=== PATIENT | male | born 1955 | race Caucasian/White ===

== ENCOUNTER 2016-10-09 13:23 | Inpatient (IN) | payer OTHER ==
[2016-10-09] VITALS (19 sets, daily range): BP systolic 127–168; BP diastolic 62–107; PULSE 62–94; RESP 16–18; TEMP 97.5–97.7; O2SAT 94–98
[~2016-10-09] VITALS: Ht 182.9 cm; Wt 87.9 kg
[~2016-10-09 13:23] MED LIST: NAPR550 PO; TRAM50 PO; Z.0.NO CURRENT MEDS
--- NOTE | 2016-10-09 13:54 | PD ---
HPI Chief Complaint: Headache Time Seen by Provider: 13:34 Travel History International Travel<30 days: No Contact w/Intl Traveler<30days: No Traveled to known affect area: No History of Present Illness HPI This patient saw his primary physician yesterday for a diffuse constellation of symptoms. She thought she was having a viral infection and advised Claritin. Today he reports he is no better and comes to the ER. He is complaining of headache. He has nausea and vomiting. No documented fever. No neck pain or stiffness. He has general malaise and some generalized weakness. No diarrhea. Symptoms severity is moderate. Duration 7 days. No alleviating factors PFSH Past Surgical History Abdominal Surgery: Yes (RIGHT GROIN-HERNIA REPAIR) Social History Alcohol Use: Yes (OCCAS. WINE) Tobacco Use: No Substance Use: No Allergies-Medications (Allergen,Severity, Reaction): Coded Allergies: No Known Allergies (Unverified , 10/09/16) Reported Meds & Prescriptions Reported Meds & Active Scripts Active Reported Claritin (Loratadine) 10 Mg Tab 10 Mg PO DAILY Review of Systems General / Constitutional: No: Fever Eyes: No: Visual changes HENT: Positive: Headaches Cardiovascular: No: Chest Pain or Discomfort Respiratory: No: Shortness of Breath Gastrointestinal: Positive: Nausea, Vomiting, No: Abdominal Pain Genitourinary: No: Dysuria Musculoskeletal: Positive: Weakness, No: Pain Skin: No Rash Neurologic: Positive: Weakness, Headache Psychiatric: No: Depression Endocrine: No: Polydipsia Hematologic/Lymphatic: No: Easy Bruising Physical Exam Narrative GENERAL: Well-nourished, well-developed patient with headache and nausea . SKIN: Focused skin assessment reveals no rash and nodules. Skin is Warm and dry. HEAD: Atraumatic. Normocephalic. EYES: Pupils equal and round. No scleral icterus. No injection or drainage. ENT: No nasal bleeding or discharge. Mucous membranes pink and moist. NECK: Trachea midline. No JVD. No meningeal signs CARDIOVASCULAR: Regular rate and rhythm. No murmur appreciated. RESPIRATORY: No accessory muscle use. Clear to auscultation. Breath sounds equal bilaterally. GASTROINTESTINAL: Abdomen soft, non-tender, nondistended. Hepatic and splenic margins not palpable. MUSCULOSKELETAL: No obvious deformities. No clubbing. No cyanosis. No edema. NEUROLOGICAL: Awake and alert. No obvious cranial nerve deficits. Motor grossly within normal limits. Normal speech. PSYCHIATRIC: Appropriate mood and affect; insight and judgment normal. Data Data Last Documented VS Vital Signs Date Time Temp Pulse Resp B/P Pulse Ox O2 Delivery O2 Flow Rate FiO2 10/09/16 15:03 83 16 152/99 96 Room Air 10/09/16 13:26 97.7 Orders Iv Access Insert/Monitor (10/09/16 13:47) Complete Blood Count With Diff (10/09/16 13:47) Basic Metabolic Panel (Bmp) (10/09/16 13:47) Ct Brain W/O Iv Contrast(Rout) (10/09/16 ) Ondansetron Inj (Zofran Inj) (10/09/16 14:00) Sodium Chlor 0.9% 1000 Ml Inj (Ns 1000 M (10/09/16 14:00) Morphine Inj (Morphine Inj) (10/09/16 14:00) Prothrombin Time / Inr (Pt) (10/09/16 15:05) Act Partial Throm Time (Ptt) (10/09/16 15:05) Admit Order (Ed Use Only) (10/09/16 15:12) Labs Laboratory Tests Test 10/09/16 10/09/16 14:10 15:05 White Blood Count 6.9 TH/MM3 Red Blood Count 5.26 MIL/MM3 Hemoglobin 15.3 GM/DL Hematocrit 47.5 % Mean Corpuscular Volume 90.2 FL Mean Corpuscular Hemoglobin 29.0 PG Mean Corpuscular Hemoglobin 32.2 % Concent Red Cell Distribution Width 13.8 % Platelet Count 237 TH/MM3 Mean Platelet Volume 8.7 FL Neutrophils (%) (Auto) 76.9 % Lymphocytes (%) (Auto) 12.4 % Monocytes (%) (Auto) 8.7 % Eosinophils (%) (Auto) 0.3 % Basophils (%) (Auto) 1.7 % Neutrophils # (Auto) 5.3 TH/MM3 Lymphocytes # (Auto) 0.9 TH/MM3 Monocytes # (Auto) 0.6 TH/MM3 Eosinophils # (Auto) 0.0 TH/MM3 Basophils # (Auto) 0.1 TH/MM3 CBC Comment DIFF FINAL Differential Comment Sodium Level 141 MEQ/L Potassium Level 4.0 MEQ/L Chloride Level 103 MEQ/L Carbon Dioxide Level 29.0 MEQ/L Anion Gap 9 MEQ/L Blood Urea Nitrogen 13 MG/DL Creatinine 1.20 MG/DL Estimat Glomerular Filtration 61 ML/MIN Rate Random Glucose 142 MG/DL Calcium Level 8.6 MG/DL Prothrombin Time 10.5 SEC Prothromb Time International 1.0 RATIO Ratio Activated Partial 23.8 SEC Thromboplast Time MDM Medical Decision Making Medical Screen Exam Complete: Yes Emergency Medical Condition: Yes Medical Record Reviewed: Yes Differential Diagnosis Intracranial hemorrhage, flu syndrome, meningitis Narrative Course I have reviewed the patient's electronic medical record. Patient was in May 2016 for hernia repair IV placed I gave him IV Zofran and IV morphine for symptom relief and 1 L normal saline IV bolus Brain CT shows a large right temporal hemorrhagic area with 3 mm midline shift CBC is normal Metabolic profile is normal Coagulation studies are added now after I look at the brain scan I discussed CT scan with radiologist Dr. Saleh. Difficult to know if this is a hemorrhagic bleed or there is underlying tumor or mass. Initially blood pressure elevated 160s systolic over 100 diastolic I'm rechecking now Neurosurgeon has been paged Multiple rechecks have been done, patient is critically ill Will be admitted to intensive care at the [facility] I reviewed with neurosurgeon Dr Flores. He has reviewed the CT as well. He recommends instituting Cardene drip which we are doing now and will maintain a systolic goal of 110. CT angiogram has been been ordered to evaluate for aneurysm Critical Care Narrative Aggregate critical care time was 78 minutes. Time to perform other separately billable procedures was not included in the critical care time. My time did not include minutes spent treating any other patients simultaneously or on activities that did not directly contribute to the patient's treatment. The services I provided to this patient were to treat and/or prevent clinically significant deterioration that could result in: Brain stem herniation, permanent neurologic deficit, cardiopulmonary arrest I provided critical care services requiring my management, as noted below: Chart data review, documentation time, medication orders and management, vital sign assessments/reviewing monitor data, ordering and reviewing lab tests, ordering and interpreting/reviewing x-rays and diagnostic studies, care of the patient and discussion of the patient with the admitting physicians. Diagnosis Primary Impression: Intracranial hemorrhage Additional Impression: Hypertensive emergency Admitting Information Admitting Physician Requests: Admit Maxx Doyle MD Oct 09, 2016 13:54
[2016-10-09] MEDS ORDERED: ONDANSETRON HCL 4 MG/2 ML VIAL IVP ONE (14:00)
[2016-10-09] MEDS: MORPHINE SULFATE 4 MG/ML INJ IV PUSH ONE ×2 (14:00→14:44)
[2016-10-09] MEDS ORDERED: SODIUM CHLOR 0.9% 1000 ML INJ 1,000 ML IV ONE (14:00)
[2016-10-09] MEDS ORDERED: LORA-361 PO (14:04)
[2016-10-09 14:20] LABS: AUTOMATED NEUTROPHIL # 5.3 TH/MM3 (1.8-7.7); BASOPHIL # 0.1 TH/MM3 (0-0.2); BASOPHIL % 1.7 % (0.0-2.0); EOSINOPHIL % 0.3 % (0.0-4.0); HEMATOCRIT 47.5 % (39.0-51.0); HEMO FLAGS DIFF FINAL; LYMPH % 12.4 % (9.0-44.0); LYMPHOCYTE # 0.9 TH/MM3 (1.0-4.8); MEAN CELL VOLUME 90.2 FL (80.0-100.0); MEAN CORPUSCULAR HGB CONC 32.2 % (32.0-36.0); MONO % 8.7 % (0.0-8.0); NEUT % 76.9 % (16.0-70.0); PLATELET COUNT 237 TH/MM3 (150-450); RED BLOOD COUNT 5.26 MIL/MM3 (4.50-5.90); RED CELL DISTRIBUTION WIDTH 13.8 % (11.6-17.2); WHITE BLOOD COUNT 6.9 TH/MM3 (4.0-11.0)
--- NOTE | 2016-10-09 14:44 | RADHPO ---
EXAM DATE/TIME: 10/09/2016 14:19 [facility] COMPARISON: No previous studies available for comparison. INDICATIONS : Headache RADIATION DOSE: 66.73 CTDIvol (mGy) MEDICAL HISTORY : Hernia. Carcinoma, basal cell. SURGICAL HISTORY : Inguinal hernia repair. ENCOUNTER: Initial ACUITY: 1 day PAIN SCALE: 7/10 LOCATION: cranial TECHNIQUE: Multiple contiguous axial images were obtained of the head. Using automated exposure control and adj ustment of the mA and/or kV according to patient size, radiation dose was kept as low as reasonably a chievable to obtain optimal diagnostic quality images. FINDINGS: The examination demonstrates a hyperdense mass centered in the right temporal region measured 4.3 x 3 .2 cm in AP and transverse mentioned. There is a small amount of surrounding edema, and possible exte nsion into the right temporal horn. This is consistent with an acute hematoma, and a hemorrhagic mass is difficult to exclude. There is 3.6 mm of right to left shift. The osseous structures are intact. CONCLUSION: Acute hematoma right temporal region. Possible extension into the right temporal horn. Possibility of underlying mass is difficult to exclude. Reinaldo Saleh MD on October 09, 2016 at 14:40 Board Certified Radiologist. This report was verified electronically.
[2016-10-09 15:30] LABS: APTT (PATIENT) 23.8 SEC (24.3-30.1); PROTHROMBIN TIME - PATIENT 10.5 SEC (9.8-11.6)
[2016-10-09] MEDS ORDERED: NALOXONE HCL 0.4 MG/ML AMP IV PRN (16:00)
[2016-10-09] MEDS ORDERED: SODIUM CHLORIDE 0.9% FLUSH 5 ML FLUSH IVF PRN (16:00)
[2016-10-09] MEDS: niCARdipine INJ 25 MG in SODIUM CHLOR 0.9% 250 ML INJ 250 ML IV SCH ×2 (16:32→21:52)
[2016-10-09] MEDS: D5-NS + KCL 20 MEQ INJ 1,000 ML IV SCH (16:32)
[2016-10-09] MEDS: HYDROmorphone HCL PF 1 MG/ML VIAL IV PRN ×3 (16:51→22:47)
--- NOTE | 2016-10-09 18:04 | HHI.HP ---
HPI Service Neurosurgery Primary Care Physician Unknown Chief Complaint: Headache, nausea History of Present Illness 61-year-old male presents to the emergency room today with history of approximately 7 days headache, cough, nausea and vomiting generalized malaise. Recent trip to the [facility]. Was seen by primary care physician yesterday. Headache has become very severe the past couple of days. No fevers or chills. Positive neck pain without significant stiffness. Positive myalgia. No skin rash Review of Systems Constitutional: COMPLAINS OF: Fatigue, DENIES: Fever, Dizziness Endocrine: DENIES: Heat/cold intolerance Eyes: DENIES: Blurred vision, Diplopia Ears, nose, mouth, throat: COMPLAINS OF: Nasal discharge, Running Nose, DENIES : Hearing loss, Vertigo, Sinus Pain Respiratory: COMPLAINS OF: Cough, DENIES: Sputum production, Shortness of breath Cardiovascular: DENIES: Chest pain, Palpitations Gastrointestinal: COMPLAINS OF: Nausea, Vomiting, DENIES: Abdominal pain Musculoskeletal: COMPLAINS OF: Joint pain, Muscle aches, Neck pain Integumentary: DENIES: Pruritus Hematologic/lymphatic: DENIES: Bruising Neurologic: COMPLAINS OF: Headache, DENIES: Abnormal gait, Seizures, Poor Balance Psychiatric: DENIES: Confusion Past Family Social History Allergies: Coded Allergies: *MDRO Multi-Drug Resistant Organism (Verified Adverse Reaction, Unknown, ) MRSA PCR screen POSITIVE 10/10/16 Past Medical History Basal cell carcinoma Past Surgical History Excision basal cell carcinoma Hernia repair Reported Medications Reported Meds & Active Scripts Active Reported Claritin (Loratadine) 10 Mg Tab 10 Mg PO DAILY Family History Mother with Alzheimer's. History of cancer in his father Social History Drinks wine with meals No cigarette use Denies illicit drug use Physical Exam Vital Signs Vital Signs Date Time Temp Pulse Resp B/P Pulse Ox O2 Delivery O2 Flow Rate FiO2 10/09/16 17:37 16 10/09/16 17:30 90 16 141/80 97 Room Air 10/09/16 17:05 84 16 151/84 97 Room Air 10/09/16 17:00 90 16 97 Room Air 10/09/16 16:30 79 16 161/90 97 Room Air 10/09/16 16:00 77 16 150/96 97 Room Air 10/09/16 15:35 81 16 98 Room Air 10/09/16 15:33 81 16 168/99 97 Room Air 10/09/16 15:03 83 16 152/99 96 Room Air 10/09/16 14:05 62 16 161/62 98 Room Air 10/09/16 13:45 68 16 98 Room Air 10/09/16 13:26 97.7 82 16 154/107 98 Physical Exam GENERAL: This is a well-nourished, well-developed patient, in no apparent distress. SKIN: No rashes, ecchymoses or lesions. HEAD: No lacerations or contusions EYES: Sclerae are clear and nonicteric. No periorbital edema or ecchymosis ENT: No CSF otorrhea or rhinorrhea. No facial fracture or deformity NECK: Supple, nontender, no meningeal signs. CARDIOVASCULAR: Regular rate and rhythm without murmurs, gallops, or rubs. RESPIRATORY: Clear to auscultation. Breath sounds equal bilaterally. No wheezes , rales, or rhonchi. GASTROINTESTINAL: Abdomen soft, non-tender, nondistended. No hepato-splenomegaly , or palpable masses. No guarding. Normal bowel sounds MUSCULOSKELETAL: Extremities without cyanosis, or edema. No joint tenderness, effusion, or edema noted. No calf tenderness. Posterior tibial pulse 2+ bilateral NEUROLOGICAL: Awake and alert Oriented X 3 Speech is clear Conversant and appropriate Follow simple commands well Answers questions appropriately Reasonable judgment and insight Recent and remote memory are intact No evidence of anxiety or depression Pupils are equal and reactive to accommodation. Extra-ocular movements, visual pereira to confrontation, facial sensorimotor, tongue, palate, sternocleidomastoid testing, hearing to finger rub testing, and bilateral shoulder shrug are all intact. Sensation is intact to light touch in all extremities Strength normal major flexion and extension groups all extremities Jason's absent bilaterally No ankle clonus Plantar responses absent bilateral Fine motor movements intact upper extremities Laboratory Laboratory Tests Test 10/09/16 10/09/16 14:10 15:05 White Blood Count 6.9 Red Blood Count 5.26 Hemoglobin 15.3 Hematocrit 47.5 Mean Corpuscular Volume 90.2 Mean Corpuscular Hemoglobin 29.0 Mean Corpuscular Hemoglobin 32.2 Concent Red Cell Distribution Width 13.8 Platelet Count 237 Mean Platelet Volume 8.7 Neutrophils (%) (Auto) 76.9 Lymphocytes (%) (Auto) 12.4 Monocytes (%) (Auto) 8.7 Eosinophils (%) (Auto) 0.3 Basophils (%) (Auto) 1.7 Neutrophils # (Auto) 5.3 Lymphocytes # (Auto) 0.9 Monocytes # (Auto) 0.6 Eosinophils # (Auto) 0.0 Basophils # (Auto) 0.1 CBC Comment DIFF FINAL Differential Comment Sodium Level 141 Potassium Level 4.0 Chloride Level 103 Carbon Dioxide Level 29.0 Anion Gap 9 Blood Urea Nitrogen 13 Creatinine 1.20 Estimat Glomerular Filtration 61 Rate Random Glucose 142 Calcium Level 8.6 Prothrombin Time 10.5 Prothromb Time International 1.0 Ratio Activated Partial 23.8 Thromboplast Time Result Diagram: 10/09/16 1410 10/09/16 1410 Imaging 10/09/16 CT scan head images reviewed by the undersigned. Head CT 10/09/16 0000 Signed Impressions: Service Date/Time: Sunday, October 09, 2016 14:19 - CONCLUSION: Acute hematoma right temporal region. Possible extension into the right temporal horn. Possibility of underlying mass is difficult to exclude. Reinaldo Saleh MD Assessment and Plan Assessment and Plan Impression: 1. Right temporal intracranial hemorrhage. Assessment for possible underlying mass, aneurysm 2. Hypertension Plan: Admit intensive care unit CT angiogram head and neck Plan MRI pending CT angiogram results Close neurologic checks and vital signs Hypertension management. 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 Leonidas Flores MD Oct 09, 2016 18:04
[2016-10-09] MEDS ORDERED: IOHEXOL 350 MG/ML 10 ML VIAL (for RAD DIAG) IV ONE (18:33)
--- NOTE | 2016-10-09 18:42 | RADHPO ---
EXAM DATE/TIME: 10/09/2016 17:11 [facility] COMPARISON: No previous studies available for comparison. INDICATIONS : Intercranial hemorrhage. IV CONTRAST: 75 cc Omnipaque 350 (iohexol) IV ; Cumulative dose for multiple exams. RADIATION DOSE: 42.30 CTDIvol (mGy) ; Combined studies MEDICAL HISTORY : Gastroesophageal reflux disease. SURGICAL HISTORY : None. ENCOUNTER: Initial ACUITY: 3 days PAIN SCALE: 9/10 LOCATION: Bilateral cranial Elevated flow velocities and ICA/CCA ratios have been found to correlate with increased degrees of vessel stenosis, calculated as percentage of diameter relative to a normal segment of distal ICA/CCA. TECHNIQUE: Volumetric scanning was performed using a multirow detector CT scanner. The data was post processed with a variety of visualization algorithms including full-volume maximum intensity projection, multip lanar sliding thin-slab reformation, curved-planar reformation, and surface-rendering techniques. Us ing automated exposure control and adjustment of the mA and/or kV according to patient size, radiatio n dose was kept as low as reasonably achievable to obtain optimal diagnostic quality images. FINDINGS: AORTIC ARCH: There is a three-vessel origin of the great vessels from the aorta. No evidence of ostial narrowing. RIGHT CAROTID: The common carotid artery is intact. The carotid bulb has a normal configuration without ulceration o r narrowing. The internal carotid artery lumen is smooth without stenosis. The external carotid suzie ry is intact. LEFT CAROTID: The common carotid artery is intact. The carotid bulb has a normal configuration without ulceration or narrowing. The internal carotid artery lumen is smooth without stenosis. The external carotid ar star is intact. VERTEBRALS: The vertebral arteries have a symmetric diameter. No stenotic lesions are seen. CONCLUSION: Unremarkable exam. Max Ac MD on October 09, 2016 at 18:38 Board Certified Radiologist. This report was verified electronically.
--- NOTE | 2016-10-09 18:51 | RADHPO ---
EXAM DATE/TIME: 10/09/2016 17:11 [facility] COMPARISON: CT BRAIN W/O CONTRAST, October 09, 2016, 14:19. INDICATIONS : Intercranial hemorrhage. IV CONTRAST: 75 cc Omnipaque 350 (iohexol) IV ; Cumulative dose for multiple exams. RADIATION DOSE: 42.30 CTDIvol (mGy) ; Combined studies MEDICAL HISTORY : Gastroesophageal reflux disease. SURGICAL HISTORY : None. ENCOUNTER: Initial ACUITY: 3 days PAIN SCALE: 9/10 LOCATION: Bilateral cranial TECHNIQUE: Volumetric scanning was performed using a multi-row detector CT scanner. The data was post processed with a variety of visualization algorithms including full volume maximum intensity projection, multi -planar sliding thin slab reformation, curved planar reformation, and surface rendering techniques. Using automated exposure control and adjustment of the mA and/or kV according to patient size, radiat ion dose was kept as low as reasonably achievable to obtain optimal diagnostic quality images. FINDINGS: There is excellent visualization of the major intracranial arteries out to the second-order branch ve ssels. There is no evidence for aneurysm, vessel truncation or stenosis, and no evidence for vascula r malformation. The known intracranial hemorrhage in the right temporal region is again visualized. There is mild mas s effect on the adjacent vasculature. CONCLUSION: No evidence of aneurysm or arteriovenous malformation. Max Ac MD on October 09, 2016 at 18:45 Board Certified Radiologist. This report was verified electronically.
[2016-10-09] MEDS: ONDANSETRON HCL 4 MG/2 ML VIAL IV PRN (19:08)
[2016-10-09] MEDS: SODIUM CHLORIDE 0.9% FLUSH 5 ML FLUSH IVF SCH (21:00)
[2016-10-09] MEDS: DOCUSATE SODIUM 100 MG CAP PO SCH (21:00)
[2016-10-10] VITALS (16 sets, daily range): BP systolic 106–144; BP diastolic 57–86; PULSE 66–84; RESP 12–22; TEMP 97.5–98.4; O2SAT 94–97
[2016-10-10] MEDS: D5-NS + KCL 20 MEQ INJ 1,000 ML IV SCH (01:55)
[2016-10-10] MEDS: ONDANSETRON HCL 4 MG/2 ML VIAL IV PRN ×4 (01:55→22:31)
[2016-10-10] MEDS: niCARdipine INJ 25 MG in SODIUM CHLOR 0.9% 250 ML INJ 250 ML IV SCH ×6 (02:22→16:17)
--- NOTE | 2016-10-10 02:49 | PD.CONS ---
HPI Service Critical Care Medicine Consult Requested By Dr. Flores Reason for Consult Critical care management following intracerebral hemorrhage Primary Care Physician Unknown History of Present Illness 61-year-old [id number] male who presents to [facility] with 1 week history of headache, myalgias, cough after traveling in the [place]. He had seen his primary care physician for this and was prescribed an antihistamine. For the last 2 days his headache has been worse, 9 out of 10 in severity, with associated neck pain and vomiting. No fever. No seizures. He underwent workup in the emergency department which included CT brain that showed intracerebral hemorrhage in the right temporal lobe 4.3 x 3.2 cm with some surrounding edema and 3.6 cm of right to left shift. He has not been under treatment for hypertension but states his blood pressure has occasionally been elevated at physician appointments. His blood pressure was 154/107 upon arrival to the ED and he is currently on Cardene at 5 mg per hour to maintain goal blood pressure. No unintended weight loss CTA head and neck is negative for vascular abnormality Past Family Social History Allergies: Coded Allergies: No Known Allergies (Unverified , 10/09/16) Past Medical History Hematospermia for which he has undergone urologic evaluation as outpatient Basal cell carcinoma of the face Past Surgical History Right inguinal hernia repair in 2016 Basal cell carcinoma excision his eye in 2017 Reported Medications None Active Ordered Medications Current Medications Medications (Trade) Dose Ordered Sig/Munir Route Start Time Stop Time Status Last Admin ([place] 5-325 Mg) 1 tab Q4H PRN PO 10/09/16 16:00 (Percocet 10-325 Mg) 1 tab Q6H PRN PO 10/09/16 16:00 (Dilaudid Pf Inj) 0.5 mg Q3H PRN IV 10/09/16 16:00 10/09/16 19:46 (Dilaudid Pf Inj) 1 mg Q3H PRN IV 10/09/16 16:00 10/09/16 22:47 (Narcan Inj) 0.4 mg UNSCH PRN IV 10/09/16 16:00 (NS Flush) 2 ml UNSCH PRN IVF 10/09/16 16:00 IV Flush 2 ml 2 ml BID IVF 10/09/16 21:00 10/09/16 21:00 Potassium Chloride/Dextrose/ Sod Cl 1,000 ml @ 100 mls/hr Q10H IV 10/09/16 16:30 10/10/16 01:55 (Cardene Inj/NS 250 ml Inj) 260 ml @ 0 mls/hr TITRATE IV 10/09/16 16:00 10/10/16 02:22 (Colace) 100 mg BID PO 10/09/16 21:00 (Protonix Inj) 40 mg DAILY IVP 10/10/16 09:00 (Zofran Inj) 4 mg Q6H PRN IV 10/09/16 16:00 10/10/16 01:55 Family History His father of colorectal cancer in his 60s Mother of Alzheimer's disease Social History He is a lifetime nonsmoker Drinks one glass of wine per night Denies use of tobacco or illicit drugs Is He was recently visiting the [facility] in [place] 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 Physical Exam Vital Signs Vital Signs Date Time Temp Pulse Resp B/P Pulse Ox O2 Delivery O2 Flow Rate FiO2 10/10/16 02:00 128/73 10/10/16 01:00 125/71 10/10/16 00:00 69 10/10/16 00:00 97.5 71 12 121/69 95 10/09/16 23:00 131/70 10/09/16 22:00 128/74 10/09/16 22:00 76 10/09/16 21:00 134/77 10/09/16 20:50 88 16 130/79 95 10/09/16 20:40 86 18 127/76 95 Room Air 10/09/16 20:28 18 10/09/16 20:20 88 17 133/80 94 Room Air 10/09/16 19:50 90 18 132/77 96 Room Air 10/09/16 19:28 94 18 132/82 95 Room Air 10/09/16 19:00 97.5 90 18 133/78 94 Room Air 10/09/16 18:30 86 16 128/81 96 Room Air 10/09/16 18:03 90 16 138/83 96 Room Air 10/09/16 18:00 87 16 96 Room Air 10/09/16 17:37 16 10/09/16 17:30 90 16 141/80 97 Room Air 10/09/16 17:05 84 16 151/84 97 Room Air 10/09/16 17:00 90 16 97 Room Air 10/09/16 16:30 79 16 161/90 97 Room Air 10/09/16 16:00 77 16 150/96 97 Room Air 10/09/16 15:35 81 16 98 Room Air 10/09/16 15:33 81 16 168/99 97 Room Air 10/09/16 15:03 83 16 152/99 96 Room Air 10/09/16 14:05 62 16 161/62 98 Room Air 10/09/16 13:45 68 16 98 Room Air 10/09/16 13:26 97.7 82 16 154/107 98 Physical Exam Temp 97.5 blood pressure 121/61 pulse 81 sats 95% on room air Drips: Cardene 5 mill grams per hour 0.9 NaCl with 20 mEq of KCl per liter at 100 mL per hour GENERAL: Well-nourished, well-developed male who is sitting up in ISC bed, dry heaving. SKIN: Warm and dry. HEAD: Atraumatic. Normocephalic. EYES: Pupils equal and round, 3 mm briskly reactive. No scleral icterus. No injection or drainage. ENT: No nasal bleeding or discharge. Mucous membranes pink and moist. NECK: Trachea midline. No JVD. CARDIOVASCULAR: Regular rate and rhythm, sinus rhythm on the monitor. intermittent 2/6 systolic murmur LSB noted with inspiration. RESPIRATORY: No accessory muscle use. Clear to auscultation. Breath sounds equal bilaterally. GASTROINTESTINAL: Abdomen soft, non-tender, nondistended. Bowel sounds present MUSCULOSKELETAL: Extremities without clubbing, cyanosis, or edema. No obvious deformities. NEUROLOGICAL: Awake and alert. No obvious cranial nerve deficits. No facial droop. Sensation intact throughout. Strength 5/5 all extremities. Laboratory Laboratory Tests Test 10/09/16 10/09/16 14:10 15:05 White Blood Count 6.9 Red Blood Count 5.26 Hemoglobin 15.3 Hematocrit 47.5 Mean Corpuscular Volume 90.2 Mean Corpuscular Hemoglobin 29.0 Mean Corpuscular Hemoglobin 32.2 Concent Red Cell Distribution Width 13.8 Platelet Count 237 Mean Platelet Volume 8.7 Neutrophils (%) (Auto) 76.9 Lymphocytes (%) (Auto) 12.4 Monocytes (%) (Auto) 8.7 Eosinophils (%) (Auto) 0.3 Basophils (%) (Auto) 1.7 Neutrophils # (Auto) 5.3 Lymphocytes # (Auto) 0.9 Monocytes # (Auto) 0.6 Eosinophils # (Auto) 0.0 Basophils # (Auto) 0.1 CBC Comment DIFF FINAL Differential Comment Sodium Level 141 Potassium Level 4.0 Chloride Level 103 Carbon Dioxide Level 29.0 Anion Gap 9 Blood Urea Nitrogen 13 Creatinine 1.20 Estimat Glomerular Filtration 61 Rate Random Glucose 142 Calcium Level 8.6 Prothrombin Time 10.5 Prothromb Time International 1.0 Ratio Activated Partial 23.8 Thromboplast Time Result Diagram: 10/09/16 1410 10/09/16 1410 Assessment and Plan Assessment and Plan NEURO: Intracerebral hemorrhage, right temporal lobe CTA negative for vascular abnormality. Obtain MRI with and without contrast to evaluate for mass lesion Cardene to maintain systolic blood pressure less than 140 Avoid hypoxemia, hyponatremia. Maintain euvolemia Oxycodone 5/325 as needed for pain. Dilaudid 0.5-1 mg IV when necessary breakthrough pain RESP: Incentive spirometry every hour awake CV: Malignant hypertension Manage acutely with cardene drip, target SBP <140. Then transition to po antihypertensives F/u Echo GI: Nausea Zofran prn Colace 100 mg by mouth twice a day for bowel regimen FEN/RENAL: Monitor intake and output. Monitor electrolytes. Replace electrolytes as indicated per ICU electrolyte replacement protocol. 0.9 NaCl with 20 mEq KCl per liter at 85 mL per hour ID: Monitor for signs and symptoms of infection HEME: Coags normal. Hemoglobin normal with no acute hematologic issues ENDO: Mild hyperglycemia Monitor bedside glucose and initiate low-dose insulin sliding scale as indicated PROPH: SCDs for DVT prophylaxis. Avoid pharmacologic DVT prophylaxis at this time due to acute intracranial hemorrhage. Protonix 40 mg IV daily for stress ulcer prophylaxis ACCESS: Peripheral IV providing adequate access at this time. Place art line for hemodynamic monitoring Full code Patient and his updated at bedside regarding plan of care and expected course. Level 3 consult Arabella Llanos MD Oct 10, 2016 02:49
[2016-10-10] MEDS ORDERED: SODIUM PHOSPHATE INJ 30 MMOL in SODIUM CHLOR 0.9% 250 ML INJ 240 ML IV PRN (03:00)
[2016-10-10] MEDS ORDERED: POTASSIUM PHOSPHATE INJ 30 MMOL in SODIUM CHLOR 0.9% 250 ML INJ 250 ML IV PRN (03:00)
[2016-10-10] MEDS ORDERED: POTASSIUM CHLOR 20 MEQ PREMIX 100 ML IV PRN ×2 (03:00)
[2016-10-10] MEDS ORDERED: MAGNESIUM OXIDE 400 MG TAB PO PRN (03:00)
[2016-10-10] MEDS ORDERED: POTASSIUM CHLOR 40 MEQ PREMIX 100 ML IV PRN ×2 (03:00)
[2016-10-10] MEDS ORDERED: POTASSIUM PHOSPHATE MONOBASIC 500 MG TAB PO/TUBE PRN (03:00)
[2016-10-10] MEDS ORDERED: MAGNESIUM SULFATE INJ 4 GM in SODIUM CHLORIDE 0.9% INJ 92 ML IV PRN (03:00)
[2016-10-10] MEDS ORDERED: POTASSIUM PHOSPHATE MONOBASIC 500 MG TAB PO PRN (03:00)
[2016-10-10] MEDS ORDERED: MAGNESIUM SULFATE INJ 2 GM in SODIUM CHLORIDE 0.9% INJ 96 ML IV PRN (03:00)
[2016-10-10] MEDS ORDERED: DEXTROSE 50% IN WATER 50 ML VIAL(D50) IV PUSH PRN (03:15)
[2016-10-10] MEDS ORDERED: GLUCAGON 1 MG/ML VIAL OTHER PRN (03:15)
[2016-10-10] MEDS ORDERED: CALCIUM CARBONATE 500 MG CHEWABLE TAB CHEW ONE (03:30)
[2016-10-10] MEDS: NS + KCL 20 MEQ INJ 1,000 ML IV SCH ×2 (03:30→14:26)
[2016-10-10] MEDS: INSULIN ASPART SUPPLEMENTAL SCALE SQ SCH ×4 (05:41→21:00)
[2016-10-10] MEDS ORDERED: LABETALOL HCL 100 MG/20 ML VIAL IV PUSH PRN (05:45)
[2016-10-10] MEDS: hydrALAZINE HCL 20 MG/ML VIAL IV PUSH PRN ×2 (05:49→10:21)
--- NOTE | 2016-10-10 06:06 | RADRPT ---
EXAM DATE/TIME: 10/10/2016 04:25 [facility] COMPARISON: CT BRAIN W/O CONTRAST, October 09, 2016, 14:19. INDICATIONS : Evaluate known intracerebral hemorrhage. RADIATION DOSE: 41.17 CTDIvol (mGy) MEDICAL HISTORY : Hernia. Carcinoma, basal cell. SURGICAL HISTORY : Inguinal hernia repair. ENCOUNTER: Subsequent ACUITY: 2 days PAIN SCALE: 2/10 LOCATION: cranial TECHNIQUE: Multiple contiguous axial images were obtained of the head. Using automated exposure control and adj ustment of the mA and/or kV according to patient size, radiation dose was kept as low as reasonably a chievable to obtain optimal diagnostic quality images. FINDINGS: CEREBRUM: The right temporal hemorrhage measuring 3.8 x 2.2 cm appears slightly smaller. Adjacent vasogenic chas ma and minimal right to left midline shift of 2 mm. There is intraventricular hemorrhage in the poste rior horns of both lateral ventricles greater on the right. No ventricular dilatation. No acute infar ction. POSTERIOR FOSSA: The cerebellum and brainstem are intact. The 4th ventricle is midline. The cerebellopontine angle i s unremarkable. EXTRACRANIAL: The visualized portion of the orbits is intact. SKULL: The calvaria is intact. No evidence of skull fracture. CONCLUSION: 1. Right temporal hemorrhage slightly less prominent. 2. Right to left midline shift of 2 mm. 3. Minimal intraventricular hemorrhage. Satish Sun MD on October 10, 2016 at 6:02 Board Certified Radiologist. This report was verified electronically.
[2016-10-10] MEDS: HYDROmorphone HCL PF 1 MG/ML VIAL IV PRN ×3 (06:24→22:10)
[2016-10-10] MEDS: amLODIPine BESYLATE 5 MG TAB PO SCH (08:52)
[2016-10-10] MEDS: DOCUSATE SODIUM 100 MG CAP PO SCH ×2 (08:52→22:10)
[2016-10-10] MEDS: SODIUM CHLORIDE 0.9% FLUSH 5 ML FLUSH IVF SCH ×2 (08:53→21:00)
[2016-10-10] MEDS: PANTOPRAZOLE SODIUM 40 MG VIAL IVP SCH (08:53)
[2016-10-10] MEDS ORDERED: GADODIAMIDE PF 287 MG/ML 20 ML VIAL (for RAD MRI) IV ONE (09:36)
[2016-10-10 09:46] LABS: AUTOMATED NEUTROPHIL # 9.4 TH/MM3 (1.8-7.7); BASOPHIL % 0.1 % (0.0-2.0); HEMATOCRIT 47.5 % (39.0-51.0); LYMPH % 6.4 % (9.0-44.0); LYMPHOCYTE # 0.7 TH/MM3 (1.0-4.8); MEAN CELL VOLUME 90.6 FL (80.0-100.0); MEAN CORPUSCULAR HEMOGLOBIN 31.3 PG (27.0-34.0); MEAN CORPUSCULAR HGB CONC 34.5 % (32.0-36.0); MONO % 6.2 % (0.0-8.0); NEUT % 87.3 % (16.0-70.0); PLATELET COUNT 192 TH/MM3 (150-450); RED BLOOD COUNT 5.25 MIL/MM3 (4.50-5.90); RED CELL DISTRIBUTION WIDTH 14.2 % (11.6-17.2); WHITE BLOOD COUNT 10.8 TH/MM3 (4.0-11.0)
[2016-10-10 09:53] LABS: PROTHROMBIN TIME - PATIENT 10.7 SEC (9.8-11.6)
[2016-10-10 09:54] LABS: APTT (PATIENT) 19.4 SEC (24.3-30.1)
[2016-10-10 09:59] LABS: BICARBONATE 23.6 MEQ/L (21.0-32.0)
--- NOTE | 2016-10-10 10:10 | RADRPT ---
EXAM DATE/TIME: 10/10/2016 09:22 [facility] COMPARISON: CT BRAIN W/O CONTRAST, October 10, 2016, 4:25. INDICATIONS : Mass. CONTRAST: 16 cc Omniscan (gadodiamide) IV MEDICAL HISTORY : Carcinoma, basal cell. SURGICAL HISTORY : Inguinal hernia repair. ENCOUNTER: Subsequent ACUITY: 3 day PAIN SCORE: 0/10 LOCATION: head TECHNIQUE: Multiplanar, multisequence MRI of the brain was performed both prior to and following the administrat ion of paramagnetic contrast. FINDINGS: Right temporal intra-axial hemorrhage is slightly larger when compared to the CT of the brain. It cur rently measures 3.4 x 4.7 x 3.1 cm in size. The reported CT measurement was 3.8 x 2.2 cm. There is pe rsistent [id number] mass effect with effacement of the right cerebral peduncle. Degree of mass effect is not significantly increased. There is no significant shift of midline structures. Small amount of hemorrhage within the lateral ventricles is stable. Diffusion weighted imaging demonstrates mild restricted diffusion within hematoma but no evidence of significant adjacent brain infarct. Mild T2 hyperintensity surrounding the hematoma is consistent wit h mild edema. The brainstem, cerebellum and left cerebral hemisphere appear unremarkable. There is no significant subarachnoid component. There is no evidence of abnormal adjacent enhancing lesions or vascular abnormality. CONCLUSION: Right temporal hematoma is slightly larger compared to prior CT however there is no s ignificant increase in degree of mass effect on the right cerebral peduncle. Stable small intraventricular hemorrhage. No evidence of significant adjacent infarct, abnormal enhancement or abnormal vascularity. Blake Corbin MD on October 10, 2016 at 10:00 Board Certified Radiologist. This report was verified electronically.
[2016-10-10 10:24] LABS: HEMO FLAGS AUTO DIFF
[2016-10-10 10:25] LABS: PLATELET ESTIMATE SMEAR NORMAL (NORMAL); PLATELET MORPHOLOGY CLUMPED (NORMAL); SCAN/DIFF AUTO DIFF CONFIRMED
--- NOTE | 2016-10-10 10:29 | EKG ---
Date Performed: 10/10/2016 Time Performed: 04:03:16 PTAGE: 61 years EKG: Sinus rhythm Prolonged QT interval Borderline ECG PREVIOUS TRACING : 09/28/2016 18.36 DOCTOR: Cem Cadet Interpretating Date/Time 10/10/2016 10:27:32
--- NOTE | 2016-10-10 20:01 | EC ---
Study Study Date:10/10/2016 STUDY CONCLUSIONS SUMMARY LEFT VENTRICLE: The cavity size was normal. Systolic function was normal. The estimated ejection fraction was in the range of 60% to 65%. Wall motion was normal; there were no regional wall motion abnormalities. Left ventricular diastolic function parameters were normal. If LV function is below 40, please consider prescribing an ACEI or ARB or document rationale for non-use. PROCEDURE DATA STUDY STATUS: Elective. Procedure: Transthoracic echocardiography. Image quality was good. Scanning was performed from the parasternal, apical, and subcostal acoustic windows. Study completion: The patient tolerated the procedure well. Transthoracic echocardiography. M-mode, complete 2D, complete spectral Doppler, and color Doppler. Height: Height: 72in. Weight: Weight: 178.6lb. Body mass index: BMI: 24.3kg/m^2. Body surface area: BSA: 2.03m^2. Patient status: Inpatient. CARDIAC ANATOMY LEFT VENTRICLE: The cavity size was normal. Systolic function was normal. The estimated ejection fraction was in the range of 60% to 65%. Wall motion was normal; there were no regional wall motion abnormalities. Left ventricular diastolic function parameters were normal. AORTIC VALVE: Probably trileaflet. Doppler: There was no stenosis. No significant regurgitation. Valve area: 2.78cm^2 (Vmax). Indexed valve area: 1.37cm^2/m^2 (Vmax). MITRAL VALVE: The valve appears to be grossly normal. Doppler: There was no evidence for stenosis. Trace regurgitation. Peak gradient: 3mm Hg (D). LEFT ATRIUM: The atrium was normal in size. RIGHT VENTRICLE: The cavity size was normal. PULMONIC VALVE: Not well visualized. Doppler: There was no evidence for stenosis. Trace regurgitation. TRICUSPID VALVE: The valve appears to be grossly normal. Doppler: There was no evidence for stenosis. Trace regurgitation. PERICARDIUM: There was no pericardial effusion. Patient weight: 178.6lb _Ejection fraction:_ 65-75% _Fractional shortening:_ 32% up to 5Kg 5-11.5Kg 11.6-22.9Kg 23-45Kg 45-57Kg Aortic Root 7-13 <17 13-22 17-27 17-27 LA diam 6-13 <23 24-38 33-47 37-40 RVID 10-17 7-15 7-15 7-18 8-17 LVIDd 12-22 <32 24-38 33-47 37-40 LVPW 2-4 3-6 5-7 6-8 7-8 IVS 2-4 3-6 5-7 6-8 7-8 BASIC MEASUREMENTS ADULT NORMAL Left ventricle LV internal dimension, ED, chordal 51.8 mm 43-52 level, PLAX LV internal dimension, ES, chordal 36.7 mm 23-38 level, PLAX Fractional shortening, chordal level, *29 % >29 PLAX LV posterior wall thickness, ED 9.97 mm IVS/LVPW ratio, ED 0.96 <1.3 Ventricular septum Septal thickness, ED 9.62 mm Aortic valve Leaflet separation 20 mm 15-26 Left atrium Anterior-posterior dimension 37 mm Anterior-posterior dimension index 1.82 cm/m^2 <2.2 Right ventricle RV internal dimension, ED, PLAX 21.7 mm 19-38 BASIC MEASUREMENTS ADULT NORMAL Aortic valve Leaflet separation 20 mm 15-26 Aorta Root diameter, ED 28 mm 20-37 DOPPLER MEASUREMENTS ADULT NORMAL Main pulmonary artery Pressure, S 21 mm Hg =30 Pressure, ED 15 mm Hg Aortic valve Peak velocity, S 140 cm/s Valve area, Vmax 2.78 cm^2 Valve area index, Vmax 1.37 cm^2/m^2 Mitral valve Peak E-wave velocity 85.4 cm/s Peak A-wave velocity 62.2 cm/s Deceleration time 197 ms 150-230 Peak gradient, D 3 mm Hg Peak E/A ratio 1.4 Maximal regurgitant velocity 201 cm/s Tricuspid valve Regurgitant peak velocity 214 cm/s Peak RV-RA gradient, S 18 mm Hg Systemic veins Estimated CVP 10 mm Hg Right ventricle RV pressure, S 28 mm Hg <30 Pulmonic valve Peak velocity, S 129 cm/s Regurgitant velocity, ED 111 cm/s LEGEND: Mean values are shown as u=mean value. Asterisk (*) gutierres values outside specified normal range. Prepared and signed by Dewey Riojas [id number]
--- NOTE | 2016-10-10 21:36 | HHI.NSPN ---
History Chief Complaint: headache Interval History 61-year-old male presents with approximately one week of progressive severe headache, sometimes accompanied with nausea vomiting, neck stiffness. No definite fevers or chills. 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 Agree with findings as noted below: Head CT 10/10/16 0600 Signed Impressions: Service Date/Time: Monday, October 10, 2016 04:25 - CONCLUSION: 1. Right temporal hemorrhage slightly less prominent. 2. Right to left midline shift of 2 mm. 3. Minimal intraventricular hemorrhage. Satish Sun MD Brain MRI 10/10/16 0000 Signed Impressions: Service Date/Time: Monday, October 10, 2016 09:22 - CONCLUSION: Right temporal hematoma is slightly larger compared to prior CT however there is no significant increase in degree of mass effect on the right cerebral peduncle. Stable small intraventricular hemorrhage. No evidence of significant adjacent infarct, abnormal enhancement or abnormal vascularity. Blake Corbin MD Laboratory Tests Test 10/10/16 10/10/16 02:08 08:57 Nasal Screen MRSA (PCR) POSITIVE White Blood Count 10.8 TH/MM3 Red Blood Count 5.25 MIL/MM3 Hemoglobin 16.4 GM/DL Hematocrit 47.5 % Mean Corpuscular Volume 90.6 FL Mean Corpuscular Hemoglobin 31.3 PG Mean Corpuscular Hemoglobin 34.5 % Concent Red Cell Distribution Width 14.2 % Platelet Count 192 TH/MM3 Mean Platelet Volume 9.3 FL Neutrophils (%) (Auto) 87.3 % Lymphocytes (%) (Auto) 6.4 % Monocytes (%) (Auto) 6.2 % Eosinophils (%) (Auto) 0.0 % Basophils (%) (Auto) 0.1 % Neutrophils # (Auto) 9.4 TH/MM3 Lymphocytes # (Auto) 0.7 TH/MM3 Monocytes # (Auto) 0.7 TH/MM3 Eosinophils # (Auto) 0.0 TH/MM3 Basophils # (Auto) 0.0 TH/MM3 CBC Comment AUTO DIFF Differential Comment AUTO DIFF CONFIRMED Platelet Estimate NORMAL Platelet Morphology Comment CLUMPED Prothrombin Time 10.7 SEC Prothromb Time International 1.0 RATIO Ratio Activated Partial 19.4 SEC Thromboplast Time Sodium Level 138 MEQ/L Potassium Level 4.0 MEQ/L Chloride Level 106 MEQ/L Carbon Dioxide Level 23.6 MEQ/L Anion Gap 8 MEQ/L Blood Urea Nitrogen 8 MG/DL Creatinine 0.81 MG/DL Estimat Glomerular Filtration 96 ML/MIN Rate Random Glucose 128 MG/DL Calcium Level 8.6 MG/DL Medical Decision Making Impression and Plan Impression: 1. Right temporal intracranial hemorrhage. No definite vascular malformation, aneurysm, underlying mass lesion or evidence of infection on the basis of CT angiogram and MRI imaging. 2. Hypertension Plan: Continue ISC close neurologic checks. Continue blood pressure control and monitoring. Cardene drip and as needed medications Non-chemical DVT prophylaxis Physical therapy Intensivists evaluation Ulcer prophylaxis Leonidas Flores MD Oct 10, 2016 21:36
[2016-10-11] VITALS (12 sets, daily range): BP systolic 107–140; BP diastolic 61–80; PULSE 56–83; RESP 14–20; TEMP 98.2–98.5; O2SAT 93–96
[2016-10-11] MEDS ORDERED: SODIUM CHLOR 0.9% 250 ML INJ 250 ML ONE (00:13)
[2016-10-11] MEDS: niCARdipine INJ 25 MG in SODIUM CHLOR 0.9% 250 ML INJ 250 ML IV SCH (00:29)
[2016-10-11] MEDS: NS + KCL 20 MEQ INJ 1,000 ML IV SCH ×2 (00:30→14:31)
[2016-10-11] MEDS: INSULIN ASPART SUPPLEMENTAL SCALE SQ SCH ×4 (07:00→21:00)
[2016-10-11] MEDS: PANTOPRAZOLE SODIUM 40 MG VIAL IVP SCH (08:58)
[2016-10-11] MEDS: ONDANSETRON HCL 4 MG/2 ML VIAL IV PRN (08:58)
[2016-10-11] MEDS: DOCUSATE SODIUM 100 MG CAP PO SCH ×2 (09:03→20:06)
[2016-10-11] MEDS: HYDROmorphone HCL PF 1 MG/ML VIAL IV PRN ×2 (09:03→16:59)
[2016-10-11] MEDS: SODIUM CHLORIDE 0.9% FLUSH 5 ML FLUSH IVF SCH ×2 (09:07→20:07)
[2016-10-11] MEDS: amLODIPine BESYLATE 5 MG TAB PO SCH (09:09)
[2016-10-11] MEDS ORDERED: amLODIPine BESYLATE 5 MG TAB PO ONE (11:45)
--- NOTE | 2016-10-11 11:52 | HHI.CCPN ---
Subjective Remarks/Hospital Course 10/10: 61-year-old [id number] male who presents to [facility] with 1 week history of headache, myalgias, cough after traveling in the [place]. He had seen his primary care physician for this and was prescribed an antihistamine. For the last 2 days his headache has been worse, 9 out of 10 in severity, with associated neck pain and vomiting. No fever. No seizures. He underwent workup in the emergency department which included CT brain that showed intracerebral hemorrhage in the right temporal lobe 4.3 x 3.2 cm with some surrounding edema and 3.6 cm of right to left shift. He has not been under treatment for hypertension but states his blood pressure has occasionally been elevated at physician appointments. His blood pressure was 154/107 upon arrival to the ED and he is currently on Cardene at 5 mg per hour to maintain goal blood pressure. No unintended weight loss CTA head and neck is negative for vascular abnormality. 10/11: Resting comfortably in bed. Off nicardipine drip. Denies any weakness in either extremities. Still has a headache. Tolerating by mouth. Objective Vital Signs Date Time Temp Pulse Resp B/P Pulse Ox O2 Delivery O2 Flow Rate FiO2 10/11/16 06:00 72 10/11/16 04:00 98.5 14 138/61 93 10/10/16 19:00 Room Air 10/10/16 11:32 21 Intake and Output 10/10/16 10/10/16 10/11/16 08:00 16:00 00:00 Intake Total 1123 ml 1631 ml 811 ml Output Total 450 ml 290 ml Balance 673 ml 1341 ml 811 ml Result Diagram: 10/10/16 0857 10/10/16 0857 Objective Remarks GENERAL: Well-nourished, well-developed male who is sitting up in ISC bed. SKIN: Warm and dry. HEAD: Atraumatic. Normocephalic. EYES: Pupils equal and round, 3 mm briskly reactive. No scleral icterus. No injection or drainage. ENT: No nasal bleeding or discharge. Mucous membranes pink and moist. NECK: Trachea midline. No JVD. CARDIOVASCULAR: Regular rate and rhythm, sinus rhythm on the monitor. intermittent 2/6 systolic murmur LSB noted with inspiration. RESPIRATORY: No accessory muscle use. Clear to auscultation. Breath sounds equal bilaterally. GASTROINTESTINAL: Abdomen soft, non-tender, nondistended. Bowel sounds present MUSCULOSKELETAL: Extremities without clubbing, cyanosis, or edema. No obvious deformities. NEUROLOGICAL: Awake and alert. No obvious cranial nerve deficits. No facial droop. Sensation intact throughout. Strength 5/5 all extremities. A/P Assessment and Plan NEURO: Intracerebral hemorrhage, right temporal lobe CTA negative for vascular abnormality. MRI brain did not reveal any neoplasm. Being followed by neurosurgery. Cardene to maintain systolic blood pressure less than 140 Avoid hypoxemia, hyponatremia. Maintain euvolemia Oxycodone 5/325 as needed for pain. Dilaudid 0.5-1 mg IV when necessary breakthrough pain RESP: Incentive spirometry every hour awake CV: Malignant hypertension Manage acutely with cardene drip, target SBP <140. Off nicardipine drip since this morning. Amlodipine increased to 10 mg daily F/u Echo GI: Nausea Zofran prn Colace 100 mg by mouth twice a day for bowel regimen FEN/RENAL: Monitor intake and output. Monitor electrolytes. Replace electrolytes as indicated per ICU electrolyte replacement protocol. 0.9 NaCl with 20 mEq KCl per liter at 85 mL per hour ID: Monitor for signs and symptoms of infection HEME: Coags normal. Hemoglobin normal with no acute hematologic issues ENDO: Mild hyperglycemia Monitor bedside glucose and initiate low-dose insulin sliding scale as indicated PROPH: SCDs for DVT prophylaxis. Avoid pharmacologic DVT prophylaxis at this time due to acute intracranial hemorrhage. Protonix 40 mg IV daily for stress ulcer prophylaxis ACCESS: Peripheral IV providing adequate access at this time. Discontinue A line Full code Patient updated at bedside regarding plan of care and expected course. Consult hospitalist service for further medical management. Further recommendations per neurosurgery. Critical care signing off at this time. Please reconsult if needed. Canelo Seals MD Oct 11, 2016 11:52
[2016-10-11] MEDS ORDERED: CHLORHEXIDINE GLUCONATE 2 % 1 PACK (2 CLOTHS)(extra cloths) TOPICAL PRN (12:30)
[2016-10-11 13:19] LABS: BICARBONATE 25.6 MEQ/L (21.0-32.0); POTASSIUM 3.9 MEQ/L (3.5-5.1)
[2016-10-11] MEDS: hydrALAZINE HCL 20 MG/ML VIAL IV PUSH PRN (16:08)
[2016-10-11] MEDS: ACETAMINOPHEN/HYDROcodone 325 MG/5 MG TAB PO PRN (16:09)
--- NOTE | 2016-10-11 23:26 | HHI.NSPN ---
History Chief Complaint: headache Interval History 61-year-old male presents with approximately one week of progressive severe headache, sometimes accompanied with nausea vomiting, neck stiffness. No definite fevers or chills. Exam Results Vital Signs Date Time Temp Pulse Resp B/P Pulse Ox O2 Delivery O2 Flow Rate FiO2 10/11/16 18:00 79 10/11/16 16:00 98.3 15 140/76 96 10/11/16 07:00 Room Air 10/10/16 11:32 21 Intake and Output 10/10/16 10/10/16 10/11/16 08:00 16:00 00:00 Intake Total 1123 ml 1631 ml 811 ml Output Total 450 ml 290 ml Balance 673 ml 1341 ml 811 ml Physical Examination Respirations clear Cardiac regular Abdomen soft nontender No extremity edema No nuchal rigidity Awake and alert Conversant and appropriate Extraocular movements and facial motor movements intact Sensation intact light touch all extremities Strength normal in all major flexion and extension groups all extremities Lab, Micro, Other Results Laboratory Tests Test 10/11/16 11:55 Sodium Level 139 MEQ/L Potassium Level 3.9 MEQ/L Chloride Level 105 MEQ/L Carbon Dioxide Level 25.6 MEQ/L Anion Gap 8 MEQ/L Blood Urea Nitrogen 6 MG/DL Creatinine 0.83 MG/DL Estimat Glomerular Filtration 94 ML/MIN Rate Random Glucose 110 MG/DL Calcium Level 8.4 MG/DL Medical Decision Making Impression and Plan Impression: 1. Right temporal intracranial hemorrhage. No definite vascular malformation, aneurysm, underlying mass lesion or evidence of infection on the basis of CT angiogram and MRI imaging. 2. Hypertension Plan: Continue ISC close neurologic checks. Repeat CT Head in AM Continue blood pressure control and monitoring. Cardene drip and as needed medications Non-chemical DVT prophylaxis Physical therapy Intensivists evaluation Ulcer prophylaxis Leonidas Flores MD Oct 11, 2016 23:26
[2016-10-12] VITALS (11 sets, daily range): BP systolic 136–151; BP diastolic 64–77; PULSE 53–93; RESP 16–28; TEMP 97.7–98.1; O2SAT 93–96
[2016-10-12] MEDS: oxyCODONE/ACETAMINOPHEN 10 MG/325 MG TAB PO PRN ×2 (01:44→08:20)
[2016-10-12] MEDS: NS + KCL 20 MEQ INJ 1,000 ML IV SCH ×2 (02:48→13:38)
[2016-10-12] MEDS: CHLORHEXIDINE GLUCONATE 2 % 1 PACK (2 CLOTHS)(taper/protocol) TOPICAL SCH (04:00)
[2016-10-12 05:01] LABS: POTASSIUM 3.7 MEQ/L (3.5-5.1)
--- NOTE | 2016-10-12 06:19 | RADRPT ---
EXAM DATE/TIME: 10/12/2016 05:37 [place] COMPARISON: CT BRAIN W/O CONTRAST, October 10, 2016, 4:25. INDICATIONS : Follow up right temporal intracranial hemorrhage RADIATION DOSE: 42.22 CTDIvol (mGy) MEDICAL HISTORY : Hypertension. SURGICAL HISTORY : None. ENCOUNTER: Subsequent ACUITY: 2 days PAIN SCALE: Non-responsive LOCATION: cranial TECHNIQUE: Multiple contiguous axial images were obtained of the head. Using automated exposure control and adj ustment of the mA and/or kV according to patient size, radiation dose was kept as low as reasonably a chievable to obtain optimal diagnostic quality images. FINDINGS: Today's exam is compared to the prior study. There continues to be a focal area of acute parenchymal hemorrhage in the right temporal lobe. The hemorrhage now measures 4.0 x 3.2 cm. This is slightly inc reased compared to the prior exam. The ventricles remain normal in size. There continues to be a smal l amount of intraventricular blood present. This is stable. No new areas of hemorrhage are demonstrat ed. No other new or significant changes are demonstrated. Posterior fossa is stable. CONCLUSION: 1. Right temporal lobe hemorrhage measuring 4.0 x 3.2 cm. This appears to be slightly increased in si ze compared to the prior exam. 2. Otherwise, no other new or significant changes. Bart Wagner MD on October 12, 2016 at 6:15 Board Certified Radiologist. This report was verified electronically.
[2016-10-12] MEDS: INSULIN ASPART SUPPLEMENTAL SCALE SQ SCH ×4 (07:00→21:00)
[2016-10-12] MEDS: DOCUSATE SODIUM 100 MG CAP PO SCH ×2 (08:20→21:14)
[2016-10-12] MEDS: amLODIPine BESYLATE 5 MG TAB PO SCH (08:21)
[2016-10-12] MEDS: SODIUM CHLORIDE 0.9% FLUSH 5 ML FLUSH IVF SCH ×2 (08:22→21:00)
[2016-10-12] MEDS: PANTOPRAZOLE SODIUM 40 MG VIAL IVP SCH (08:22)
--- NOTE | 2016-10-12 10:20 | HHI.CCPN ---
Subjective Remarks/Hospital Course 10/10: 61-year-old [id number] male who presents to [facility] with 1 week history of headache, myalgias, cough after traveling in the [place]. He had seen his primary care physician for this and was prescribed an antihistamine. For the last 2 days his headache has been worse, 9 out of 10 in severity, with associated neck pain and vomiting. No fever. No seizures. He underwent workup in the emergency department which included CT brain that showed intracerebral hemorrhage in the right temporal lobe 4.3 x 3.2 cm with some surrounding edema and 3.6 cm of right to left shift. He has not been under treatment for hypertension but states his blood pressure has occasionally been elevated at physician appointments. His blood pressure was 154/107 upon arrival to the ED and he is currently on Cardene at 5 mg per hour to maintain goal blood pressure. No unintended weight loss CTA head and neck is negative for vascular abnormality. 10/11: Resting comfortably in bed. Off nicardipine drip. Denies any weakness in either extremities. Still has a headache. Tolerating by mouth. 10/12: No neuro decline. Tolerating diet. Objective Vital Signs Date Time Temp Pulse Resp B/P Pulse Ox O2 Delivery O2 Flow Rate FiO2 10/12/16 04:00 98.1 79 17 136/64 10/11/16 20:00 93 10/11/16 19:00 Room Air 10/10/16 11:32 21 Intake and Output 10/11/16 10/11/16 10/12/16 08:00 16:00 00:00 Intake Total 821 ml 735 ml 1235 ml Output Total 1225 ml 400 ml 1500 ml Balance -404 ml 335 ml -265 ml Result Diagram: 10/10/16 0857 10/12/16 0340 Objective Remarks GENERAL: Comfortable. SKIN: Warm and dry. HEAD: Atraumatic. Normocephalic. EYES: Pupils equal and round, 2 mm briskly reactive. ENT: No nasal bleeding or discharge. NECK: Trachea midline. CARDIOVASCULAR: Regular rate and rhythm, sinus rhythm on the monitor. intermittent 2/6 systolic murmur LSB noted with inspiration. No JVD. RESPIRATORY: No accessory muscle use. Clear to auscultation. Breath sounds equal bilaterally. GASTROINTESTINAL: Abdomen soft, non-tender, nondistended. Bowel sounds present MUSCULOSKELETAL: Extremities without clubbing, cyanosis, or edema. No obvious deformities. NEUROLOGICAL: Awake and alert. No obvious cranial nerve deficits. M/S grossly intact. Strength 5/5 all extremities. A/P Assessment and Plan NEURO: Intracerebral hemorrhage, right temporal lobe CTA negative for vascular abnormality. MRI brain did not reveal any neoplasm. Being followed by neurosurgery. Cardene to maintain systolic blood pressure less than 140 Avoid hypoxemia, hyponatremia. Maintain euvolemia Oxycodone 5/325 as needed for pain. Dilaudid 0.5-1 mg IV when necessary breakthrough pain RESP: Incentive spirometry every hour awake CV: Malignant hypertension Manage acutely with cardene drip, target SBP <140. Off nicardipine drip since this morning. Amlodipine increased to 10 mg daily F/u Echo GI: Nausea Zofran prn Colace 100 mg by mouth twice a day for bowel regimen FEN/RENAL: Monitor intake and output. Monitor electrolytes. Replace electrolytes as indicated per ICU electrolyte replacement protocol. 0.9 NaCl with 20 mEq KCl per liter at 85 mL per hour ID: Monitor for signs and symptoms of infection HEME: Coags normal. Hemoglobin normal with no acute hematologic issues ENDO: Mild hyperglycemia Monitor bedside glucose and initiate low-dose insulin sliding scale as indicated PROPH: SCDs for DVT prophylaxis. Avoid pharmacologic DVT prophylaxis at this time due to acute intracranial hemorrhage. Protonix 40 mg IV daily for stress ulcer prophylaxis ACCESS: Peripheral IV providing adequate access at this time. Patient updated at bedside regarding plan of care and expected course. Consult hospitalist service for further medical management. Further recommendations per neurosurgery. Critical care signing off at this time. Please reconsult if needed. To hospitalist service. Bennie Márquez MD Oct 12, 2016 10:20
[2016-10-12] MEDS: ONDANSETRON HCL 4 MG/2 ML VIAL IV PRN ×2 (12:01→18:53)
[2016-10-12] MEDS: hydrALAZINE HCL 20 MG/ML VIAL IV PUSH PRN ×2 (12:15→18:51)
[2016-10-12] MEDS: HYDROmorphone HCL PF 1 MG/ML VIAL IV PRN (13:45)
[2016-10-12] MEDS: LISINOPRIL 20 MG TAB PO SCH (18:51)
[2016-10-12] MEDS: ACETAMINOPHEN/HYDROcodone 325 MG/5 MG TAB PO PRN (19:13)
[2016-10-12] MEDS: MUPIROCIN 2% OINT 1 APPLIC/GM SYR NASAL SCH (21:14)
--- NOTE | 2016-10-12 23:59 | HHI.NSPN ---
History Chief Complaint: headache Interval History 61-year-old male presents with approximately one week of progressive severe headache, sometimes accompanied with nausea vomiting, neck stiffness. No definite fevers or chills. Exam Results Vital Signs Date Time Temp Pulse Resp B/P Pulse Ox O2 Delivery O2 Flow Rate FiO2 10/12/16 22:00 64 10/12/16 20:13 16 10/12/16 20:00 98.0 143/72 93 Arterial Line 10/12/16 19:00 Room Air 10/10/16 11:32 21 Intake and Output 10/11/16 10/11/16 10/12/16 08:00 16:00 00:00 Intake Total 821 ml 735 ml 1235 ml Output Total 1225 ml 400 ml 1500 ml Balance -404 ml 335 ml -265 ml Physical Examination Respirations clear Cardiac regular Abdomen soft nontender No extremity edema No nuchal rigidity Awake and alert Conversant and appropriate Extraocular movements and facial motor movements intact Sensation intact light touch all extremities Strength normal in all major flexion and extension groups all extremities Medical Decision Making Impression and Plan Impression: 1. Right temporal intracranial hemorrhage. No definite vascular malformation, aneurysm, underlying mass lesion or evidence of infection on the basis of CT angiogram and MRI imaging. 2. Hypertension Plan: Continue ISC close neurologic checks. Probable transfer to regular floor over the weekend. Repeat CT Head 10/12/2016 stable Continue blood pressure control and monitoring. Cardene drip off for over 24 hours is no significant hypertension. Non-chemical DVT prophylaxis Physical therapy Intensivists evaluation Ulcer prophylaxis Discussed at length with the patient as well as with his for the telephone and all questions answered. Leonidas Flores MD Oct 12, 2016 23:59
[2016-10-13] VITALS (8 sets, daily range): BP systolic 130–158; BP diastolic 66–87; PULSE 60–80; RESP 18–25; TEMP 97.4–98.1; O2SAT 93–95
[2016-10-13] MEDS: NS + KCL 20 MEQ INJ 1,000 ML IV SCH ×2 (01:36→13:29)
[2016-10-13] MEDS: HYDROmorphone HCL PF 1 MG/ML VIAL IV PRN ×2 (02:51→19:53)
[2016-10-13] MEDS: ONDANSETRON HCL 4 MG/2 ML VIAL IV PRN ×4 (02:52→19:52)
[2016-10-13] MEDS: CHLORHEXIDINE GLUCONATE 2 % 1 PACK (2 CLOTHS)(taper/protocol) TOPICAL SCH (04:00)
[2016-10-13 06:08] LABS: BICARBONATE 24.7 MEQ/L (21.0-32.0); POTASSIUM 3.7 MEQ/L (3.5-5.1)
[2016-10-13] MEDS: INSULIN ASPART SUPPLEMENTAL SCALE SQ SCH ×4 (07:00→21:00)
[2016-10-13] MEDS: MUPIROCIN 2% OINT 1 APPLIC/GM SYR NASAL SCH ×2 (08:17→19:55)
[2016-10-13] MEDS: PANTOPRAZOLE SODIUM 40 MG VIAL IVP SCH (08:17)
[2016-10-13] MEDS: SODIUM CHLORIDE 0.9% FLUSH 5 ML FLUSH IVF SCH ×2 (08:18→19:56)
[2016-10-13] MEDS: ACETAMINOPHEN/HYDROcodone 325 MG/5 MG TAB PO PRN ×2 (08:18→13:29)
[2016-10-13] MEDS: LISINOPRIL 20 MG TAB PO SCH (08:18)
[2016-10-13] MEDS: DOCUSATE SODIUM 100 MG CAP PO SCH ×2 (08:18→19:54)
[2016-10-13] MEDS: amLODIPine BESYLATE 5 MG TAB PO SCH (08:18)
[2016-10-13] MEDS: diphenhydrAMINE HCL 25 MG CAP PO SCH ×3 (09:30→19:54)
[2016-10-13] MEDS: methylPREDNISolone SOD SUCC 125 MG/2 ML VIAL IV PUSH SCH ×3 (09:30→19:55)
[2016-10-13] MEDS: FAMOTIDINE 20 MG TAB PO SCH ×2 (09:31→19:54)
[2016-10-13] MEDS ORDERED: SODIUM BICARBONATE 8.4% INJ 50 ML ONE (09:44)
--- NOTE | 2016-10-13 12:02 | HHI.NSPN ---
(Gem Salinas) Note Status Status: Progress Note (Gem Salinas) Interval History Interval History 61-year-old male presents with approximately one week of progressive severe headache, sometimes accompanied with nausea vomiting, neck stiffness. His CT Head shows a right temporal ICH. He has been managed nonoperatively. 10/13: stable headaches, no new neurological complaints. New onset lip swelling from AMADOU-Inhibitor which has been discontinued, Benadryl started. No tongue or throat swelling no difficulty breathing or SOB. (Gem Salinas) Labs, Micro, & Vital Signs Results Date Time Temp Pulse Resp B/P Pulse Ox O2 Delivery O2 Flow Rate FiO2 10/13/16 06:00 80 10/13/16 04:00 66 23 130/66 94 10/13/16 04:00 80 10/13/16 03:31 12 10/13/16 02:00 64 10/13/16 00:00 98.0 60 18 158/87 94 10/12/16 22:00 64 10/12/16 20:13 16 10/12/16 20:00 60 10/12/16 20:00 98.0 93 28 143/72 93 Arterial Line 10/12/16 19:00 95 Room Air 10/12/16 18:00 60 10/12/16 16:00 97.9 61 20 151/75 94 10/12/16 16:00 61 10/12/16 14:00 58 10/12/16 12:00 72 10/12/16 12:00 97.7 79 28 151/77 96 10/13/16 07:00 Intake Total 3461 ml Output Total 2825 ml Balance 636 ml Constitutional Vital Signs Date Time Temp Pulse Resp B/P Pulse Ox O2 Delivery O2 Flow Rate FiO2 10/13/16 06:00 80 10/13/16 04:00 66 23 130/66 94 10/13/16 04:00 80 10/13/16 03:31 12 10/13/16 02:00 64 10/13/16 00:00 98.0 60 18 158/87 94 10/12/16 22:00 64 10/12/16 20:13 16 10/12/16 20:00 60 10/12/16 20:00 98.0 93 28 143/72 93 Arterial Line 10/12/16 19:00 95 Room Air 10/12/16 18:00 60 10/12/16 16:00 97.9 61 20 151/75 94 10/12/16 16:00 61 10/12/16 14:00 58 10/12/16 12:00 72 10/12/16 12:00 97.7 79 28 151/77 96 10/13/16 07:00 Intake Total 3461 ml Output Total 2825 ml Balance 636 ml (Gem Salinas) Review of Systems/Exam Exam Alert, conversing appropriately. Follows commands well. CN: pupils equal, eoms intact. tongue midline. Swelling of the upper lip, no tongue or throat swelling seen. Motor: 5/5 chief of staff b/l, moves both upper and lower extremities well Sensory: reports intact light touch x 4 (Gem Salinas) Medications Current Medications Current Medications Medications (Trade) Dose Ordered Sig/Munir Route PRN Reason Start Time Stop Time Status Last Admin Dose Admin Acetaminophen/ Hydrocodone Bitart ([place] 5-325 Mg) 1 tab Q4H PRN PO PAIN SCALE 3 TO 5 10/09/16 16:00 10/13/16 08:18 Oxycodone/ Acetaminophen (Percocet 10-325 Mg) 1 tab Q6H PRN PO PAIN SCALE 6 TO 10 10/09/16 16:00 10/12/16 08:20 Hydromorphone HCl (Dilaudid Pf Inj) 0.5 mg Q3H PRN IV Pain 3-5; if unable to take PO 10/09/16 16:00 10/12/16 13:45 Hydromorphone HCl (Dilaudid Pf Inj) 1 mg Q3H PRN IV Pain 6-10;if unable to take PO 10/09/16 16:00 10/13/16 02:51 Naloxone HCl (Narcan Inj) 0.4 mg UNSCH PRN IV SEE LABEL COMMENTS 10/09/16 16:00 IV Flush (NS Flush) 2 ml UNSCH PRN IVF FLUSH AFTER USING IV ACCESS 10/09/16 16:00 IV Flush 2 ml 2 ml BID IVF 10/09/16 21:00 10/13/16 08:18 Nicardipine HCl/ Sodium Chloride (Cardene Inj/NS 250 ml Inj) 260 ml @ 0 mls/hr TITRATE IV 10/09/16 16:00 Hold 10/11/16 00:29 Docusate Sodium (Colace) 100 mg BID PO 10/09/16 21:00 10/13/16 08:18 Pantoprazole Sodium (Protonix Inj) 40 mg DAILY IVP 10/10/16 09:00 10/13/16 08:17 Ondansetron HCl 4 mg 4 mg Q6H PRN IV NAUSEA OR VOMITING 10/09/16 16:00 10/13/16 08:18 Potassium Chloride/Sodium Chloride 1,000 ml @ 85 mls/hr [id number] IV 10/10/16 03:00 10/13/16 01:36 Potassium Chloride 100 ml @ 50 mls/hr Q2H PRN IV For Potassium 2.8 - 3.2 mEq/L 10/10/16 03:00 Potassium Chloride 100 ml @ 50 mls/hr Q2H PRN IV For Potassium 2.8 - 3.2 mEq/L 10/10/16 03:00 Potassium Chloride 100 ml @ 25 mls/hr UNSCH PRN IV For Potassium 3.3 - 3.5 mEq/L 10/10/16 03:00 Potassium Chloride 100 ml @ 50 mls/hr Q2H PRN IV For Potassium 3.3 - 3.5 mEq/L 10/10/16 03:00 Magnesium Sulfate/ Sodium Chloride (Magnesium Sulfate Inj/NS Inj) 100 ml @ 50 mls/hr UNSCH PRN IV For Magnesium 0.9 - 1.1 mg/dL 10/10/16 03:00 Magnesium Oxide 800 mg 800 mg UNSCH PRN PO For Magnesium 1.2 - 1.6 mg/dL 10/10/16 03:00 Magnesium Sulfate/ Sodium Chloride (Magnesium Sulfate Inj/NS Inj) 100 ml @ 50 mls/hr UNSCH PRN IV For Magnesium 1.2 - 1.6 mg/dL 10/10/16 03:00 Potassium Phosphate 2000 mg 2,000 mg Q4H PRN PO For Phosphorus < 2.5 mg/dL 10/10/16 03:00 Sodium Phosphate/ Sodium Chloride (Sodium Phosphate Inj/NS 250 ml Inj) 250 ml @ 42 mls/hr UNSCH PRN IV For Phosphorus < 2.5 mg/dL 10/10/16 03:00 Potassium Phosphate 2000 mg 2,000 mg UNSCH PRN PO/TUBE SEE LABEL COMMENTS 10/10/16 03:00 Potassium Phosphate/Sodium Chloride (Potassium Phosphate Inj/NS 250 ml Inj) 260 ml @ 42 mls/hr UNSCH PRN IV SEE LABEL COMMENTS 10/10/16 03:00 Dextrose (D50w (Vial) Inj) 25 ml UNSCH PRN IV PUSH HYPOGLYCEMIA-SEE COMMENTS 10/10/16 03:15 Glucagon (Glucagon Inj) 1 mg UNSCH PRN OTHER HYPOGLYCEMIA-SEE COMMENTS 10/10/16 03:15 Labetalol HCl (Trandate Inj) 10 mg Q4H PRN IV PUSH SBP >140 10/10/16 05:45 10/12/16 13:25 Amlodipine Besylate (Norvasc) 10 mg DAILY PO 10/12/16 09:00 10/13/16 08:18 Miscellaneous Information Patient in critical care unit? Ass... Q361D .XX 10/11/16 13:00 Chlorhexidine Gluconate (Chlorhexidine 2% Cloth) 3 pack DAILY@04 TOPICAL 10/12/16 04:00 10/16/16 04:01 10/12/16 04:00 Chlorhexidine Gluconate (Chlorhexidine 2% Cloth) 3 pack UNSCH PRN TOPICAL HYGIENIC CARE 10/11/16 12:30 10/16/16 12:28 Mupirocin (Bactroban Nasal 2% Oint) 1 applic BID NASAL 10/12/16 21:00 10/13/16 08:17 Hydralazine HCl (Apresoline Inj) 10 mg Q2H PRN IV PUSH SBP >140 10/12/16 19:45 10/12/16 18:51 Lisinopril (Prinivil) 20 mg DAILY PO 10/12/16 18:30 10/12/16 18:51 Methylprednisolone Sodium Succinate (SoluMEDROL INJ) 60 mg Q6H IV PUSH 10/13/16 09:00 10/13/16 09:30 Famotidine (Pepcid) 20 mg BID PO 10/13/16 09:00 10/13/16 09:31 Diphenhydramine HCl (Benadryl) 25 mg Q6H PO 10/13/16 09:00 10/14/16 08:59 10/13/16 09:30 (Gem Salinas) Medical Decision Making MDM Remarks 61 y/o male with right temporal hemorrhage, 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 Stable. Respiratory. Continue pulmonary toilette, nasotracheal suction, and breathing treatments with nebulizers. daily PT and OT Nutrition. diet HTN. Monitor and treat as needed Lip swelling due to AMADOU inhibitors Renal. Continue to monitor closely urine output, BUN and creatinine Endocrine. Continue to Monitor serial Acu checks and SSI for tight control ID continue to monitor for signs of infection Continue Protonix for stress ulcer prophylaxis Continue Ld hose and SCD's for DVT prophylaxis. Lovenox The exam, history, and the medical decision-making described in the above note were completed with the assistance of the mid-level provider. I reviewed and agree with the findings presented. I attest that I had a [id number] encounter with the patient on the same day, and personally performed and documented my assessment and findings in the medical record. (Alfredito Doherty MD) Gem Salinas Oct 13, 2016 12:02 Alfredito Doherty MD Oct 13, 2016 17:15
[2016-10-13] MEDS: hydrALAZINE HCL 20 MG/ML VIAL IV PUSH PRN ×2 (13:30→23:12)
--- NOTE | 2016-10-13 14:21 | HHI.PR ---
Subjective Remarks states was able to keep food down c/o headache which is somewhat better light hurts denies cp/sob bp stable Objective Vitals Vital Signs Date Time Temp Pulse Resp B/P Pulse Ox O2 Delivery O2 Flow Rate FiO2 10/13/16 12:00 98.0 66 23 145/79 93 10/13/16 12:00 66 10/13/16 08:00 60 10/13/16 08:00 98.1 60 25 146/67 94 10/13/16 07:00 94 Room Air 10/13/16 06:00 80 10/13/16 04:00 66 23 130/66 94 10/13/16 04:00 80 10/13/16 03:31 12 10/13/16 02:00 64 10/13/16 00:00 98.0 60 18 158/87 94 10/12/16 22:00 64 10/12/16 20:13 16 10/12/16 20:00 60 10/12/16 20:00 98.0 93 28 143/72 93 Arterial Line 10/12/16 19:00 95 Room Air 10/12/16 18:00 60 10/12/16 16:00 97.9 61 20 151/75 94 10/12/16 16:00 61 I/O 10/12/16 10/12/16 10/12/16 10/13/16 10/13/16 10/13/16 06:59 14:59 22:59 06:59 14:59 22:59 Intake Total 1478 ml 1215 ml 768 ml Output Total 825 ml 800 ml 1200 ml Balance 653 ml 415 ml -432 ml Intake Oral 380 ml 350 ml 250 ml IV Total 1098 ml 865 ml 518 ml Output Urine Total 575 ml 800 ml 1200 ml Emesis 250 ml # Voids 2 1 # Bowel Movements 1 Result Diagram: 10/10/16 0857 10/13/16 0430 Imaging Last Impressions Head CT 10/11/16 0000 Signed Impressions: Service Date/Time: Wednesday, October 12, 2016 05:37 - CONCLUSION: 1. Right temporal lobe hemorrhage measuring 4.0 x 3.2 cm. This appears to be slightly increased in size compared to the prior exam. 2. Otherwise, no other new or significant changes. Bart Wagner MD Brain MRI 10/10/16 0000 Signed Impressions: Service Date/Time: Monday, October 10, 2016 09:22 - CONCLUSION: Right temporal hematoma is slightly larger compared to prior CT however there is no significant increase in degree of mass effect on the right cerebral peduncle. Stable small intraventricular hemorrhage. No evidence of significant adjacent infarct, abnormal enhancement or abnormal vascularity. Blake Corbin MD Neck CTA 10/09/16 0000 Signed Impressions: Service Date/Time: Sunday, October 09, 2016 17:11 - CONCLUSION: Unremarkable exam. Max Ac MD Head CTA 10/09/16 0000 Signed Impressions: Service Date/Time: Sunday, October 09, 2016 17:11 - CONCLUSION: No evidence of aneurysm or arteriovenous malformation. Max Ac MD Objective Remarks GENERAL: Comfortable. SKIN: Warm and dry. HEAD: Atraumatic. Normocephalic. EYES: Pupils equal and round, 2 mm briskly reactive. ENT: No nasal bleeding or discharge. NECK: Trachea midline. CARDIOVASCULAR: Regular rate and rhythm, sinus rhythm on the monitor. intermittent 2/6 systolic murmur LSB noted with inspiration. No JVD. RESPIRATORY: No accessory muscle use. Clear to auscultation. Breath sounds equal bilaterally. GASTROINTESTINAL: Abdomen soft, non-tender, nondistended. Bowel sounds present MUSCULOSKELETAL: Extremities without clubbing, cyanosis, or edema. No obvious deformities. NEUROLOGICAL: Awake and alert. No obvious cranial nerve deficits. M/S grossly intact. Strength 5/5 all extremities. Medications and IVs Current Medications Medications (Trade) Dose Ordered Sig/Munir Route Start Time Stop Time Status Last Admin ([place] 5-325 Mg) 1 tab Q4H PRN PO 10/09/16 16:00 10/13/16 13:29 (Percocet 10-325 Mg) 1 tab Q6H PRN PO 10/09/16 16:00 10/13/16 14:56 (Dilaudid Pf Inj) 0.5 mg Q3H PRN IV 10/09/16 16:00 10/12/16 13:45 (Dilaudid Pf Inj) 1 mg Q3H PRN IV 10/09/16 16:00 10/13/16 19:53 (Narcan Inj) 0.4 mg UNSCH PRN IV 10/09/16 16:00 (NS Flush) 2 ml UNSCH PRN IVF 10/09/16 16:00 IV Flush 2 ml 2 ml BID IVF 10/09/16 21:00 10/13/16 08:18 (Cardene Inj/NS 250 ml Inj) 260 ml @ 0 mls/hr TITRATE IV 10/09/16 16:00 Hold 10/11/16 00:29 (Colace) 100 mg BID PO 10/09/16 21:00 10/13/16 19:54 (Protonix Inj) 40 mg DAILY IVP 10/10/16 09:00 10/13/16 08:17 Ondansetron HCl 4 mg 4 mg Q6H PRN IV 10/09/16 16:00 10/13/16 19:52 Potassium Chloride/Sodium Chloride 1,000 ml @ 85 mls/hr [id number] IV 10/10/16 03:00 10/13/16 13:29 Potassium Chloride 100 ml @ 50 mls/hr Q2H PRN IV 10/10/16 03:00 Potassium Chloride 100 ml @ 50 mls/hr Q2H PRN IV 10/10/16 03:00 Potassium Chloride 100 ml @ 25 mls/hr UNSCH PRN IV 10/10/16 03:00 Potassium Chloride 100 ml @ 50 mls/hr Q2H PRN IV 10/10/16 03:00 (Magnesium Sulfate Inj/NS Inj) 100 ml @ 50 mls/hr UNSCH PRN IV 10/10/16 03:00 Magnesium Oxide 800 mg 800 mg UNSCH PRN PO 10/10/16 03:00 (Magnesium Sulfate Inj/NS Inj) 100 ml @ 50 mls/hr UNSCH PRN IV 10/10/16 03:00 Potassium Phosphate 2000 mg 2,000 mg Q4H PRN PO 10/10/16 03:00 (Sodium Phosphate Inj/NS 250 ml Inj) 250 ml @ 42 mls/hr UNSCH PRN IV 10/10/16 03:00 Potassium Phosphate 2000 mg 2,000 mg UNSCH PRN PO/TUBE 10/10/16 03:00 (Potassium Phosphate Inj/NS 250 ml Inj) 260 ml @ 42 mls/hr UNSCH PRN IV 10/10/16 03:00 (D50w (Vial) Inj) 25 ml UNSCH PRN IV PUSH 10/10/16 03:15 (Glucagon Inj) 1 mg UNSCH PRN OTHER 10/10/16 03:15 (Trandate Inj) 10 mg Q4H PRN IV PUSH 10/10/16 05:45 10/12/16 13:25 (Norvasc) 10 mg DAILY PO 10/12/16 09:00 10/13/16 08:18 Miscellaneous Information Patient in critical care unit? Ass... Q361D .XX 10/11/16 13:00 (Chlorhexidine 2% Cloth) 3 pack DAILY@04 TOPICAL 10/12/16 04:00 10/16/16 04:01 10/12/16 04:00 (Chlorhexidine 2% Cloth) 3 pack UNSCH PRN TOPICAL 10/11/16 12:30 10/16/16 12:28 (Bactroban Nasal 2% Oint) 1 applic BID NASAL 10/12/16 21:00 10/13/16 19:55 (Apresoline Inj) 10 mg Q2H PRN IV PUSH 10/12/16 19:45 10/13/16 13:30 (SoluMEDROL INJ) 60 mg Q6H IV PUSH 10/13/16 09:00 10/13/16 19:55 (Pepcid) 20 mg BID PO 10/13/16 09:00 10/13/16 19:54 (Benadryl) 25 mg Q6H PO 10/13/16 09:00 10/14/16 08:59 10/13/16 19:54 Urinary Catheter: No Vascular Central Line Catheter: No A/P Assessment and Plan NEURO: Intracerebral hemorrhage, right temporal lobe CTA negative for vascular abnormality. MRI brain did not reveal any neoplasm. Being followed by neurosurgery. Cardene to maintain systolic blood pressure less than 140 Avoid hypoxemia, hyponatremia. Maintain euvolemia Oxycodone 5/325 as needed for pain. Dilaudid 0.5-1 mg IV when necessary breakthrough pain RESP: Incentive spirometry every hour awake CV: Malignant hypertension Manage acutely with cardene drip, target SBP <140. Off nicardipine drip since this morning. Amlodipine increased to 10 mg daily F/u Echo GI: Nausea Zofran prn Colace 100 mg by mouth twice a day for bowel regimen Patient on clear liquid diet - advance to soft diet. FEN/RENAL: Monitor intake and output. Monitor electrolytes. Replace electrolytes as indicated per ICU electrolyte replacement protocol. 0.9 NaCl with 20 mEq KCl per liter at 85 mL per hour ID: Monitor for signs and symptoms of infection HEME: Coags normal. Hemoglobin normal with no acute hematologic issues ENDO: Mild hyperglycemia Monitor bedside glucose and initiate low-dose insulin sliding scale as indicated PROPH: SCDs for DVT prophylaxis. Avoid pharmacologic DVT prophylaxis at this time due to acute intracranial hemorrhage. Protonix 40 mg IV daily for stress ulcer prophylaxis ACCESS: Peripheral IV providing adequate access at this time. Josué Solano MD Oct 13, 2016 14:21
[2016-10-13] MEDS: oxyCODONE/ACETAMINOPHEN 10 MG/325 MG TAB PO PRN ×2 (14:56→18:43)
[2016-10-14] VITALS (8 sets, daily range): BP systolic 122–153; BP diastolic 62–77; PULSE 64–80; RESP 18–20; TEMP 97.9–98.9; O2SAT 93–96
[2016-10-14] MEDS: methylPREDNISolone SOD SUCC 125 MG/2 ML VIAL IV PUSH SCH ×4 (02:37→22:19)
[2016-10-14] MEDS: NS + KCL 20 MEQ INJ 1,000 ML IV SCH ×2 (02:38→18:38)
[2016-10-14] MEDS: diphenhydrAMINE HCL 25 MG CAP PO SCH (02:38)
[2016-10-14] MEDS: ONDANSETRON HCL 4 MG/2 ML VIAL IV PRN (02:49)
[2016-10-14] MEDS: oxyCODONE/ACETAMINOPHEN 10 MG/325 MG TAB PO PRN (02:49)
[2016-10-14] MEDS: CHLORHEXIDINE GLUCONATE 2 % 1 PACK (2 CLOTHS)(taper/protocol) TOPICAL SCH (05:47)
[2016-10-14] MEDS: INSULIN ASPART SUPPLEMENTAL SCALE SQ SCH ×4 (05:50→22:18)
[2016-10-14 08:29] LABS: POTASSIUM 4.1 MEQ/L (3.5-5.1)
[2016-10-14] MEDS: SODIUM CHLORIDE 0.9% FLUSH 5 ML FLUSH IVF SCH ×2 (09:00→22:19)
[2016-10-14] MEDS: DOCUSATE SODIUM 100 MG CAP PO SCH ×2 (10:21→22:18)
[2016-10-14] MEDS: FAMOTIDINE 20 MG TAB PO SCH ×2 (10:21→22:18)
[2016-10-14] MEDS: MUPIROCIN 2% OINT 1 APPLIC/GM SYR NASAL SCH ×2 (10:22→22:18)
[2016-10-14] MEDS: amLODIPine BESYLATE 5 MG TAB PO SCH (10:22)
[2016-10-14] MEDS: PANTOPRAZOLE SODIUM 40 MG VIAL IVP SCH (10:22)
--- NOTE | 2016-10-14 12:10 | HHI.NSPN ---
(Gem Salinas) Note Status Status: Progress Note (Gem Salinas) Interval History Interval History 61-year-old male presents with approximately one week of progressive severe headache, sometimes accompanied with nausea vomiting, neck stiffness. His CT Head shows a right temporal ICH. He has been managed nonoperatively. 10/13: stable headaches, no new neurological complaints. New onset lip swelling from AMADOU-Inhibitor which has been discontinued, Benadryl started. No tongue or throat swelling no difficulty breathing or SOB. 10/14: No headaches when he woke up this am, appears more comfortable, lip swelling improved. (Gem Salinas) Labs, Micro, & Vital Signs Results Date Time Temp Pulse Resp B/P Pulse Ox O2 Delivery O2 Flow Rate FiO2 10/14/16 08:32 98.6 64 20 122/66 94 10/14/16 04:44 97.9 70 18 133/70 93 10/14/16 03:23 80 10/14/16 00:36 98.3 70 18 153/77 93 10/13/16 21:04 97.8 72 18 145/71 95 10/13/16 20:00 98 Room Air 10/13/16 15:00 97.4 76 20 134/74 93 10/14/16 07:00 Intake Total 2294 ml Output Total 1650 ml Balance 644 ml Constitutional Vital Signs Date Time Temp Pulse Resp B/P Pulse Ox O2 Delivery O2 Flow Rate FiO2 10/14/16 08:32 98.6 64 20 122/66 94 10/14/16 04:44 97.9 70 18 133/70 93 10/14/16 03:23 80 10/14/16 00:36 98.3 70 18 153/77 93 10/13/16 21:04 97.8 72 18 145/71 95 10/13/16 20:00 98 Room Air 10/13/16 15:00 97.4 76 20 134/74 93 10/14/16 07:00 Intake Total 2294 ml Output Total 1650 ml Balance 644 ml (Gem Salinas) Review of Systems/Exam Exam Alert and oriented x 3. Pleasant, conversing appropriately. Follows commands well. CN: pupils equal, eoms intact. facial motor symmetric, tongue midline. Lip swelling improved Motor: 5/5 director ambulatory b/l, moves both upper and lower extremities well Sensory: reports intact light touch x 4 Plantars downgoing b/l (Gem Salinas) Medications Current Medications Current Medications Medications (Trade) Dose Ordered Sig/Munir Route PRN Reason Start Time Stop Time Status Last Admin Dose Admin Acetaminophen/ Hydrocodone Bitart ([place] 5-325 Mg) 1 tab Q4H PRN PO PAIN SCALE 3 TO 5 10/09/16 16:00 10/13/16 13:29 Oxycodone/ Acetaminophen (Percocet 10-325 Mg) 1 tab Q6H PRN PO PAIN SCALE 6 TO 10 10/09/16 16:00 10/14/16 02:49 Hydromorphone HCl (Dilaudid Pf Inj) 0.5 mg Q3H PRN IV Pain 3-5; if unable to take PO 10/09/16 16:00 10/12/16 13:45 Hydromorphone HCl (Dilaudid Pf Inj) 1 mg Q3H PRN IV Pain 6-10;if unable to take PO 10/09/16 16:00 10/13/16 19:53 Naloxone HCl (Narcan Inj) 0.4 mg UNSCH PRN IV SEE LABEL COMMENTS 10/09/16 16:00 IV Flush (NS Flush) 2 ml UNSCH PRN IVF FLUSH AFTER USING IV ACCESS 10/09/16 16:00 IV Flush 2 ml 2 ml BID IVF 10/09/16 21:00 10/14/16 09:00 Nicardipine HCl/ Sodium Chloride (Cardene Inj/NS 250 ml Inj) 260 ml @ 0 mls/hr TITRATE IV 10/09/16 16:00 Hold 10/11/16 00:29 Docusate Sodium (Colace) 100 mg BID PO 10/09/16 21:00 10/14/16 10:21 Pantoprazole Sodium (Protonix Inj) 40 mg DAILY IVP 10/10/16 09:00 10/14/16 10:22 Ondansetron HCl 4 mg 4 mg Q6H PRN IV NAUSEA OR VOMITING 10/09/16 16:00 10/14/16 02:49 Potassium Chloride/Sodium Chloride (NS + KCl 20 Meq Inj) 1,000 ml @ 85 mls/hr [id number] IV 10/10/16 03:00 10/14/16 02:38 Dextrose (D50w (Vial) Inj) 25 ml UNSCH PRN IV PUSH HYPOGLYCEMIA-SEE COMMENTS 10/10/16 03:15 Glucagon (Glucagon Inj) 1 mg UNSCH PRN OTHER HYPOGLYCEMIA-SEE COMMENTS 10/10/16 03:15 Labetalol HCl (Trandate Inj) 10 mg Q4H PRN IV PUSH SBP >140 10/10/16 05:45 10/12/16 13:25 Amlodipine Besylate (Norvasc) 10 mg DAILY PO 10/12/16 09:00 10/14/16 10:22 Miscellaneous Information Patient in critical care unit? Ass... Q361D .XX 10/11/16 13:00 Chlorhexidine Gluconate (Chlorhexidine 2% Cloth) 3 pack DAILY@04 TOPICAL 10/12/16 04:00 10/16/16 04:01 10/14/16 05:47 Chlorhexidine Gluconate (Chlorhexidine 2% Cloth) 3 pack UNSCH PRN TOPICAL HYGIENIC CARE 10/11/16 12:30 10/16/16 12:28 Mupirocin (Bactroban Nasal 2% Oint) 1 applic BID NASAL 10/12/16 21:00 10/14/16 10:22 Hydralazine HCl (Apresoline Inj) 10 mg Q2H PRN IV PUSH SBP >140 10/12/16 19:45 10/13/16 23:12 Methylprednisolone Sodium Succinate (SoluMEDROL INJ) 60 mg Q6H IV PUSH 10/13/16 09:00 10/14/16 10:22 Famotidine (Pepcid) 20 mg BID PO 10/13/16 09:00 10/14/16 10:21 (Gem Salinas) Medical Decision Making MDM Remarks 61 y/o male with right temporal hemorrhage, stable angioedema due to AMADOU-Inhibitor, improved Headaches resolved (Gem Salinas) Plan Plan Remarks clinically better cont mgt of blood pressure per medical, following dw pt and sister, questions answered cont neuro checks physical and occupational therapy consult (Hill,Gem A. PA) Attending Statement The exam, history, and the medical decision-making described in the above note were completed with the assistance of the mid-level provider. I reviewed and agree with the findings presented. I attest that I had a [id number] encounter with the patient on the same day, and personally performed and documented my assessment and findings in the medical record. (Alfredito Doherty MD) Gem Salinas Oct 14, 2016 12:10 Alfredito Doherty MD Oct 14, 2016 18:34
--- NOTE | 2016-10-14 13:07 | HHI.PR ---
Subjective Remarks headache resolved this am denies fevers/chills denies nausea or vomiting photophobia better Objective Vitals Vital Signs Date Time Temp Pulse Resp B/P Pulse Ox O2 Delivery O2 Flow Rate FiO2 10/14/16 12:32 98.5 74 20 126/62 94 10/14/16 08:32 98.6 64 20 122/66 94 10/14/16 04:44 97.9 70 18 133/70 93 10/14/16 03:23 80 10/14/16 00:36 98.3 70 18 153/77 93 10/13/16 21:04 97.8 72 18 145/71 95 10/13/16 20:00 98 Room Air 10/13/16 15:00 97.4 76 20 134/74 93 I/O 10/13/16 10/13/16 10/13/16 10/14/16 10/14/16 10/14/16 07:00 15:00 23:00 07:00 15:00 23:00 Intake Total 768 ml 1194 ml 1100 ml Output Total 1200 ml 1250 ml 400 ml 700 ml Balance -432 ml -56 ml 700 ml -700 ml Intake Oral 250 ml 450 ml 1100 ml IV Total 518 ml 744 ml Output Urine Total 1200 ml 1250 ml 400 ml 700 ml # Bowel Movements 0 Result Diagram: 10/10/16 0857 10/14/16 0715 Imaging Last Impressions Head CT 10/11/16 0000 Signed Impressions: Service Date/Time: Wednesday, October 12, 2016 05:37 - CONCLUSION: 1. Right temporal lobe hemorrhage measuring 4.0 x 3.2 cm. This appears to be slightly increased in size compared to the prior exam. 2. Otherwise, no other new or significant changes. Bart Wagner MD Brain MRI 10/10/16 0000 Signed Impressions: Service Date/Time: Monday, October 10, 2016 09:22 - CONCLUSION: Right temporal hematoma is slightly larger compared to prior CT however there is no significant increase in degree of mass effect on the right cerebral peduncle. Stable small intraventricular hemorrhage. No evidence of significant adjacent infarct, abnormal enhancement or abnormal vascularity. Blake Corbin MD Neck CTA 10/09/16 0000 Signed Impressions: Service Date/Time: Sunday, October 09, 2016 17:11 - CONCLUSION: Unremarkable exam. Max Ac MD Head CTA 10/09/16 0000 Signed Impressions: Service Date/Time: Sunday, October 09, 2016 17:11 - CONCLUSION: No evidence of aneurysm or arteriovenous malformation. Max Ac MD Objective Remarks GENERAL: Comfortable. SKIN: Warm and dry. HEAD: Atraumatic. Normocephalic. EYES: Pupils equal and round, 2 mm briskly reactive. ENT: No nasal bleeding or discharge. NECK: Trachea midline. CARDIOVASCULAR: Regular rate and rhythm, sinus rhythm on the monitor. intermittent 2/6 systolic murmur LSB noted with inspiration. No JVD. RESPIRATORY: No accessory muscle use. Clear to auscultation. Breath sounds equal bilaterally. GASTROINTESTINAL: Abdomen soft, non-tender, nondistended. Bowel sounds present MUSCULOSKELETAL: Extremities without clubbing, cyanosis, or edema. No obvious deformities. NEUROLOGICAL: Awake and alert. No obvious cranial nerve deficits. M/S grossly intact. Strength 5/5 all extremities. Procedures none Medications and IVs Current Medications Medications (Trade) Dose Ordered Sig/Munir Route Start Time Stop Time Status Last Admin ([place] 5-325 Mg) 1 tab Q4H PRN PO 10/09/16 16:00 10/13/16 13:29 (Percocet 10-325 Mg) 1 tab Q6H PRN PO 10/09/16 16:00 10/14/16 02:49 (Dilaudid Pf Inj) 0.5 mg Q3H PRN IV 10/09/16 16:00 10/12/16 13:45 (Dilaudid Pf Inj) 1 mg Q3H PRN IV 10/09/16 16:00 10/13/16 19:53 (Narcan Inj) 0.4 mg UNSCH PRN IV 10/09/16 16:00 (NS Flush) 2 ml UNSCH PRN IVF 10/09/16 16:00 IV Flush 2 ml 2 ml BID IVF 10/09/16 21:00 10/14/16 09:00 (Cardene Inj/NS 250 ml Inj) 260 ml @ 0 mls/hr TITRATE IV 10/09/16 16:00 Hold 10/11/16 00:29 (Colace) 100 mg BID PO 10/09/16 21:00 10/14/16 10:21 (Protonix Inj) 40 mg DAILY IVP 10/10/16 09:00 10/14/16 10:22 Ondansetron HCl 4 mg 4 mg Q6H PRN IV 10/09/16 16:00 10/14/16 02:49 (NS + KCl 20 Meq Inj) 1,000 ml @ 85 mls/hr [id number] IV 10/10/16 03:00 10/14/16 02:38 (D50w (Vial) Inj) 25 ml UNSCH PRN IV PUSH 10/10/16 03:15 (Glucagon Inj) 1 mg UNSCH PRN OTHER 10/10/16 03:15 (Trandate Inj) 10 mg Q4H PRN IV PUSH 10/10/16 05:45 10/12/16 13:25 (Norvasc) 10 mg DAILY PO 10/12/16 09:00 10/14/16 10:22 Miscellaneous Information Patient in critical care unit? Ass... Q361D .XX 10/11/16 13:00 (Chlorhexidine 2% Cloth) 3 pack DAILY@04 TOPICAL 10/12/16 04:00 10/16/16 04:01 10/14/16 05:47 (Chlorhexidine 2% Cloth) 3 pack UNSCH PRN TOPICAL 10/11/16 12:30 10/16/16 12:28 (Bactroban Nasal 2% Oint) 1 applic BID NASAL 10/12/16 21:00 10/14/16 10:22 (Apresoline Inj) 10 mg Q2H PRN IV PUSH 10/12/16 19:45 10/13/16 23:12 (SoluMEDROL INJ) 60 mg Q6H IV PUSH 10/13/16 09:00 10/14/16 10:22 (Pepcid) 20 mg BID PO 10/13/16 09:00 10/14/16 10:21 Urinary Catheter: No Vascular Central Line Catheter: No A/P Problem List: (1) Intracranial hemorrhage ICD Code: I62.9 Status: Acute Plan: The patient was admitted to intensive care unit. Head CT showed acute hematoma right temporal region. Possible extension to the right temporal horn. Head CTA show no evidence of aneurysm or arteriovenous confirmation. Neck CTA was unremarkable. Brain MRI showed right temporal hematoma. Stable small intraventricular hemorrhage PT OT ordered. (2) Hypertensive emergency ICD Code: I16.1 Status: Acute Plan: The patient was started on Cardene drip to maintain systolic blood pressure less than 140. Patient is off Cardene drip. Blood pressure is stable and for the most part at call below a systolic blood pressure of less than 140. Continue amlodipine 10 mg by mouth daily and hydralazine when necessary. (3) Photophobia ICD Code: H53.149 Status: Acute Plan: Likely secondary to intercurrent hemorrhage and meningismus. (4) Headache ICD Code: R51 Status: Resolved Plan: Headache seems to be resolved. Continue pain control provided with Percocet and [place]. (5) Nausea ICD Code: R11.0 Status: Resolved Plan: He was to have resolved. Continue IV Zofran. (6) Hyperglycemia ICD Code: R73.9 Status: Acute Plan: Possibly steroid-induced hyperglycemia. At this point it is not clear why the patient's on IV steroids, I will start to taper to discontinue. Continue SSI with insulin NovoLog and continue to monitor Accu-Cheks. Discharge Planning DC pending neurosurgery clearance and PT OT evaluation. Problem Qualifiers (1) Headache: Qualified Code: R51 - Acute nonintractable headache, unspecified headache type Josué Solano MD Oct 14, 2016 13:07 RESP: Incentive spirometry every hour awake CV: Malignant hypertension Manage acutely with cardene drip, target SBP <140. Off nicardipine drip since this morning. Amlodipine increased to 10 mg daily F/u Echo GI: Nausea Zofran prn Colace 100 mg by mouth twice a day for bowel regimen Patient on clear liquid diet - advance to soft diet. FEN/RENAL: Monitor intake and output. Monitor electrolytes. Replace electrolytes as indicated per ICU electrolyte replacement protocol. 0.9 NaCl with 20 mEq KCl per liter at 85 mL per hour ID: Monitor for signs and symptoms of infection HEME: Coags normal. Hemoglobin normal with no acute hematologic issues ENDO: Mild hyperglycemia Monitor bedside glucose and initiate low-dose insulin sliding scale as indicated PROPH: SCDs for DVT prophylaxis. Avoid pharmacologic DVT prophylaxis at this time due to acute intracranial hemorrhage. Protonix 40 mg IV daily for stress ulcer prophylaxis ACCESS: Peripheral IV providing adequate access at this time. Discharge Planning This pending neurosurgery clearance and PT OT evaluation. Problem Qualifiers (1) Headache: Qualified Code: R51 - Acute nonintractable headache, unspecified headache type Josué Solano MD Oct 14, 2016 13:07
[2016-10-15] MEDS: NS + KCL 20 MEQ INJ 1,000 ML IV SCH (00:40)
[2016-10-15 00:52] VITALS: BP 141/79; PULSE 70; RESP 16; TEMP 98.6; O2SAT 92
[2016-10-15] MEDS: CHLORHEXIDINE GLUCONATE 2 % 1 PACK (2 CLOTHS)(taper/protocol) TOPICAL SCH (04:02)
[2016-10-15] MEDS: methylPREDNISolone SOD SUCC 125 MG/2 ML VIAL IV PUSH SCH (04:02)
[2016-10-15 05:32] VITALS: BP 147/72; PULSE 76; RESP 16; TEMP 97.9; O2SAT 92
[2016-10-15] MEDS: INSULIN ASPART SUPPLEMENTAL SCALE SQ SCH ×3 (06:20→21:00)
[2016-10-15 08:28] VITALS: BP 159/87; PULSE 70; RESP 20; TEMP 96.6; O2SAT 94
[2016-10-15] MEDS: SODIUM CHLORIDE 0.9% FLUSH 5 ML FLUSH IVF SCH ×2 (09:00→21:00)
[2016-10-15 09:08] LABS: BICARBONATE 27.8 MEQ/L (21.0-32.0)
[2016-10-15] MEDS ORDERED: LISINOPRIL 10 MG TAB PO SCH (10:00)
[2016-10-15] MEDS: FAMOTIDINE 20 MG TAB PO SCH ×2 (10:01→22:14)
[2016-10-15] MEDS: MUPIROCIN 2% OINT 1 APPLIC/GM SYR NASAL SCH ×2 (10:01→22:14)
[2016-10-15] MEDS: PANTOPRAZOLE SODIUM 40 MG VIAL IVP SCH (10:01)
[2016-10-15] MEDS: amLODIPine BESYLATE 5 MG TAB PO SCH (10:01)
[2016-10-15] MEDS: DOCUSATE SODIUM 100 MG CAP PO SCH ×2 (10:01→22:14)
--- NOTE | 2016-10-15 11:39 | HHI.NSPN ---
History Chief Complaint: headache Interval History 61-year-old male presents with approximately one week of progressive severe headache, sometimes accompanied with nausea vomiting, neck stiffness. No definite fevers or chills. System Review Comments Headache improving, relatively mild today. No speech difficulty, dizziness, vertigo, no pain weakness numbness extremities. Ambulating independent Tolerating diet Exam Results Vital Signs Date Time Temp Pulse Resp B/P Pulse Ox O2 Delivery O2 Flow Rate FiO2 10/15/16 08:28 96.6 70 20 159/87 94 10/14/16 22:20 Room Air Intake and Output 10/14/16 10/14/16 10/15/16 08:00 16:00 00:00 Intake Total 1100 ml 2036 ml Output Total 400 ml 700 ml 3 ml Balance 700 ml -700 ml 2033 ml Physical Examination Alert and oriented x 3. Pleasant, conversing appropriately. Follows commands well. CN: pupils equal, extraocular movements intact. facial motor symmetric, tongue midline. No significant facial edema Motor: Within normal limits for age flexion and extension groups all extremities Sensory: reports intact light touch x 4 Plantars downgoing b/l Lab, Micro, Other Results Laboratory Tests Test 10/15/16 07:38 Sodium Level 140 MEQ/L Potassium Level 4.0 MEQ/L Chloride Level 106 MEQ/L Carbon Dioxide Level 27.8 MEQ/L Anion Gap 6 MEQ/L Blood Urea Nitrogen 17 MG/DL Creatinine 0.95 MG/DL Estimat Glomerular Filtration 80 ML/MIN Rate Random Glucose 148 MG/DL Calcium Level 8.2 MG/DL Medical Decision Making Impression and Plan Impression: 1. Right temporal intracranial hemorrhage. No definite vascular malformation, aneurysm, underlying mass lesion or evidence of infection on the basis of CT angiogram and MRI imaging. 2. Hypertension-controlled with oral medications Plan: Continue neurologic checks and vital signs Repeat CT Head in a.m. Continue blood pressure control and monitoring. Continue present medications Non-chemical DVT prophylaxis Physical therapy Ulcer prophylaxis Discussed at length with the patient . Anticipate discharge home on 10/16/16 if follow-up CT scan head is stable Leonidas Flores MD Oct 15, 2016 11:39
[2016-10-15] MEDS ORDERED: diphenhydrAMINE HCL 50 MG/ML VIAL IV PUSH ONE (12:15)
[2016-10-15] MEDS: predniSONE 20 MG TAB PO SCH ×2 (12:29→22:14)
[2016-10-15 16:20] VITALS: BP 132/76; PULSE 65; RESP 20; TEMP 97.4; O2SAT 94
[2016-10-15 16:43] LABS: HEMOGLOBIN A1a 1.4 %; HEMOGLOBIN A1b 0.9 %; HEMOGLOBIN Ao 84.2 %; HEMOGLOBIN F 0.9 %; HEMOGLOBIN LA1C 2.4 %
--- NOTE | 2016-10-15 17:52 | HHI.PR ---
Subjective Remarks Bp noted to be slightly elevated Patient denies headache denies cp/sob Objective Vitals Vital Signs Date Time Temp Pulse Resp B/P Pulse Ox O2 Delivery O2 Flow Rate FiO2 10/15/16 16:20 97.4 65 20 132/76 94 10/15/16 08:28 96.6 70 20 159/87 94 10/15/16 05:32 97.9 76 16 147/72 92 10/15/16 00:52 98.6 70 16 141/79 92 10/14/16 22:20 98 Room Air 10/14/16 22:20 78 10/14/16 20:00 98.9 77 18 140/72 95 I/O 10/14/16 10/14/16 10/14/16 10/15/16 10/15/16 10/15/16 07:00 15:00 23:00 07:00 15:00 23:00 Intake Total 1100 ml 2036 ml Output Total 400 ml 700 ml 3 ml 300 ml Balance 700 ml -700 ml 2033 ml -300 ml Intake Oral 1100 ml 960 ml IV Total 1076 ml Output Urine Total 400 ml 700 ml 3 ml 300 ml # Voids 3 1 # Bowel Movements 1 1 Result Diagram: 10/15/16 0738 Imaging Last Impressions Head CT 10/11/16 0000 Signed Impressions: Service Date/Time: Wednesday, October 12, 2016 05:37 - CONCLUSION: 1. Right temporal lobe hemorrhage measuring 4.0 x 3.2 cm. This appears to be slightly increased in size compared to the prior exam. 2. Otherwise, no other new or significant changes. Bart Wagner MD Brain MRI 10/10/16 0000 Signed Impressions: Service Date/Time: Monday, October 10, 2016 09:22 - CONCLUSION: Right temporal hematoma is slightly larger compared to prior CT however there is no significant increase in degree of mass effect on the right cerebral peduncle. Stable small intraventricular hemorrhage. No evidence of significant adjacent infarct, abnormal enhancement or abnormal vascularity. Blake Corbin MD Neck CTA 10/09/16 0000 Signed Impressions: Service Date/Time: Sunday, October 09, 2016 17:11 - CONCLUSION: Unremarkable exam. Max Ac MD Head CTA 10/09/16 0000 Signed Impressions: Service Date/Time: Sunday, October 09, 2016 17:11 - CONCLUSION: No evidence of aneurysm or arteriovenous malformation. Max Ac MD Objective Remarks GENERAL: Comfortable. No respiratory distress. SKIN: Warm and dry. No rash. HEAD: Atraumatic. Normocephalic. EYES: Pupils equal and round, 2 mm briskly reactive. ENT: No nasal bleeding or discharge. No tongue or lip swelling. NECK: Trachea midline. CARDIOVASCULAR: Regular rate and rhythm, sinus rhythm on the monitor. intermittent 2/6 systolic murmur LSB noted with inspiration. No JVD. RESPIRATORY: No accessory muscle use. Clear to auscultation. Breath sounds equal bilaterally. GASTROINTESTINAL: Abdomen soft, non-tender, nondistended. Bowel sounds present MUSCULOSKELETAL: Extremities without clubbing, cyanosis, or edema. No obvious deformities. NEUROLOGICAL: Awake and alert. No obvious cranial nerve deficits. M/S grossly intact. Strength 5/5 all extremities. Procedures none Medications and IVs Current Medications Medications (Trade) Dose Ordered Sig/Munir Route Start Time Stop Time Status Last Admin ([place] 5-325 Mg) 1 tab Q4H PRN PO 10/09/16 16:00 10/13/16 13:29 (Percocet 10-325 Mg) 1 tab Q6H PRN PO 10/09/16 16:00 10/14/16 02:49 (Narcan Inj) 0.4 mg UNSCH PRN IV 10/09/16 16:00 (NS Flush) 2 ml UNSCH PRN IVF 10/09/16 16:00 (NS Flush) 2 ml BID IVF 10/09/16 21:00 10/15/16 09:00 (Colace) 100 mg BID PO 10/09/16 21:00 10/15/16 10:01 (Zofran Inj) 4 mg Q6H PRN IV 10/09/16 16:00 10/14/16 02:49 (D50w (Vial) Inj) 25 ml UNSCH PRN IV PUSH 10/10/16 03:15 (Glucagon Inj) 1 mg UNSCH PRN OTHER 10/10/16 03:15 (Trandate Inj) 10 mg Q4H PRN IV PUSH 10/10/16 05:45 10/12/16 13:25 (Norvasc) 10 mg DAILY PO 10/12/16 09:00 10/15/16 10:01 Miscellaneous Information Patient in critical care unit? Ass... Q361D .XX 10/11/16 13:00 (Chlorhexidine 2% Cloth) 3 pack DAILY@04 TOPICAL 10/12/16 04:00 10/16/16 04:01 10/15/16 04:02 (Chlorhexidine 2% Cloth) 3 pack UNSCH PRN TOPICAL 10/11/16 12:30 10/16/16 12:28 (Bactroban Nasal 2% Oint) 1 applic BID NASAL 10/12/16 21:00 10/15/16 10:01 (Apresoline Inj) 10 mg Q2H PRN IV PUSH 10/12/16 19:45 10/13/16 23:12 (Pepcid) 20 mg BID PO 10/13/16 09:00 10/15/16 10:01 (Deltasone) 20 mg BID PO 10/15/16 10:00 10/15/16 12:29 Urinary Catheter: No Vascular Central Line Catheter: No A/P Problem List: (1) Intracranial hemorrhage ICD Code: I62.9 Status: Acute Plan: The patient was admitted to intensive care unit. Head CT showed acute hematoma right temporal region. Possible extension to the right temporal horn. Head CTA show no evidence of aneurysm or arteriovenous confirmation. Neck CTA was unremarkable. Brain MRI showed right temporal hematoma. Stable small intraventricular hemorrhage PT OT ordered. 10/15 plan as per neurosurgery records is to obtain a CT scan of the brain in a.m. and if intercurrent hemorrhage stable then patient will be cleared for discharge. (2) Hypertensive emergency ICD Code: I16.1 Status: Acute Plan: The patient was started on Cardene drip to maintain systolic blood pressure less than 140. Patient is off Cardene drip. Blood pressure is stable and for the most part at call below a systolic blood pressure of less than 140. Continue amlodipine 10 mg by mouth daily and hydralazine when necessary. Lisinopril was started earlier today by mistake. The patient took it, however denies any short of breath, there is no lip or tongue swelling and vital signs are stable. I gave 50 minutes of IV Benadryl to prevent any allergic reaction. The liver was communicated to the patient as well as the corrective measures taken. Will monitor patient. Discussed with RN. (3) Photophobia ICD Code: H53.149 Status: Acute Plan: Likely secondary to intercurrent hemorrhage and meningismus. resolving (4) Headache ICD Code: R51 Status: Resolved Plan: Headache seems to be resolved. Continue pain control provided with Percocet and [place]. (5) Nausea ICD Code: R11.0 Status: Resolved Plan: resolved. Continue IV Zofran. (6) Hyperglycemia ICD Code: R73.9 Status: Acute Plan: Possibly steroid-induced hyperglycemia. At this point it is not clear why the patient's on IV steroids, continue steroid taper. Continue SSI with insulin NovoLog and continue to monitor Accu-Cheks. Follow- up hemoglobin A1c. Blood sugars stable (7) Angioedema ICD Code: T78.3XXA Status: Acute Plan: Patient had Angelito edema secondary to lisinopril. As stated above, lisinopril was administered by mistake. The patient does not show any allergic reaction. Continue same dose of IV steroids for now. Assessment and Plan DVT prophylaxis: SCDs, no chemotherapy prophylaxis given recent ICH. Discharge Planning possible Dc in am pending neurosurgery clearance. Problem Qualifiers (1) Headache: Qualified Code: R51 - Acute nonintractable headache, unspecified headache type Josué Solano MD Oct 15, 2016 17:52
[2016-10-15 18:05] VITALS: PULSE 74
[2016-10-15 20:00] VITALS: BP 144/81; PULSE 68; RESP 20; TEMP 98.3; O2SAT 93
[2016-10-15] MEDS: oxyCODONE/ACETAMINOPHEN 10 MG/325 MG TAB PO PRN (22:29)
[2016-10-15] MEDS: ONDANSETRON HCL 4 MG/2 ML VIAL IV PRN (22:29)
[2016-10-16] VITALS: BP 138/74; PULSE 62; RESP 20; TEMP 97.8; O2SAT 94
[2016-10-16] MEDS: CHLORHEXIDINE GLUCONATE 2 % 1 PACK (2 CLOTHS)(taper/protocol) TOPICAL SCH (04:00)
[2016-10-16 05:47] VITALS: BP 160/74; PULSE 57; RESP 20; TEMP 97.4; O2SAT 94
[2016-10-16] MEDS: INSULIN ASPART SUPPLEMENTAL SCALE SQ SCH ×2 (07:06→11:00)
[2016-10-16 08:02] VITALS: BP 124/64; PULSE 55; RESP 20; TEMP 97.5; O2SAT 95
[2016-10-16] MEDS ORDERED: DILA2TAB2 PO (08:57)
[2016-10-16] MEDS: MUPIROCIN 2% OINT 1 APPLIC/GM SYR NASAL SCH (08:57)
[2016-10-16] MEDS ORDERED: AMLO5 PO (08:57)
--- NOTE | 2016-10-16 08:58 | HHI.DCPOC ---
Discharge Care Plan Diagnosis: (1) Intracranial hemorrhage (2) Hypertensive emergency Your Health Problems Are: Exercise Tolerance Additional Problems Observe for tongue or facial swelling Goals to Promote Your Health * To prevent worsening of your condition and complications * To maintain your health at the optimal level Directions to Meet Your Goals Take your medications as prescribed Follow your dietary instruction Follow activity as directed Keep your appointments as scheduled Take your immunizations and boosters as scheduled If your symptoms worsen call your PCP, if no PCP go to Urgent Care Center or Emergency Room Smoking is Dangerous to Your Health. Avoid second hand smoke Call the 24-hour hour crisis hotline for domestic abuse at Leonidas Flores MD Oct 16, 2016 08:58
[2016-10-16] MEDS: DOCUSATE SODIUM 100 MG CAP PO SCH (08:59)
[2016-10-16] MEDS: FAMOTIDINE 20 MG TAB PO SCH (08:59)
[2016-10-16] MEDS: predniSONE 20 MG TAB PO SCH (08:59)
[2016-10-16] MEDS: amLODIPine BESYLATE 5 MG TAB PO SCH (08:59)
[2016-10-16] MEDS: SODIUM CHLORIDE 0.9% FLUSH 5 ML FLUSH IVF SCH (09:00)
--- NOTE | 2016-10-16 10:07 | HHI.PR ---
Subjective Remarks Patient doing well, no complaints this morning. Ambulatory with functionality. Medically stable for discharge to home when neurology clearance obtained. Objective Vital Signs Date Time Temp Pulse Resp B/P Pulse Ox O2 Delivery O2 Flow Rate FiO2 10/16/16 08:02 97.5 55 20 124/64 95 10/16/16 05:47 97.4 57 20 160/74 94 10/16/16 05:47 Room Air 10/16/16 00:00 97.8 62 20 138/74 94 10/16/16 00:00 Room Air 10/15/16 20:00 98.3 68 20 144/81 93 10/15/16 20:00 Room Air 10/15/16 18:05 74 10/15/16 16:20 97.4 65 20 132/76 94 I/O 10/15/16 10/15/16 10/15/16 10/16/16 10/16/16 10/16/16 07:00 15:00 23:00 07:00 15:00 23:00 Intake Total 480 ml Output Total 300 ml Balance -300 ml 480 ml Intake Oral 480 ml Output Urine Total 300 ml # Voids 3 2 2 # Bowel Movements 1 1 1 Result Diagram: 10/15/16 0738 Imaging Last Impressions Head CT 10/11/16 0000 Signed Impressions: Service Date/Time: Wednesday, October 12, 2016 05:37 - CONCLUSION: 1. Right temporal lobe hemorrhage measuring 4.0 x 3.2 cm. This appears to be slightly increased in size compared to the prior exam. 2. Otherwise, no other new or significant changes. Bart Wagner MD Brain MRI 10/10/16 0000 Signed Impressions: Service Date/Time: Monday, October 10, 2016 09:22 - CONCLUSION: Right temporal hematoma is slightly larger compared to prior CT however there is no significant increase in degree of mass effect on the right cerebral peduncle. Stable small intraventricular hemorrhage. No evidence of significant adjacent infarct, abnormal enhancement or abnormal vascularity. Blake Corbin MD Neck CTA 10/09/16 0000 Signed Impressions: Service Date/Time: Sunday, October 09, 2016 17:11 - CONCLUSION: Unremarkable exam. Max Ac MD Head CTA 10/09/16 0000 Signed Impressions: Service Date/Time: Sunday, October 09, 2016 17:11 - CONCLUSION: No evidence of aneurysm or arteriovenous malformation. Max Ac MD Objective Remarks GENERAL: A&Ox3, No acute distress SKIN: Warm and dry. HEAD: Normocephalic. EYES: No scleral icterus. No injection or drainage. NECK: Supple, trachea midline. No JVD or lymphadenopathy. CARDIOVASCULAR: Regular rate and rhythm without murmurs, gallops, or rubs. RESPIRATORY: Breath sounds equal bilaterally. No accessory muscle use. GASTROINTESTINAL: Abdomen soft, non-tender, nondistended. MUSCULOSKELETAL: No cyanosis, or edema. BACK: Nontender without obvious deformity. No CVA tenderness. NEURO: No focal deficits on general exam. Medications and IVs Administered Medications Medications (Trade) Dose Ordered Sig/Munir Route PRN Reason Start Time Stop Time Status Last Admin Dose Admin Acetaminophen/ Hydrocodone Bitart (Franklin 5-325 Mg) 1 tab Q4H PRN PO PAIN SCALE 3 TO 5 10/09/16 16:00 10/13/16 13:29 Oxycodone/ Acetaminophen (Percocet 10-325 Mg) 1 tab Q6H PRN PO PAIN SCALE 6 TO 10 10/09/16 16:00 10/15/16 22:29 IV Flush (NS Flush) 2 ml BID IVF 10/09/16 21:00 10/16/16 09:00 Docusate Sodium (Colace) 100 mg BID PO 10/09/16 21:00 10/16/16 08:59 Ondansetron HCl (Zofran Inj) 4 mg Q6H PRN IV NAUSEA OR VOMITING 10/09/16 16:00 10/15/16 22:29 Labetalol HCl (Trandate Inj) 10 mg Q4H PRN IV PUSH SBP >140 10/10/16 05:45 10/12/16 13:25 Amlodipine Besylate (Norvasc) 10 mg DAILY PO 10/12/16 09:00 10/16/16 08:59 Mupirocin (Bactroban Nasal 2% Oint) 1 applic BID NASAL 10/12/16 21:00 10/16/16 08:57 Hydralazine HCl (Apresoline Inj) 10 mg Q2H PRN IV PUSH SBP >140 10/12/16 19:45 10/13/16 23:12 Famotidine (Pepcid) 20 mg BID PO 10/13/16 09:00 10/16/16 08:59 Prednisone (Deltasone) 20 mg BID PO 10/15/16 10:00 10/16/16 08:59 A/P Problem List: (1) Photophobia ICD Code: H53.149 Assessment & Plan: Resolved Follow as an outpatient for recurrence and report to MD if symptoms return. (2) Headache ICD Code: R51 Assessment & Plan: Resolved Follow as an outpatient for recurrence and report to MD if symptoms return. (3) Intracranial hemorrhage ICD Code: I62.9 Assessment & Plan: No signs of continued bleed or acute change. CT of brain is pending for comparison evaluation Neurology following Medically cleared for discharge if deemed stable for discharge from a Neurologic standpoint. (4) Hypertensive emergency ICD Code: I16.1 Assessment & Plan: Stabalized Amlodipine at discharge Goal is a range of 100-140 mmHg Systolic Patient instructed to monitor BP at home Patient to call MD if BP elevates beyond 140 mmHg Systolic Patient to hold treatment and call MD if BP falls below 100 mmHg Systolic (5) Hyperglycemia ICD Code: R73.9 Assessment & Plan: Mild elevations on most recent blood sugar evaluations May be transient and related to ICH and related changes Follow for now Patient instructed to follow up with PCP for blood sugar recheck Treatment may be considered in 2 weeks Assessment and Plan Mr. Cardona is status post ICH with a relatively good outcome and resolution of signs and symptoms. Treatment plans are present for HTN and Hyperglycemia, both suspected to be related to his ICH and both with potential for natural resolution. Discharge Planning Medically Cleared for discharge home Problem Qualifiers (1) Headache: Qualified Code: R51 - Acute nonintractable headache, unspecified headache type Stevo Figueroa MD Oct 16, 2016 10:07
--- NOTE | 2016-10-16 10:44 | RADRPT ---
EXAM DATE/TIME: 10/16/2016 09:12 [facility] COMPARISON: CT BRAIN W/O CONTRAST, October 12, 2016, 5:37. INDICATIONS : Intracerebral Hemorraage RADIATION DOSE: 56.37 CTDIvol (mGy) MEDICAL HISTORY : SURGICAL HISTORY : ENCOUNTER: Subsequent ACUITY: 1 day PAIN SCALE: 2/10 LOCATION: cranial TECHNIQUE: Multiple contiguous axial images were obtained of the head. Using automated exposure control and adj ustment of the mA and/or kV according to patient size, radiation dose was kept as low as reasonably a chievable to obtain optimal diagnostic quality images. FINDINGS: CEREBRUM: A right temporal lobe hemorrhage is again identified. Slight differences in angulation demonstrates s light increase in AP dimension however the hemorrhage overall appears unchanged. There is no increasi ng mass effect or edema. The left cerebral hemisphere is stable. POSTERIOR FOSSA: Mild effacement of the right cerebral peduncle remains evident. The cerebellum and brainstem are othe rwise intact. The 4th ventricle is midline. The cerebellopontine angle is unremarkable. EXTRACRANIAL: The visualized portion of the orbits is intact. SKULL: The calvaria is intact. No evidence of skull fracture. CONCLUSION: Right temporal lobe hemorrhage demonstrates increase in AP dimension however this may be due to angulation. Overall appearance of the hemorrhage has not significant changed. There is no evidence of increasing edema or mass effect. Otherwise stable evaluation Blake Corbin MD on October 16, 2016 at 10:35 Board Certified Radiologist. This report was verified electronically.
[2016-10-16 12:07] VITALS: BP 136/79; PULSE 63; RESP 20; TEMP 97.4; O2SAT 95
[2016-10-16 16:07] VITALS: BP 136/71; PULSE 65; RESP 20; TEMP 97.6; O2SAT 94
--- NOTE | 2016-10-16 17:18 | HHI.DS ---
Discharge Summary Admission Date Oct 09, 2016 at 15:14 Discharge Date: Oct 16, 2016 Admitting Diagnosis ICH (1) Intracranial hemorrhage Diagnosis: Principal ICD Code: I62.9 (2) Hypertensive emergency Diagnosis: Secondary ICD Code: I16.1 (3) Photophobia Diagnosis: Secondary ICD Code: H53.149 (4) Headache Diagnosis: Secondary ICD Code: R51 (5) Nausea Diagnosis: Secondary ICD Code: R11.0 (6) Hyperglycemia Diagnosis: Secondary ICD Code: R73.9 (7) Angioedema Diagnosis: Secondary ICD Code: T78.3XXA Brief History 61-year-old male presents to the emergency room today with history of approximately 7 days headache, cough, nausea and vomiting generalized malaise. Recent trip to the [facility]. Was seen by primary care physician yesterday. Headache has become very severe the past couple of days. No fevers or chills. Positive neck pain without significant stiffness. Positive myalgia. No skin rash CBC/BMP: 10/15/16 0738 Significant Findings Laboratory Tests Test 10/14/16 10/15/16 10/16/16 07:15 07:38 07:09 Estimat Glomerular Filtration 85 ML/MIN (>89) 80 ML/MIN (>89) Rate Random Glucose 129 MG/DL 148 MG/DL (74-106) (74-106) Calcium Level 8.2 MG/DL (8.5-10.1) HDL Cholesterol 69.0 MG/DL (40.0-60.0) Imaging Last Impressions Head CT 10/16/16 0000 Signed Impressions: Service Date/Time: Sunday, October 16, 2016 09:12 - CONCLUSION: Right temporal lobe hemorrhage demonstrates increase in AP dimension however this may be due to angulation. Overall appearance of the hemorrhage has not significant changed. There is no evidence of increasing edema or mass effect. Otherwise stable evaluation Blake Corbin MD Brain MRI 10/10/16 0000 Signed Impressions: Service Date/Time: Monday, October 10, 2016 09:22 - CONCLUSION: Right temporal hematoma is slightly larger compared to prior CT however there is no significant increase in degree of mass effect on the right cerebral peduncle. Stable small intraventricular hemorrhage. No evidence of significant adjacent infarct, abnormal enhancement or abnormal vascularity. Blake Corbin MD Neck CTA 10/09/16 0000 Signed Impressions: Service Date/Time: Sunday, October 09, 2016 17:11 - CONCLUSION: Unremarkable exam. Max Ac MD Head CTA 10/09/16 0000 Signed Impressions: Service Date/Time: Sunday, October 09, 2016 17:11 - CONCLUSION: No evidence of aneurysm or arteriovenous malformation. Max Ac MD Pt Condition on Discharge: Stable Discharge Disposition: Discharge Home Discharge Instructions DIET: Follow Instructions for: As Tolerated, No Restrictions ACTIVITIES You can perform: Weight Bearing As Chilo Activities to Avoid: Strenuous Activity ADDITIONAL Activity Instructio: Activity as tolerated but avoid any activity that requires intense concentration or is strenuous for the next couple weeks. Then gradually increase your activity as tolerated. New Medications: Hydromorphone (Dilaudid) 2 Mg Tab 2 MG PO Q6H PRN Pain Management #30 Ref 0 TAB Amlodipine (Norvasc) 5 Mg Tab 10 MG PO DAILY Blood Pressure Management #30 Ref 2 TAB Continued Medications: Loratadine (Claritin) 10 Mg Tab 10 MG PO DAILY Allergy Management Ref 0 TAB Leonidas Flores MD Oct 16, 2016 17:18
--- NOTE | 2016-10-16 18:40 | HHI.NSPN ---
History Chief Complaint: headache Interval History 61-year-old male presents with approximately one week of progressive severe headache, sometimes accompanied with nausea vomiting, neck stiffness. No definite fevers or chills. Exam Results Vital Signs Date Time Temp Pulse Resp B/P Pulse Ox O2 Delivery O2 Flow Rate FiO2 10/16/16 16:07 97.6 65 20 136/71 94 10/16/16 07:00 Room Air Intake and Output 10/15/16 10/15/16 10/16/16 08:00 16:00 00:00 Intake Total 480 ml Output Total 300 ml Balance -300 ml 480 ml Physical Examination Alert and oriented x 3. Pleasant, conversing appropriately. Follows commands well. CN: pupils equal, extraocular movements intact. facial motor symmetric, tongue midline. No significant facial edema Motor: Within normal limits for age flexion and extension groups all extremities Sensory: reports intact light touch x 4 Lab, Micro, Other Results Laboratory Tests Test 10/16/16 07:09 Triglycerides Level 73 MG/DL Cholesterol Level 158 MG/DL LDL Cholesterol 74 MG/DL HDL Cholesterol 69.0 MG/DL Cholesterol/HDL Ratio 2.28 RATIO Medical Decision Making Impression and Plan Impression: 1. Right temporal intracranial hemorrhage. No definite vascular malformation, aneurysm, underlying mass lesion or evidence of infection on the basis of CT angiogram and MRI imaging. 2. Hypertension-controlled with oral medications Plan: Continue neurologic checks and vital signs Repeat CT Head today stable Continue [facility] for hypertension. Discussed at length with patient. Advised mostly sedentary activity for the next couple of weeks, until next CT scan and follow-up visit. He is to avoid NSAIDs, aspirin, vitamin E, fish oil Signs and symptoms to watch for fully discussed Hanna knowledge is understanding of the above information. He wishes to discharge home today. Leonidas Flores MD Oct 16, 2016 18:40
[2016-10-19] MEDS ORDERED: ONDA1TAB17 PO (09:36)
[2016-12-06] MEDS ORDERED: METH500T3 PO (18:27)
== END 2016-10-16 17:35 | disposition home or self-care (01) | DRG 64 ==
LOC: PHED 13:23 → PHEDA 15:14 → N03A 21:41 → N05A 10-13 14:21
PROVIDERS: ADMIT Neurological Surgery; ATTEND Neurological Surgery
DX: I61.5 Nontraumatic intracerebral hemorrhage, intraventricular (principal); G93.6 Cerebral edema; T78.3XXA Angioneurotic edema, initial encounter; R29.1 Meningismus; I16.1 Hypertensive emergency; I10 Essential (primary) hypertension; H53.149 Visual discomfort, unspecified; R73.9 Hyperglycemia, unspecified; T46.5X5A Adverse effect of other antihypertensive drugs, initial encounter; Y92.230 Patient room in hospital as the place of occurrence of the external cause; Z22.322 Carrier or suspected carrier of Methicillin resistant Staphylococcus aureus; Z85.828 Personal history of other malignant neoplasm of skin
CPT/HCPCS: 36556; 36620; 70450; 70496; 70498; 70553; 80048; 80061; 82948; 83036; 85025; 85610; 85730; 87641; 93005; 93306; 94150; 96374; 99292; A9579; C9113; J0360; J1170; J1200; J1815; J2270; J2405; J2930; J3480; J7030; J7050; J7512; Q9967

== ENCOUNTER → 2016-10-25 | Outpatient (CLI) | payer OTHER ==
[~2016-10-25] MED LIST changes: +AMLO5 PO; +CYCL1TAB29 PO; +DEXA1.5T PO; +DILA2TAB2 PO; +FAMO20TA2 PO; +GABA100C4 PO; +HYDR-3516 PO; +LEVE500 PO; +LIDO5DIS35 T-DERMAL; +LORA-361 PO; +MAPA500T PO; +METH500T3 PO; +NAPR500 PO; -NAPR550 PO; +ONDA1TAB17 PO; +ONDA4SOL PO; +OXYC1TAB36 PO; +PAME25CA PO; +PRED20 PO; +TAMS5CAP PO; -TRAM50 PO; -Z.0.NO CURRENT MEDS; +ZOFR8TAB PO
--- NOTE | 2016-10-25 15:08 | RADRPT ---
EXAM DATE/TIME: 10/25/2016 14:11 [facility] COMPARISON: CT BRAIN W/O CONTRAST, October 16, 2016, 9:12. INDICATIONS : Follow up, had stroke on 10/09/16 RADIATION DOSE: 56.35 CTDIvol (mGy) MEDICAL HISTORY : Cerebrovascular disease. SURGICAL HISTORY : None. ENCOUNTER: Initial ACUITY: 1 day PAIN SCALE: 0/10 LOCATION: Right cranial TECHNIQUE: Multiple contiguous axial images were obtained of the head. Using automated exposure control and adj ustment of the mA and/or kV according to patient size, radiation dose was kept as low as reasonably a chievable to obtain optimal diagnostic quality images. FINDINGS: CEREBRUM: Right temporal lobe hemorrhage is stable to slightly smaller in size currently measuring 4.6 x 3.3 cm . This does result in slight mass effect with a 4-5 mm right to left subfalcine shift. No extra-axia l fluid collections are seen. POSTERIOR FOSSA: The cerebellum and brainstem are intact. The 4th ventricle is midline. The cerebellopontine angle i s unremarkable. EXTRACRANIAL: The visualized portion of the orbits is intact. SKULL: The calvaria is intact. No evidence of skull fracture. CONCLUSION: 1. Right temporal lobe hemorrhage is at least stable and may be slightly smaller when compared to the prior. No new areas of hemorrhage. 2. A 4-5 mm right to left subfalcine shift, unchanged.. Eze Medrano MD on October 25, 2016 at 15:02 Board Certified Radiologist. This report was verified electronically.
== END ==
LOC: HRAD 13:45
PROVIDERS: ATTEND Neurological Surgery
DX: I63.9 Cerebral infarction, unspecified (principal)
CPT/HCPCS: 70450

== ENCOUNTER 2016-11-06 18:47 | Observation (INO) | payer OTHER ==
[~2016-11-06] VITALS: Ht 182.9 cm; Wt 76.7 kg
[~2016-11-06 18:47] MED LIST changes: -CYCL1TAB29 PO; -DEXA1.5T PO; -FAMO20TA2 PO; -GABA100C4 PO; -HYDR-3516 PO; -LEVE500 PO; -LIDO5DIS35 T-DERMAL; -MAPA500T PO; -METH500T3 PO; -NAPR500 PO; -ONDA4SOL PO; -OXYC1TAB36 PO; -PAME25CA PO; -PRED20 PO; -TAMS5CAP PO; -ZOFR8TAB PO
[2016-11-06 19:00] VITALS: BP 146/79; PULSE 88; RESP 17; TEMP 98.2; O2SAT 99
[2016-11-06] MEDS ORDERED: TETANUS/DIPHTHERIA TOXOID ADULT 0.5 ML VIAL IM ONE (19:30)
[2016-11-06] MEDS ORDERED: SODIUM CHLORIDE 0.9% FLUSH 10 ML FLUSH IVF PRN (19:30)
[2016-11-06] MEDS ORDERED: ONDANSETRON HCL 4 MG/2 ML VIAL IVP ONE (19:30)
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
[2016-11-06 19:46] LABS: AUTOMATED NEUTROPHIL # 4.3 TH/MM3 (1.8-7.7); BASOPHIL % 0.4 % (0.0-2.0); EOSINOPHIL # 0.1 TH/MM3 (0-0.4); HEMATOCRIT 44.3 % (39.0-51.0); HEMO FLAGS DIFF FINAL; LYMPH % 19.7 % (9.0-44.0); LYMPHOCYTE # 1.3 TH/MM3 (1.0-4.8); MEAN CELL VOLUME 90.6 FL (80.0-100.0); MEAN CORPUSCULAR HEMOGLOBIN 29.5 PG (27.0-34.0); MEAN CORPUSCULAR HGB CONC 32.6 % (32.0-36.0); MONO % 11.5 % (0.0-8.0); NEUT % 67.4 % (16.0-70.0); PLATELET COUNT 184 TH/MM3 (150-450); RED BLOOD COUNT 4.89 MIL/MM3 (4.50-5.90); RED CELL DISTRIBUTION WIDTH 13.4 % (11.6-17.2); WHITE BLOOD COUNT 6.4 TH/MM3 (4.0-11.0)
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
[2016-11-06 20:00] LABS: APTT (PATIENT) 21.9 SEC (24.3-30.1); PROTHROMBIN TIME - PATIENT 10.9 SEC (9.8-11.6)
[2016-11-06 20:20] LABS: ANION GAP 8 MEQ/L (5-15); BICARBONATE 31.8 MEQ/L (21.0-32.0); BLOOD UREA NITROGEN 14 MG/DL (7-18); CHLORIDE 100 MEQ/L (98-107); CREATINE KINASE 130 U/L (39-308); GLOMERULAR FILTRATION RATE 58 ML/MIN (>89); MAGNESIUM 2.1 MG/DL (1.5-2.5); SODIUM (NA) 140 MEQ/L (136-145)
[2016-11-06 20:29] LABS: POTASSIUM 4.3 MEQ/L (3.5-5.1)
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
[2016-11-06 20:41] LABS: CKMB 0.7 NG/ML (0.5-3.6)
[2016-11-06] MEDS ORDERED: SODIUM CHLORIDE 0.9% FLUSH 10 ML FLUSH IV FLUSH PRN (21:15)
[2016-11-06] MEDS ORDERED: NALOXONE HCL 0.4 MG/ML AMP IV PRN (21:15)
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
[2016-11-06 22:38] VITALS: BP 148/72; PULSE 66; RESP 17; O2SAT 99
[2016-11-06] MEDS ORDERED: ACETAMINOPHEN 500 MG CPLT PO PRN (22:45)
[2016-11-06] MEDS ORDERED: ACETAMINOPHEN/HYDROcodone 325 MG/5 MG TAB PO PRN (22:45)
[2016-11-06] MEDS: ONDANSETRON HCL 4 MG/2 ML VIAL IV PUSH PRN (22:52)
[2016-11-06] MEDS: MORPHINE SULFATE 4 MG/ML INJ IV PUSH PRN (22:53)
[2016-11-06 23:45] VITALS: BP 159/90; PULSE 67; RESP 20; TEMP 98.6; O2SAT 100
[2016-11-07] VITALS (24 sets, daily range): BP systolic 118–152; BP diastolic 75–91; PULSE 58–82; RESP 18; TEMP 97.7–98.4; O2SAT 95–96
[2016-11-07 02:09] LABS: AUTOMATED NEUTROPHIL # 6.9 TH/MM3 (1.8-7.7); BASOPHIL % 0.2 % (0.0-2.0); EOSINOPHIL % 0.2 % (0.0-4.0); HEMATOCRIT 41.5 % (39.0-51.0); HEMO FLAGS DIFF FINAL; LYMPH % 13.3 % (9.0-44.0); LYMPHOCYTE # 1.2 TH/MM3 (1.0-4.8); MEAN CELL VOLUME 89.8 FL (80.0-100.0); MEAN CORPUSCULAR HEMOGLOBIN 29.7 PG (27.0-34.0); MEAN CORPUSCULAR HGB CONC 33.1 % (32.0-36.0); MONO % 10.3 % (0.0-8.0); PLATELET COUNT 160 TH/MM3 (150-450); RED BLOOD COUNT 4.62 MIL/MM3 (4.50-5.90); RED CELL DISTRIBUTION WIDTH 13.3 % (11.6-17.2); WHITE BLOOD COUNT 9.1 TH/MM3 (4.0-11.0)
[2016-11-07 02:31] LABS: ANION GAP 8 MEQ/L (5-15); BICARBONATE 29.8 MEQ/L (21.0-32.0); BLOOD UREA NITROGEN 15 MG/DL (7-18); CHLORIDE 102 MEQ/L (98-107); GLOMERULAR FILTRATION RATE 65 ML/MIN (>89); POTASSIUM 3.5 MEQ/L (3.5-5.1); SODIUM (NA) 140 MEQ/L (136-145)
[2016-11-07 02:36] LABS: CREATINE KINASE 281 U/L (39-308)
[2016-11-07] MEDS ORDERED: IOHEXOL 350 MG/ML 10 ML VIAL (for RAD DIAG) IV ONE (03:06)
--- NOTE | 2016-11-07 03:47 | RADRPT ---
EXAM DATE/TIME: 11/07/2016 02:55 [facility] COMPARISON: No previous studies available for comparison. INDICATIONS : Syncope. Elevated D-Dimer. IV CONTRAST: 80 cc Omnipaque 350 (iohexol) IV RADIATION DOSE: 23.38 CTDIvol (mGy) MEDICAL HISTORY : Hypertension. Gastroesophageal reflux disease. Intracranial hemorrhage. SURGICAL HISTORY : None. ENCOUNTER: Initial ACUITY: 1 day PAIN SCALE: 0/10 LOCATION: chest TECHNIQUE: Volumetric scanning of the chest was performed using a pulmonary embolism protocol MIP images were re constructed. Using automated exposure control and adjustment of the mA and/or kV according to patien t size, radiation dose was kept as low as reasonably achievable to obtain optimal diagnostic quality images. FINDINGS: PULMONARY ARTERIES: No filling defects are seen in the pulmonary arteries through the segmental level. LUNGS: Bibasilar atelectasis. Remaining lungs are clear. No mass or infiltrate. PLEURAE: There is no pleural thickening or pleural effusion. MEDIASTINUM: There is a replaced right subclavian artery. The heart is mildly enlarged. No pericardial effusion. N o mass or adenopathy. MUSCULOSKELETAL: Within normal limits for patient age. MISCELLANEOUS: A small hiatal hernia is noted. CONCLUSION: 1. No pulmonary emboli. 2. Bibasilar atelectasis. 3. Hiatal hernia. 4. Replaced right subclavian artery. Wm Hernandez Jr., MD on November 07, 2016 at 3:39 Board Certified Radiologist. This report was verified electronically.
[2016-11-07 05:17] LABS: BACTERIA, URINE RARE /hpf; BLOOD, URINE NEG (NEG); COMMENT (UR) CULT NOT INDICATED; CULTURE IF INDICATED CULT NOT INDICATED; GLUCOSE,URINE NEG (NEG); KETONE, URINE 10 mg/dL (NEG); NITRITE,URINE NEG (NEG); PH, URINE 6.5 (5.0-8.5); URINE COLOR YELLOW (YELLW/STRAW)
[2016-11-07] MEDS: ONDANSETRON HCL 4 MG/2 ML VIAL IV PUSH PRN ×3 (05:31→21:17)
[2016-11-07] MEDS: MORPHINE SULFATE 4 MG/ML INJ IV PUSH PRN ×2 (05:31→21:17)
--- NOTE | 2016-11-07 05:46 | EKG ---
Date Performed: 11/06/2016 Time Performed: 19:37:17 PTAGE: 61 years EKG: SINUS BRADYCARDIA BORDERLINE ECG PREVIOUS TRACING : 10/10/2016 04.03 Compared to the previous tracing rate slower DOCTOR: Maura Garcia Interpretating Date/Time 11/07/2016 05:45:45
[2016-11-07 09:32] LABS: CREATINE KINASE 319 U/L (39-308)
[2016-11-07 09:47] LABS: CKMB 1.4 NG/ML (0.5-3.6)
[2016-11-07] MEDS ORDERED: levETIRAcetam 1000 MG INJ 100 ML IV ONE (11:15)
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
[2016-11-07] MEDS: SODIUM CHLORIDE 0.9% FLUSH 10 ML FLUSH IV FLUSH SCH ×2 (12:22→21:18)
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
[2016-11-07] MEDS ORDERED: GADODIAMIDE PF 287 MG/ML 5 ML VIAL (for RAD MRI) IV ONE (15:17)
[2016-11-07] MEDS: GABAPENTIN 100 MG CAP PO SCH ×2 (15:25→17:55)
--- NOTE | 2016-11-07 19:21 | EKG ---
Date Performed: 11/07/2016 Time Performed: 06:36:06 PTAGE: 61 years EKG: Sinus rhythm Poor R wave progression - probable normal variant Borderline ECG PREVIOUS TRACING : 11/07/2016 01.32 Compared to prior tracing no significant change DOCTOR: Maura Garcia Interpretating Date/Time 11/07/2016 19:20:28
--- NOTE | 2016-11-07 19:43 | EKG ---
Date Performed: 11/07/2016 Time Performed: 01:32:26 PTAGE: 61 years EKG: Sinus rhythm Normal ECG PREVIOUS TRACING : 11/06/2016 19.37 Compared to the previous tracing rate faster DOCTOR: Maura Garcia Interpretating Date/Time 11/07/2016 19:42:06
[2016-11-07] MEDS: levETIRAcetam 500 MG TAB PO SCH (21:17)
[2016-11-08] VITALS (22 sets, daily range): BP systolic 119–154; BP diastolic 72–111; PULSE 52–107; RESP 16–20; TEMP 98–100.6; O2SAT 94–96
[2016-11-08] MEDS: MORPHINE SULFATE 4 MG/ML INJ IV PUSH PRN ×4 (07:50→21:47)
[2016-11-08] MEDS: SODIUM CHLORIDE 0.9% FLUSH 10 ML FLUSH IV FLUSH SCH ×2 (07:51→21:00)
[2016-11-08] MEDS: levETIRAcetam 500 MG TAB PO SCH ×2 (07:51→21:47)
[2016-11-08] MEDS: amLODIPine BESYLATE 5 MG TAB PO SCH (07:51)
[2016-11-08] MEDS: GABAPENTIN 100 MG CAP PO SCH ×3 (07:51→17:58)
[2016-11-08] MEDS: ONDANSETRON HCL 4 MG/2 ML VIAL IV PUSH PRN ×2 (07:51→17:58)
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
[2016-11-08] MEDS ORDERED: MORPHINE SULFATE 4 MG/ML INJ IV PUSH PRN (10:45)
[2016-11-08] MEDS: LIDOCAINE HCL 5% PATCH T-DERMAL SCH (12:00)
[2016-11-08] MEDS: REMOVE OLD LIDOCAINE PATCH T-DERMAL SCH (12:00)
--- NOTE | 2016-11-08 17:41 | RADRPT ---
EXAM DATE/TIME: 11/08/2016 16:49 [facility] COMPARISON: No previous studies available for comparison. INDICATIONS : Left shoulder pain, unknown injury. MEDICAL HISTORY : None. SURGICAL HISTORY : None. ENCOUNTER: Initial ACUITY: 2 weeks PAIN SCORE: 7/10 LOCATION: Left shoulder. FINDINGS: Multiple view examination of the left shoulder demonstrates no evidence of fracture or dislocation. The glenohumeral and acromioclavicular joints are maintained. There is normal range of motion betwee n internal and external rotation. Bony mineralization is normal. CONCLUSION: 1. 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 No acute fracture. Ruel Beasley MD on November 08, 2016 at 17:37 Board Certified Radiologist. This report was verified electronically.
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
[2016-11-09] VITALS (7 sets, daily range): BP systolic 133–152; BP diastolic 70–98; PULSE 63–78; RESP 18–20; TEMP 97.4–100; O2SAT 93–95
[2016-11-09] MEDS ORDERED: LIDOCAINE HCL 5% PATCH T-DERMAL SCH (09:00)
[2016-11-09] MEDS: amLODIPine BESYLATE 5 MG TAB PO SCH (09:46)
[2016-11-09] MEDS: GABAPENTIN 100 MG CAP PO SCH ×3 (09:46→18:40)
[2016-11-09] MEDS: levETIRAcetam 500 MG TAB PO SCH ×2 (09:46→20:29)
[2016-11-09] MEDS: SODIUM CHLORIDE 0.9% FLUSH 10 ML FLUSH IV FLUSH SCH ×2 (09:47→20:30)
[2016-11-09] MEDS: LIDOCAINE HCL 5% PATCH T-DERMAL SCH (09:48)
[2016-11-09] MEDS: MORPHINE SULFATE 4 MG/ML INJ IV PUSH PRN (09:52)
[2016-11-09] MEDS ORDERED: oxyCODONE/ACETAMINOPHEN 5 MG/325 MG TAB PO PRN (10:15)
[2016-11-09] MEDS: REMOVE OLD LIDOCAINE PATCH T-DERMAL SCH (11:53)
[2016-11-09] MEDS: CYCLOBENZAPRINE HCL 10 MG TAB PO SCH ×3 (13:10→20:31)
[2016-11-09] MEDS: oxyCODONE/ACETAMINOPHEN 10 MG/325 MG TAB PO PRN ×2 (13:10→22:12)
--- NOTE | 2016-11-09 14:40 | RADRPT ---
EXAM DATE/TIME: 11/09/2016 13:32 [facility] COMPARISON: No previous studies available for comparison. INDICATIONS : Neck pain. MEDICAL HISTORY : Carcinoma, renal, CVA SURGICAL HISTORY : Inguinal hernia repair. ENCOUNTER: Initial ACUITY: 2 day PAIN SCORE: 4/10 LOCATION: Paraspinal TECHNIQUE: Multiplanar, multisequence MRI examination of the cervical spine was performed. FINDINGS: Alignment: Craniocervical and cervical vertebral body alignment are intact. Osseous structures and facet joints: Vertebral bodies are intact without evidence of compression deformity. Facet joints are satisfactory aligned. There is mild bilateral facet arthropathy. There are no destructive lesions. Intervertebral disc spaces: Degenerative disc disease ranging from mild to moderate in severity is noted. C2-3: Unremarkable. C3-4: There are posterior annular bulging and mild degenerative disease. No evidence of disc herniati on or, foraminal crush or spinal stenosis. C4-5: Mild degenerative disc disease without evidence of focal disc herniation, foraminal crush or sp inal stenosis. C5-6: Moderate degenerative disc disease with mild marginal spondylosis. There is a posterior disc os teophyte complex with minimal anterior dural effacement. There is no evidence of soft disc extrusion, significant foraminal encroachment or spinal stenosis. C6-7: Moderate degenerative disc disease with disc space narrowing and mild marginal spondylosis. No stenosis herniation central spinal stenosis or significant foraminal encroachment. C7-T1: Unremarkable. Neurologic structures: Spinal cord is normal in signal intensity and caliber. CONCLUSION: Mild to moderate degenerative disc disease without evidence of focal disc herniation, significant foraminal encroachment or central spinal stenosis.Mild facet arthropathy. Normal appearing spinal cord. Blake Corbin MD on November 09, 2016 at 14:33 Board Certified Radiologist. This report was verified electronically.
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
[2016-11-10] VITALS: BP 143/82; PULSE 72; RESP 18; TEMP 97.3; O2SAT 93
[2016-11-10 04:00] VITALS: BP 128/64; PULSE 75; RESP 18; TEMP 96.7; O2SAT 94
[2016-11-10] MEDS: oxyCODONE/ACETAMINOPHEN 10 MG/325 MG TAB PO PRN (05:49)
[2016-11-10 08:00] VITALS: BP 153/92; PULSE 102; PULSE 69; RESP 20; TEMP 96; O2SAT 94
[2016-11-10] MEDS: ONDANSETRON HCL 4 MG/2 ML VIAL IV PUSH PRN (08:05)
[2016-11-10] MEDS: SODIUM CHLORIDE 0.9% FLUSH 10 ML FLUSH IV FLUSH SCH (08:05)
[2016-11-10] MEDS: GABAPENTIN 100 MG CAP PO SCH ×2 (08:06→12:49)
[2016-11-10] MEDS: levETIRAcetam 500 MG TAB PO SCH (08:06)
[2016-11-10] MEDS: LIDOCAINE HCL 5% PATCH T-DERMAL SCH (08:07)
[2016-11-10] MEDS: amLODIPine BESYLATE 5 MG TAB PO SCH (08:07)
[2016-11-10 08:56] LABS: HEMATOCRIT 41.6 % (39.0-51.0); MEAN CELL VOLUME 88.5 FL (80.0-100.0); MEAN CORPUSCULAR HEMOGLOBIN 29.6 PG (27.0-34.0); MEAN CORPUSCULAR HGB CONC 33.4 % (32.0-36.0); PLATELET COUNT 172 TH/MM3 (150-450); REVIEW FLAG FINAL
[2016-11-10] MEDS: MORPHINE SULFATE 4 MG/ML INJ IV PUSH PRN ×2 (09:24→09:28)
[2016-11-10 09:25] LABS: BICARBONATE 27.3 MEQ/L (21.0-32.0)
[2016-11-10 12:00] VITALS: BP 153/83; PULSE 69; RESP 20; TEMP 96.9; O2SAT 98
[2016-11-10] MEDS: REMOVE OLD LIDOCAINE PATCH T-DERMAL SCH (12:00)
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
[2016-11-10] MEDS ORDERED: GABA100C4 PO (12:21)
[2016-11-10] MEDS ORDERED: OXYC1TAB36 PO (12:21)
[2016-11-10] MEDS ORDERED: LEVE500 PO (12:21)
[2016-11-10] MEDS ORDERED: CYCL1TAB29 PO (12:21)
[2016-11-10] MEDS ORDERED: AMLO5 PO (12:21)
[2016-11-10] MEDS ORDERED: LIDO5DIS35 T-DERMAL (12:21)
[2016-11-10] MEDS ORDERED: PAME25CA PO (12:29)
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
[2016-11-10] MEDS: CYCLOBENZAPRINE HCL 10 MG TAB PO SCH (12:49)
[2016-11-10 16:01] VITALS: BP 158/94; PULSE 71; RESP 20; TEMP 96.4; O2SAT 95
[2016-12-06] MEDS ORDERED: METH500T3 PO (18:27)
== END 2016-11-10 19:01 | disposition home or self-care (01) ==
LOC: NEPE 18:47 → NEDA 21:13 → UNDOADMIN 21:13 → NEDA 21:15 → INTOOBSV 21:15 → HCIS 23:29 → NEDA 23:29 → HCIS 11-08 21:26 → N05B 11-08 21:26 → UNDODISIN 11-10 19:01
PROVIDERS: ADMIT Hospitalist; ATTEND Hospitalist
DX: R55 Syncope and collapse (principal); V49.40XA Driver injured in collision with unspecified motor vehicles in traffic accident, initial encounter; R56.9 Unspecified convulsions; I10 Essential (primary) hypertension; S01.81XA Laceration without foreign body of other part of head, initial encounter; S80.212A Abrasion, left knee, initial encounter; Y92.481 Parking lot as the place of occurrence of the external cause; Z86.73 Personal history of transient ischemic attack (TIA), and cerebral infarction without residual deficits; M25.512 Pain in left shoulder; M62.838 Other muscle spasm; K21.9 Gastro-esophageal reflux disease without esophagitis; Z85.828 Personal history of other malignant neoplasm of skin; M54.2 Cervicalgia; I62.9 Nontraumatic intracranial hemorrhage, unspecified; Z23 Encounter for immunization
CPT/HCPCS: 70450; 70553; 71010; 71275; 72125; 72141; 72170; 73030; 80048; 81001; 82550; 82552; 83735; 84484; 85025; 85027; 85379; 85610; 85730; 90471; 90714; 93005; 95819; 96374; 99285; A9579; G0378; J1953; J2270; J2405; Q9967

== ENCOUNTER 2016-11-16 18:39 | Inpatient (IN) | payer OTHER ==
[~2016-11-16] VITALS: Ht 182.9 cm; Wt 70.1 kg
[~2016-11-16 18:39] MED LIST changes: +CYCL1TAB29 PO; -DILA2TAB2 PO; +GABA100C4 PO; +LEVE500 PO; +LIDO5DIS35 T-DERMAL; -LORA-361 PO; -ONDA1TAB17 PO; +OXYC1TAB36 PO; +PAME25CA PO
[2016-11-16 18:47] VITALS: BP 142/84; PULSE 90; RESP 16; TEMP 98.5; O2SAT 96
[2016-11-16] MEDS ORDERED: SODIUM CHLORIDE 0.9% FLUSH 5 ML FLUSH IV FLUSH PRN (19:15)
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
[2016-11-16 19:49] VITALS: RESP 18; O2SAT 98
[2016-11-16 19:52] LABS: AUTOMATED NEUTROPHIL # 12.1 TH/MM3 (1.8-7.7); BASOPHIL % 0.2 % (0.0-2.0); EOSINOPHIL % 0.1 % (0.0-4.0); HEMATOCRIT 44.4 % (39.0-51.0); HEMO FLAGS DIFF FINAL; LYMPH % 5.6 % (9.0-44.0); LYMPHOCYTE # 0.8 TH/MM3 (1.0-4.8); MEAN CELL VOLUME 88.9 FL (80.0-100.0); MEAN CORPUSCULAR HGB CONC 33.7 % (32.0-36.0); MONO % 8.5 % (0.0-8.0); NEUT % 85.6 % (16.0-70.0); PLATELET COUNT 255 TH/MM3 (150-450); RED BLOOD COUNT 4.99 MIL/MM3 (4.50-5.90); RED CELL DISTRIBUTION WIDTH 13.4 % (11.6-17.2); WHITE BLOOD COUNT 14.2 TH/MM3 (4.0-11.0)
[2016-11-16 19:57] LABS: APTT (PATIENT) 22.6 SEC (24.3-30.1); PROTHROMBIN TIME - PATIENT 10.7 SEC (9.8-11.6)
--- NOTE | 2016-11-16 20:00 | RADRPT ---
EXAM DATE/TIME: 11/16/2016 19:35 [facility] COMPARISON: CHEST SINGLE AP, November 06, 2016, 19:32. INDICATIONS : Syncopal epsiode today MEDICAL HISTORY : Cerebrovascular disease SURGICAL HISTORY : None. ENCOUNTER: Initial ACUITY: 1 day PAIN SCORE: Non-responsive. LOCATION: Bilateral chest FINDINGS: Very mild atelectasis and potentially a small effusion seen at the left lung base. Right lung clear. No pneumothorax on either side. Heart size stable, thin normal limits. CONCLUSION: Trace effusion and mild atelectasis left lung base. Brian Lancaster MD on November 16, 2016 at 19:58 Board Certified Radiologist. This report was verified electronically.
[2016-11-16 20:09] LABS: ANION GAP 11 MEQ/L (5-15); AST (GOT) 22 U/L (15-37); BICARBONATE 30.9 MEQ/L (21.0-32.0); BLOOD UREA NITROGEN 14 MG/DL (7-18); CHLORIDE 97 MEQ/L (98-107); GLOMERULAR FILTRATION RATE 69 ML/MIN (>89); POTASSIUM 3.7 MEQ/L (3.5-5.1); SODIUM (NA) 139 MEQ/L (136-145)
--- NOTE | 2016-11-16 20:11 | RADRPT ---
EXAM DATE/TIME: 11/16/2016 19:51 [facility] COMPARISON: CT BRAIN W/O CONTRAST, November 06, 2016, 20:14. MRI BRAIN W & W/O CONTRAST, November 07, 2016, 14:29. INDICATIONS : Altered mental status. RADIATION DOSE: 36.72 CTDIvol (mGy) MEDICAL HISTORY : Hypertension. Cardiovascular disease prior head trauma, hemorrhage. SURGICAL HISTORY : Umbilical hernia repair. Inguinal hernia repair. ENCOUNTER: Initial ACUITY: 1 day PAIN SCALE: 0/10 LOCATION: cranial TECHNIQUE: Multiple contiguous axial images were obtained of the head. Using automated exposure control and adj ustment of the mA and/or kV according to patient size, radiation dose was kept as low as reasonably a chievable to obtain optimal diagnostic quality images. FINDINGS: 3.8 x 5.1 cm area of hemorrhage in the right temporal lobe is again noted and appears to be slightly larger than before. Areas of slightly increased attenuation are seen along the inferior/lateral maykel n of the lesion, series 2 image 12, which would support the likelihood of fairly fresh blood products . There is edema in the surrounding parenchyma it also appears slightly worse. Approximately 6 mm of leftward midline shift currently present, previously about 4 mm. Subacute, small blood in both lateral ventricles is not significantly changed. No extra-axial blood. No evidence of an acute ischemic event. CONCLUSION: Right temporal lobe parenchymal hemorrhage again noted, not new but does appear to of free blood in t he interim, and measures slightly larger in the interim. The 6 mm of leftward midline shift is also s lightly worse. Stable subacute blood in both lateral ventricles. Brian Lancaster MD on November 16, 2016 at 20:05 Board Certified Radiologist. This report was verified electronically.
--- NOTE | 2016-11-16 20:14 | RADRPT ---
EXAM DATE/TIME: 11/16/2016 19:51 [facility] COMPARISON: CT CERVICAL SPINE W/O CONTRAST, November 06, 2016, 20:14. INDICATIONS : Trauma, fall. RADIATION DOSE: 15.55 CTDIvol (mGy) MEDICAL HISTORY : Hypertension. Cardiovascular disease prior head trauma SURGICAL HISTORY : Umbilical hernia repair. Inguinal hernia repair. ENCOUNTER: Initial ACUITY: 1 day PAIN SCALE: 0/10 LOCATION: neck TECHNIQUE: Volumetric scanning of the cervical spine was performed. Multiplanar reconstructions in the sagittal, coronal and oblique axial planes were performed. Using automated exposure control and adjustment o f the mA and/or kV according to patient size, radiation dose was kept as low as reasonably achievable to obtain optimal diagnostic quality images. FINDINGS: There remains no fracture or subluxation of the cervical spine. Vertebral bodies have normal height. No cortical break or trabecular disruption. Multilevel disc space narrowing with uncovertebral and facet osteoarthritis again seen, moderate at C 5/C6 and mild at C6/C7. Mild left foraminal stenosis seen at both levels. CONCLUSION: No acute fracture or other change. Degenerative changes at C5/C6 and C6/C7 again noted. Brian Lancaster MD on November 16, 2016 at 20:10 Board Certified Radiologist. This report was verified electronically.
[2016-11-16 20:19] LABS: ALKALINE PHOSPHATASE 85 U/L (45-117); ALT (GPT) 42 U/L (12-78); TOTAL BILIRUBIN ADULT 0.5 MG/DL (0.2-1.0)
[2016-11-16] MEDS ORDERED: DILA2TAB2 PO (20:58)
[2016-11-16] MEDS ORDERED: MAPA500T PO (20:58)
[2016-11-16] MEDS ORDERED: ZOFR8TAB PO (20:58)
[2016-11-16 21:48] LABS: BLOOD, URINE NEG (NEG); COMMENT (UR) CATH-CULT NOT IND; CULTURE IF INDICATED CATH CULTURE NOT IND; GLUCOSE,URINE NEG (NEG); KETONE, URINE TRACE mg/dL (NEG); NITRITE,URINE NEG (NEG); URINE COLOR YELLOW (YELLW/STRAW)
[2016-11-16] MEDS: NS + KCL 20 MEQ INJ 1,000 ML IV SCH (22:40)
[2016-11-16] MEDS: DEXAMETHASONE SOD PHOS 4 MG/ML VIAL IV PUSH SCH (23:16)
[2016-11-16] MEDS: ONDANSETRON HCL 4 MG/2 ML VIAL IV PRN (23:16)
[2016-11-17] VITALS (9 sets, daily range): BP systolic 141–156; BP diastolic 72–89; PULSE 62–96; RESP 12–26; TEMP 96.9–99; O2SAT 93–98
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
[2016-11-17] MEDS ORDERED: NALOXONE HCL 0.4 MG/ML AMP IV PRN (01:00)
[2016-11-17] MEDS ORDERED: MORPHINE SULFATE 4 MG/ML INJ IV PRN (01:00)
[2016-11-17] MEDS: HYDROmorphone HCL PF 1 MG/ML VIAL IV PRN ×4 (01:10→17:40)
[2016-11-17] MEDS: oxyCODONE/ACETAMINOPHEN 10 MG/325 MG TAB PO PRN (02:50)
[2016-11-17 03:18] LABS: MRSA PCR NEGATIVE (NEGATIVE); STAPH AUREUS PCR NEGATIVE (NEGATIVE)
[2016-11-17 04:29] LABS: AUTOMATED NEUTROPHIL # 8.9 TH/MM3 (1.8-7.7); BASOPHIL % 0.3 % (0.0-2.0); HEMATOCRIT 43.7 % (39.0-51.0); HEMO FLAGS DIFF FINAL; LYMPH % 5.7 % (9.0-44.0); LYMPHOCYTE # 0.6 TH/MM3 (1.0-4.8); MEAN CELL VOLUME 89.8 FL (80.0-100.0); MEAN CORPUSCULAR HEMOGLOBIN 29.4 PG (27.0-34.0); MEAN CORPUSCULAR HGB CONC 32.8 % (32.0-36.0); MONO % 5.3 % (0.0-8.0); NEUT % 88.7 % (16.0-70.0); PLATELET COUNT 218 TH/MM3 (150-450); RED BLOOD COUNT 4.87 MIL/MM3 (4.50-5.90); RED CELL DISTRIBUTION WIDTH 13.4 % (11.6-17.2); WHITE BLOOD COUNT 10.1 TH/MM3 (4.0-11.0)
[2016-11-17 04:45] LABS: APTT (PATIENT) 23.7 SEC (24.3-30.1); PROTHROMBIN TIME - PATIENT 10.8 SEC (9.8-11.6)
[2016-11-17 04:48] LABS: BICARBONATE 29.7 MEQ/L (21.0-32.0)
[2016-11-17] MEDS: DEXAMETHASONE SOD PHOS 4 MG/ML VIAL IV PUSH SCH ×4 (06:32→23:51)
[2016-11-17] MEDS: GABAPENTIN 100 MG CAP PO SCH ×3 (08:08→17:38)
[2016-11-17] MEDS: levETIRAcetam 500 MG TAB PO SCH ×2 (08:08→20:39)
[2016-11-17] MEDS: DOCUSATE SODIUM 100 MG CAP PO SCH ×2 (08:08→20:39)
[2016-11-17] MEDS: amLODIPine BESYLATE 5 MG TAB PO SCH (08:08)
[2016-11-17] MEDS: PANTOPRAZOLE SOD 40 MG DELAYED RELEASE TAB PO SCH (08:08)
[2016-11-17] MEDS ORDERED: GADODIAMIDE PF 287 MG/ML 20 ML VIAL (for RAD MRI) IV ONE (08:28)
[2016-11-17] MEDS ORDERED: IOHEXOL 350 MG/ML 10 ML VIAL (for RAD DIAG) IV ONE (08:57)
--- NOTE | 2016-11-17 10:03 | RADRPT ---
EXAM DATE/TIME: 11/17/2016 08:26 [facility] COMPARISON: MRI BRAIN W & W/O CONTRAST, October 10, 2016, 9:22. MRI BRAIN W & W/O CONTRAST, November 07, 2016, 14:29. INDICATIONS : Mass. CONTRAST: 16 cc Omniscan (gadodiamide) IV MEDICAL HISTORY : Carcinoma, basal cell. SURGICAL HISTORY : Basal cell carcinoma removed from eyes. ENCOUNTER: Initial ACUITY: 1 week PAIN SCORE: 0/10 LOCATION: cranial TECHNIQUE: An MRI brain stealth procedure was performed. The information will be used in the OR for localizatio n. FINDINGS: Rounded right temporal lobe signal abnormality measuring 6.4 x 4.2 cm compared to 2.2 x 4.0 cm on the prior MRI of 11/07/2016. Heterogeneous mixed hyperintensity and isointensity to collado matter again see n. Small areas of hypointensity are also seen. There is evidence of mass effect on the right lateral ventricle as well as 8 mm right to left midline shift. The midline shift is an increase from 5 mm on the prior study. No other signal abnormalities identified. CONCLUSION: Slight increase in size of rounded right temporal lobe signal abnormality when compared to the most r ent MRI exam. Definite increase in size when compared to prior study of 10/10/2016. Increased mass e ffect and midline shift. Crispin Ware MD on November 17, 2016 at 9:53 Board Certified Radiologist. This report was verified electronically.
--- NOTE | 2016-11-17 10:19 | RADRPT ---
EXAM DATE/TIME: 11/17/2016 08:45 [facility] COMPARISON: No previous studies available for comparison. INDICATIONS : Evaluate for metastatic disease. IV CONTRAST: 100 cc Omnipaque 350 (iohexol) IV RADIATION DOSE: 5.1 CTDIvol (mGy) MEDICAL HISTORY : Cardiovascular disease. Stroke SURGICAL HISTORY : Hernia repair. ENCOUNTER: Initial ACUITY: 1 day PAIN SCALE: 0/10 LOCATION: Bilateral chest TECHNIQUE: Volumetric scanning of the chest was performed. Using automated exposure control and adjustment of t he mA and/or kV according to patient size, radiation dose was kept as low as reasonably achievable to obtain optimal diagnostic quality images. FINDINGS: LUNGS: Atelectasis at the right lung base. Lungs otherwise clear. PLEURA: There is no pleural thickening or pleural effusion. 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 Aortic diameter are within normal limits. Coronary artery calcifications noted. No enlarged lymph nodes. AXILLAE: Within normal limits. No lymphadenopathy. SKELETAL: Within normal limits for patient age. MISCELLANEOUS: The visualized upper abdominal organs demonstrate no acute abnormality. CONCLUSION: No acute findings in the chest. Crispin Ware MD on November 17, 2016 at 10:13 Board Certified Radiologist. This report was verified electronically.
--- NOTE | 2016-11-17 10:24 | RADRPT ---
EXAM DATE/TIME: 11/17/2016 08:47 [facility] COMPARISON: No previous studies available for comparison. INDICATIONS : Evaluate for metastatic disease. IV CONTRAST: 100 cc Omnipaque 350 (iohexol) IV ; Cumulative dose for multiple exams. ORAL CONTRAST: No oral contrast ingested. RADIATION DOSE: 5.1 CTDIvol (mGy) ; Combined studies - Thorax/Abdomen/Pelvis MEDICAL HISTORY : Stroke. Cardiovascular disease SURGICAL HISTORY : Hernia repair. ENCOUNTER: Initial ACUITY: 1 day PAIN SCALE: 0/10 LOCATION: Bilateral abdomen. TECHNIQUE: Volumetric scanning of the abdomen and pelvis was performed. Using automated exposure control and ad justment of the mA and/or kV according to patient size, radiation dose was kept as low as reasonably achievable to obtain optimal diagnostic quality images. FINDINGS: LOWER LUNGS: The visualized lower lungs are clear. LIVER: Homogeneous density without lesion. There is no dilation of the biliary tree. No calcified gallston es. SPLEEN: Normal size without lesion. PANCREAS: Within normal limits. KIDNEYS: 1.4 cm cyst in the anterior midpole of the left kidney. 1.0 cm cyst in the upper pole of the right ki dney. No evidence of hydronephrosis. ADRENAL GLANDS: Within normal limits. VASCULAR: There is no aortic aneurysm. BOWEL/MESENTERY: Small hiatal hernia. No evidence of bowel dilatation. No free air or free fluid. Appendix within norm al limits. ABDOMINAL WALL: Post surgical findings lower anterior abdominal wall. RETROPERITONEUM: There is no lymphadenopathy. BLADDER: No wall thickening or mass. REPRODUCTIVE: Enlarged prostate measuring 5.2 cm. INGUINAL: There is no lymphadenopathy or hernia. MUSCULOSKELETAL: Within normal limits for patient age. CONCLUSION: 1. No evidence of metastatic disease in the abdomen and pelvis. 2. Enlarged prostate. 3. Small hiatal hernia. 4. Postsurgical findings lower anterior abdominal wall. Crispin Ware MD on November 17, 2016 at 10:17 Board Certified Radiologist. This report was verified electronically.
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
[2016-11-17] MEDS: ONDANSETRON HCL 4 MG/2 ML VIAL IV PRN ×2 (11:34→17:38)
--- NOTE | 2016-11-17 16:29 | EKG ---
Date Performed: 11/16/2016 Time Performed: 19:45:25 PTAGE: 61 years EKG: Sinus rhythm NORMAL ECG PREVIOUS TRACING : 11/07/2016 06.36 Compared to prior tracing no significant change DOCTOR: Elizabeth De La Cruz Interpretating Date/Time 11/17/2016 16:27:25
[2016-11-17] MEDS: ACETAMINOPHEN/HYDROcodone 325 MG/5 MG TAB PO PRN (19:19)
[2016-11-17] MEDS: NS + KCL 20 MEQ INJ 1,000 ML IV SCH (20:39)
[2016-11-17] MEDS: NORTRIPTYLINE HCL 25 MG CAP PO SCH (21:31)
[2016-11-18] VITALS (12 sets, daily range): BP systolic 112–156; BP diastolic 67–84; PULSE 60–89; RESP 12–20; TEMP 97–98.4; O2SAT 93–98
[2016-11-18] MEDS: ACETAMINOPHEN/HYDROcodone 325 MG/5 MG TAB PO PRN ×2 (02:03→12:21)
[2016-11-18] MEDS: DEXAMETHASONE SOD PHOS 4 MG/ML VIAL IV PUSH SCH ×3 (06:10→17:29)
[2016-11-18] MEDS: GABAPENTIN 100 MG CAP PO SCH ×3 (08:36→17:29)
[2016-11-18] MEDS: DOCUSATE SODIUM 100 MG CAP PO SCH ×2 (08:36→20:25)
[2016-11-18] MEDS: amLODIPine BESYLATE 5 MG TAB PO SCH (08:36)
[2016-11-18] MEDS: PANTOPRAZOLE SOD 40 MG DELAYED RELEASE TAB PO SCH (08:37)
[2016-11-18] MEDS: levETIRAcetam 500 MG TAB PO SCH ×2 (08:37→20:25)
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
[2016-11-18] MEDS: ONDANSETRON HCL 4 MG/2 ML VIAL IV PRN (13:00)
[2016-11-18] MEDS: NORTRIPTYLINE HCL 25 MG CAP PO SCH (20:25)
[2016-11-18] MEDS: NS + KCL 20 MEQ INJ 1,000 ML IV SCH (20:25)
[2016-11-19] VITALS (13 sets, daily range): BP systolic 113–138; BP diastolic 70–82; PULSE 53–72; RESP 13–17; TEMP 96.9–98.5; O2SAT 92–100
[2016-11-19] MEDS: DEXAMETHASONE SOD PHOS 4 MG/ML VIAL IV PUSH SCH ×4 (00:11→17:26)
[2016-11-19] MEDS: amLODIPine BESYLATE 5 MG TAB PO SCH (09:52)
[2016-11-19] MEDS: PANTOPRAZOLE SOD 40 MG DELAYED RELEASE TAB PO SCH (09:52)
[2016-11-19] MEDS: levETIRAcetam 500 MG TAB PO SCH ×2 (09:52→19:54)
[2016-11-19] MEDS: GABAPENTIN 100 MG CAP PO SCH ×3 (09:52→17:26)
[2016-11-19] MEDS: DOCUSATE SODIUM 100 MG CAP PO SCH ×2 (09:52→19:54)
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
[2016-11-19] MEDS: NORTRIPTYLINE HCL 25 MG CAP PO SCH (19:54)
[2016-11-19] MEDS: NS + KCL 20 MEQ INJ 1,000 ML IV SCH (19:54)
[2016-11-20] VITALS (8 sets, daily range): BP systolic 127–148; BP diastolic 68–90; PULSE 53–82; RESP 14–21; TEMP 97.7–98.3; O2SAT 92–93
[2016-11-20] MEDS: DEXAMETHASONE SOD PHOS 4 MG/ML VIAL IV PUSH SCH ×4 (02:21→18:00)
[2016-11-20] MEDS: PANTOPRAZOLE SOD 40 MG DELAYED RELEASE TAB PO SCH (09:00)
[2016-11-20] MEDS: DOCUSATE SODIUM 100 MG CAP PO SCH ×2 (09:00→21:00)
[2016-11-20] MEDS: GABAPENTIN 100 MG CAP PO SCH ×3 (09:00→18:00)
[2016-11-20] MEDS: HYDROmorphone HCL PF 1 MG/ML VIAL IV PRN ×2 (10:03→13:25)
[2016-11-20] MEDS: levETIRAcetam 500 MG TAB PO SCH ×2 (10:03→10:07)
[2016-11-20] MEDS: amLODIPine BESYLATE 5 MG TAB PO SCH (10:08)
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
[2016-11-20 11:46] LABS: HEMATOCRIT 38.5 % (39.0-51.0); MEAN CELL VOLUME 89.1 FL (80.0-100.0); MEAN CORPUSCULAR HEMOGLOBIN 29.4 PG (27.0-34.0); PLATELET COUNT 155 TH/MM3 (150-450); RED BLOOD COUNT 4.32 MIL/MM3 (4.50-5.90); RED CELL DISTRIBUTION WIDTH 13.3 % (11.6-17.2); WHITE BLOOD COUNT 9.4 TH/MM3 (4.0-11.0)
[2016-11-20 11:49] LABS: REVIEW FLAG FINAL
[2016-11-20] MEDS ORDERED: PHENYLEPH/NS 1000 MCG/10 ML SYR IV ONE (12:00)
[2016-11-20] MEDS ORDERED: ONDANSETRON HCL 4 MG/2 ML VIAL IV PUSH ONE (12:00)
[2016-11-20] MEDS ORDERED: PROPOFOL 200 MG/20 ML AMP IV ONE (12:00)
[2016-11-20] MEDS ORDERED: LACTATED RINGER'S 1000 ML INJ 3,000 ML IV ONE (12:00)
[2016-11-20] MEDS ORDERED: SUGAMMADEX SODIUM 200 MG/2 ML VIAL IV PUSH ONE ×2 (12:00)
[2016-11-20 12:06] LABS: APTT (PATIENT) 20.4 SEC (24.3-30.1)
[2016-11-20] MEDS ORDERED: fentaNYL CITRATE 250 MCG/5 ML AMP ONE ×3 (12:10→15:18)
[2016-11-20] MEDS ORDERED: MIDAZOLAM HCL 5 MG/5 ML VIAL ONE (12:10)
[2016-11-20 12:21] LABS: BICARBONATE 25.5 MEQ/L (21.0-32.0); POTASSIUM 4.7 MEQ/L (3.5-5.1)
[2016-11-20] MEDS ORDERED: IODIXANOL 320 MG/ML 50 ML VIAL (for RAD SPEC) I-ARTERIAL ONE (13:11)
[2016-11-20] MEDS ORDERED: ACETAMINOPHEN 325 MG TAB PO PRN (13:30)
--- NOTE | 2016-11-20 15:10 | RADRPT ---
EXAM DATE/TIME: 11/20/2016 12:53 [facility] COMPARISON: No previous studies available for comparison. INDICATIONS : Patient presents with right temporal lobe hemorrhage in need of cerebral angiogram prior to surgery. MEDICAL HISTORY : Hx MRSA and Staph 10/15 Basal cell carcinoma HTN SURGICAL HISTORY : Hernia repair Excision of basal cell carcinoma ENCOUNTER: Initial ACUITY: 3 days PAIN SCORE: 0/10 FLUORO TIME: 2.0 minutes IMAGE SERIES: 3 ACCESS SITE: Right Femoral artery SEDATION TIME: 45 minutes CONTRAST: 25 cc Visipaque (iodixanol) MEDICATION(S): 1.) 3.5 mg midazolam (Versed) IV 2.) 175 mcg fentanyl (Sublimaze) IV PROCEDURE : 1. Ultrasound-guided puncture of the access site. 2. Conscious sedation with continuous EKG and Oximetry monitoring. 3. Angiography of the right internal carotid artery 4. The risks, benefits and alternatives to the procedure were explained and verbal and written consent w as obtained. The site was prepped in sterile fashion. Full sterile technique was used, including ca p, mask, sterile gloves and gown and a large sterile sheet. Hand hygiene and 2% chlorhexidine and/or betadine/alcohol prep was utilized per protocol for cutaneous antisepsis. The skin and subcutaneous tissues were infiltrated with local anesthetic solution. With ultrasound and fluoroscopic guidance the selected artery was punctured and a vascular sheath was placed A JB2 catheter was placed in the right internal carotid artery and AP lateral and oblique angiograms were performed. There is an avascular mass in the right temporal lobe with superior medial displaceme nt of the middle cerebral artery. No shunting is identified. The cerebral circulation time is normal. The puncture site was closed with manual pressure and hemostasis was obtained. The patient tolerated the procedure well and there were no complications. Conscious sedation was performed with the prescribed dosages and duration as above in the presence of an independent trained radiology nurse to assist in the monitoring of the patient. EKG and oximetry remained stable throughout the procedure. CONCLUSION: 1. Avascular mass in the right temporal lobe8 Chris Huggins MD on November 20, 2016 at 15:07 Board Certified Radiologist. This report was verified electronically.
[2016-11-20] MEDS ORDERED: ARTIFICIAL TEARS OPTH OINT 3.5 APPLIC/3.5 GM TUBO ONE (15:17)
[2016-11-20] MEDS ORDERED: ACETAMINOPHEN 1000 MG/100 ML VIAL IV ONE (15:17)
[2016-11-20] MEDS ORDERED: FAMOTIDINE 20 MG/2 ML VIAL ONE (15:18)
[2016-11-20] MEDS ORDERED: MIDAZOLAM HCL 2 MG/2 ML VIAL ONE (15:18)
[2016-11-20] MEDS ORDERED: THROMBIN (TOPICAL) 5,000 UNIT VIAL ONE ×2 (15:41→18:39)
[2016-11-20] MEDS ORDERED: ceFAZolin 2 GM PREMIX 50 ML ONE (15:41)
[2016-11-20] MEDS ORDERED: GELFOAM SIZE 100 ONE (15:42)
[2016-11-20] MEDS ORDERED: GENTAMICIN SULFATE 80 MG/2 ML VIAL ONE (15:42)
[2016-11-20] MEDS ORDERED: LIDOCAINE 1%/EPINEPHrine 1:100,000 SOLN 20 ML VIAL ONE (15:42)
[2016-11-20] MEDS ORDERED: ceFAZolin INJ 1,000 MG VIAL IV ONE (20:00)
[2016-11-20] MEDS: NORTRIPTYLINE HCL 25 MG CAP PO SCH (21:00)
[2016-11-20] MEDS ORDERED: levETIRAcetam 500 MG/5 ML VIAL IV ONE (21:32)
[2016-11-20] MEDS ORDERED: BACITRACIN TOP OINT 15 GM TUBE ONE (22:03)
[2016-11-20] MEDS ORDERED: ENALAPRILAT 1.25 MG/ML VIAL IV PUSH PRN (22:45)
[2016-11-20] MEDS ORDERED: LABETALOL HCL 100 MG/20 ML VIAL IV PUSH PRN (22:45)
[2016-11-20] MEDS ORDERED: SODIUM CHLORIDE 0.9% FLUSH 5 ML FLUSH IVF PRN (22:45)
--- NOTE | 2016-11-20 23:13 | PD.OP ---
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 endotracheal Surgeon: Leonidas Flores Tafe Teacher(s): Pratima Moreno Operation and Findings: Findings: Partially hemorrhagic friable neoplasm with poorly defined borders, appearing to arise from right lateral ventricle Procedure in detail: The patient was brought into the operating room and general endotracheal anesthesia induced without difficulty. Lines were established by anesthesia DALLIN hose and sequential compression devices were in place Johnston catheter was in place Appropriate timeout procedure was performed with all personal present and in agreement The patient was positioned in supine position with all extremities appropriately padded. The head was placed on the horseshoe head rest The head was placed in the 3-point fixation device and secured to the operating room table with the neck slightly flexed and the head mildly rotated to the left. The BrainLab system was registered with the laser facial registration system and landmarks verified. The BrainLab system was used to gisele the initial scalp flap and craniotomy opening, and was further used extensively during the procedure to guide the resection of the neoplasm. The hair overlying the right frontotemporal scalp incision was shaved with clippers, and the operative site was sterilely prepped and draped. 1% Xylocaine with epinephrine was used for local infiltration over the incision site which was made in a curvilinear fashion over the right frontotemporal region and carried sharply down to the cranium. The incision was carried down close to the ear to the level of the zygoma on the right side. The Metzenbaum scissors were used to carefully dissect through the preauricular region and all neurovascular structures including the superficial temporal artery and any nerve fibers were carefully preserved. The scalp flap was elevated with the periosteal elevator and retracted with large scalp hooks. The oil pumper was used to place a bur hole, and the craniotome was used to incise the bone flap. The Leksell rongeur was used to perform a craniectomy at the right subtemporal region down to the floor of the middle fossa. 4-0 Nurolon dural tack up sutures placed through wire passing holes made along the edge of the craniotomy site were used as needed. The dura was opened in a cruciate fashion and the edges retracted with 4-0 Nurolon suture. There was relatively mild brain edema noted upon opening the dura. The right lateral temporal lobe was gently elevated away from the floor the middle fossa using cottonoid patties and rotund dissectors. The lateral aspect of the neoplasm easily came into view. Starting with the anterior lateral portion of the neoplasm, the central part of the neoplasm was debulked with suction and bipolar forceps. This allowed further gentle elevation of the temporal lobe away from the middle fossa and petrous ridge to allow further visualization of the neoplasm. The neoplasm was circumferentially from the surrounding tissue with the Benedict dissectors and the bipolar forceps with any bridging vessels coagulated with the bipolar forceps and incised with the microscissors. Any major vascular structures were carefully preserved. Cottonoid patties were used as needed to maintain the resection plane surrounding the tumor. The tumor was very soft and friable with a moderate amount of hemorrhage within the tumor. There was no significant encapsulation of the tumor. However it was very soft and relatively easy easily from the surrounding brain parenchyma. Since the tumor was very soft, the central portion was debulked initially followed by very careful resection of the lateral aspect of the neoplasm circumferentially. The posterior aspect of the tumor was carefully followed posteriorly into the lateral ventricle, and appeared to either be attached to or arise from the choroid plexus. At this most posterior aspect of the neoplasm, the attachment was cauterized with the bipolar forceps and incised with microscissors. A gross total resection of the lesion was achieved. The tumor resection site was carefully examined and bleeding carefully controlled. There was no significant bleeding at the time of closure. The brain was soft and pulsatile at the time of closure The closure was performed with 4-0 Nurolon interrupted and running for the dura , titanium maxillofacial plates and screws to secure the bone flap, 2-0 Vicryl for the galeal closure, [place] for the skin closure. A dressing of sterile Telfa, 4 x 4's, and a head stockinette were placed. The patient was turned back into supine position on the operating room table The 3-point head fixation device was removed The patient was taken to recovery room in stable condition All counts were correct at the end of the case Estimated blood loss was 200 cc. Specimen of the neoplasm was sent to pathology for permanent section Leonidas Flores MD November 20, 2016 23:13
[2016-11-20] MEDS: D5-NS + KCL 20 MEQ INJ 1,000 ML IV SCH (23:30)
[2016-11-20] MEDS ORDERED: DO NOT ADM ANY ANTICOAGULANT DRUGS PRN (23:30)
[2016-11-21] VITALS (9 sets, daily range): BP systolic 120–128; BP diastolic 56–79; PULSE 2–81; RESP 10–20; TEMP 96.6–98.6; O2SAT 95–99
[2016-11-21] MEDS: HYDROmorphone HCL PF 1 MG/ML VIAL IV PRN ×4 (01:48→18:15)
[2016-11-21] MEDS: oxyCODONE/ACETAMINOPHEN 10 MG/325 MG TAB PO PRN (04:41)
[2016-11-21 04:58] LABS: AUTOMATED NEUTROPHIL # 13.7 TH/MM3 (1.8-7.7); BASOPHIL % 0.2 % (0.0-2.0); HEMATOCRIT 37.4 % (39.0-51.0); HEMO FLAGS DIFF FINAL; LYMPH % 4.4 % (9.0-44.0); LYMPHOCYTE # 0.7 TH/MM3 (1.0-4.8); MEAN CELL VOLUME 88.8 FL (80.0-100.0); MEAN CORPUSCULAR HEMOGLOBIN 29.5 PG (27.0-34.0); MEAN CORPUSCULAR HGB CONC 33.2 % (32.0-36.0); NEUT % 87.4 % (16.0-70.0); PLATELET COUNT 219 TH/MM3 (150-450); RED BLOOD COUNT 4.21 MIL/MM3 (4.50-5.90); RED CELL DISTRIBUTION WIDTH 13.3 % (11.6-17.2); WHITE BLOOD COUNT 15.7 TH/MM3 (4.0-11.0)
[2016-11-21] MEDS: niCARdipine INJ 25 MG in SODIUM CHLOR 0.9% 250 ML INJ 250 ML IV SCH ×3 (05:09→20:00)
[2016-11-21 05:23] LABS: BICARBONATE 28.4 MEQ/L (21.0-32.0)
[2016-11-21] MEDS: DEXAMETHASONE SOD PHOS 4 MG/ML VIAL IV PUSH SCH ×5 (05:39→23:09)
--- NOTE | 2016-11-21 06:27 | RADRPT ---
EXAM DATE/TIME: 11/21/2016 05:21 [facility] COMPARISON: MRI BRAIN STEALTH W CONTRAST, November 17, 2016, 8:26. CT BRAIN W/O CONTRAST, November 16, 2016, 19:51. INDICATIONS : Post op craniotomy. RADIATION DOSE: 59.66 CTDIvol (mGy) MEDICAL HISTORY : Cardiovascular disease. Hypertension. SURGICAL HISTORY : Umbilical hernia repair. Inguinal hernia repair. ENCOUNTER: Initial ACUITY: 1 day PAIN SCALE: 5/10 LOCATION: cranial TECHNIQUE: Multiple contiguous axial images were obtained of the head. Using automated exposure control and adj ustment of the mA and/or kV according to patient size, radiation dose was kept as low as reasonably a chievable to obtain optimal diagnostic quality images. FINDINGS: Small interventricular hemorrhage is present in bilateral occipital horns not changed. Previousl y seen right temporal lobe hemorrhage/mass has been resected and there is extra-axial gas with slight hemorrhage in the right extra-axial space. There is no mass effect. There is encephalomalacia in the right temporal lobe with partial extension into the region of the claustrum. CONCLUSION: Resection of the previously seen right temporal lobe mass/possible hemorrhage without any significant mass effect with tiny bilateral intraventricular occipital horn hemorrhages. Lois Green MD on November 21, 2016 at 6:23 Board Certified Radiologist. This report was verified electronically.
[2016-11-21] MEDS: DOCUSATE SODIUM 100 MG CAP PO SCH ×2 (08:54→20:17)
[2016-11-21] MEDS: PANTOPRAZOLE SOD 40 MG DELAYED RELEASE TAB PO SCH (08:54)
[2016-11-21] MEDS: GABAPENTIN 100 MG CAP PO SCH ×3 (08:54→18:49)
[2016-11-21] MEDS: levETIRAcetam 500 MG TAB PO SCH ×2 (08:54→20:17)
[2016-11-21] MEDS: amLODIPine BESYLATE 5 MG TAB PO SCH (08:54)
[2016-11-21] MEDS: SODIUM CHLORIDE 0.9% FLUSH 5 ML FLUSH IVF SCH ×2 (09:00→20:18)
[2016-11-21] MEDS: D5-NS + KCL 20 MEQ INJ 1,000 ML IV SCH ×3 (09:06→21:05)
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
[2016-11-21] MEDS: ACETAMINOPHEN/HYDROcodone 325 MG/5 MG TAB PO PRN (09:46)
[2016-11-21] MEDS: ONDANSETRON HCL 4 MG/2 ML VIAL IV PRN (11:53)
[2016-11-21] MEDS: NORTRIPTYLINE HCL 25 MG CAP PO SCH (20:18)
[2016-11-22] VITALS (12 sets, daily range): BP systolic 108–134; BP diastolic 56–72; PULSE 60–92; RESP 13–19; TEMP 97.4–98; O2SAT 94–98
[2016-11-22] MEDS: niCARdipine INJ 25 MG in SODIUM CHLOR 0.9% 250 ML INJ 250 ML IV SCH ×3 (00:27→11:26)
[2016-11-22] MEDS: DEXAMETHASONE SOD PHOS 4 MG/ML VIAL IV PUSH SCH ×3 (05:22→17:53)
[2016-11-22] MEDS: D5-NS + KCL 20 MEQ INJ 1,000 ML IV SCH ×2 (05:57→16:47)
[2016-11-22] MEDS: amLODIPine BESYLATE 5 MG TAB PO SCH (08:43)
[2016-11-22] MEDS: levETIRAcetam 500 MG TAB PO SCH ×2 (08:43→21:24)
[2016-11-22] MEDS: PANTOPRAZOLE SOD 40 MG DELAYED RELEASE TAB PO SCH (08:43)
[2016-11-22] MEDS: DOCUSATE SODIUM 100 MG CAP PO SCH ×2 (08:43→21:24)
[2016-11-22] MEDS: GABAPENTIN 100 MG CAP PO SCH ×4 (08:43→21:24)
[2016-11-22] MEDS: SODIUM CHLORIDE 0.9% FLUSH 5 ML FLUSH IVF SCH ×2 (09:00→21:00)
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
[2016-11-22] MEDS: HYDROmorphone HCL PF 1 MG/ML VIAL IV PRN (19:04)
[2016-11-22] MEDS: ONDANSETRON HCL 4 MG/2 ML VIAL IV PRN (19:05)
[2016-11-22] MEDS ORDERED: ENALAPRILAT 1.25 MG/ML VIAL IV PUSH PRN (20:45)
[2016-11-22] MEDS ORDERED: cloNIDine HCL 0.1 MG TAB PO PRN (21:00)
[2016-11-22] MEDS: NORTRIPTYLINE HCL 25 MG CAP PO SCH (21:24)
[2016-11-23] VITALS (10 sets, daily range): BP systolic 104–125; BP diastolic 64–84; PULSE 60–84; RESP 10–16; TEMP 97.5–98.1; O2SAT 96–98
[2016-11-23] MEDS: levETIRAcetam 500 MG TAB PO SCH (08:31)
[2016-11-23] MEDS: GABAPENTIN 100 MG CAP PO SCH (08:31)
[2016-11-23] MEDS: DOCUSATE SODIUM 100 MG CAP PO SCH (08:31)
[2016-11-23] MEDS: SODIUM CHLORIDE 0.9% FLUSH 5 ML FLUSH IVF SCH (08:31)
[2016-11-23] MEDS: amLODIPine BESYLATE 5 MG TAB PO SCH (08:31)
[2016-11-23] MEDS: DEXAMETHASONE 1.5 MG TAB PO SCH ×2 (08:31→13:28)
[2016-11-23] MEDS: PANTOPRAZOLE SOD 40 MG DELAYED RELEASE TAB PO SCH (08:31)
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
--- NOTE | 2016-11-23 11:08 | HHI.FF ---
Face to Face Verification Diagnosis: (1) Intracranial hemorrhage (2) Cerebral tumor Physical Therapy Order: Evaluate and Treat Occupational Therapy Order: Evaluate and Treat Home Health Nursing Order: Nursing assessment with vital signs I have seen patient Chris Cardona on 11/23/16. My clinical findings support the need for the requested home health care services because: Deconditioned w/ increased weakness High risk of falls I certify that my clinical findings support that this patient is homebound because: Post-op weakness Osvaldo Rob November 23, 2016 11:08
[2016-11-23] MEDS ORDERED: DEXA1.5T PO (18:18)
[2016-11-23] MEDS ORDERED: ZOFR8TAB PO (18:18)
[2016-12-06] MEDS ORDERED: METH500T3 PO (18:27)
== END 2016-11-23 18:50 | disposition home health service (06) | DRG 25 ==
LOC: NEPC 18:39 → NEDA 21:39 → N03A 22:59 → N03B 11-20 21:52 → N03A 11-21 01:07
PROVIDERS: ADMIT Neurological Surgery; ATTEND Neurological Surgery
PROC: B3161ZZ Fluoroscopy of Right Internal Carotid Artery using Low Osmolar Contrast (ICD-10-PCS; 2016-11-20)
PROC: 00B70ZX Excision of Cerebral Hemisphere, Open Approach, Diagnostic (ICD-10-PCS; principal; 2016-11-20 15:27)
DX: D49.6 Neoplasm of unspecified behavior of brain (principal); I61.1 Nontraumatic intracerebral hemorrhage in hemisphere, cortical; G93.6 Cerebral edema; I10 Essential (primary) hypertension; Z85.828 Personal history of other malignant neoplasm of skin; D72.829 Elevated white blood cell count, unspecified
CPT/HCPCS: 36223; 70450; 70552; 71010; 71260; 72125; 74177; 76937; 80048; 80053; 81001; 82140; 83605; 84443; 84484; 85025; 85027; 85610; 85730; 86850; 86900; 86901; 86920; 87040; 87640; 87641; 88309; 88311; 88341; 88342; 93005; 94003; 94150; 99152; 99153; A9579; C1713; C1769; C1887; C1894; J0131; J0690; J1100; J1170; J1580; J1953; J2250; J2370; J2405; J3010; J3480; J7050; J7120; J8540; Q9967

== ENCOUNTER 2016-12-10 09:51 | Emergency (ER) | payer OTHER ==
[2016-12-10] VITALS (7 sets, daily range): BP systolic 108–127; BP diastolic 68–79; PULSE 68–86; RESP 14–24; TEMP 97.9; O2SAT 94–98
[~2016-12-10] VITALS: Ht 182.9 cm; Wt 70.0 kg
[~2016-12-10 09:51] MED LIST changes: -AMLO5 PO; -CYCL1TAB29 PO; +DEXA1.5T PO; -LIDO5DIS35 T-DERMAL; +MAPA500T PO; +METH500T3 PO; -OXYC1TAB36 PO; +ZOFR8TAB PO
[2016-12-10] MEDS ORDERED: TAMS5CAP PO (10:15)
--- NOTE | 2016-12-10 10:22 | PD ---
HPI Chief Complaint: Eye Problems/Injury Time Seen by Provider: 10:22 Travel History International Travel<30 days: No Contact w/Intl Traveler<30days: No Traveled to known affect area: No History of Present Illness HPI 61-year-old male came to the emergency room with history of diplopia that started earlier today. Patient says he has been seeing double images up-and- down. When he covers one eye the vision would become single again. Patient had a brain surgery done 3 weeks ago when a metastatic lesion was operated from the right temporal lobe. His is here with him and says that yesterday he was complaining of some pain on the right side of his head. Patient also says that yesterday he had some blurred vision from his right eye. Currently the blurred vision is resolved. Vital signs otherwise stable. He is awake and answering questions appropriately. No other neurologic deficits. [facility] Past Medical History Narrative Medical List of his past medical, surgical, social and family history is reviewed from the nursing note. Heart Rhythm Problems: No Cancer: Yes (SKIN - BASAL CELL TO FACE ) Cardiovascular Problems: Yes High Cholesterol: No Chemotherapy: No Chest Pain: No Congestive Heart Failure: No Cerebrovascular Accident: Yes Endocrine: No Gastrointestinal Disorders: Yes GERD: Yes Genitourinary: No Headaches: Yes (FREQUENT) Hiatal Hernia: Yes Hypertension: Yes Immune Disorder: No Implanted Vascular Access Dvce: No Medical other: Yes (brain tumor november 20, 2016 removal ) Musculoskeletal: No Neurologic: Yes (INTRACRANIAL HEMMHORAGE) Reproductive: No Respiratory: Yes (RESP INFECTION JANUARY 2015) Immunizations Current: Yes Migraines: Yes Radiation Therapy: No Seizures: No Ulcer: No Past Surgical History Abdominal Surgery: Yes (BILAT GROIN-HERNIA REPAIR WITH MESH & UMBILICAL REPAIR) Cardiac Surgery: No Ear Surgery: No Endocrine Surgery: No Eye Surgery: No Genitourinary Surgery: No Oral Surgery: No Thoracic Surgery: No Other Surgery: Yes (EXCISION(S) OF BASAL CELL CARCINOMA) Social History Alcohol Use: Yes (rare) Tobacco Use: No Substance Use: No Allergies-Medications (Allergen,Severity, Reaction): Coded Allergies: AMADOU Inhibitors (Verified Allergy, Severe, RASH, SWELLING , 12/10/16) Lisinopril (Verified Adverse Reaction, Severe, Swelling, 12/10/16) Upper lip Swelling *MDRO Multi-Drug Resistant Organism (Verified Adverse Reaction, Unknown, ) MRSA PCR screen POSITIVE 10/10/16 Comments List of his allergies reviewed from the nursing note. Reported Meds & Prescriptions Reported Meds & Active Scripts Active Methocarbamol 500 Mg Tab 500 Mg PO TID Reported Flomax (Tamsulosin HCl) 0.4 Mg Cap 0.4 Mg PO HS Mapap (Acetaminophen) 500 Mg Tab 500 Mg PO Q4HR PRN Narrative Medication List of his home medications reviewed from the nursing note. Review of Systems Except as stated in HPI: all other systems reviewed are Neg Physical Exam Narrative GENERAL: Awake, alert, anxious, no obvious distress SKIN: Focused skin assessment warm/dry. HEAD: Atraumatic. Normocephalic. EYES: Pupils equal and round. No scleral icterus. No injection or drainage. ENT: No nasal bleeding or discharge. Mucous membranes pink and moist. Equal extraocular eye movement. NECK: Trachea midline. No JVD. CARDIOVASCULAR: Regular rate and rhythm. No murmur appreciated. RESPIRATORY: No accessory muscle use. Clear to auscultation. Breath sounds equal bilaterally. GASTROINTESTINAL: Abdomen soft, non-tender, nondistended. Hepatic and splenic margins not palpable. MUSCULOSKELETAL: No obvious deformities. No clubbing. No cyanosis. No edema. NEUROLOGICAL: Awake and alert. No obvious cranial nerve deficits. Motor grossly within normal limits. Normal speech. PSYCHIATRIC: Appropriate mood and affect; insight and judgment normal. Data Data Last Documented VS Vital Signs Date Time Temp Pulse Resp B/P Pulse Ox O2 Delivery O2 Flow Rate FiO2 12/10/16 15:39 69 18 122/71 94 12/10/16 12:42 Nasal Cannula 2 12/10/16 09:[address] Brain W/O Iv Contrast(Rout) (12/10/16 ) Electrocardiogram (12/10/16 10:26) Basic Metabolic Panel (Bmp) (12/10/16 10:26) Ckmb (Isoenzyme) Profile (12/10/16 10:26) Complete Blood Count With Diff (12/10/16 10:26) Magnesium (Mg) (12/10/16 10:26) Prothrombin Time / Inr (Pt) (12/10/16 10:26) Troponin I (12/10/16 10:26) Chest, Single Ap (12/10/16 10:26) Ecg Monitoring (12/10/16 10:26) Bilateral Bp Monitoring (12/10/16 10:26) Iv Access Insert/Monitor (12/10/16 10:26) Oximetry (12/10/16 10:26) Oxygen Administration (12/10/16 10:26) Sodium Chloride 0.9% Flush (Ns Flush) (12/10/16 10:30) Mri Brain W&W/O Contrast (12/10/16 ) Gadodiamide Pf Inj (Omniscan Pf Inj) (12/10/16 14:03) Labs Laboratory Tests Test 12/10/16 10:40 White Blood Count 4.2 TH/MM3 Red Blood Count 3.95 MIL/MM3 Hemoglobin 11.8 GM/DL Hematocrit 35.0 % Mean Corpuscular Volume 88.8 FL Mean Corpuscular Hemoglobin 29.9 PG Mean Corpuscular Hemoglobin 33.6 % Concent Red Cell Distribution Width 13.7 % Platelet Count 261 TH/MM3 Mean Platelet Volume 7.4 FL Neutrophils (%) (Auto) 66.8 % Lymphocytes (%) (Auto) 19.8 % Monocytes (%) (Auto) 8.5 % Eosinophils (%) (Auto) 4.3 % Basophils (%) (Auto) 0.6 % Neutrophils # (Auto) 2.8 TH/MM3 Lymphocytes # (Auto) 0.8 TH/MM3 Monocytes # (Auto) 0.4 TH/MM3 Eosinophils # (Auto) 0.2 TH/MM3 Basophils # (Auto) 0.0 TH/MM3 CBC Comment DIFF FINAL Differential Comment Prothrombin Time 10.2 SEC Prothromb Time International 0.9 RATIO Ratio Sodium Level 139 MEQ/L Potassium Level 3.9 MEQ/L Chloride Level 102 MEQ/L Carbon Dioxide Level 31.3 MEQ/L Anion Gap 6 MEQ/L Blood Urea Nitrogen 13 MG/DL Creatinine 0.90 MG/DL Estimat Glomerular Filtration 85 ML/MIN Rate Random Glucose 99 MG/DL Calcium Level 8.8 MG/DL Magnesium Level 2.1 MG/DL Total Creatine Kinase 25 U/L Troponin I LESS THAN 0.02 NG/ML MDM Medical Decision Making Medical Screen Exam Complete: Yes Emergency Medical Condition: Yes Medical Record Reviewed: Yes Interpretation(s) Twelve-lead EKG was reviewed by me. Normal sinus rhythm, normal axis, nonspecific ST-T wave changes. Heart rate of 74 bpm. Differential Diagnosis Intracranial bleed, intracranial tumor, CVA Narrative Course 12:[address] scan is done and I reviewed it. It looks abnormal. I see some bleeding in the right temporal lobe where the surgery was done and this appears to be new from the last CT from 11/21/2016. I also see a questionable hemorrhage /mass in the left parietal lobe. Awaiting for the radiologist to give a read. Blood test results of back and within normal limits. 3:15 PM the MRI shows the new lesion in the left occipital lobe. However they do not show any bleeding. I discussed the case again with Dr. Flores and he thought the patient could go home. He would discuss this with Dr. Thompson who was patient's oncologist. Patient needs to be started on chemotherapy and radiation therapy as soon as possible. I discussed this with the patient and his and they're comfortable with the plan. Dr. Flores's PA would be coming down shortly to speak with the patient for additional reassurance as well. Procedures EKG Prior to Arrival: No Physician Communication Physician Communication Dr. Flores Diagnosis Primary Impression: Brain metastases Additional Impression: Monocular diplopia of both eyes Referrals: Primary Care Physician Additional Instructions: Please follow-up with Dr. Flores as per your appointment. Follow-up with Dr. Thompson as per the appointment that would be given to you by Dr. Flores. Please return to the ER if the condition worsens or any other new concerns. Med/Other Pt SpecificInfo: No Change to Meds Disposition: 01 DISCHARGE HOME Condition: Stable Eleanor Steven MD Dec 10, 2016 10:22
[2016-12-10] MEDS ORDERED: SODIUM CHLORIDE 0.9% FLUSH 10 ML FLUSH IVF PRN (10:30)
[2016-12-10 11:06] LABS: AUTOMATED NEUTROPHIL # 2.8 TH/MM3 (1.8-7.7); BASOPHIL % 0.6 % (0.0-2.0); EOSINOPHIL # 0.2 TH/MM3 (0-0.4); EOSINOPHIL % 4.3 % (0.0-4.0); HEMO FLAGS DIFF FINAL; LYMPH % 19.8 % (9.0-44.0); LYMPHOCYTE # 0.8 TH/MM3 (1.0-4.8); MEAN CELL VOLUME 88.8 FL (80.0-100.0); MEAN CORPUSCULAR HEMOGLOBIN 29.9 PG (27.0-34.0); MEAN CORPUSCULAR HGB CONC 33.6 % (32.0-36.0); MONO % 8.5 % (0.0-8.0); NEUT % 66.8 % (16.0-70.0); PLATELET COUNT 261 TH/MM3 (150-450); RED BLOOD COUNT 3.95 MIL/MM3 (4.50-5.90); RED CELL DISTRIBUTION WIDTH 13.7 % (11.6-17.2); WHITE BLOOD COUNT 4.2 TH/MM3 (4.0-11.0)
--- NOTE | 2016-12-10 11:09 | RADRPT ---
EXAM DATE/TIME: 12/10/2016 10:33 [facility] COMPARISON: CHEST SINGLE AP, November 16, 2016, 19:35. INDICATIONS : Chest pain. MEDICAL HISTORY : Stroke. Cardiovascular disease. SURGICAL HISTORY : None. ENCOUNTER: Initial ACUITY: 1 day PAIN SCORE: 6/10 LOCATION: Left chest FINDINGS: The heart is normal in size. There emphysematous changes within the pulmonary parenchyma. The lungs a re otherwise clear. The visualized bony structures are intact.CONCLUSION: 1. Emphysematous changes. The lungs are clear. Stevo Saldana MD on December 10, 2016 at 11:07 Board Certified Radiologist. This report was verified electronically.
[2016-12-10 11:12] LABS: INTERNATIONAL NORMALIZED RATIO 0.9 RATIO; PROTHROMBIN TIME - PATIENT 10.2 SEC (9.8-11.6)
[2016-12-10 11:21] LABS: ANION GAP 6 MEQ/L (5-15); BICARBONATE 31.3 MEQ/L (21.0-32.0); BLOOD UREA NITROGEN 13 MG/DL (7-18); CHLORIDE 102 MEQ/L (98-107); GLOMERULAR FILTRATION RATE 85 ML/MIN (>89); MAGNESIUM 2.1 MG/DL (1.5-2.5); POTASSIUM 3.9 MEQ/L (3.5-5.1); SODIUM (NA) 139 MEQ/L (136-145)
[2016-12-10 11:28] LABS: CREATINE KINASE 25 U/L (39-308)
--- NOTE | 2016-12-10 12:01 | RADRPT ---
EXAM DATE/TIME: 12/10/2016 11:16 [facility] COMPARISON: MRI BRAIN STEALTH W CONTRAST, November 17, 2016, 8:26. CT BRAIN W/O CONTRAST, November 21, 2016, 5:21. INDICATIONS : Double vision today. Tumor excised 5 weeks ago RADIATION DOSE: 42.17 CTDIvol (mGy) MEDICAL HISTORY : Hypertension. Cardiovascular disease melanoma SURGICAL HISTORY : Craniotomy. ENCOUNTER: Initial ACUITY: 1 day PAIN SCALE: 0/10 LOCATION: Cranial TECHNIQUE: Multiple contiguous axial images were obtained of the head. Using automated exposure control and adj ustment of the mA and/or kV according to patient size, radiation dose was kept as low as reasonably a chievable to obtain optimal diagnostic quality images. FINDINGS: There is spontaneously dense material in the operative site in the right posterior temporal region. The left hemisphere is unremarkable. Posterior fossa appears normal. There is a second area of apparent hemorrhagic metastasis in the left occipital region that is new fr om the comparison study. CONCLUSION: Abnormal CT scan of the brain. MRI is suggested. There would appear to be advancing disease. Chadwick Saldana MD FACR on December 10, 2016 at 11:32 Board Certified Radiologist. This report was verified electronically.
[2016-12-10] MEDS ORDERED: GADODIAMIDE PF 287 MG/ML 5 ML VIAL (for RAD MRI) IV ONE (14:03)
--- NOTE | 2016-12-10 14:37 | RADRPT ---
EXAM DATE/TIME: 12/10/2016 13:40 [facility] COMPARISON: MRI BRAIN STEALTH W CONTRAST, November 17, 2016, 8:26. INDICATIONS : Mass. Double vision. CONTRAST: 15 cc Omniscan (gadodiamide) IV MEDICAL HISTORY : Hypertension. Stroke Carcinoma, basal cell. SURGICAL HISTORY : Craniotomy. ENCOUNTER: Initial ACUITY: 3 day PAIN SCORE: 3/10 LOCATION: Head TECHNIQUE: Multiplanar, multisequence MRI of the brain was performed both prior to and following the administrat ion of paramagnetic contrast. FINDINGS: CEREBRUM: The examination demonstrates a 3.6 x 1.4 x 3.2 cm heterogeneously enhancing mass involving the medial aspect of the right temporal lobe. There is subependymal spread along the temporal tip of the right lateral ventricle. The the ventricles are otherwise normal in size and configuration. Comparison is m pino to the previous study of 11/17/16. The mass is significantly decreased in size. There are post aircraft fueler niotomy changes above the lesion. Today's examination does demonstrate a new enhancing lesion measuri ng 7 mm in the medial left occipital cortex. WHITE MATTER: No significant signal abnormalities are seen in the white matter. POSTERIOR FOSSA: The cerebellum and brainstem are intact. The 4th ventricle is midline. The cerebellopontine angle is unremarkable. The cerebellar tonsils are normal in position.DIFFUSION IMAGING: No focal areas of restricted diffusion are seen. No evidence of acute infarction. EXTRACRANIAL: The visualized portions of the orbits and paranasal sinuses are unremarkable. POST-CONTRAST: There is heterogeneous enhancement involving the patient's primary lesion the right temporal cortex. There is a focal enhancing lesion measuring 7 mm in the medial left occipital cortex. CONCLUSION: 1. There is a new 7 mm enhancing lesion in the medial aspect of the left occipital cortex this is warner picious for malignancy. 2. Continued heterogeneously enhancing mass in the right temporal cortex. The mass is significantly d ecreased in size compared to the previous examination dated 11/17/16. 3. Post craniotomy changes. Stevo Saldana MD on December 10, 2016 at 14:31 Board Certified Radiologist. This report was verified electronically.
--- NOTE | 2016-12-10 15:17 | EKG ---
Date Performed: 12/10/2016 Time Performed: 10:31:38 PTAGE: 61 years EKG: Sinus rhythm Cannot rule out INFERIOR MYOCARDIAL INFARCTION ABNORMAL ECG NO SIGNIFICANT CHANGE FROM PRIOR ELECTRO CARDIOGRAM. PREVIOUS TRACING : 11/16/2016 19.45 DOCTOR: Ramon Alanis Interpretating Date/Time 12/10/2016 15:16:30
--- NOTE | 2016-12-10 16:01 | HHI.NSPN ---
cc: Jayro Thompson MD History Chief Complaint: Double vision to the right eye Interval History The patient presented to the Emergency Department today for evaluation of right eye diplopia. An MRI was ordered by the ED Attending which demonstrated a new lesion to the left occipital lobe. The MRI was reviewed by Dr Flores who felt that the new lesion was causing the diplopia. He discussed the patient with the ED Attending. He felt that the patient was able to be discharged home safely and that he needed to start radiation therapy as soon as possible. System Review Comments ROS negative except for headache and blurry vision yesterday which have resolved. Today he has double vision to the right eye. Exam Results Vital Signs Date Time Temp Pulse Resp B/P Pulse Ox O2 Delivery O2 Flow Rate FiO2 12/10/16 15:39 69 18 122/71 94 12/10/16 12:42 Nasal Cannula 2 12/10/16 09:53 97.9 Physical Examination AAOx3, affect normal, NAD Speech clear & appropriate Wearing eye patch over right eye BAKER w/o difficulty Motor strength essentially equal to all extremities Lab, Micro, Other Results Allergies Coded Allergies Type Severity Reaction Last Updated Verified AMADOU Inhibitors Allergy Severe RASH, SWELLING 12/10/16 Yes Lisinopril Adverse Reaction Severe Swelling 12/10/16 Yes *MDRO Multi-Drug Resistant Organism Adverse Reaction Unknown 12/10/16 Yes Recent Impressions Chest X-Ray 12/10/16 1026 Signed Impressions: Service Date/Time: Saturday, December 10, 2016 10:33 - CONCLUSION: 1. Emphysematous changes. The lungs are clear. Stevo Saldana MD Brain MRI 12/10/16 0000 Signed Impressions: Service Date/Time: Saturday, December 10, 2016 13:40 - CONCLUSION: 1. There is a new 7 mm enhancing lesion in the medial aspect of the left occipital cortex this is suspicious for malignancy. 2. Continued heterogeneously enhancing mass in the right temporal cortex. The mass is significantly decreased in size compared to the previous examination dated 11/17/16. 3. Post craniotomy changes. Stevo Saldana MD Laboratory Tests Test 12/10/16 10:40 White Blood Count 4.2 TH/MM3 Red Blood Count 3.95 MIL/MM3 Hemoglobin 11.8 GM/DL Hematocrit 35.0 % Mean Corpuscular Volume 88.8 FL Mean Corpuscular Hemoglobin 29.9 PG Mean Corpuscular Hemoglobin 33.6 % Concent Red Cell Distribution Width 13.7 % Platelet Count 261 TH/MM3 Mean Platelet Volume 7.4 FL Neutrophils (%) (Auto) 66.8 % Lymphocytes (%) (Auto) 19.8 % Monocytes (%) (Auto) 8.5 % Eosinophils (%) (Auto) 4.3 % Basophils (%) (Auto) 0.6 % Neutrophils # (Auto) 2.8 TH/MM3 Lymphocytes # (Auto) 0.8 TH/MM3 Monocytes # (Auto) 0.4 TH/MM3 Eosinophils # (Auto) 0.2 TH/MM3 Basophils # (Auto) 0.0 TH/MM3 CBC Comment DIFF FINAL Differential Comment Prothrombin Time 10.2 SEC Prothromb Time International 0.9 RATIO Ratio Sodium Level 139 MEQ/L Potassium Level 3.9 MEQ/L Chloride Level 102 MEQ/L Carbon Dioxide Level 31.3 MEQ/L Anion Gap 6 MEQ/L Blood Urea Nitrogen 13 MG/DL Creatinine 0.90 MG/DL Estimat Glomerular Filtration 85 ML/MIN Rate Random Glucose 99 MG/DL Calcium Level 8.8 MG/DL Magnesium Level 2.1 MG/DL Total Creatine Kinase 25 U/L Troponin I LESS THAN 0.02 NG/ML Vital Signs Date Time Temp Pulse Resp B/P Pulse Ox O2 Delivery O2 Flow Rate FiO2 12/10/16 15:39 69 18 122/71 94 12/10/16 12:42 68 17 108/69 98 Nasal Cannula 2 12/10/16 11:00 74 24 117/68 96 Nasal Cannula 2 12/10/16 10:43 73 24 116/74 98 Nasal Cannula 2.00 113/74 12/10/16 10:42 97 Room Air 12/10/16 10:42 Nasal Cannula 2.0 12/10/16 10:04 74 14 127/75 97 12/10/16 09:53 97.9 86 20 120/79 97 Room Air Medical Decision Making Impression and Plan Impression: New left occipital lobe lesion Right temporal lobe lesion s/p resection Plan: Follow up with Dr Thompson so as to start radiation therapy as soon as possible. Osvaldo Rob Dec 10, 2016 16:01
--- NOTE | 2016-12-12 08:58 | RC ---
cc: ED BOLES ALVARO MD TREECE,TONY ACOSTA,STEVE Noel M.D. DATE OF SERVICE 12/11/2016 DATE OF [address] Ed Boles DIAGNOSIS Metastatic melanoma, Stage IV HISTORY OF PRESENT ILLNESS This is a 61-year white male with no known previous history of melanoma. The patient has a pending dermatology evaluation. Appears that the patient presented to Loc[facility] in September of 2016 to the emergency room with a history of headaches, nausea and vomiting. CT scan was performed which apparently showed intracranial hemorrhage. The patient apparently was discharged and then came in for a second admission 11/06/2016. He was again discharged on seizure medication. He continued to deteriorate with increasing confusion, weakness, nausea and weight loss. He was admitted a third time on 11/16/2016. The workup, which included CT of the chest, abdomen and pelvis, as well as well a scan of the C-spine and MRI of the brain which showed increased mass effect and midline shift. He then was evaluated Dr. Acosta who recommended he undergo surgical resection which took place on 11/20/2016 which showed a hemorrhagic lesion which was positive for metastatic melanoma. The patient came back to the emergency room yesterday with diplopia. Scans performed showed a new lesion on the left occipital area. I have discussed this case personally with Dr. Boles and Dr. Acosta today. The patient has been referred for discussion of salvage radiosurgery treatment options. PAST MEDICAL HISTORY As above. Also history of: 1. Gluten intolerance 2. History of gout. 3. Hernia repair in May 2016. PAST SURGERIES 1. History of a plastic surgery in August of 2016. 2. Removal of spermatic cord. 3. History of basal cell carcinoma. MEDICATIONS 1. Restoril 2. Flomax 3. [place] ALLERGIES CODEINE FAMILY HISTORY Father with colon carcinoma. Maternal grandfather with some sort of bone carcinoma. SOCIAL HISTORY The patient denies any smoking history. ETOH intake socially. REVIEW OF SYSTEMS CONSTITUTIONAL: Unremarkable. The patient admits to decrease of weight previous to surgical resection and radiation. ALLERGIES: Has not had allergic reaction recently. EYES: Recent diplopia since yesterday. ENT: He has ear pain bilaterally and difficulty hearing with ringing in the ears. NECK: Unremarkable. Denies any neck masses. INTEGUMENTARY: Unremarkable. Denies any itching, rash or hives. CARDIOVASCULAR: The patient admits to right upper chest pain. No clinical signs of AR. No palpitations or arrhythmia. RESPIRATORY: The patient denies any hemoptysis or cough. GASTROINTESTINAL: The patient admits to daily frequent bowel movements. No rectal bleeding. GENITOURINARY: Increased frequency. History of impotence. MUSCULOSKELETAL: Unremarkable. Denies any muscle weakness. NEUROLOGIC: The patient with headaches, insomnia, history of stroke. No decrease in cognitive functions. Motor functions preserved. PSYCHIATRIC: Unremarkable. Denies any depression or suicidal thoughts. ENDOCRINE: Unremarkable. HEMATOLOGIC: Unremarkable. DERMATOLOGIC: History of skin cancer. PHYSICAL EXAMINATION The patient is oriented x3 in no acute distress or discomfort at the time of evaluation. Pain rating scale depending on movement could be 8/10 on the right scapular area. VITAL SIGNS: Temperature 97.7, blood pressure 109/75, pulse 75, respiratory rate 16, pulse ox 98% on room air. To deep palpation and percussion of the posterior back, no pain was elicited. LUNGS: Bilateral lungs were clear to auscultation with appropriate ventilatory respiratory effort. HEART: Regular rate and rhythm without murmurs. NECK: Palpation of the bilateral and bilateral supraclavicular areas are free. ABDOMEN: Palpation of the abdominal cavity reveals no hepatosplenomegaly, no pain was elicited. NOTE, bilateral inguinal areas are free. EXTREMITIES: No lower extremities edema bilaterally. NEUROLOGIC: The patient with diplopia with no motor function deficits. No pain to range of motion. No decrease in cognitive functions. Deep palpation of the right upper reveals a slight pain just below the clavicle. Pedicular area is not painful. The patient also has pain on the right inferior scapular area. RADIOLOGY CT of the brain on 12/10/2016. IMPRESSION Abnormal CT scan of the brain. There would appear to be advancing disease. MRI of the brain 12/10/2016. IMPRESSION There is a new 7 mm lesion. ADDENDUM SURGICAL PATHOLOGY 11/20/2016: Findings suspicious for metastatic melanoma. ASSESSMENT A 61-year-old white male with diagnosis of metastatic melanoma. The patient being evaluated for possible salvage radiosurgery treatment options. PLAN I had a lengthy discussion with the patient and his . I reviewed the MRI results with them. I have discussed this case today with Dr. Acosta and Dr. Boles. At the present time the patient has two options, one is to undergo whole brain radiation therapy followed by radiosurgery boost or undergo up front radiosurgery followed by whole brain radiotherapy if needed or further radiosurgery down the road. The patient presently has two lesions. I discussed the merits and pros and cons of each of these approaches. I discussed the merits of the radiation therapy, side effects, complications including but not limited to weakness and fatigue, decreased blood counts, edema of skin, necrosis of skin, loss of hair within the scalp which could be permanent, bone damage and fracture, brain damage and brain necrosis which may require prolonged use of steroids, decreased hearing, loss of hearing, decreased vision, loss of vision, decrease in cognitive functions, brain leukoencephalopathy. Decrease in cognitive functions, changes in short-term and long-term memory, brain failure. After thorough discussion they wanted to proceed forward with radiosurgery and hold off on the whole brain radiotherapy. I have discussed his case with Dr. Acosta. Both the patient and the were advised if I could be of any further assistance to please let me know, otherwise we will proceed appropriately. A consent form was obtained. They were advised that if I could be of any further assistance to please let me know. Dr. Boles, thank you very much for the referral of this patient and allowing me to participate in his care. Should you have any further questions or concerns, please do not hesitate to contact me. Homer Narayan MD Radiation Oncologist MIGUEL VILLARREAL/RHONDA /7:37 PM /8:23 AM MTDTelly
== END 2016-12-10 15:52 | disposition home or self-care (01) ==
LOC: NEPC 09:51
DX: C79.31 Secondary malignant neoplasm of brain (principal); H53.2 Diplopia; C44.310 Basal cell carcinoma of skin of unspecified parts of face; I10 Essential (primary) hypertension; R94.31 Abnormal electrocardiogram [ECG] [EKG]; Z86.73 Personal history of transient ischemic attack (TIA), and cerebral infarction without residual deficits
CPT/HCPCS: 70450; 70553; 71010; 80048; 82550; 83735; 84484; 85025; 85610; 93005; 99285; A9579

== ENCOUNTER 2016-12-17 10:04 | Inpatient (IN) | payer OTHER ==
[~2016-12-17] VITALS: Ht 182.9 cm; Wt 73.2 kg
[2016-12-17] VITALS (9 sets, daily range): BP systolic 114–152; BP diastolic 61–90; PULSE 58–86; RESP 15–26; TEMP 98.4–98.7; O2SAT 92–100
[~2016-12-17 10:04] MED LIST changes: +TAMS5CAP PO
[2016-12-17] MEDS ORDERED: ONDANSETRON HCL 4 MG/2 ML VIAL IV PUSH ONE (10:45)
[2016-12-17] MEDS ORDERED: SODIUM CHLORIDE 0.9% FLUSH 10 ML FLUSH IVF PRN (11:15)
--- NOTE | 2016-12-17 11:34 | PD ---
HPI Chief Complaint: Cardiac Complaint Time Seen by Provider: 10:34 Travel History International Travel<30 days: No Contact w/Intl Traveler<30days: No Traveled to known affect area: No History of Present Illness HPI 61yo M with PMH of brain melanoma who follows with Dr. Thompson presents to the ED with c/o left sided chest pain. Pain is sharp, worst with deep breathing. + Nausea. Denies any fever, trauma, sob, abdominal pain, focal weakness or numbness. Pt was here with diplopia recently and had a mass that was too small for surgery and Dr. Power wanted to start radiation therapy. Pt now states that since yesterday, he is unable to open his right eyelid and this is new. He is scheduled for PET scan. PFSH Past Medical History Heart Rhythm Problems: No Cancer: Yes (SKIN - BASAL CELL TO FACE ) Cardiovascular Problems: Yes High Cholesterol: No Chemotherapy: No Chest Pain: No Congestive Heart Failure: No Cerebrovascular Accident: Yes Endocrine: No Gastrointestinal Disorders: Yes GERD: Yes Genitourinary: No Headaches: Yes (FREQUENT) Hiatal Hernia: Yes Hypertension: Yes Immune Disorder: No Implanted Vascular Access Dvce: No Musculoskeletal: No Neurologic: Yes (INTRACRANIAL HEMMHORAGE) Reproductive: No Respiratory: Yes (RESP INFECTION JANUARY 2015) Immunizations Current: Yes Migraines: Yes Radiation Therapy: No Seizures: No Ulcer: No Past Surgical History Abdominal Surgery: Yes (BILAT GROIN-HERNIA REPAIR WITH MESH & UMBILICAL REPAIR) Cardiac Surgery: No Ear Surgery: No Endocrine Surgery: No Eye Surgery: No Genitourinary Surgery: No Neurologic Surgery: No Oral Surgery: No Thoracic Surgery: No Other Surgery: Yes (EXCISION(S) OF BASAL CELL CARCINOMA) Social History Alcohol Use: Yes (rare) Tobacco Use: No Substance Use: No Allergies-Medications (Allergen,Severity, Reaction): Coded Allergies: AMADOU Inhibitors (Verified Allergy, Severe, RASH, SWELLING , 12/10/16) Lisinopril (Verified Adverse Reaction, Severe, Swelling, 12/10/16) Upper lip Swelling *MDRO Multi-Drug Resistant Organism (Verified Adverse Reaction, Unknown, ) MRSA PCR screen POSITIVE 10/10/16 Reported Meds & Prescriptions Reported Meds & Active Scripts Active Methocarbamol 500 Mg Tab 500 Mg PO TID Reported Mapap (Acetaminophen) 500 Mg Tab 500 Mg PO Q4HR PRN Review of Systems Except as stated in HPI: all other systems reviewed are Neg Physical Exam Narrative GENERAL: 61yo M SKIN: Focused skin assessment warm/dry. HEAD: Atraumatic. Normocephalic. EYES: Pupils equal and round. No scleral icterus. No injection or drainage. ENT: No nasal bleeding or discharge. Mucous membranes pink and moist. NECK: Trachea midline. No JVD. CARDIOVASCULAR: Regular rate and rhythm. No murmur appreciated. RESPIRATORY: No accessory muscle use. Clear to auscultation. Breath sounds equal bilaterally. GASTROINTESTINAL: Abdomen soft, non-tender, nondistended. MUSCULOSKELETAL: No obvious deformities. No clubbing. No cyanosis. No edema. NEUROLOGICAL: +Ptosis of right eye. CN III deficit. Pt unable to deviate right eye medially. PSYCHIATRIC: Appropriate mood and affect; insight and judgment normal. Data Data Last Documented VS Vital Signs Date Time Temp Pulse Resp B/P Pulse Ox O2 Delivery O2 Flow Rate FiO2 12/17/16 14:57 97 21 12/17/16 13:45 76 26 114/71 Room Air 12/17/16 10:08 98.7 Orders Ondansetron Inj (Zofran Inj) (12/17/16 10:45) Basic Metabolic Panel (Bmp) (12/17/16 11:03) Ckmb (Isoenzyme) Profile (12/17/16 11:03) Complete Blood Count With Diff (12/17/16 11:03) Magnesium (Mg) (12/17/16 11:03) Prothrombin Time / Inr (Pt) (12/17/16 11:03) Act Partial Throm Time (Ptt) (12/17/16 11:03) Troponin I (12/17/16 11:03) Chest, Single Ap (12/17/16 11:03) Ecg Monitoring (12/17/16 11:03) Bilateral Bp Monitoring (12/17/16 11:03) Iv Access Insert/Monitor (12/17/16 11:03) Oximetry (12/17/16 11:03) Oxygen Administration (12/17/16 11:03) Sodium Chloride 0.9% Flush (Ns Flush) (12/17/16 11:15) Ct Brain W/O Iv Contrast(Rout) (12/17/16 ) Electrocardiogram (12/17/16 10:45) Ct Pulmonary Angiogram (12/17/16 ) Iohexol 350 Inj (Omnipaque 350 Inj) (12/17/16 13:06) Consult Medical Oncology (12/17/16 ) Admit To Inpatient (12/17/16 ) Vital Signs (Adult) Q1H (12/17/16 14:50) Neuro Checks Q1H (12/17/16 14:50) Consult Pt Eval & Treat (12/17/16 14:50) Case Management Consult (12/17/16 ) Activity Bed Rest (12/17/16 14:50) Elevate Head Of Bed (12/17/16 14:50) Diet Npo (12/17/16 Dinner) Nursing Bedside Swallow Assess .ONCE (12/17/16 14:50) Complete Blood Count With Diff (12/18/16 06:00) Prothrombin Time / Inr (Pt) (12/18/16 06:00) Act Partial Throm Time (Ptt) (12/18/16 06:00) Comprehensive Metabolic Panel (12/18/16 06:00) Fibrinogen (12/18/16 06:00) Type And Screen (12/17/16 14:50) Resp Oxygen Sony C Titrat 1-4 L (12/17/16 ) Sodium Chlor 0.9% 1000 Ml Inj (Ns 1000 M (12/17/16 14:50) Sodium Chloride 0.9% Flush (Ns Flush) (12/17/16 15:00) Sodium Chloride 0.9% Flush (Ns Flush) (12/17/16 15:00) Pantoprazole Inj (Protonix Inj) (12/17/16 15:00) Acetaminophen (Tylenol) (12/17/16 15:00) Ondansetron Inj (Zofran Inj) (12/17/16 15:00) Docusate Sodium (Colace) (12/17/16 15:00) Cheese Blender / Telemetry ADELITA.Q8H (12/17/16 14:50) Inpatient Certification (12/17/16 ) Hydralazine Inj (Apresoline Inj) (12/17/16 15:00) Mri Brain W&W/O Contrast (12/17/16 ) Us Leg Venous Doppler Bilat (12/17/16 ) (Hub Use Only)Inp Phy Cons/Ref (12/17/16 ) Admit Order (Ed Use Only) (12/17/16 15:04) Labs Laboratory Tests Test 12/17/16 12/17/16 03:26 11:17 Blood Type A POSITIVE Antibody Screen NEGATIVE White Blood Count 8.0 TH/MM3 Red Blood Count 4.36 MIL/MM3 Hemoglobin 12.9 GM/DL Hematocrit 38.3 % Mean Corpuscular Volume 87.9 FL Mean Corpuscular Hemoglobin 29.7 PG Mean Corpuscular Hemoglobin 33.7 % Concent Red Cell Distribution Width 14.2 % Platelet Count 459 TH/MM3 Mean Platelet Volume 7.5 FL Neutrophils (%) (Auto) 67.8 % Lymphocytes (%) (Auto) 18.4 % Monocytes (%) (Auto) 12.2 % Eosinophils (%) (Auto) 1.1 % Basophils (%) (Auto) 0.5 % Neutrophils # (Auto) 5.4 TH/MM3 Lymphocytes # (Auto) 1.5 TH/MM3 Monocytes # (Auto) 1.0 TH/MM3 Eosinophils # (Auto) 0.1 TH/MM3 Basophils # (Auto) 0.0 TH/MM3 CBC Comment DIFF FINAL Differential Comment Prothrombin Time 11.1 SEC Prothromb Time International 1.0 RATIO Ratio Activated Partial 25.6 SEC Thromboplast Time Sodium Level 139 MEQ/L Potassium Level 4.2 MEQ/L Chloride Level 101 MEQ/L Carbon Dioxide Level 31.4 MEQ/L Anion Gap 7 MEQ/L Blood Urea Nitrogen 11 MG/DL Creatinine 0.98 MG/DL Estimat Glomerular Filtration 77 ML/MIN Rate Random Glucose 123 MG/DL Calcium Level 9.5 MG/DL Magnesium Level 2.2 MG/DL Total Creatine Kinase 20 U/L Troponin I LESS THAN 0.02 NG/ML MDM Medical Decision Making Medical Screen Exam Complete: Yes Emergency Medical Condition: Yes Interpretation(s) EKG: NSR 68bpm. Normal axis. No ST segment elevation or depression. Differential Diagnosis Atypical chest pain vs. costochondritis vs. musculoskeletal pain vs. PE Worsening brain tumor Narrative Course 61yo M with melanoma here with atypical right sided chest pain as well as new cranial nerve 3 palsy. Labs reviewed, no leukocytosis. Troponin negative. CT angio showed PE in central aspects of the pulmonary artery supplying the right lower lobe and to a lesser degree right upper lobe distribution. CT brain showed mildly larger area of hemorrhage in the right temporal lobe. Overall configuation is similar. Some degree of additional bleeding from prior exam cannot be excluded. There is also new interventricular hemorrhage in right lateral ventricle. I discussed with neurosurgeon Dr. Flores who performed his last craniotomy and states that pt is not a surgical candidate at this time and should have had radiation started. States it is increased melanoma. He does not think pt needs ICU monitoring. I discussed with pt's oncologist Dr. Thompson who knows the patient well and wants to obtain MRI brain w/wo contrast as well as bilateral lower ext US to r/o DVT. Pt should be anticoagulated for PE but has brain hemorrhage which is contraindicated for anticoagulation. Pt is currently stable and saturating well with no distress. Discussed with resident physician and accepted to their service. Critical Care Narrative Aggregate critical care time was 60 minutes. Time to perform other separately billable procedures was not included in the critical care time. My time did not include minutes spent treating any other patients simultaneously or on activities that did not directly contribute to the patient's treatment. The services I provided to this patient were to treat and/or prevent clinically significant deterioration that could result in: cardiovascular collapse or . I provided critical care services requiring my management, as noted below: Chart data review, documentation time, medication orders and management, vital sign assessments/reviewing monitor data, ordering and reviewing lab tests, ordering and interpreting/reviewing x-rays and diagnostic studies, care of the patient and discussion of the patient with the admitting physicians. Diagnosis Primary Impression: Pulmonary embolism Qualified Code: I26.99 - Other acute pulmonary embolism without acute cor pulmonale Admitting Information Admitting Physician Requests: Oksana Hickey DO Dec 17, 2016 11:34
--- NOTE | 2016-12-17 11:40 | RADRPT ---
EXAM DATE/TIME: 12/17/2016 10:59 [facility] COMPARISON: CHEST SINGLE AP, December 10, 2016, 10:33. INDICATIONS : Chest pain today. MEDICAL HISTORY : Hypertension. Hiatal hernia. Gastroesophageal reflux disease. CVA SURGICAL HISTORY : None. ENCOUNTER: Initial ACUITY: 1 day PAIN SCORE: 7/10 LOCATION: Bilateral chest FINDINGS: A single view of the chest demonstrates the lungs to be symmetrically aerated without evidence of mas s, infiltrate or effusion. The cardiomediastinal contours are unremarkable. Osseous structures are intact. CONCLUSION: No acute disease. Chadwick Saldana MD FACR on December 17, 2016 at 11:36 Board Certified Radiologist. This report was verified electronically.
[2016-12-17 11:41] LABS: AUTOMATED NEUTROPHIL # 5.4 TH/MM3 (1.8-7.7); BASOPHIL % 0.5 % (0.0-2.0); EOSINOPHIL # 0.1 TH/MM3 (0-0.4); EOSINOPHIL % 1.1 % (0.0-4.0); HEMATOCRIT 38.3 % (39.0-51.0); HEMO FLAGS DIFF FINAL; LYMPH % 18.4 % (9.0-44.0); LYMPHOCYTE # 1.5 TH/MM3 (1.0-4.8); MEAN CELL VOLUME 87.9 FL (80.0-100.0); MEAN CORPUSCULAR HEMOGLOBIN 29.7 PG (27.0-34.0); MEAN CORPUSCULAR HGB CONC 33.7 % (32.0-36.0); MONO % 12.2 % (0.0-8.0); NEUT % 67.8 % (16.0-70.0); PLATELET COUNT 459 TH/MM3 (150-450); RED BLOOD COUNT 4.36 MIL/MM3 (4.50-5.90); RED CELL DISTRIBUTION WIDTH 14.2 % (11.6-17.2)
[2016-12-17 11:53] LABS: APTT (PATIENT) 25.6 SEC (24.3-30.1); PROTHROMBIN TIME - PATIENT 11.1 SEC (9.8-11.6)
[2016-12-17 12:10] LABS: ANION GAP 7 MEQ/L (5-15); BICARBONATE 31.4 MEQ/L (21.0-32.0); BLOOD UREA NITROGEN 11 MG/DL (7-18); CHLORIDE 101 MEQ/L (98-107); GLOMERULAR FILTRATION RATE 77 ML/MIN (>89); MAGNESIUM 2.2 MG/DL (1.5-2.5); POTASSIUM 4.2 MEQ/L (3.5-5.1); SODIUM (NA) 139 MEQ/L (136-145)
[2016-12-17 12:29] LABS: CREATINE KINASE 20 U/L (39-308)
[2016-12-17] MEDS ORDERED: IOHEXOL 350 MG/ML 10 ML VIAL (for RAD DIAG) IV ONE (13:06)
--- NOTE | 2016-12-17 13:30 | RADRPT ---
EXAM DATE/TIME: 12/17/2016 12:42 This report includes an Addendum and supersedes previous reports for this exam. [facility] COMPARISON: CT BRAIN W/O CONTRAST, December 10, 2016, 11:16. INDICATIONS : New onset right ptosis and inability to adduct right eye. RADIATION DOSE: 69.15 CTDIvol (mGy) MEDICAL HISTORY : Cardiovascular disease. Hypertension. Intracranial bleed SURGICAL HISTORY : Craniotomy. ENCOUNTER: Initial ACUITY: 1 day PAIN SCALE: 5/10 LOCATION: Cranial TECHNIQUE: Multiple contiguous axial images were obtained of the head. Using automated exposure control and adj ustment of the mA and/or kV according to patient size, radiation dose was kept as low as reasonably a chievable to obtain optimal diagnostic quality images. FINDINGS: There continues to be a bi-lobed area of hemorrhage in the medial right temporal lobe. This appears mildly more prominent on the current exam than it did on the prior exam from 12/10/2016. It currently measures 3. 3 x 2.0 cm. Previously measured 3.1 x 1.2 cm. There is surrounding edema. There is also a persistent focal area of hemorrhage in the posterior medial left parietal lobe measuring 0.8 cm. This appears slightly larger on the current exam. There is interventricular hemorrhage seen at the posterior aspect of the right lateral ventric le. There is approximately 2 mm of right to left midline shift. Patient is status post right craniotomy. There i s a right temporal subdural collection measuring 4 mm in thickness. A small amount of air seen in the subdural region in the right temporal area. The cortical sulci and basal cisterns are open. CONCLUSION: 1. Mildly larger area of hemorrhage in the right temporal lobe. The overall configuration is simila r. It does appear that the hemorrhage appears somewhat denser today. Some degree of additional blee ding from the prior exam cannot be excluded. There is also new or certainly more prominent mild inte rventricualr hemorrhage seen at the posterior aspect of the right lateral ventricle. 2. Postoperative change from prior right craniotomy with persistent mild right subdural collection o f fluid and air measuring 4 mm. 3. Persistent focal area of hemorrhage in the posterior medial left parietal lobe. Brian Segura MD on December 17, 2016 at 13:13 Board Certified Radiologist. This report was verified electronically. ADDENDUM: I've inform the patient has melanoma metastases. The masses reported as hemorrhage above likely actua lly represent metastatic melanoma lesions. Brian Segura MD on December 18, 2016 at 18:21 Board Certified Radiologist. This report was verified electronically.
--- NOTE | 2016-12-17 13:35 | RADRPT ---
EXAM DATE/TIME: 12/17/2016 12:48 [facility] COMPARISON: CT PULMONARY ANGIOGRAM, November 07, 2016, 2:55. INDICATIONS : Chest pains for three weeks. IV CONTRAST: 75 cc Omnipaque 350 (iohexol) IV RADIATION DOSE: 7.88 CTDIvol (mGy) MEDICAL HISTORY : Cardiovascular disease. Hypertension. Intracranial hemorrhage SURGICAL HISTORY : Craniotomy. ENCOUNTER: Initial ACUITY: 3 weeks PAIN SCALE: 5/10 LOCATION: Chest TECHNIQUE: Volumetric scanning of the chest was performed using a pulmonary embolism protocol MIP images were re constructed. Using automated exposure control and adjustment of the mA and/or kV according to patien t size, radiation dose was kept as low as reasonably achievable to obtain optimal diagnostic quality images. FINDINGS: There is thrombus seen in the right pulmonary artery. A portion extends towards the right upper lobe and a large component extends into the right lower lobe pulmonary artery. The right middle lobe distribution is spared. Significant emboli on the left side is not clearly seen. There is some minimal increased parenchymal density seen at the lung bases bilaterally being worse on the right likely representing some degree of atelectasis. The lungs are otherwise clear. Mediastinal and eri r adenopathy is not appreciated. Incidental note is made of an aberrant right subclavian artery passing to the right posterior to the esophagus. This is a normal variant. There appears to be a mild hiatal hernia. No pleural effusion is seen. CONCLUSION: 1. Pulmonary emboli seen in the central aspects of the pulmonary artery supplying the right lower lo be and to a lesser degree right upper lobe distribution. 2. Suspected mild atelectasis at the bases. 3. Mild hiatal hernia. 4. Aberrant right subclavian artery. This is a normal variant. Brian Segura MD on December 17, 2016 at 13:18 Board Certified Radiologist. This report was verified electronically.
--- NOTE | 2016-12-17 14:15 | EKG ---
Date Performed: 12/17/2016 Time Performed: 10:45:31 PTAGE: 61 years EKG: Sinus rhythm WITH SINUS ARRHYTHMIA Since previous tracing, no significant change noted NORMAL ECG PREVIOUS TRACING : 12/10/2016 10.31 DOCTOR: José Miguel Salinas Interpretating Date/Time 12/17/2016 14:13:56
[2016-12-17] MEDS ORDERED: ACETAMINOPHEN 325 MG TAB PO PRN ×2 (15:00→17:30)
[2016-12-17] MEDS ORDERED: SODIUM CHLORIDE 0.9% FLUSH 10 ML FLUSH IV FLUSH PRN (15:00)
[2016-12-17] MEDS ORDERED: DOCUSATE SODIUM 100 MG CAP PO PRN (15:00)
[2016-12-17] MEDS ORDERED: hydrALAZINE HCL 20 MG/ML VIAL IV PUSH PRN (15:00)
[2016-12-17] MEDS: PANTOPRAZOLE SODIUM 40 MG VIAL IVP SCH (15:49)
[2016-12-17] MEDS: SODIUM CHLORIDE 0.9% FLUSH 10 ML FLUSH IV FLUSH SCH ×2 (15:50→20:37)
[2016-12-17] MEDS: ONDANSETRON HCL 4 MG/2 ML VIAL IV PRN ×2 (15:50→21:09)
[2016-12-17] MEDS: SODIUM CHLOR 0.9% 1000 ML INJ 1,000 ML IV SCH (15:50)
--- NOTE | 2016-12-17 16:32 | RADRPT ---
EXAM DATE/TIME: 12/17/2016 15:24 [facility] COMPARISON: No previous studies available for comparison. INDICATIONS : Pulmonary embolism. MEDICAL HISTORY : Gastroesophageal reflux disease. CVA. Intracranial hemmhorage. Head trama. Syncope. Migraines. Hper tension. Hiatal hernia. Skin cancer. MRSA. Brain cancer. SURGICAL HISTORY : Hernia repair. ENCOUNTER: Initial ACUITY: 1 day PAIN SCORE: 1/10 LOCATION: Bilateral legs. TECHNIQUE: Venous ultrasound of the left and right leg was performed from the inguinal ligament to the proximal calf. Real-time, color Doppler and spectral tracing, compression and augmentation techniques were us ed. FINDINGS: RIGHT LEG: There is normal compressibility of the deep venous system from the inguinal region to the proximal ca lf. No echogenic clot is seen in the lumen of the common femoral, femoral, popliteal, and posterior tibial veins. There is a normal response of the venous system to proximal and distal augmentation an d respiration. LEFT LEG: There is nonocclusive thrombus seen in the mid left femoral vein. There is normal compressibility of the deep venous system from the inguinal region to the proximal calf. No echogenic clot is seen in t he lumen of the common femoral, popliteal, and posterior tibial veins. There is a normal response of the venous system to proximal and distal augmentation and respiration. CONCLUSION: Nonocclusive thrombus seen in the mid left femoral vein. The right venous structures are patent. Brian Segura MD on December 17, 2016 at 16:23 Board Certified Radiologist. This report was verified electronically.
--- NOTE | 2016-12-17 16:43 | HHI.HP ---
[facility] Service Family Medicine Primary Care Physician Non-Staff Admission Diagnosis Acute PE, worsening melanoma Diagnoses: International Travel<30 Days: No Contact w/Intl Traveler<30days: No Known Affected Area: No History of Present Illness 61 year old male with a history of brain tumors and intracranial hemorrhage. Starting on 10/09/2016 he presented to the ER with headaches, nausea, and vomiting. CT scan showed a right temporal intracranial hemorrhage thought to be due to hypertension. He was re-admitted on 11/06/16 after a seizure or syncope episode. He was admitted a third time on 11/16/[address] scan of the thorax, abdomen, and brain showed no tumors. An MRI of the brain on 11/17/16 showed tumor with mass effect and midline shift. On 11/20/16 he had craniotomy performed by Dr. Flores with removal of a hemorrhagic friable neoplasm with poorly defined borders. Path report read right temporal lobe lesion, biopsy showed features of a metastatic melanoma. He is followed by Dr. Thompson ( oncologist) and Dr. Jack (radiation oncologist) as an outpatient. He was scheduled for PET scan for staging and plans were for possible radiation therapy. He is coming in today with atypical chest pain, located in the right chest and worse with inspiration. The pain is sharp. Workup in the ED shows a right sided pulmonary embolism. He also has nausea and vomiting for one day. No shortness of breath. No abdominal pain. He recently started to have diplopia on 12/10/16 with workup showing an occipital lobe tumor. He has ptosis over the last few days. No focal weaknesses. He has a mild headache. (Max Preston MD R2) Review of Systems Constitutional: DENIES: Diaphoretic episodes, Fatigue, Fever, Chills, Dizziness , Night Sweats Endocrine: DENIES: Polydipsia, Polyuria Eyes: COMPLAINS OF: Diplopia, Double Vision, DENIES: Eye pain, Vision loss Ears, nose, mouth, throat: DENIES: Tinnitus, Vertigo, Oral lesions, Running Nose Respiratory: DENIES: Cough, Wheezing, Hemoptysis, Shortness of breath Cardiovascular: COMPLAINS OF: Chest pain, DENIES: Palpitations, Syncope, Lower Extremity Edema, Orthopnea Gastrointestinal: COMPLAINS OF: Nausea, Vomiting, DENIES: Abdominal pain, Black stools, Bloody stools, Diarrhea, Difficulty Swallowing Genitourinary: DENIES: Urinary frequency, Urgency Musculoskeletal: DENIES: Muscle aches, Stiffness, Neck pain Hematologic/lymphatic: DENIES: Lymphadenopathy Immunologic/allergic: DENIES: Eczema Neurologic: COMPLAINS OF: Headache, DENIES: Localized weakness Psychiatric: DENIES: Anxiety, Mood changes, Depression (Max Preston MD R2) Past Family Social History Past Medical History Brain tumors as described in HPI Past Surgical History Craniectomy for intracranial hemorrhage Reported Medications Reported Meds & Active Scripts Active Methocarbamol 500 Mg Tab 500 Mg PO TID Reported Mapap (Acetaminophen) 500 Mg Tab 500 Mg PO Q4HR PRN (Max Preston MD R2) Allergies: Coded Allergies: AMADOU Inhibitors (Verified Allergy, Severe, RASH, SWELLING , 12/10/16) Lisinopril (Verified Adverse Reaction, Severe, Swelling, 12/10/16) Upper lip Swelling *MDRO Multi-Drug Resistant Organism (Verified Adverse Reaction, Unknown, ) MRSA PCR screen POSITIVE 10/10/16 Active Ordered Medications Inpatient Medications Acetaminophen (Tylenol) 650 mg Q4H PRN PO PAIN SCALE 1 TO 10; Start 12/17/16 at 15:00 Docusate Sodium (Colace) 100 mg BID PRN PO CONSTIPATION; Start 12/17/16 at 15: 00 Hydralazine HCl (Apresoline Inj) 10 mg Q30M PRN IV PUSH SBP>160, DBP>90; Start 12/17/16 at 15:00 Ondansetron HCl (Zofran Inj) 4 mg Q6H PRN IV NAUSEA Last administered on 15:50; Start 12/17/16 at 15:00 Pantoprazole Sodium (Protonix Inj) 40 mg DAILY IVP Last administered on 15:49; Start 12/17/16 at 15:00 Sodium Chloride (NS 1000 ml Inj) 1,000 ml @ 110 mls/hr Q9H6M IV Last administered on 12/17/16 15:50; Start 12/17/16 at 14:50 Sodium Chloride (NS Flush) 2 ml BID IV FLUSH Last administered on 12/17/16 15: 50; Start 12/17/16 at 15:00 Sodium Chloride 2 ml 2 ml UNSCH PRN IVF FLUSH AFTER USING IV ACCESS; Start 6/ 19/17 at 11:15; Stop 12/17/16 at 15:01; Status DC Family History Father: colon cancer Mother: alzheimer's disease Social History One wine per day Lives with girlfriend No smoking or drug use (Max Preston MD R2) Physical Exam Vital Signs Vital Signs Date Time Temp Pulse Resp B/P Pulse Ox O2 Delivery O2 Flow Rate FiO2 12/17/16 14:57 97 21 12/17/16 13:45 76 26 114/71 97 Room Air 12/17/16 13:40 98 12/17/16 13:40 98 12/17/16 10:42 86 18 97 Room Air 12/17/16 10:08 98.7 86 16 152/90 98 Physical Exam GENERAL: Lying in bed, no distress, has eye patch on right eye SKIN: No rashes, ecchymoses or lesions. HEAD: Atraumatic. Normocephalic. No temporal or scalp tenderness. EYES: Pupils equal round and reactive. Extraocular motions intact. No scleral icterus. No injection or drainage. Right eye deviated to the right. ENT: Nose without bleeding, purulent drainage or septal hematoma. Throat without erythema, tonsillar hypertrophy or exudate. Uvula midline. Airway patent. NECK: Trachea midline. No JVD or lymphadenopathy. Supple, nontender, no meningeal signs. CARDIOVASCULAR: Regular rate and rhythm without murmurs, gallops, or rubs. Chest painful to palpation on right side. RESPIRATORY: Clear to auscultation. Breath sounds equal bilaterally. No wheezes , rales, or rhonchi. GASTROINTESTINAL: Abdomen soft, non-tender, nondistended. No hepato-splenomegaly , or palpable masses. No guarding. MUSCULOSKELETAL: Extremities without clubbing, cyanosis, or edema. No joint tenderness, effusion, or edema noted. No calf tenderness. Negative Homans sign bilaterally. NEUROLOGICAL: Awake and alert. Cranial nerves II through XII intact. Motor and sensory grossly within normal limits. Five out of 5 muscle strength in all muscle groups. Normal speech. Ptosis on right eye. Right eye deviated to the right. Short term memory difficulties that are mild. No speech slurring. Laboratory Laboratory Tests Test 12/17/16 12/17/16 03:26 11:17 Blood Type A POSITIVE Antibody Screen NEGATIVE White Blood Count 8.0 Red Blood Count 4.36 Hemoglobin 12.9 Hematocrit 38.3 Mean Corpuscular Volume 87.9 Mean Corpuscular Hemoglobin 29.7 Mean Corpuscular Hemoglobin 33.7 Concent Red Cell Distribution Width 14.2 Platelet Count 459 Mean Platelet Volume 7.5 Neutrophils (%) (Auto) 67.8 Lymphocytes (%) (Auto) 18.4 Monocytes (%) (Auto) 12.2 Eosinophils (%) (Auto) 1.1 Basophils (%) (Auto) 0.5 Neutrophils # (Auto) 5.4 Lymphocytes # (Auto) 1.5 Monocytes # (Auto) 1.0 Eosinophils # (Auto) 0.1 Basophils # (Auto) 0.0 CBC Comment DIFF FINAL Differential Comment Prothrombin Time 11.1 Prothromb Time International 1.0 Ratio Activated Partial 25.6 Thromboplast Time Sodium Level 139 Potassium Level 4.2 Chloride Level 101 Carbon Dioxide Level 31.4 Anion Gap 7 Blood Urea Nitrogen 11 Creatinine 0.98 Estimat Glomerular Filtration 77 Rate Random Glucose 123 Calcium Level 9.5 Magnesium Level 2.2 Total Creatine Kinase 20 Troponin I LESS THAN 0.02 (Max Preston MD R2) Result Diagram: 12/17/16 1117 12/17/16 1117 Imaging Last 72 hours Impressions Chest X-Ray 12/17/16 1103 Signed Impressions: Service Date/Time: Saturday, December 17, 2016 10:59 - CONCLUSION: No acute disease. Chadwick Saldana MD FACR (Max Preston MD R2) Septic Shock Reassessment Heart: Regular rate and rhythm Lungs: Clear Skin: Warm Capillary Refill: <2 seconds (Max Preston MD R2) Assessment and Plan Assessment and Plan 61 year old male with history of brain tumors, intracranial hemorrhage, being admitted with new pulmonary embolism. Code Status DNR Discussed Condition With Discussed with Dr. Lua, Dr. Simms, Dr. Vallejo Seen with Dr. Lua (Max Preston MD R2) Attending Attestation Patient seen and examined. Case reviewed and discussed with the resident team. Agree with plan of care as discussed with me and documented in the resident note. Spoke to pt and his fiance. In SICU, he declined any fluids or food as he had the vomiting. His pain was much better with some narcotics. (Kika Simms MD) Problem List: (1) Pulmonary embolism Status: Acute Plan: Pulmonary embolus of the right pulmonary artery, and extending to the arteries supplying the right upper and right lower lobes. The right middle lobe is spared. Hemodynamically stable currently, no shortness of breath. Has chest pain worse with inspiration. Anticoagulation relatively contraindication due to recent intracerebral bleed. - Consulting hematology for recommendations - Consulting radiation oncology and medical oncology - Admit to [facility] for closer monitoring - Continuous cardiopulmonary monitoring - CT surgery consult if acutely decompensating. - Possible IVC filter due to relative contraindication for anticoagulation (2) Cerebral tumor Status: Acute Plan: Possible metastatic disease to the brain with features typical of melanoma. Plan was for PET scan for staging and stereotactic radiosurgery. - Consult radiation oncologist, medical oncologist (3) Intracranial hemorrhage Status: Acute Plan: History of recent intracerebral bleed. On CT of head, there is a mildly larger area of hemorrhage in the right temporal lobe. Overall configuration is similar. Area appears somewhat denser. Additional bleeding cannot be excluded. There is also new or more prominent mild interventricular hemorrhage seen at the posterior aspect of the right lateral ventricle. ED physician discussed with neurosurgeon, suggests that it is likely not new hemorrhage but rather increasing tumor burden. US of bilateral legs reveals a non-occlusive thrombus in the mid-left femoral vein. - MRI pending - Neuro checks - Close monitoring in the [facility] - Hydralazine PRN to keep BP <160/90 - Oncology on board (4) Contraindication to anticoagulation therapy Status: Acute Plan: Relative contraindication due to recent intracerebral hemorrhage Consulting hematology for recommendations Possible need for IVC filter? (5) Nutrition, metabolism, and development symptoms Status: Acute Plan: - NPO for swallow evaluation - Electrolytes normal - NS at 110 mls/hr (Max Preston MD R2) Physician Certification 2 Midnight Certification Type: Admission for Inpatient Services Order for Inpatient Services The services are ordered in accordance with Medicare regulations or non- Medicare payer requirements, as applicable. In the case of services not specified as inpatient-only, they are appropriately provided as inpatient services in accordance with the 2-midnight benchmark. Estimated LOS (days): 3 days is the estimated time the patient will need to remain in the hospital, assuming treatment plan goals are met and no additional complications. Post-Hospital Plan: Not yet determined (Max Preston MD R2) Problem Qualifiers (1) Pulmonary embolism: Qualified Code: I26.99 - Other acute pulmonary embolism without acute cor pulmonale Max Preston MD R2 Dec 17, 2016 16:43 Kika Simms MD Dec 18, 2016 13:23
--- NOTE | 2016-12-17 17:27 | RADRPT ---
EXAM DATE/TIME: 12/17/2016 15:59 This report includes an Addendum and supersedes previous reports for this exam. [facility] COMPARISON: CT BRAIN W/O CONTRAST, December 17, 2016, 12:42. MRI BRAIN W & W/O CONTRAST, 2016, 13:40. INDICATIONS : Mass. Worsening symptoms. CONTRAST: 16 cc Omniscan (gadodiamide) IV MEDICAL HISTORY : Stroke Gastroesophageal reflux disease. Brain CA. SURGICAL HISTORY : Craniotomy. Inguinal hernia repair. ENCOUNTER: Initial ACUITY: 2 weeks PAIN SCORE: 2/10 LOCATION: Head TECHNIQUE: Multiplanar, multisequence MRI of the brain was performed both prior to and following the administration of paramagnetic contrast. FINDINGS: There is some distortion of the temporal horn. There continues to be a bilobed mass-lik e area seen in the right temporal lobe. This appears to surround a portion of the posterior aspect of the temporal horn on the right side. On the CT examination there appear to be increased density in t his region which could be from hemorrhage. The right temporal mass extends inferiorly to the middle cranial fossa floor. The enhancement appears to extend over much of the middle cranial fossa floor guerrero ggesting some dural spread. The mass measures approximately 3.5 cm. It demonstrates enhancement. Th ere is a smaller mass seen in the posterior medial left parietal occipital region measuring 0.9 cm in greatest dimension. It is seen on the post contrast images as an area of ring enhancement. Mild ed bre is seen around this left parietal occipital lesion. More prominent edema is seen at the right tem poral lobe. The patient is status post right temporal craniotomy. There is 2 mm of right to left mi dline shift. The basal cisterns are open. No areas of acute infarction are seen. The mass-like are as in the right temporal lobe and left parietal occipital region and the posterior aspect of the righ t lateral ventricle all demonstrate low signal on the SWI images consistent with hemorrhage. CONCLUSION: 1. Hemorrhagic lesions seen at the right temporal lobe and to a lesser degree the left posterior medi al parietal occipital region. Both these areas enhance and demonstrate components of hemorrhage. Th e right temporal lesion extends to the right middle cranial fossa floor and surrounds a portion of th e right lateral ventricle at the posterior aspect of the right temporal horn. The patient has had a craniotomy in the right temporal lobe. Brian Segura MD on December 17, 2016 at 17:07 Board Certified Radiologist. This report was verified electronically. ADDENDUM: Apparently, the patient has known melanoma metastases. All the findings are consistent with melanoma metastases. Brian Segura MD on December 18, 2016 at 18:20 Board Certified Radiologist. This report was verified electronically.
[2016-12-17] MEDS ORDERED: ACETAMINOPHEN/HYDROcodone 325 MG/5 MG TAB PO PRN ×2 (17:30)
[2016-12-17] MEDS: MORPHINE SULFATE 8 MG/ML INJ IV PUSH PRN ×2 (17:50→21:09)
[2016-12-17] MEDS ORDERED: GADODIAMIDE PF 287 MG/ML 5 ML VIAL (for RAD MRI) IV ONE (18:12)
[2016-12-18] VITALS (13 sets, daily range): BP systolic 116–137; BP diastolic 60–74; PULSE 52–62; RESP 13–26; TEMP 97.7–98.7; O2SAT 92–97
[2016-12-18] MEDS: SODIUM CHLOR 0.9% 1000 ML INJ 1,000 ML IV SCH ×3 (00:18→19:30)
[2016-12-18] MEDS: MORPHINE SULFATE 8 MG/ML INJ IV PUSH PRN ×3 (03:22→20:14)
[2016-12-18] MEDS: ONDANSETRON HCL 4 MG/2 ML VIAL IV PRN ×3 (03:22→17:55)
[2016-12-18 05:24] LABS: AUTOMATED NEUTROPHIL # 3.6 TH/MM3 (1.8-7.7); BASOPHIL % 0.5 % (0.0-2.0); EOSINOPHIL # 0.1 TH/MM3 (0-0.4); HEMATOCRIT 31.6 % (39.0-51.0); LYMPH % 16.9 % (9.0-44.0); LYMPHOCYTE # 0.9 TH/MM3 (1.0-4.8); MEAN CELL VOLUME 88.1 FL (80.0-100.0); MEAN CORPUSCULAR HEMOGLOBIN 29.2 PG (27.0-34.0); MEAN CORPUSCULAR HGB CONC 33.2 % (32.0-36.0); MONO % 14.7 % (0.0-8.0); NEUT % 65.9 % (16.0-70.0); PLATELET COUNT 391 TH/MM3 (150-450); RED BLOOD COUNT 3.59 MIL/MM3 (4.50-5.90); RED CELL DISTRIBUTION WIDTH 14.2 % (11.6-17.2); WHITE BLOOD COUNT 5.4 TH/MM3 (4.0-11.0)
[2016-12-18 05:35] LABS: HEMO FLAGS AUTO DIFF
[2016-12-18 05:44] LABS: APTT (PATIENT) 25.9 SEC (24.3-30.1); PROTHROMBIN TIME - PATIENT 11.4 SEC (9.8-11.6)
[2016-12-18 06:05] LABS: ALKALINE PHOSPHATASE 80 U/L (45-117); ALT (GPT) 18 U/L (12-78); ANION GAP 7 MEQ/L (5-15); AST (GOT) 13 U/L (15-37); BLOOD UREA NITROGEN 10 MG/DL (7-18); CHLORIDE 105 MEQ/L (98-107); GLOMERULAR FILTRATION RATE 84 ML/MIN (>89); POTASSIUM 3.9 MEQ/L (3.5-5.1); SODIUM (NA) 142 MEQ/L (136-145); TOTAL BILIRUBIN ADULT 0.4 MG/DL (0.2-1.0)
[2016-12-18 06:55] LABS: SCAN/DIFF AUTO DIFF CONFIRMED
[2016-12-18] MEDS: SODIUM CHLORIDE 0.9% FLUSH 10 ML FLUSH IV FLUSH SCH ×2 (08:05→19:31)
[2016-12-18] MEDS: PANTOPRAZOLE SODIUM 40 MG VIAL IVP SCH (08:05)
--- NOTE | 2016-12-18 10:41 | HHI.HP ---
[facility] Service Family Medicine Primary Care Physician Non-Staff Admission Diagnosis Acute PE, worsening melanoma Diagnoses: (1) Pulmonary embolism Diagnosis: Principal (2) Cerebral tumor Diagnosis: Principal (3) Intracranial hemorrhage Diagnosis: Principal (4) Contraindication to anticoagulation therapy Diagnosis: Principal (5) Nutrition, metabolism, and development symptoms Diagnosis: Principal International Travel<30 Days: No Contact w/Intl Traveler<30days: No Known Affected Area: No History of Present Illness Mr Cardona is a 61 year old male with a history of brain tumors and intracranial hemorrhage. Starting on 10/09/2016 he presented to the ER with headaches, nausea , and vomiting. CT scan showed a right temporal intracranial hemorrhage thought to be due to hypertension. He was re-admitted on 11/06/16 after a seizure or syncope episode. He was admitted a third time on 11/16/[address] scan of the thorax, abdomen, and brain showed no tumors. An MRI of the brain on 11/17/16 showed tumor with mass effect and midline shift. On 11/20/16 he had craniotomy performed by Dr. Florse with removal of a hemorrhagic friable neoplasm with poorly defined borders. Path report read right temporal lobe lesion, biopsy showed features of a metastatic melanoma. He is followed by Dr. Thompson ( oncologist) and Dr. Jack (radiation oncologist) as an outpatient. He was scheduled for PET scan for staging and plans were for possible radiation therapy. He came in with atypical chest pain, located in the right chest and worse with inspiration. The pain is sharp. Workup in the ED shows a right sided pulmonary embolism. He also had nausea and vomiting for several days. No shortness of breath. No abdominal pain. He recently started to have diplopia on 12/10/16 with workup showing an occipital lobe tumor. He has ptosis over the last few days. No focal weaknesses. He has a mild headache. Overnight, he was admitted to Intensive care for close monitoring. He could not have anticoagulation because of his brain surgery, tumors and very high risk of bleeding. Oncology has recommended an ivc filter which will be hopefully placed today. He still has some blood clot in his leg but has shown improvement overall with his oxygenation and is 99% on nasal canula today where he needed a nonrebreather yesterday. Review of Systems Other Constitutional: DENIES: Diaphoretic episodes, Fatigue, Fever, Chills, Dizziness , Night Sweats Endocrine: DENIES: Polydipsia, Polyuria Eyes: COMPLAINS OF: Diplopia, Double Vision, DENIES: Eye pain, Vision loss Ears, nose, mouth, throat: DENIES: Tinnitus, Vertigo, Oral lesions, Running Nose Respiratory: DENIES: Cough, Wheezing, Hemoptysis, Shortness of breath Cardiovascular: COMPLAINS OF: Chest pain, DENIES: Palpitations, Syncope, Lower Extremity Edema, Orthopnea Gastrointestinal: COMPLAINS OF: Nausea, Vomiting, DENIES: Abdominal pain, Black stools, Bloody stools, Diarrhea, Difficulty Swallowing Genitourinary: DENIES: Urinary frequency, Urgency Musculoskeletal: DENIES: Muscle aches, Stiffness, Neck pain Hematologic/lymphatic: DENIES: Lymphadenopathy Immunologic/allergic: DENIES: Eczema Neurologic: COMPLAINS OF: Headache, DENIES: Localized weakness Psychiatric: DENIES: Anxiety, Mood changes, Depression Past Family Social History Past Medical History Brain tumors as described in HPI Past Surgical History Craniectomy for intracranial hemorrhage Allergies: Coded Allergies: AMADOU Inhibitors (Verified Allergy, Severe, RASH, SWELLING , 12/10/16) Lisinopril (Verified Adverse Reaction, Severe, Swelling, 12/10/16) Upper lip Swelling *MDRO Multi-Drug Resistant Organism (Verified Adverse Reaction, Unknown, ) MRSA PCR screen POSITIVE 10/10/16 Family History Father: colon cancer Mother: alzheimer's disease Social History One wine per day Lives with girlfriend/fiance No smoking or drug use Physical Exam Vital Signs Vital Signs Date Time Temp Pulse Resp B/P Pulse Ox O2 Delivery O2 Flow Rate FiO2 12/18/16 10:00 62 12/18/16 09:11 94 Nasal Cannula 2.00 12/18/16 08:00 58 12/18/16 08:00 97.7 57 18 126/60 92 12/18/16 07:00 92 Nasal Cannula 2.00 12/18/16 06:00 56 12/18/16 04:00 98.6 60 18 116/66 95 12/18/16 04:00 60 12/18/16 02:00 60 12/18/16 00:00 60 12/18/16 00:00 98.7 60 16 130/74 97 12/17/16 22:00 63 12/17/16 20:54 96 Nasal Cannula 2.00 12/17/16 20:25 100 Nasal Cannula 2.00 12/17/16 20:00 58 12/17/16 20:00 98.4 58 20 125/73 100 12/17/16 19:00 100 Partial Non-Rebreather 10.00 12/17/16 18:00 89 Nasal Cannula 2.00 12/17/16 18:00 68 12/17/16 18:00 98.4 67 22 116/61 92 12/17/16 17:03 70 15 121/65 96 Room Air 12/17/16 14:57 97 21 12/17/16 13:45 76 26 114/71 97 Room Air 12/17/16 13:40 98 12/17/16 13:40 98 12/17/16 10:42 86 18 97 Room Air Physical Exam GENERAL: Lying in bed, no distress, has eye patch on right eye SKIN: No rashes, ecchymoses or lesions. HEAD: Atraumatic. Normocephalic. No temporal or scalp tenderness. EYES: Pupils equal round and reactive. Extraocular motions intact. No scleral icterus. No injection or drainage. Right eye deviated to the right. ENT: Nose without bleeding, purulent drainage or septal hematoma. Airway patent. NECK: Trachea midline. No JVD or lymphadenopathy. Supple, nontender, no meningeal signs. CARDIOVASCULAR: Regular rate and rhythm without murmurs, gallops, or rubs. Chest painful to palpation on right side yesterday but not today. RESPIRATORY: Clear to auscultation. Breath sounds equal bilaterally. No wheezes , rales, or rhonchi. GASTROINTESTINAL: Abdomen soft, non-tender, nondistended. No hepato-splenomegaly , or palpable masses. No guarding. MUSCULOSKELETAL: Extremities without clubbing, cyanosis, or edema. No joint tenderness, effusion, or edema noted. No calf tenderness. Negative Homans sign bilaterally. NEUROLOGICAL: Awake and alert. Cranial nerves II through XII intact. Motor and sensory grossly within normal limits. Five out of 5 muscle strength in all muscle groups. Normal speech. Ptosis on right eye. Right eye deviated to the right. Short term memory difficulties that are mild. No speech slurring. reports left shoulder numbness this am Laboratory Laboratory Tests Test 12/17/16 12/17/16 12/18/16 11:17 22:18 05:04 White Blood Count 8.0 5.4 Red Blood Count 4.36 3.59 Hemoglobin 12.9 10.5 Hematocrit 38.3 31.6 Mean Corpuscular Volume 87.9 88.1 Mean Corpuscular Hemoglobin 29.7 29.2 Mean Corpuscular Hemoglobin 33.7 33.2 Concent Red Cell Distribution Width 14.2 14.2 Platelet Count 459 391 Mean Platelet Volume 7.5 7.0 Neutrophils (%) (Auto) 67.8 65.9 Lymphocytes (%) (Auto) 18.4 16.9 Monocytes (%) (Auto) 12.2 14.7 Eosinophils (%) (Auto) 1.1 2.0 Basophils (%) (Auto) 0.5 0.5 Neutrophils # (Auto) 5.4 3.6 Lymphocytes # (Auto) 1.5 0.9 Monocytes # (Auto) 1.0 0.8 Eosinophils # (Auto) 0.1 0.1 Basophils # (Auto) 0.0 0.0 CBC Comment DIFF FINAL AUTO DIFF Differential Comment AUTO DIFF CONFIRMED Prothrombin Time 11.1 11.4 Prothromb Time International 1.0 1.0 Ratio Activated Partial 25.6 25.9 Thromboplast Time Sodium Level 139 142 Potassium Level 4.2 3.9 Chloride Level 101 105 Carbon Dioxide Level 31.4 30.0 Anion Gap 7 7 Blood Urea Nitrogen 11 10 Creatinine 0.98 0.91 Estimat Glomerular Filtration 77 84 Rate Random Glucose 123 97 Calcium Level 9.5 8.6 Magnesium Level 2.2 Total Creatine Kinase 20 Troponin I LESS THAN 0.02 Nasal Screen MRSA (PCR) MRSA NOT DETECTED Fibrinogen 465 Total Bilirubin 0.4 Aspartate Amino Transf 13 (AST/SGOT) Alanine Aminotransferase 18 (ALT/SGPT) Alkaline Phosphatase 80 Total Protein 6.0 Albumin 2.3 Result Diagram: 12/18/16 0504 12/18/16 0504 Imaging Last 72 hours Impressions Chest X-Ray 12/17/16 1103 Signed Impressions: Service Date/Time: Saturday, December 17, 2016 10:59 - CONCLUSION: No acute disease. Chadwick Saldana MD FACR Assessment and Plan Assessment and Plan 61 year old male with history of brain tumors, intracranial hemorrhage, being admitted with new pulmonary embolism. Problem List: (1) Pulmonary embolism Status: Acute Plan: Pulmonary embolus of the right pulmonary artery, and extending to the arteries supplying the right upper and right lower lobes. The right middle lobe is spared. Hemodynamically stable currently, no shortness of breath. Had chest pain worse with inspiration, better now. Anticoagulation relatively contraindication due to recent intracerebral bleed and not recommended by surgery. - Consulted hematology for recommendations - Consulted radiation oncology and medical oncology - Admit to SICU for closer monitoring - Continuous cardiopulmonary monitoring - CT surgery consult if acutely decompensating. - IVC filter due to relative contraindication for anticoagulation now recommended by Hematology (2) Cerebral tumor Status: Acute Plan: Possible metastatic disease to the brain with features typical of melanoma. Plan was for PET scan for staging and stereotactic radiosurgery. - Consulted radiation oncologist, medical oncologist Dr Flores was hoping pt could start radiation here in the hospital [facility]. (3) Intracranial hemorrhage Status: Acute Plan: History of recent intracerebral bleed. On CT of head, there is a mildly larger area of hemorrhage in the right temporal lobe. Overall configuration is similar. Area appears somewhat denser. Additional bleeding cannot be excluded. There is also new or more prominent mild interventricular hemorrhage seen at the posterior aspect of the right lateral ventricle. ED physician discussed with neurosurgeon, suggests that it is likely not new hemorrhage but rather increasing tumor burden. US of bilateral legs reveals a non-occlusive thrombus in the mid-left femoral vein. - MRI pending - Neuro checks - Close monitoring in the SICU - Hydralazine PRN to keep BP <160/90 - Oncology on board (4) Contraindication to anticoagulation therapy Status: Acute Plan: Relative contraindication due to recent intracerebral hemorrhage Consulting hematology for recommendations need for IVC filter (5) Nutrition, metabolism, and development symptoms Status: Acute Plan: - regular diet now - Electrolytes normal - NS at 110 mls/hr, can consider D5 for more calories as he was vomiting for days Physician Certification 2 Midnight Certification Type: Admission for Inpatient Services Order for Inpatient Services The services are ordered in accordance with Medicare regulations or non- Medicare payer requirements, as applicable. In the case of services not specified as inpatient-only, they are appropriately provided as inpatient services in accordance with the 2-midnight benchmark. Estimated LOS (days): 4 4 days is the estimated time the patient will need to remain in the hospital, assuming treatment plan goals are met and no additional complications. Post-Hospital Plan: Not yet determined Problem Qualifiers (1) Pulmonary embolism: Qualified Code: I26.99 - Other acute pulmonary embolism without acute cor pulmonale Kika Simms MD Dec 18, 2016 10:41
[2016-12-18] MEDS ORDERED: fentaNYL CITRATE 250 MCG/5 ML AMP ONE (13:54)
--- NOTE | 2016-12-18 14:01 | PD.CONS ---
(Osvaldo Rob) [facility] Service Neurosurgery Consult Requested By Dr Lua Reason for Consult History of brain tumors and intracranial haemorrhage Primary Care Physician Non-Staff History of Present Illness This is a 61-year-old male well known to this practice. He was initially diagnosed with a hypertensive bleed on after imaging in the ED due to headaches, nausea and vomiting. On he was readmitted due to either a seizure or syncopal episode. He was again admitted on and imaging of the chest, abdomen, pelvis and brain was unremarkable for any tumors but the haemorrhage which had increased. Therefore an MRI was done on which demonstrated a tumor with mass effect and shift. Therefore he underwent a right temporal craniotomy for resection of a haemorrhagic neoplasm on . The pathology report stated the lesion demonstrated features of metastatic melanoma. He developed diplopia on and imaging demonstrated a left occipital lobe lesion. He has recently developed ptosis the past few days. Yesterday the patient had right-sided chest pain which was worse when taking a deep breath. He therefore presented to the ED for evaluation. Imaging demonstrated multiple pulmonary emboli of the central aspect of the right lower and right upper lobes. An ultrasound demonstrated a left femoral vein thrombus which was nonocclusive. A CT brain demonstrated a right temporal lobe haemorrhage w/interval increase and persistent mild right subdural fluid collection & pneumocephalus and posterior medial left parietal lob haemorrhage. He was therefore admitted to the [facility] for further care with consults to Neurosurgery, Hematology, Medical Oncology and Radiation Oncology. When seen this morning the patient states that he is doing good. He does endorse double vision and ptosis to the right eye and headaches behind the right eye and to the left nondenominational. He has some nausea. The pain to the lateral right anterior chest persists. He readily smiles and engages in conversation. ( Osvaldo Rob) Review of Systems CONSTITUTIONAL: Patient denies any fever or chills. HEENT: Patient complains of double vision. He denies any other vision problems, loss of hearing, ringing in the ears, difficulty swallowing or other ENT problems. NECK: Patient denies any neck pain or difficulty moving his neck. RESPIRATORY: Patient denies any shortness of breath or productive cough. CARDIOVASCULAR: Patient complains of right-sided chest pain. He denies any palpitation or irregular heartbeat. GASTROINTESTINAL: Patient does have some nausea and has had vomiting. He denies any abdominal pain or incontinence of stool. GENITOURINARY: Patient denies any incontinence of urine. INTEGUMENTARY: Patient denies any skin lesions or ulcerations. MUSCULOSKELETAL: Patient denies any back pain or pain or weakness to the extremities. HAEMATOLOGICAL/LYMPHATIC: Patient denies any bleeding or bruising tendencies or swollen glands. NEUROLOGICAL: Patient has a headache behind the right eye and to the left nondenominational. He denies any dizziness, numbness or tingling. PSYCHIATRIC: Patient denies any anxiety or depression. (Osvaldo Rob) Past Family Social History Allergies: Coded Allergies: AMADOU Inhibitors (Verified Allergy, Severe, RASH, SWELLING , 12/10/16) Lisinopril (Verified Adverse Reaction, Severe, Swelling, 12/10/16) Upper lip Swelling *MDRO Multi-Drug Resistant Organism (Verified Adverse Reaction, Unknown, ) MRSA PCR screen POSITIVE 10/10/16 Past Medical History History of right temporal neoplasm History of right temporal lobe haemorrahge History of posterior medial left parietal lobe haemorrhage History of basal cell carcinoma History of hypertension Past Surgical History Right temporal craniotomy for resection of neoplasm Basal cell carcinoma excision Hernia repair Active Ordered Medications Current Medications Medications (Trade) Dose Ordered Sig/Munir Route Start Time Stop Time Status Last Admin (NS 1000 ml Inj) 1,000 ml @ 110 mls/hr Q9H6M IV 12/17/16 14:50 12/18/16 00:18 (NS Flush) 2 ml UNSCH PRN IV FLUSH 12/17/16 15:00 (NS Flush) 2 ml BID IV FLUSH 12/17/16 15:00 12/18/16 08:05 (Protonix Inj) 40 mg DAILY IVP 12/17/16 15:00 12/18/16 08:05 (Zofran Inj) 4 mg Q6H PRN IV 12/17/16 15:00 12/18/16 10:15 (Colace) 100 mg BID PRN PO 12/17/16 15:00 (Apresoline Inj) 10 mg Q30M PRN IV PUSH 12/17/16 15:00 (Tylenol) 650 mg Q4H PRN PO 12/17/16 17:30 ([place] 5-325 Mg) 1 tab Q4H PRN PO 12/17/16 17:30 ([place] 5-325 Mg) 2 tab Q4H PRN PO 12/17/16 17:30 (Morphine Inj) 1 mg Q4H PRN IV PUSH 12/17/16 17:30 12/18/16 10:15 Family History Father - Colon cancer Mother - Alzheimer's Social History Lives with significant other Drinks wine with meals Denies any tobacco Denies any illicit drug use (Osvaldo Rob) Physical Exam Vital Signs Vital Signs Date Time Temp Pulse Resp B/P Pulse Ox O2 Delivery O2 Flow Rate FiO2 12/18/16 12:00 59 12/18/16 12:00 97.8 59 26 120/72 97 12/18/16 12:00 97 Nasal Cannula 2.00 12/18/16 10:00 62 12/18/16 09:11 94 Nasal Cannula 2.00 12/18/16 08:00 58 12/18/16 08:00 97.7 57 18 126/60 92 12/18/16 07:00 92 Nasal Cannula 2.00 12/18/16 06:00 56 12/18/16 04:00 98.6 60 18 116/66 95 12/18/16 04:00 60 12/18/16 02:00 60 12/18/16 00:00 60 12/18/16 00:00 98.7 60 16 130/74 97 12/17/16 22:00 63 12/17/16 20:54 96 Nasal Cannula 2.00 12/17/16 20:25 100 Nasal Cannula 2.00 12/17/16 20:00 58 12/17/16 20:00 98.4 58 20 125/73 100 12/17/16 19:00 100 Partial Non-Rebreather 10.00 12/17/16 18:00 89 Nasal Cannula 2.00 12/17/16 18:00 68 12/17/16 18:00 98.4 67 22 116/61 92 12/17/16 17:03 70 15 121/65 96 Room Air 12/17/16 14:57 97 21 12/17/16 13:45 76 26 114/71 97 Room Air 12/17/16 13:40 98 12/17/16 13:40 98 Physical Exam GENERAL: Well-developed, well-nourished male who appears his stated age. No apparent distress. HEENT: Normocephalic, atraumatic. Right pupil 3 mm & left pupil 2 mm, react to light. MMM & pink, no lesions noted. NECK: Midline cervical spine NTTP, no step off or deformity, no JVD, trachea midline. RESPIRATORY: CTAB w/o W/R/R, equal excursion, nonlaboured, on RA. CARDIOVASCULAR: S1S2 w/RRR w/o M/G/R, radial & pedal pulses 2+ bilaterally, cap refill < 2 sec, no pedal edema. Monitor is sinus rhythm. GASTROINTESTINAL: Abdomen soft, nontender, no organomegaly or palpable masses, positive bowel sounds. INTEGUMENTARY: Warm, dry & intact. No evident rashes, lesions or discolouration. MUSCULOSKELETAL: BAKER w/o difficulty. Extremities NTTP. Back NTTP, no step off or deformity. NEUROLOGICAL: AAOx3. Speech clear & appropriate. Follows simple commands. Sensation grossly intact to light touch. Motor strength 5/5 to all major flexion & muscle groups. PSYCHIATRIC: Normal affect. Laboratory Laboratory Tests Test 12/17/16 12/18/16 22:18 05:04 Nasal Screen MRSA (PCR) MRSA NOT DETECTED White Blood Count 5.4 Red Blood Count 3.59 Hemoglobin 10.5 Hematocrit 31.6 Mean Corpuscular Volume 88.1 Mean Corpuscular Hemoglobin 29.2 Mean Corpuscular Hemoglobin 33.2 Concent Red Cell Distribution Width 14.2 Platelet Count 391 Mean Platelet Volume 7.0 Neutrophils (%) (Auto) 65.9 Lymphocytes (%) (Auto) 16.9 Monocytes (%) (Auto) 14.7 Eosinophils (%) (Auto) 2.0 Basophils (%) (Auto) 0.5 Neutrophils # (Auto) 3.6 Lymphocytes # (Auto) 0.9 Monocytes # (Auto) 0.8 Eosinophils # (Auto) 0.1 Basophils # (Auto) 0.0 CBC Comment AUTO DIFF Differential Comment AUTO DIFF CONFIRMED Prothrombin Time 11.4 Prothromb Time International 1.0 Ratio Activated Partial 25.9 Thromboplast Time Fibrinogen 465 Sodium Level 142 Potassium Level 3.9 Chloride Level 105 Carbon Dioxide Level 30.0 Anion Gap 7 Blood Urea Nitrogen 10 Creatinine 0.91 Estimat Glomerular Filtration 84 Rate Random Glucose 97 Calcium Level 8.6 Total Bilirubin 0.4 Aspartate Amino Transf 13 (AST/SGOT) Alanine Aminotransferase 18 (ALT/SGPT) Alkaline Phosphatase 80 Total Protein 6.0 Albumin 2.3 (Osvaldo Rob) Result Diagram: 12/18/16 0504 12/18/16 0504 Imaging Recent Impressions Chest X-Ray 12/17/16 1103 Signed Impressions: Service Date/Time: Saturday, December 17, 2016 10:59 - CONCLUSION: No acute disease. Chadwick Saldana MD FACR Lower Extremity Ultrasound 12/17/16 0000 Signed Impressions: Service Date/Time: Saturday, December 17, 2016 15:24 - CONCLUSION: Nonocclusive thrombus seen in the mid left femoral vein. The right venous structures are patent. Brian Segura MD Head CT 12/17/16 0000 Signed Impressions: Service Date/Time: Saturday, December 17, 2016 12:42 - CONCLUSION: 1. Mildly larger area of hemorrhage in the right temporal lobe. The overall configuration is similar. It does appear that the hemorrhage appears somewhat denser today. Some degree of additional bleeding from the prior exam cannot be excluded. There is also new or certainly more prominent mild interventricualr hemorrhage seen at the posterior aspect of the right lateral ventricle. 2. Postoperative change from prior right craniotomy with persistent mild right subdural collection of fluid and air measuring 4 mm. 3. Persistent focal area of hemorrhage in the posterior medial left parietal lobe. Brian Segura MD CT Angiography 12/17/16 0000 Signed Impressions: Service Date/Time: Saturday, December 17, 2016 12:48 - CONCLUSION: 1. Pulmonary emboli seen in the central aspects of the pulmonary artery supplying the right lower lobe and to a lesser degree right upper lobe distribution. 2. Suspected mild atelectasis at the bases. 3. Mild hiatal hernia. 4. Aberrant right subclavian artery. This is a normal variant. Brian Segura MD (Osvaldo Rob) Assessment and Plan Diagnosis: (1) ICH (intracerebral hemorrhage) ICD Code: I61.9 (2) Brain metastases ICD Code: C79.31 Assessment and Plan Impression: Right temporal lobe haemorrhage w/interval increase Persistent mild right subdural fluid collection & pneumocephalus Persistent posterior medial left parietal lob haemorrhage S/P right temporal craniotomy for resection of neoplasm Multiple pulmonary emboli of central aspect of RLL>RUL Mid left femoral vein nonocclusive thrombus Plan: Primary mgmt per [facility] Frequent neuro checks Stat CT brain w/o contrast for any worsening of neuro status (Osvaldo Rob) Attending Statement I have personally seen and examined the patient on the date of this note. Pertinent documentation and study results have been reviewed by the undersigned. I have personally developed the treatment plan and performed medical decision making. Agree with findings, exam, and treatment plan as noted above. 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 No definite cavernous sinus involvement of the neoplasm on MRI, but likely present considering the patient's examination. Follow-up MRI 12/17/16 images reviewed by the undersigned and discussed with radiology and oncology yesterday and again today. Discussed at length with the patient and his family today. It is not felt that he would benefit from further surgical resection at this time. An IVC filter has been placed today. He is not a good candidate for anticoagulation. He will hopefully be able to proceed with radiation therapy to the brain tomorrow. Discussed at length with the patient and family and all questions answered. (Leonidas Flores MD) Osvaldo Rob Dec 18, 2016 14:01 Leonidas Flores MD Dec 18, 2016 19:33
[2016-12-18] MEDS ORDERED: IOHEXOL 350 MG/ML 50 ML BTL (for RAD DIAG) ONE (14:16)
--- NOTE | 2016-12-18 14:25 | PD.RAD ---
Post Procedure Progress Note Pre Procedure Diagnosis: (1) Brain metastases (2) ICH (intracerebral hemorrhage) (3) DVT (deep venous thrombosis) Post Procedure Diagnosis: (1) DVT (deep venous thrombosis) (2) ICH (intracerebral hemorrhage) (3) Brain metastases Procedure Date: Dec 18, 2016 Supervising Radiologist: Stevo Saldana Anesthesia: Local, Analgesia Plan of Activity Patient to Unit: Nursing Unit Patient Condition: Fair Additional Comments: IVC filter placed without difficulty [employer] filter placed Filter in good position with full deployment See PACS Report for procedural detail/treatment Stevo Saldana MD Dec 18, 2016 14:24
--- NOTE | 2016-12-18 16:10 | RADRPT ---
EXAM DATE/TIME: 12/18/2016 13:20 [place] COMPARISON: ANGIOGRAM, CEREBRAL WO ARCH, November 20, 2016, 12:53. INDICATIONS : Patient with acute PE and worsening melanoma. MEDICAL HISTORY : 1. brain melanoma 2. skin-basal cell 3.CVA 4. GERD 5. HTN 6. Hiatal hernia 7.migraines SURGICAL HISTORY : 1. Bilateral groin hernaia repair 2. excisions of basal cell carcinoma 3. craniectomy ENCOUNTER: Initial ACUITY: 4 - 6 days PAIN SCORE: 0/10 FLUORO TIME: 1.4 minutes IMAGE SERIES: 1 ACCESS SITE: Right Internal jugular vein CONTRAST: 1.) 20 cc Omnipaque (iohexol) 350 MEDICATION(S): 1.) 25 mcg fentanyl (Sublimaze) IV DEVICE(S): 1.) Inferior vena cava B [place] Venatech filter PROCEDURE : 1. Ultrasound-guided venipuncture. 2. Inferior venacavogram. 3. Inferior vena cava filter placement. 4. Conscious sedation with continuous EKG and oximetry monitoring. The risks, benefits and alternatives to the procedure were explained and verbal and written consent w as obtained. The site was prepped in sterile fashion. Full sterile technique was used, including ca p, mask, sterile gloves and gown and a large sterile sheet. Hand hygiene and 2% chlorhexidine and/or betadine/alcohol prep was utilized per protocol for cutaneous antisepsis. The skin and subcutaneous tissues were infiltrated with local anesthetic solution. With ultrasound and fluoroscopic guidance the targeted vein was punctured and a vascular sheath was p laced. Inferior venacavogram was performed to demonstrate level of renal veins. No caval thrombus was identified. The prescribed filter was deployed in the infrarenal inferior vena cava. Following deplo yment the filter was identified in good position. Conscious sedation was performed with the prescribed dosages and duration as above in the presence of an independent trained radiology nurse to assist in the monitoring of the patient. EKG and oximetry remained stable throughout the procedure. The patient tolerated the procedure well and there were n o complications. The patient was sent to post anesthesia recovery in stable condition. CONCLUSION: Uncomplicated placement of a Vena-Tech permanent filter in the inferior vena cava as above.. Stevo Saldana MD on December 18, 2016 at 16:07 Board Certified Radiologist. This report was verified electronically.
[2016-12-19] VITALS (11 sets, daily range): BP systolic 106–143; BP diastolic 65–75; PULSE 48–66; RESP 14–21; TEMP 97–98.6; O2SAT 95–99
--- NOTE | 2016-12-19 00:22 | MB ---
cc: ED BOLES M.D. 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 PATIENT PROFILE: The patient is a 61-year-old male. He is single. He has a fiance. He has never smoked. He was born in [place], [place]. He has no children. He has lived in [place] for the past six years and prior to this [place] [facility]. 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 In the past he would have a glass of wine per day. HISTORY OF PRESENT ILLNESS: The patient is a 61 year-old male whose history dates back to October 09, 2006, when he presented to [facility] with a history of headaches, nausea and vomiting, and was found to have a right temporal intracranial hemorrhage felt to be due to hypertension. He was discharged home and was admitted a second time on 11/06/2016 with syncope and a possible seizure, and again discharged home. He was admitted for a third time on approximately November 16, 2016, and was found to have an enlarging mass in the area of the hemorrhage. On 11/20/2016, he underwent a craniotomy by Dr. Abe Flores and had a hemorrhagic friable neoplasm removed with poorly defined borders. This was consistent with metastatic melanoma. I have spoken with our pathologist, and specifically Dr. Estephania Vidal, and she reviewed the material for a second time and felt that it was diagnostic of melanoma. The plan was to proceed with stereotactic therapy to the lesion and then probably follow this with immunotherapy. I requested that the tumor be tested for a BRAF mutation. During the past week there has been a series of events. He developed ptosis of the right eye with double vision. He has had occasional discomfort in the right chest that became excruciating over the past week. He went to the emergency room because of the right chest pain. He had a CT angiogram on 12/17/2016 showing pulmonary emboli involving the central aspect of the pulmonary artery supplying the right lower lobe and to a lesser degree right upper lobe. He had a lower extremity ultrasound on 12/17/2016 showing nonocclusive thrombus in the mid left femoral vein. The right structures were normal. An MRI of the brain on 12/17 shows hemorrhagic lesions seen at the right temporal lobe and to a lesser degree the left posterior medial parietal occipital area. The right temporal lobe lesion extends to the right middle cranial fossa floor and surrounds a portion of the right lateral ventricle at the posterior aspect of the right temporal horn. This is felt to be consistent with metastases from his melanoma. The patient was not felt to be candidate for anticoagulation given the melanoma and hemorrhage. He has a DVT involving the lower extremity and pulmonary emboli. For this reason an IVC filter was placed. At the present time he is doing well. He is comfortable. The right chest pain is less. He is not short of breath. He denies any calf, thigh swelling. PAST SURGICAL HISTORY 1. IVC filter placed today December 18, 2016. 2. November 20, 2016 right temporal craniotomy and resection of neoplasm. 3. 12/31/2015 laparoscopic bilateral inguinal hernia repair with excision of lipoma of the spermatic cord on the left and primary repair of umbilical hernia. 4. Excision of basal cell cancer left supraorbital area. PAST MEDICAL HISTORY 1. 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 2. ? Benign prostatic hypertrophy. CURRENT MEDICATIONS 1. Hydrocodone/Acetaminophen for pain. 2. Codeine sulfate. ALLERGIES AMADOU INHIBITOR FAMILY HISTORY: Patient's mother is , father is . He has a brother who is alive and a sister who is alive. REVIEW OF SYSTEMS: Notable for ptosis right eye, double vision, right eye. Pain in the right chest, cough. This has not been associated with shortness of breath. LABORATORY STUDIES: Hemoglobin 10.5, white count 5,400, platelet count 191,000. Lytes, BUN and creatinine, liver function tests unremarkable, albumin is 2.3. Physical Exam: awake and alert RR 18, pulse 89, Afebrile HEENT: ptosis right eye and and disruption of medial movement eye heart: reg rhythm lungs: clear abd: no tenderness. no enlargment of liver or spleen. Extrem: trace edema no calf swelling or tenderness. skin: no suspicious lesions NEURO: no focal weakness except for ocular findings. Psychiatric: spirits good. mood appropriate ASSESSMENT The patient is a 61 year-old male with metastatic melanoma to the brain with hemorrhage. This has been associated with pulmonary emboli and a DVT in the mid left femoral vein. RECOMMENDATIONS 1. As indicated above the patient is not a candidate for anticoagulation. He has had extensive intracerebral hemorrhage from the melanoma. An umbrella has been placed. At this point I would mobilize him as the longer he stays in bed the greater the risk will be of developing further venous thrombosis especially with the umbrella in place. 2. Should begin as quickly as possible radiotherapy to the two lesions. He told me that this is scheduled to start tomorrow. 3. I will plan on treating him with either immunotherapy or targeted therapy. I want to determine whether he has had a BRAF mutation. If he has had a BRAF mutation, I am inclined to begin with a targeted treatment with a BRAF and MEK inhibitor as responses are very quick and deep. It is imperative that we obtain control of the [employer] disease. It appears that these medicines do pass the blood brain barrier which is no longer intact. If targeted therapy is not used, then I will introduce immune therapy, probably with single Nivolumab or Pembrolizumab or one could consider combined therapy by adding Ipiluminab. This was discussed with the patient. MD LOY Leija/ALFRED /9:18 PM /11:59 PM FRANK
[2016-12-19] MEDS: SODIUM CHLOR 0.9% 1000 ML INJ 1,000 ML IV SCH ×2 (04:17→08:32)
[2016-12-19 04:18] LABS: HEMATOCRIT 31.9 % (39.0-51.0); MEAN CELL VOLUME 88.4 FL (80.0-100.0); MEAN CORPUSCULAR HEMOGLOBIN 29.8 PG (27.0-34.0); MEAN CORPUSCULAR HGB CONC 33.8 % (32.0-36.0); PLATELET COUNT 366 TH/MM3 (150-450); RED BLOOD COUNT 3.61 MIL/MM3 (4.50-5.90); RED CELL DISTRIBUTION WIDTH 14.1 % (11.6-17.2); REVIEW FLAG FINAL; WHITE BLOOD COUNT 6.5 TH/MM3 (4.0-11.0)
[2016-12-19 04:33] LABS: BICARBONATE 28.5 MEQ/L (21.0-32.0); POTASSIUM 3.8 MEQ/L (3.5-5.1)
[2016-12-19] MEDS: MORPHINE SULFATE 8 MG/ML INJ IV PUSH PRN ×3 (08:31→16:47)
[2016-12-19] MEDS: PANTOPRAZOLE SODIUM 40 MG VIAL IVP SCH (08:31)
[2016-12-19] MEDS: SODIUM CHLORIDE 0.9% FLUSH 10 ML FLUSH IV FLUSH SCH ×2 (08:32→21:00)
[2016-12-19] MEDS: ONDANSETRON HCL 4 MG/2 ML VIAL IV PRN ×3 (08:32→23:57)
--- NOTE | 2016-12-19 09:03 | HHI.NSPN ---
(Osvaldo Rob) History Chief Complaint: Right-sided headache (Osvaldo Rob) Interval History 12/18: This is a 61-year-old male well known to this practice. He was initially diagnosed with a hypertensive bleed on after imaging in the ED due to headaches, nausea and vomiting. On he was readmitted due to either a seizure or syncopal episode. He was again admitted on and imaging of the chest, abdomen, pelvis and brain was unremarkable for any tumors but the haemorrhage which had increased. Therefore an MRI was done on which demonstrated a tumor with mass effect and shift. Therefore he underwent a right temporal craniotomy for resection of a haemorrhagic neoplasm on . The pathology report stated the lesion demonstrated features of metastatic melanoma. He developed diplopia on and imaging demonstrated a left occipital lobe lesion. He has recently developed ptosis the past few days. Yesterday the patient had right-sided chest pain which was worse when taking a deep breath. He therefore presented to the ED for evaluation. Imaging demonstrated multiple pulmonary emboli of the central aspect of the right lower and right upper lobes. An ultrasound demonstrated a left femoral vein thrombus which was nonocclusive. A CT brain demonstrated a right temporal lobe haemorrhage w/interval increase and persistent mild right subdural fluid collection & pneumocephalus and posterior medial left parietal lob haemorrhage. He was therefore admitted to the [facility] for further care with consults to Neurosurgery, Hematology, Medical Oncology and Radiation Oncology. When seen this morning the patient states that he is doing good. He does endorse double vision and ptosis to the right eye and headaches behind the right eye and to the left synagogue. He has some nausea. The pain to the lateral right anterior chest persists. He readily smiles and engages in conversation. 12/19: Patient states that he is doing good this morning when seen. He reports a headache behind the right eye to the synagogue region. He continues to have the lateral right anterior chest pain but no shortness of breath. He also has difficulty hearing with the right ear today. He does say that when he holds his right eyelid open his vision is good and he has no diplopia. Yesterday the patient went for an IVC filtre after he was seen. (Osvaldo Rob) System Review Comments CONSTITUTIONAL: Patient denies any fever or chills. HEENT: Patient states that he is able to focus this morning and has no double vision. He does have some difficulty hearing with the right ear this morning. He denies any other EENT problems. NECK: Patient denies any neck pain or difficulty moving his neck. RESPIRATORY: Patient denies any shortness of breath or productive cough. CARDIOVASCULAR: Patient complains of right-sided chest pain. He denies any palpitation or irregular heartbeat. GASTROINTESTINAL: Patient denies any abdominal pain, nausea, vomiting or incontinence of stool. GENITOURINARY: Patient denies any incontinence of urine. MUSCULOSKELETAL: Patient denies any back pain or pain or weakness to the extremities. NEUROLOGICAL: Patient has a headache behind the right eye and to the right synagogue. He denies any dizziness, numbness or tingling. (Osvaldo Rob) Exam Results Vital Signs Date Time Temp Pulse Resp B/P Pulse Ox O2 Delivery O2 Flow Rate FiO2 12/19/16 08:00 53 12/19/16 08:00 98.4 16 106/74 96 12/19/16 07:00 Room Air 12/18/16 19:00 2.00 12/17/16 14:57 21 Intake and Output 12/18/16 12/18/16 12/19/16 08:00 16:00 00:00 Intake Total 908 ml 1510 ml 1120 ml Output Total 300 ml 500 ml 450 ml Balance 608 ml 1010 ml 670 ml (Osvaldo Rob) Physical Examination GENERAL: Awake & alert, readily interacts. No apparent distress. HEENT: Normocephalic, atraumatic. PERRLA 2 mm. MMM & pink, no lesions noted. NECK: Midline cervical spine NTTP, no JVD, trachea midline. RESPIRATORY: CTAB w/o W/R/R, equal excursion, nonlaboured, on RA. CARDIOVASCULAR: S1S2 w/RRR w/o M/G/R, radial & pedal pulses 2+ bilaterally, cap refill < 2 sec, no pedal edema. Monitor is sinus rhythm. GASTROINTESTINAL: Abdomen soft, nontender, no organomegaly or palpable masses, positive bowel sounds. INTEGUMENTARY: Warm, dry & intact. No evident rashes, lesions or discolouration. MUSCULOSKELETAL: BAKER w/o difficulty. Extremities NTTP. Back NTTP. NEUROLOGICAL: AAOx3. Speech clear & appropriate. Follows simple commands. Sensation grossly intact to light touch. Motor strength 5/5 to all major flexion & muscle groups. PSYCHIATRIC: Normal affect, readily smiles & interacts. (Osvaldo Rob) Lab, Micro, Other Results Allergies Coded Allergies Type Severity Reaction Last Updated Verified AMADOU Inhibitors Allergy Severe RASH, SWELLING 12/10/16 Yes Lisinopril Adverse Reaction Severe Swelling 12/10/16 Yes *MDRO Multi-Drug Resistant Organism Adverse Reaction Unknown 12/10/16 Yes Recent Impressions Chest X-Ray 12/17/16 1103 Signed Impressions: Service Date/Time: Saturday, December 17, 2016 10:59 - CONCLUSION: No acute disease. Chadwick Saldana MD FACR Lower Extremity Ultrasound 12/17/16 0000 Signed Impressions: Service Date/Time: Saturday, December 17, 2016 15:24 - CONCLUSION: Nonocclusive thrombus seen in the mid left femoral vein. The right venous structures are patent. Brian Segura MD Head CT 12/17/16 0000 Signed Impressions: Service Date/Time: Saturday, December 17, 2016 12:42 - CONCLUSION: 1. Mildly larger area of hemorrhage in the right temporal lobe. The overall configuration is similar. It does appear that the hemorrhage appears somewhat denser today. Some degree of additional bleeding from the prior exam cannot be excluded. There is also new or certainly more prominent mild interventricualr hemorrhage seen at the posterior aspect of the right lateral ventricle. 2. Postoperative change from prior right craniotomy with persistent mild right subdural collection of fluid and air measuring 4 mm. 3. Persistent focal area of hemorrhage in the posterior medial left parietal lobe. Brian Segura MD ADDENDUM: I've inform the patient has melanoma metastases. The masses reported as hemorrhage above likely actually represent metastatic melanoma lesions. Brian Segura MD CT Angiography 12/17/16 0000 Signed Impressions: Service Date/Time: Saturday, December 17, 2016 12:48 - CONCLUSION: 1. Pulmonary emboli seen in the central aspects of the pulmonary artery supplying the right lower lobe and to a lesser degree right upper lobe distribution. 2. Suspected mild atelectasis at the bases. 3. Mild hiatal hernia. 4. Aberrant right subclavian artery. This is a normal variant. Brian Segura MD Brain MRI 12/17/16 0000 Signed Impressions: Service Date/Time: Saturday, December 17, 2016 15:59 - CONCLUSION: 1. Hemorrhagic lesions seen at the right temporal lobe and to a lesser degree the left posterior medial parietal occipital region. Both these areas enhance and demonstrate components of hemorrhage. The right temporal lesion extends to the right middle cranial fossa floor and surrounds a portion of the right lateral ventricle at the posterior aspect of the right temporal horn. The patient has had a craniotomy in the right temporal lobe. Brian Segura MD ADDENDUM : Apparently, the patient has known melanoma metastases. All the findings are consistent with melanoma metastases. Brian Segura MD ///// 06:00 18:00 06:00 18:00 06:00 18:00 Intake Total 1296 ml 1510 ml 2121 ml Output Total 300 ml 500 ml 450 ml Balance 996 ml 1010 ml 1671 ml Intake Oral 0 ml 660 ml 480 ml IV Total 1296 ml 850 ml 1641 ml Output Urine Total 300 ml 500 ml 450 ml # Voids 2 3 # Bowel Movements 0 0 0 Laboratory Tests Test 12/17/16 12/17/16 12/17/16 12/18/16 03:26 11:17 22:18 05:04 Blood Type A POSITIVE Antibody Screen NEGATIVE White Blood Count 8.0 TH/MM3 5.4 TH/MM3 Red Blood Count 4.36 MIL/MM3 3.59 MIL/MM3 Hemoglobin 12.9 GM/DL 10.5 GM/DL Hematocrit 38.3 % 31.6 % Mean Corpuscular Volume 87.9 FL 88.1 FL Mean Corpuscular Hemoglobin 29.7 PG 29.2 PG Mean Corpuscular Hemoglobin 33.7 % 33.2 % Concent Red Cell Distribution Width 14.2 % 14.2 % Platelet Count 459 TH/MM3 391 TH/MM3 Mean Platelet Volume 7.5 FL 7.0 FL Neutrophils (%) (Auto) 67.8 % 65.9 % Lymphocytes (%) (Auto) 18.4 % 16.9 % Monocytes (%) (Auto) 12.2 % 14.7 % Eosinophils (%) (Auto) 1.1 % 2.0 % Basophils (%) (Auto) 0.5 % 0.5 % Neutrophils # (Auto) 5.4 TH/MM3 3.6 TH/MM3 Lymphocytes # (Auto) 1.5 TH/MM3 0.9 TH/MM3 Monocytes # (Auto) 1.0 TH/MM3 0.8 TH/MM3 Eosinophils # (Auto) 0.1 TH/MM3 0.1 TH/MM3 Basophils # (Auto) 0.0 TH/MM3 0.0 TH/MM3 CBC Comment DIFF FINAL AUTO DIFF Differential Comment AUTO DIFF CONFIRMED Prothrombin Time 11.1 SEC 11.4 SEC Prothromb Time International 1.0 RATIO 1.0 RATIO Ratio Activated Partial 25.6 SEC 25.9 SEC Thromboplast Time Sodium Level 139 MEQ/L 142 MEQ/L Potassium Level 4.2 MEQ/L 3.9 MEQ/L Chloride Level 101 MEQ/L 105 MEQ/L Carbon Dioxide Level 31.4 MEQ/L 30.0 MEQ/L Anion Gap 7 MEQ/L 7 MEQ/L Blood Urea Nitrogen 11 MG/DL 10 MG/DL Creatinine 0.98 MG/DL 0.91 MG/DL Estimat Glomerular Filtration 77 ML/MIN 84 ML/MIN Rate Random Glucose 123 MG/DL 97 MG/DL Calcium Level 9.5 MG/DL 8.6 MG/DL Magnesium Level 2.2 MG/DL Total Creatine Kinase 20 U/L Troponin I LESS THAN 0.02 NG/ML Nasal Screen MRSA (PCR) MRSA NOT DETECTED Fibrinogen 465 mg/dL Total Bilirubin 0.4 MG/DL Aspartate Amino Transf 13 U/L (AST/SGOT) Alanine Aminotransferase 18 U/L (ALT/SGPT) Alkaline Phosphatase 80 U/L Total Protein 6.0 GM/DL Albumin 2.3 GM/DL Test 12/19/16 03:40 White Blood Count 6.5 TH/MM3 Red Blood Count 3.61 MIL/MM3 Hemoglobin 10.8 GM/DL Hematocrit 31.9 % Mean Corpuscular Volume 88.4 FL Mean Corpuscular Hemoglobin 29.8 PG Mean Corpuscular Hemoglobin 33.8 % Concent Red Cell Distribution Width 14.1 % Platelet Count 366 TH/MM3 Mean Platelet Volume 7.2 FL Sodium Level 140 MEQ/L Potassium Level 3.8 MEQ/L Chloride Level 105 MEQ/L Carbon Dioxide Level 28.5 MEQ/L Anion Gap 7 MEQ/L Blood Urea Nitrogen 8 MG/DL Creatinine 0.81 MG/DL Estimat Glomerular Filtration 96 ML/MIN Rate Random Glucose 98 MG/DL Calcium Level 8.0 MG/DL Vital Signs Date Time Temp Pulse Resp B/P Pulse Ox O2 Delivery O2 Flow Rate FiO2 12/19/16 08:00 53 12/19/16 08:00 98.4 58 16 106/74 96 12/19/16 07:00 93 Room Air 12/19/16 06:00 53 12/19/16 04:00 98.3 52 14 137/65 97 12/19/16 04:00 52 12/19/16 02:00 58 12/19/16 00:00 58 12/19/16 00:00 98.4 58 21 143/67 98 12/18/16 22:00 58 12/18/16 20:00 97.8 60 21 137/64 95 12/18/16 20:00 60 12/18/16 19:00 95 Nasal Cannula 2.00 12/18/16 18:00 61 12/18/16 16:00 97.9 54 13 119/64 96 12/18/16 16:00 52 12/18/16 14:00 62 12/18/16 12:00 59 12/18/16 12:00 97.8 59 26 120/72 97 12/18/16 12:00 97 Nasal Cannula 2.00 12/18/16 10:00 62 12/18/16 09:11 94 Nasal Cannula 2.00 12/18/16 08:00 58 12/18/16 08:00 97.7 57 18 126/60 92 12/18/16 07:00 92 Nasal Cannula 2.00 12/18/16 06:00 56 12/18/16 04:00 98.6 60 18 116/66 95 12/18/16 04:00 60 12/18/16 02:00 60 12/18/16 00:00 60 12/18/16 00:00 98.7 60 16 130/74 97 12/17/16 22:00 63 12/17/16 20:54 96 Nasal Cannula 2.00 12/17/16 20:25 100 Nasal Cannula 2.00 12/17/16 20:00 58 12/17/16 20:00 98.4 58 20 125/73 100 12/17/16 19:00 100 Partial Non-Rebreather 10.00 12/17/16 18:00 89 Nasal Cannula 2.00 12/17/16 18:00 68 12/17/16 18:00 98.4 67 22 116/61 92 12/17/16 17:03 70 15 121/65 96 Room Air 12/17/16 14:57 97 21 12/17/16 13:45 76 26 114/71 97 Room Air 12/17/16 13:40 98 12/17/16 13:40 98 12/17/16 10:42 86 18 97 Room Air 12/17/16 10:08 98.7 86 16 152/90 98 (Osvaldo Rob) Medical Decision Making Impression and Plan Impression: Right temporal lobe haemorrhage w/interval increase Persistent mild right subdural fluid collection & pneumocephalus Persistent posterior medial left parietal lob haemorrhage S/P right temporal craniotomy for resection of neoplasm Multiple pulmonary emboli of central aspect of RLL>RUL Mid left femoral vein nonocclusive thrombus Evidence of right CN III and probably CN IV deficit. No definite cavernous sinus involvement of the neoplasm on MRI, but likely present considering the patient's examination. Patient doing well, neurologically stable Improved vision this morning Some difficulty with hearing to right ear Not a candidate for anticoagulation due to continued haemorrhage to the right temporal lobe region Plan: Primary mgmt per Sausage Stuffer/Hospitalist At present no indiction for further surgery by NSGY Frequent neuro checks Stat CT brain w/o contrast for any worsening of neuro status Radiation therapy per Radiation Oncology (Osvaldo Rob) Attending Statement I have personally seen and examined the patient on the date of this note. Pertinent documentation and study results have been reviewed by the undersigned. I have personally developed the treatment plan and performed medical decision making. Agree with findings, exam, and treatment plan as noted above. Patient with persistent right cranial nerve III and possible IV deficit He has significant pain and tenderness over the left anterior knee today. No knee edema or ecchymosis noted . It has been difficult for him to walk due to the pain. He gives a history of gout affecting his feet. No previous knee problems. Bone scan results reviewed Radiation therapy started today. X-ray, possible scan left knee pain symptoms persist. (Leonidas Flores MD) Osvaldo Rob Dec 19, 2016 09:03 Leonidas Flores MD Dec 19, 2016 19:51
--- NOTE | 2016-12-19 10:17 | PD.ONC.PN ---
Subjective Subjective Remarks Afebrile overnight IVC filter placed yesterday He is anxious to return to his normal activities Denies significant shortness of breath Objective Data Date Time Temp Pulse Resp B/P Pulse Ox O2 Delivery O2 Flow Rate FiO2 12/19/16 08:00 53 12/19/16 08:00 98.4 58 16 106/74 96 12/19/16 07:00 93 Room Air 12/19/16 06:00 53 12/19/16 04:00 98.3 52 14 137/65 97 12/19/16 04:00 52 12/19/16 02:00 58 12/19/16 00:00 58 12/19/16 00:00 98.4 58 21 143/67 98 12/18/16 22:00 58 12/18/16 20:00 97.8 60 21 137/64 95 12/18/16 20:00 60 12/18/16 19:00 95 Nasal Cannula 2.00 12/18/16 18:00 61 12/18/16 16:00 97.9 54 13 119/64 96 12/18/16 16:00 52 12/18/16 14:00 62 12/18/16 12:00 59 12/18/16 12:00 97.8 59 26 120/72 97 12/18/16 12:00 97 Nasal Cannula 2.00 12/19/16 12/19/16 12/19/16 07:00 15:00 23:00 Intake Total 1001 ml Balance 1001 ml Result Diagram: 12/19/16 0340 12/19/16 0340 Laboratory Results Laboratory Tests Test 12/19/16 03:40 White Blood Count 6.5 TH/MM3 Red Blood Count 3.61 MIL/MM3 Hemoglobin 10.8 GM/DL Hematocrit 31.9 % Mean Corpuscular Volume 88.4 FL Mean Corpuscular Hemoglobin 29.8 PG Mean Corpuscular Hemoglobin 33.8 % Concent Red Cell Distribution Width 14.1 % Platelet Count 366 TH/MM3 Mean Platelet Volume 7.2 FL Sodium Level 140 MEQ/L Potassium Level 3.8 MEQ/L Chloride Level 105 MEQ/L Carbon Dioxide Level 28.5 MEQ/L Anion Gap 7 MEQ/L Blood Urea Nitrogen 8 MG/DL Creatinine 0.81 MG/DL Estimat Glomerular Filtration 96 ML/MIN Rate Random Glucose 98 MG/DL Calcium Level 8.0 MG/DL Administered Medications Medications (Trade) Dose Ordered Sig/Munir Route PRN Reason Start Time Stop Time Status Last Admin Dose Admin Sodium Chloride (NS 1000 ml Inj) 1,000 ml @ 110 mls/hr Q9H6M IV 12/17/16 14:50 12/19/16 08:32 Sodium Chloride (NS Flush) 2 ml BID IV FLUSH 12/17/16 15:00 12/19/16 08:32 Pantoprazole Sodium (Protonix Inj) 40 mg DAILY IVP 12/17/16 15:00 12/19/16 08:31 Ondansetron HCl (Zofran Inj) 4 mg Q6H PRN IV NAUSEA 12/17/16 15:00 12/19/16 08:32 Hydralazine HCl (Apresoline Inj) 10 mg Q30M PRN IV PUSH SBP>160, DBP>90 12/17/16 15:00 12/18/16 18:48 Acetaminophen/ Hydrocodone Bitart ([place] 5-325 Mg) 2 tab Q4H PRN PO PAIN SCALE 1 TO 5 12/17/16 17:30 12/18/16 19:26 Objective Remarks GENERAL: Older male, lying in bed. He appears comfortable during the exam. SKIN: Warm and dry. HEAD: Normocephalic. EYES: No injection or drainage. R eye with ptosis. The R eye does not track. NECK: Supple, trachea midline. CARDIOVASCULAR: +S1/S2. RESPIRATORY: Clear anteriorly. Breathing unlabored. GASTROINTESTINAL: Abdomen soft, non-tender, nondistended. EXTREMITIES: No cyanosis, or edema. NEUROLOGICAL: Right eye ptosis. Normal speech. Moving all extremities. Assessment/Plan Assessment 61 y/o male with metastatic melanoma admitted with L sided chest pain and was found to have a pulmonary embolism. Plan 1. Pt had IVC filter placed yesterday without incidence. 2. We will not be able to anticoagulate him with the friable bleeding tumors. 3. XRT to be done today. Ideally we should get him OOB and walking as soon as possible to prevent future blood clots. 4. Will test for BRAF or MEK mutations as if these were positive, we would be able to give the patient targeted therapy. Regardless, he should follow up with Dr Thompson in approximately 2 weeks. 5. We recommend no seizure medication, but also no driving until he has been through treatment for some time due to the brain tumors. Attending Statement The exam, history, and the medical decision-making described in the above note were completed with the assistance of the mid-level provider. I reviewed and agree with the findings presented. I attest that I had a [id number] encounter with the patient on the same day, and personally performed and documented my assessment and findings in the medical record. spoke with radiation oncology and treatment will take place later today and he can then go home if stable. He will receive stereotactic radiation to the two FUEL MANAGER lesions and at the completion of this will begin tx with either immune therapy or BRAF inhibitor if he is BRA +. test ordered and it will take ? 8 days to obtain result. discharge plans and followup discussed with patient and I will see him in about 10 days time and by then he may have completed radiation. He was told not to drive or to go in deep water (he asked me about surfing). Kerri Gamez Dec 19, 2016 10:17 Jayro Thompson MD Dec 19, 2016 20:07
--- NOTE | 2016-12-19 12:26 | HHI.FPPN ---
Subjective Remarks No events overnight. Vital signs stable. No difficulty breathing. Has chest pain with inspiration. Has headaches. Continues to have ptosis and inability to move the eye medially. No neurological changes overnight. In good spirits. No abdominal pain. Has some nausea, no vomiting. (Max Preston MD R2) Objective Vitals Vital Signs Date Time Temp Pulse Resp B/P Pulse Ox O2 Delivery O2 Flow Rate FiO2 12/19/16 12:00 98.6 58 19 131/75 99 12/19/16 10:29 97 Nasal Cannula 2.00 12/19/16 08:00 53 12/19/16 08:00 98.4 58 16 106/74 96 12/19/16 07:00 93 Room Air 12/19/16 06:00 53 12/19/16 04:00 98.3 52 14 137/65 97 12/19/16 04:00 52 12/19/16 02:00 58 12/19/16 00:00 58 12/19/16 00:00 98.4 58 21 143/67 98 12/18/16 22:00 58 12/18/16 20:00 97.8 60 21 137/64 95 12/18/16 20:00 60 12/18/16 19:00 95 Nasal Cannula 2.00 12/18/16 18:00 61 12/18/16 16:00 97.9 54 13 119/64 96 12/18/16 16:00 52 12/18/16 14:00 62 I/O 12/18/16 12/18/16 12/18/16 12/19/16 12/19/16 12/19/16 07:00 15:00 23:00 07:00 15:00 23:00 Intake Total 908 ml 1510 ml 1120 ml 1001 ml Output Total 300 ml 500 ml 450 ml Balance 608 ml 1010 ml 670 ml 1001 ml Intake Oral 0 ml 660 ml 240 ml 240 ml IV Total 908 ml 850 ml 880 ml 761 ml Output Urine Total 300 ml 500 ml 450 ml # Voids 3 # Bowel Movements 0 0 0 0 (Max Preston MD R2) Result Diagram: 12/19/16 0340 12/19/16 0340 Imaging Last 72 hours Impressions Chest X-Ray 12/17/16 1103 Signed Impressions: Service Date/Time: Saturday, December 17, 2016 10:59 - CONCLUSION: No acute disease. Chadwick Saldana MD FACR Lower Extremity Ultrasound 12/17/16 Signed Impressions: Service Date/Time: Saturday, December 17, 2016 15:24 - CONCLUSION: Nonocclusive thrombus seen in the mid left femoral vein. The right venous structures are patent. Brian Segura MD Head CT 12/17/16 Signed Impressions: Service Date/Time: Saturday, December 17, 2016 12:42 - CONCLUSION: 1. Mildly larger area of hemorrhage in the right temporal lobe. The overall configuration is similar. It does appear that the hemorrhage appears somewhat denser today. Some degree of additional bleeding from the prior exam cannot be excluded. There is also new or certainly more prominent mild interventricualr hemorrhage seen at the posterior aspect of the right lateral ventricle. 2. Postoperative change from prior right craniotomy with persistent mild right subdural collection of fluid and air measuring 4 mm. 3. Persistent focal area of hemorrhage in the posterior medial left parietal lobe. Brian Segura MD ADDENDUM: I've inform the patient has melanoma metastases. The masses reported as hemorrhage above likely actually represent metastatic melanoma lesions. Brian Segura MD CT Angiography 12/17/16 Signed Impressions: Service Date/Time: Saturday, December 17, 2016 12:48 - CONCLUSION: 1. Pulmonary emboli seen in the central aspects of the pulmonary artery supplying the right lower lobe and to a lesser degree right upper lobe distribution. 2. Suspected mild atelectasis at the bases. 3. Mild hiatal hernia. 4. Aberrant right subclavian artery. This is a normal variant. Brian Segura MD Brain MRI 12/17/16 Signed Impressions: Service Date/Time: Saturday, December 17, 2016 15:59 - CONCLUSION: 1. Hemorrhagic lesions seen at the right temporal lobe and to a lesser degree the left posterior medial parietal occipital region. Both these areas enhance and demonstrate components of hemorrhage. The right temporal lesion extends to the right middle cranial fossa floor and surrounds a portion of the right lateral ventricle at the posterior aspect of the right temporal horn. The patient has had a craniotomy in the right temporal lobe. Brian Segura MD ADDENDUM : Apparently, the patient has known melanoma metastases. All the findings are consistent with melanoma metastases. Brian Segura MD Objective Remarks GENERAL: Lying in bed, no distress, ptosis right eye SKIN: No rashes, ecchymoses or lesions. HEAD: Atraumatic. Normocephalic. No temporal or scalp tenderness. EYES: Pupils equal round and reactive. Extraocular motions intact. No scleral icterus. No injection or drainage. Right eye deviated to the right. ENT: Nose without bleeding, purulent drainage or septal hematoma. Throat without erythema, tonsillar hypertrophy or exudate. Uvula midline. Airway patent. NECK: Trachea midline. No JVD or lymphadenopathy. Supple, nontender, no meningeal signs. CARDIOVASCULAR: Regular rate and rhythm without murmurs, gallops, or rubs. Chest painful to palpation on right side. RESPIRATORY: Clear to auscultation. Breath sounds equal bilaterally. No wheezes , rales, or rhonchi. GASTROINTESTINAL: Abdomen soft, non-tender, nondistended. No hepato-splenomegaly , or palpable masses. No guarding. MUSCULOSKELETAL: Extremities without clubbing, cyanosis, or edema. No joint tenderness, effusion, or edema noted. No calf tenderness. Negative Homans sign bilaterally. NEUROLOGICAL: Awake and alert. Cranial nerves II through XII intact. Motor and sensory grossly within normal limits. Five out of 5 muscle strength in all muscle groups. Normal speech. Ptosis on right eye. Right eye deviated to the right, does not track medially. Short term memory difficulties that are mild. No speech slurring. Procedures Radiotherapy scheduled for today at 6:30 PM (Max Preston MD R2) A/P Assessment and Plan 61 year old male with history of brain tumors, intracranial hemorrhage, being admitted with new pulmonary embolism and DVT. Discharge Planning Radiotherapy scheduled for 6:30 PM today, will be discharged afterwards if stable. Will follow up with oncology as an outpatient for continued radiotherapy and chemotherapy/immunotherapy. (Max Preston MD R2) Attending Attestation Patient seen and examined. Case reviewed and discussed with the resident team. Agree with plan of care as discussed with me and documented in the resident note. he moved out of intensive care and is happier on the floor. he wishes to go home but his fiance is concerned about him climbing 2 flights of stairs and being alone when she is at work. can have PT assess for stair climbing ability and hope for D/C home with hopefully home health ([place],Kika Niru MD) Problem List: (1) Pulmonary embolism Status: Acute Plan: Pulmonary embolus of the right pulmonary artery, and extending to the arteries supplying the right upper and right lower lobes. The right middle lobe is spared. Hemodynamically stable currently, no shortness of breath. Had chest pain worse with inspiration. Anticoagulation contraindicated due to recent intracerebral bleed and not recommended by surgery. - Consulted hematology for recommendations - Consulted radiation oncology and medical oncology - Will transfer to floor today, has been stable and need to be more mobile. Discontinue cardiopulmonary monitoring. - IVC filter placed due to anticoagulation contraindication. (2) Cerebral tumor Status: Acute Plan: Possible metastatic disease to the brain with features typical of melanoma. - Consulted radiation oncologist, medical oncologist - Will get radiotherapy today at 6:30 PM - General versus targeted therapy depending on BRAF mutation - Will follow closely with oncology/radiation-onc after discharge (3) Intracranial hemorrhage Status: Acute Plan: History of recent intracerebral bleed. On CT of head, there is a mildly larger area of hemorrhage in the right temporal lobe. Overall configuration is similar. Area appears somewhat denser. Additional bleeding cannot be excluded. There is also new or more prominent mild interventricular hemorrhage seen at the posterior aspect of the right lateral ventricle. ED physician discussed with neurosurgeon, suggests that it is likely not new hemorrhage but rather increasing tumor burden. - Neuro checks - Hydralazine PRN to keep BP <160/90 - Oncology on board - Neurosurgery on board (4) Contraindication to anticoagulation therapy Status: Acute Plan: Relative contraindication due to recent intracerebral hemorrhage Has IVC filter (5) Nutrition, metabolism, and development symptoms Status: Acute Plan: - regular diet - Electrolytes normal - PO fluids (Max Preston MD R2) Problem Qualifiers (1) Pulmonary embolism: Qualified Code: I26.99 - Other acute pulmonary embolism without acute cor pulmonale Max Preston MD R2 Dec 19, 2016 12:26 Kika Simms MD Dec 19, 2016 17:22
[2016-12-19] MEDS ORDERED: HYDR-3516 PO (14:55)
--- NOTE | 2016-12-19 14:56 | HHI.DCPOC ---
Discharge Care Plan Diagnosis: (1) DVT (deep venous thrombosis) (2) ICH (intracerebral hemorrhage) (3) Contraindication to anticoagulation therapy (4) Brain metastases Goals to Promote Your Health * To prevent worsening of your condition and complications * To maintain your health at the optimal level Directions to Meet Your Goals Take your medications as prescribed Follow your dietary instruction Follow activity as directed Keep your appointments as scheduled Take your immunizations and boosters as scheduled If your symptoms worsen call your PCP, if no PCP go to Urgent Care Center or Emergency Room Smoking is Dangerous to Your Health. Avoid second hand smoke Call the 24-hour hour crisis hotline for domestic abuse at Max Preston MD R2 Dec 19, 2016 14:56
--- NOTE | 2016-12-19 15:00 | HHI.FF ---
Face to Face Verification Diagnosis: (1) Intracranial hemorrhage (2) Cerebral tumor (3) DVT (deep venous thrombosis) (4) Pulmonary embolism Physical Therapy Order: Evaluate and Treat, Improve ambulation, Strength and gait training Home Health Nursing Order: Medical education Signs/symptoms of disease process Medication education-adverse effect Nursing assessment with vital signs I have seen patient Chris Cardona on 12/19/16. My clinical findings support the need for the requested home health care services because: Deconditioned w/ increased weakness I certify that my clinical findings support that this patient is homebound because: Unsteady gait/balance Need for psychosocial assistance Max Preston MD R2 Dec 19, 2016 15:00
[2016-12-19] MEDS ORDERED: ONDA4SOL PO (15:04)
--- NOTE | 2016-12-19 16:10 | PD.CONS ---
Consult Service Palliative Care Consult Requested By Dr. harrison . Primary Care Physician Non-Staff . Reason for Consultation a. To assist with evaluation and management of symptoms including: Pain b. To assist medical decision maker(s) with: better understanding of current medical conditions; weighing benefits/burdens of medical treatment options; making medical treatment decisions. . HPI History of Present Illness "Eitan" is a 61-year-old male with a history of recently diagnosed melanoma in his right temporal lobe, and he presented to the emergency department again on because of chest pain and diplopia. The patient initially presented to this hospital on 10/09/16 because of headache , and he was found to have an intracerebral hemorrhage involving the right temporal lobe. He stabilized and was able to be discharged on 10/16/16. However , he had a syncopal or perhaps seizure episode on 11/06/16 and he was readmitted, but again he stabilized and was able to be sent home after 3 days. He then presented to the hospital with confusion and hallucinations on 11/16/[address] scan revealed worsening hemorrhage. Subsequent scan was consistent with a mass in the area of that initial hemorrhage, and the patient was taken to the operating room on 11/20/16 where he underwent a right temporal craniotomy and resection of the friable mass. Pathology was consistent with melanoma, and the patient was ultimately discharged from the hospital on 11/23/16. The patient had follow-up oncology appointments on 12/11 and 12/17/16, and treatment options were being evaluated. The patient reports he had developed some diplopia intermittently for a few days and then persistently by the time he came to the hospital this week, and he also noted ptosis of his right eyelid. At this time, he has a right eye deviated laterally, and a complete ptosis of the right eye, unable to spontaneously open the eyelid at all. The patient also had some sharp chest pains involving his right chest. Findings in the emergency department included: * Ptosis of the right eye * Alert, oriented * CTA of the chest consistent with pulmonary emboli on the right * CT brain scan with evidence of additional and/or progressive hemorrhage * Ultrasound revealed nonocclusive thrombus involving the left femoral vein * Chest x-ray negative Because of the hemorrhage, the patient was not felt to be a good candidate to anticoagulate for his DVT and PE, so an IVC filter was placed on 12/18/16. He has been evaluated by medical oncology and by radiation oncology, and radiation is to be started later today. The patient reports that he will be having 2 areas radiated, apparently the original hemorrhage area/mass, and a second area that he says is smaller and near the optic chiasm. The patient's headache seems to be improved since he has come into the hospital , and he has had no seizure activity while here. He remains alert, oriented, pleasant, and not in any distress. Palliative Care was consulted to assist with symptom management, and to enter into discussions with the patient regarding his current illness and the potential benefits and burdens of the various treatment options now. . Function/Cognitive Trajectory The patient was functioning independently prior to this hospitalization. . Review of Systems Constitutional: DENIES: Weight loss Endocrine: DENIES: Polyuria Eyes: COMPLAINS OF: Diplopia, Double Vision, DENIES: Eye inflammation Ears, nose, mouth, throat: DENIES: Epistaxis Respiratory: DENIES: Shortness of breath Cardiovascular: COMPLAINS OF: Chest pain (right sided, associated with the PE) Gastrointestinal: DENIES: Bloody stools, Constipation, Diarrhea, Vomiting blood Genitourinary: DENIES: Urgency, Hematuria Musculoskeletal: DENIES: Joint pain, Back pain Integumentary: DENIES: Rash Hematologic/Lymphatics: DENIES: Bruising Immunologic/Allergic: DENIES: Urticaria Neurologic: COMPLAINS OF: Headache (improving), Seizures (one episode last month) Psychiatric: COMPLAINS OF: Confusion (cleared), DENIES: Depression, Agitation Past Family Social History Coded Allergies: AMADOU Inhibitors (Verified Allergy, Severe, RASH, SWELLING , 12/10/16) Lisinopril (Verified Adverse Reaction, Severe, Swelling, 12/10/16) Upper lip Swelling *MDRO Multi-Drug Resistant Organism (Verified Adverse Reaction, Unknown, ) MRSA PCR screen POSITIVE 10/10/16 Past Medical History * Metastatic melanoma, brain * Right eye ptosis; diplopia * Seizure versus syncope 11/06/16 * DVT/PE * History of hypertension . Past Surgical History * Basal cell skin cancer of the face 2016 * Bilateral inguinal herniorrhaphies * Umbilical herniorrhaphy * IVC filter placement 12/18/16 * Right temporal craniotomy and resection of mass 11/20/16 . Reported Medications Methocarbamol 500 Mg Tab 500 Mg PO TID Mapap (Acetaminophen) 500 Mg Tab 500 Mg PO Q4HR PRN . Current Medications Medications (Trade) Dose Ordered Sig/Munir Route Start Time Stop Time Status Last Admin (NS Flush) 2 ml UNSCH PRN IV FLUSH 12/17/16 15:00 (NS Flush) 2 ml BID IV FLUSH 12/17/16 15:00 12/19/16 08:32 (Protonix Inj) 40 mg DAILY IVP 12/17/16 15:00 12/19/16 08:31 (Zofran Inj) 4 mg Q6H PRN IV 12/17/16 15:00 12/19/16 08:32 (Colace) 100 mg BID PRN PO 12/17/16 15:00 (Apresoline Inj) 10 mg Q30M PRN IV PUSH 12/17/16 15:00 12/18/16 18:48 ([place] 5-325 Mg) 2 tab Q4H PRN PO 12/17/16 17:30 12/18/16 19:26 (Morphine Inj) 2 mg Q4H PRN IV PUSH 12/19/16 09:30 12/19/16 12:15 (Morphine Inj) 2 mg Q4HR PRN IV PUSH 12/19/16 09:15 Family History The patient's mother of Alzheimer's dementia, and his father of colon cancer. A sister and her brother are living. . Substance Use Tobacco: None Alcohol: Occasional wine Prescription med abuse: None Illicits: None . Psychosocial History The patient was born in [place], [place]. He lived for a few years and [facility] , but moved back to [place] a few years ago. He lives with his fiance ( greater than 30 year relationship). The patient has never been and has no children. 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 . Spiritual/Cultural Factors The patient reports that he is quite spiritual, although unaffiliated with any particular christian or clergy. He describes "out of body experiences" at the age of 2 and again at the age of 16, and he describes these as being near experiences that led him to be deeply and personally spiritual over the years. . Living Will: Copy in medical record Health Care Surrogate: Copy in medical record Durable Power of Vp Integrity: Never completed Health Care Surrogate(s): His sister, Amirah. . Today's verbally stated goals: The patient is scheduled to begin radiation therapy today, and definitely plans on following up with Dr. Thompson for any specific/targeted therapy that would be available. He is optimistic about "being able to get through all of this." . Ethical and Legal Issues There are no ethical issues that would impact his care or decision-making at this time. The patient has capacity for decision-making at this time. Should he lose that capacity, he has designated his sister, Amirah Corea, as healthcare surrogate. . Physical Exam Vital Signs Date Time Temp Pulse Resp B/P Pulse Ox O2 Delivery O2 Flow Rate FiO2 12/19/16 12:40 97.1 53 18 136/70 95 12/19/16 12:00 98.6 58 19 131/75 99 12/19/16 10:29 97 Nasal Cannula 2.00 12/19/16 08:00 53 12/19/16 08:00 98.4 58 16 106/74 96 12/19/16 07:00 93 Room Air 12/19/16 06:00 53 12/19/16 04:00 98.3 52 14 137/65 97 12/19/16 04:00 52 12/19/16 02:00 58 12/19/16 00:00 58 12/19/16 00:00 98.4 58 21 143/67 98 12/18/16 22:00 58 12/18/16 20:00 97.8 60 21 137/64 95 12/18/16 20:00 60 12/18/16 19:00 95 Nasal Cannula 2.00 12/18/16 18:00 61 12/18/16 16:00 97.9 54 13 119/64 96 12/18/16 16:00 52 12/18/16 12/19/16 19:00 07:00 Intake Total 1510 ml 2121 ml Output Total 500 ml 450 ml Balance 1010 ml 1671 ml Intake Oral 660 ml 480 ml IV Total 850 ml 1641 ml Output Urine Total 500 ml 450 ml # Voids 3 # Bowel Movements 0 0 Exam CONSTITUTIONAL/GENERAL: This is an adequately nourished patient, in no apparent distress. TUBES/LINES/DRAINS: Peripheral IV SKIN: No jaundice, rashes, or lesions. Ecchymoses on upper extremities. No wounds seen anteriorly. Skin temperature appropriate. Not diaphoretic. HEAD: Atraumatic. Normocephalic. EYES: Complete ptosis of the right eye. Right eye deviated laterally. Pupils equal. Fundi not examined. ENT: Hearing grossly normal. Nose without bleeding or purulent drainage. Throat without visible erythema, exudates, masses, or lesions. NECK: Trachea midline. Supple, nontender. No palpable thyroid enlargement or nodularity. CARDIOVASCULAR: Regular rate and rhythm without murmurs, gallops, or rubs. No JVD. Peripheral pulses symmetric. RESPIRATORY/CHEST: Symmetric, unlabored respirations. Clear to auscultation. Breath sounds equal bilaterally. No wheezes, rales, or rhonchi. GASTROINTESTINAL: Abdomen soft, non-tender, nondistended. No hepato-splenomegaly , or palpable masses. No guarding. Bowel sounds present. GENITOURINARY: Without palpable bladder distension. MUSCULOSKELETAL: Extremities without clubbing, cyanosis, or edema. No joint tenderness or effusion noted. No calf tenderness. No mottling or clubbing. LYMPHATICS: No palpable cervical or supraclavicular adenopathy. NEUROLOGICAL: Awake and alert. Motor and sensory grossly within normal limits. Follows commands. Cognitively sharp. Moves all extremities. PSYCHIATRIC: No obvious anxiety/depression. no apparent hallucinations or other psychotic thought process. . Diagnostic Tests Laboratory Laboratory Tests Test 12/17/16 12/17/16 12/17/16 12/18/16 03:26 11:17 22:18 05:04 Blood Type A POSITIVE Antibody Screen NEGATIVE White Blood Count 8.0 TH/MM3 5.4 TH/MM3 (4.0-11.0) (4.0-11.0) Red Blood Count 4.36 MIL/MM3 3.59 MIL/MM3 (4.50-5.90) (4.50-5.90) Hemoglobin 12.9 GM/DL 10.5 GM/DL (13.0-17.0) (13.0-17.0) Hematocrit 38.3 % 31.6 % (39.0-51.0) (39.0-51.0) Mean Corpuscular Volume 87.9 FL 88.1 FL (80.0-100.0) (80.0-100.0) Mean Corpuscular Hemoglobin 29.7 PG 29.2 PG (27.0-34.0) (27.0-34.0) Mean Corpuscular Hemoglobin 33.7 % 33.2 % Concent (32.0-36.0) (32.0-36.0) Red Cell Distribution Width 14.2 % 14.2 % (11.6-17.2) (11.6-17.2) Platelet Count 459 TH/MM3 391 TH/MM3 (150-450) (150-450) Mean Platelet Volume 7.5 FL 7.0 FL (7.0-11.0) (7.0-11.0) Neutrophils (%) (Auto) 67.8 % 65.9 % (16.0-70.0) (16.0-70.0) Lymphocytes (%) (Auto) 18.4 % 16.9 % (9.0-44.0) (9.0-44.0) Monocytes (%) (Auto) 12.2 % 14.7 % (0.0-8.0) (0.0-8.0) Eosinophils (%) (Auto) 1.1 % (0.0-4.0) 2.0 % (0.0-4.0) Basophils (%) (Auto) 0.5 % (0.0-2.0) 0.5 % (0.0-2.0) Neutrophils # (Auto) 5.4 TH/MM3 3.6 TH/MM3 (1.8-7.7) (1.8-7.7) Lymphocytes # (Auto) 1.5 TH/MM3 0.9 TH/MM3 (1.0-4.8) (1.0-4.8) Monocytes # (Auto) 1.0 TH/MM3 0.8 TH/MM3 (0-0.9) (0-0.9) Eosinophils # (Auto) 0.1 TH/MM3 0.1 TH/MM3 (0-0.4) (0-0.4) Basophils # (Auto) 0.0 TH/MM3 0.0 TH/MM3 (0-0.2) (0-0.2) CBC Comment DIFF FINAL AUTO DIFF Differential Comment AUTO DIFF CONFIRMED Prothrombin Time 11.1 SEC 11.4 SEC (9.8-11.6) (9.8-11.6) Prothromb Time International 1.0 RATIO 1.0 RATIO Ratio Activated Partial 25.6 SEC 25.9 SEC Thromboplast Time (24.3-30.1) (24.3-30.1) Sodium Level 139 MEQ/L 142 MEQ/L (136-145) (136-145) Potassium Level 4.2 MEQ/L 3.9 MEQ/L (3.5-5.1) (3.5-5.1) Chloride Level 101 MEQ/L 105 MEQ/L (98-107) (98-107) Carbon Dioxide Level 31.4 MEQ/L 30.0 MEQ/L (21.0-32.0) (21.0-32.0) Anion Gap 7 MEQ/L (5-15) 7 MEQ/L (5-15) Blood Urea Nitrogen 11 MG/DL (7-18) 10 MG/DL (7-18) Creatinine 0.98 MG/DL 0.91 MG/DL (0.60-1.30) (0.60-1.30) Estimat Glomerular Filtration 77 ML/MIN (>89) 84 ML/MIN (>89) Rate Random Glucose 123 MG/DL 97 MG/DL (74-106) (74-106) Calcium Level 9.5 MG/DL 8.6 MG/DL (8.5-10.1) (8.5-10.1) Magnesium Level 2.2 MG/DL (1.5-2.5) Total Creatine Kinase 20 U/L (39-308) Troponin I LESS THAN 0.02 NG/ML (0.02-0.05) Nasal Screen MRSA (PCR) MRSA NOT DETECTED (NOT DETECT) Fibrinogen 465 mg/dL (227-377) Total Bilirubin 0.4 MG/DL (0.2-1.0) Aspartate Amino Transf 13 U/L (15-37) (AST/SGOT) Alanine Aminotransferase 18 U/L (12-78) (ALT/SGPT) Alkaline Phosphatase 80 U/L (45-117) Total Protein 6.0 GM/DL (6.4-8.2) Albumin 2.3 GM/DL (3.4-5.0) Test 12/19/16 03:40 White Blood Count 6.5 TH/MM3 (4.0-11.0) Red Blood Count 3.61 MIL/MM3 (4.50-5.90) Hemoglobin 10.8 GM/DL (13.0-17.0) Hematocrit 31.9 % (39.0-51.0) Mean Corpuscular Volume 88.4 FL (80.0-100.0) Mean Corpuscular Hemoglobin 29.8 PG (27.0-34.0) Mean Corpuscular Hemoglobin 33.8 % Concent (32.0-36.0) Red Cell Distribution Width 14.1 % (11.6-17.2) Platelet Count 366 TH/MM3 (150-450) Mean Platelet Volume 7.2 FL (7.0-11.0) Sodium Level 140 MEQ/L (136-145) Potassium Level 3.8 MEQ/L (3.5-5.1) Chloride Level 105 MEQ/L (98-107) Carbon Dioxide Level 28.5 MEQ/L (21.0-32.0) Anion Gap 7 MEQ/L (5-15) Blood Urea Nitrogen 8 MG/DL (7-18) Creatinine 0.81 MG/DL (0.60-1.30) Estimat Glomerular Filtration 96 ML/MIN (>89) Rate Random Glucose 98 MG/DL (74-106) Calcium Level 8.0 MG/DL (8.5-10.1) Result Diagram: 12/19/16 0340 12/19/16 0340 Imaging Last Impressions Chest X-Ray 12/17/16 1103 Signed Impressions: Service Date/Time: Saturday, December 17, 2016 10:59 - CONCLUSION: No acute disease. Chadwick Saldana MD FACR Lower Extremity Ultrasound 12/17/16 0000 Signed Impressions: Service Date/Time: Saturday, December 17, 2016 15:24 - CONCLUSION: Nonocclusive thrombus seen in the mid left femoral vein. The right venous structures are patent. Brian Segura MD Head CT 12/17/16 0000 Signed Impressions: Service Date/Time: Saturday, December 17, 2016 12:42 - CONCLUSION: 1. Mildly larger area of hemorrhage in the right temporal lobe. The overall configuration is similar. It does appear that the hemorrhage appears somewhat denser today. Some degree of additional bleeding from the prior exam cannot be excluded. There is also new or certainly more prominent mild interventricualr hemorrhage seen at the posterior aspect of the right lateral ventricle. 2. Postoperative change from prior right craniotomy with persistent mild right subdural collection of fluid and air measuring 4 mm. 3. Persistent focal area of hemorrhage in the posterior medial left parietal lobe. Brian Segura MD ADDENDUM: I've inform the patient has melanoma metastases. The masses reported as hemorrhage above likely actually represent metastatic melanoma lesions. Brian Segura MD CT Angiography 12/17/16 0000 Signed Impressions: Service Date/Time: Saturday, December 17, 2016 12:48 - CONCLUSION: 1. Pulmonary emboli seen in the central aspects of the pulmonary artery supplying the right lower lobe and to a lesser degree right upper lobe distribution. 2. Suspected mild atelectasis at the bases. 3. Mild hiatal hernia. 4. Aberrant right subclavian artery. This is a normal variant. Brian Segura MD Brain MRI 12/17/16 0000 Signed Impressions: Service Date/Time: Saturday, December 17, 2016 15:59 - CONCLUSION: 1. Hemorrhagic lesions seen at the right temporal lobe and to a lesser degree the left posterior medial parietal occipital region. Both these areas enhance and demonstrate components of hemorrhage. The right temporal lesion extends to the right middle cranial fossa floor and surrounds a portion of the right lateral ventricle at the posterior aspect of the right temporal horn. The patient has had a craniotomy in the right temporal lobe. Brian Segura MD ADDENDUM : Apparently, the patient has known melanoma metastases. All the findings are consistent with melanoma metastases. Brian Segura MD Patient/Family Conference Present at Family Conference: Patient's fianc is in the room also . Family Conference Time (mins): 44 Family Conference Location: Bedside Issues Discussed: * Palliative care role, purpose, approach * Additional medical, psychosocial, and spiritual history * Patients general health, functional status, and cognitive changes in the months leading up to the current hospitalization * Patient/family understanding of the current medical problems * Patient/family understanding of prognosis * Patients goals of care as best understood from advance directives and/or conversations and/or values * Current medical treatment options and benefits/burdens of those options * Likely scenarios comparing ongoing aggressive care with a transition to comfort measures only * Questions answered to the best of my ability * Palliative care contact information provided The patient is scheduled to begin radiation therapy today, and definitely plans on following up with Dr. Thompson for any specific/targeted therapy that would be available. He is optimistic about "being able to get through all of this." He does acknowledge that his distant future may be somewhat uncertain, but he remains optimistic and committed to treatment. . 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 He describes "out of body experiences" at the age of 2 and again at the age of 16, and he describes these as being near experiences that led him to be deeply and personally spiritual over the years. Legal: The patient has capacity for decision-making at this time. Should he lose that capacity, he has designated his sister, Amirah Coera, as healthcare surrogate. Ethical issues impacting care: None . Important Contacts His sister: Amirah Corea Home: . Prognosis The patient has metastatic melanoma to the brain, and these metastases and brain are often fairly aggressive. However, only 2 lesions are noted on the recent MRI, no extracranial disease was found on other scans, and the patient has a high KPS score, making his prognosis somewhat more favorable. Ultimately , prognosis will depend on his response to radiation, on what mutations he may or may not have, on what targeted therapy may be available, and on what its effect will be on the tumor cells. . Code Status: No Code Plan * DO NOT RESUSCITATE, previously elected by patient * DECISION-MAKING: The patient has capacity for decision-making at this time. Should he lose that capacity, he has designated his sister, Amirah Corea , as healthcare surrogate. * GOALS: The patient is scheduled to begin radiation therapy today, and definitely plans on following up with Dr. Thompson for any specific/targeted therapy that would be available. He is optimistic about "being able to get through all of this." He does acknowledge that his distant future may be somewhat uncertain, but he remains optimistic and committed to treatment. * SYMPTOMS: The patient's headache has improved somewhat. He does have some other neurologic symptoms currently, with right eye ptosis, diplopia, a hypersensitive area of skin below his left knee, a hypesthetic area on his left shoulder; I suspect these all relate to his current tumor burden, and no specific treatment other than what is planned would be recommended at this time. He has had no more seizure activity. * It is likely that the patient will be discharged from the hospital in the upcoming day or days, and Palliative Care will follow the patient during this hospitalization. . Time Spent Total Floor Time (mins): 81 Face to Face Time (mins): 49 >50% Counseling/Coord of Care: Yes Thank you for the opportunity to participate in the care of Mr. Cardona. Attestation To help prompt me to consider important information that might be impacting today's encounter and assessment, information from prior notes written by myself or my colleagues may have been "brought forward" into today's note. My signature on this note, however, is an attestation that I personally performed the exam, history, and/or decision-making noted today, and, unless otherwise indicated, the interactions with patient, family, and staff as well as the review of records all occurred today. I also attest that the listed assessment and stated plan reflect my best clinical judgment today based on the combination of historical information, prior notes, and today's exam/ interactions. When time spent is documented, it refers only to time spent today by the signer, or if indicated, combined time spent today by collaborating physician/nurse practitioner. Pili Escalona MD Dec 19, 2016 16:09
--- NOTE | 2016-12-19 17:27 | RADRPT ---
EXAM DATE/TIME: 12/19/2016 12:37 [facility] COMPARISON: CT BRAIN W/O CONTRAST, December 17, 2016, 12:42. CT ABDOMEN & PELVIS W CONTRAST, November 17, 2016, 8:47. CT PULMONARY ANGIOGRAM, December 17, 2016, 12:48. PRIOR BONE SCANS: No correlative bone scan available for comparison. INDICATIONS : Bone pain. Melanoma. Metastatic disease. DOSE: 32.2 mCi Tc99m MDP IV MEDICAL HISTORY : Benign prostatic hyperplasia, (BPH). SURGICAL HISTORY : Inguinal hernia repair. IVC Filter placement. Craniotomy. ENCOUNTER: Initial ACUITY: 1 day PAIN SCALE: 5/10 LOCATION: Upper quadrant TECHNIQUE: Three hours post intravenous administration of radiotracer, whole body bone scan imaging was performe d. FINDINGS: There is increased uptake seen at the right lateral aspect of the skull. The patient has had a prior right craniotomy. There is increased uptake at the right acromioclavicular joint and at the left me dial femoral condyle. This distribution would be more typical for degenerative change. There is some increased uptake at an anterior eighth left costochondral junction. This is a more typical distribu tion for traumatic change, although it is nonspecific. There is also a focal area of uptake seen at the anterior right latera iliac region. There does appear to be some minimal hypertrophic change se en on the recent CT in this region which is likely related to chronic hypertrophic change. There is some minimal areas of uptake identified at the right mid and lower lumbar spine likely related to spu rring seen on the recent CT examination. CONCLUSION: Scattered areas of increased uptake as described above. These are all likely related to degenerative change given their distribution. Hypertrophic change is seen in several of these reg ions on the prior CT examination. A distribution to suggest bony metastases is not clearly identifie keyonna Segura MD on December 19, 2016 at 17:06 Board Certified Radiologist. This report was verified electronically.
[2016-12-19] MEDS: MORPHINE SULFATE 4 MG/ML INJ IV PUSH PRN (23:56)
[2016-12-20] VITALS (7 sets, daily range): BP systolic 100–127; BP diastolic 53–72; PULSE 61–92; RESP 16–17; TEMP 97–98.6; O2SAT 91–97
[2016-12-20] MEDS: MORPHINE SULFATE 4 MG/ML INJ IV PUSH PRN (04:07)
--- NOTE | 2016-12-20 08:06 | RC ---
cc: VIKAS MARIE M.D., RICHARD ALVAREZ-FARINETTI, ALVARO MD KUHN,TONY LANGFORD M.D., MD DATE OF SERVICE 12/18/2016 DATE OF 1955 DIAGNOSIS Metastatic melanoma, stage IV. CHIEF COMPLAINT Intractable right shoulder pain. REASON FOR VISIT The patient is being evaluated for continuation of care. HISTORY OF PRESENT ILLNESS This is a 61-year white male who I recently saw on 12/11/2016 for the above-mentioned diagnosis of metastatic melanoma to the brain. The patient has two brain lesions, one that has been partially resected, the other one is a new lesion. The patient currently is being planned for salvage radiosurgery due to the two brain lesions with a pending treatment for tomorrow. I received a call from the covering physician from radiation oncology stating that a consult has been placed for the patient. I saw the patient today in consult. It appears that he came into the emergency room with intractable pain for the right shoulder and during workup was noted to have a PE. I have been requested to see the patient for continuation of care of his radiation therapy. PAST MEDICAL HISTORY As above. Also has a history of: 1. Gluten intolerance 2. History of gout. 3. Hernia repair in 2016. 4. Basal cell carcinomas, multiple plastic surgery for skin carcinomas. MEDICATIONS 1. Fentanyl 2. [place] 3. Morphine 4. Protonix 5. Zofran 6. Colace ALLERGIES [facility] FAMILY AND SOCIAL HISTORY Recorded REVIEW OF SYSTEMS CONSTITUTIONAL: The patient said he feels much better. His right shoulder scapular pain has improved. ALLERGIES: The patient has not had allergic reaction recently. EYES: Still has diplopia. ENT: Has difficulty hearing and ringing in the ears bilaterally. NECK: Unremarkable. INTEGUMENTARY: Unremarkable. CARDIOVASCULAR: Unremarkable. Denies any chest pain. RESPIRATORY: Unremarkable. Denies hemoptysis or major cough. GASTROINTESTINAL: Unremarkable. GENITOURINARY: Unremarkable. MUSCULOSKELETAL: Unremarkable. NEUROLOGIC: The patient denies any more motor function deficits. PSYCHIATRIC: Unremarkable. ENDOCRINE: Unremarkable. DERMATOLOGIC: Unremarkable. GYNECOLOGIC: Unremarkable. PHYSICAL EXAMINATION The patient is alert and oriented times three in no acute distress or discomfort at the present time. VITAL SIGNS: Stable per hospital chart. Pain rating scale at the time of evaluation 5-7/10, under control. LUNGS: To auscultation, bilateral lungs were clear to auscultation with appropriate ventilatory respiratory effort. HEART: Heart was regular in rate and rhythm without murmurs. NECK: Palpation of the neck and bilateral supraclavicular areas are free. ABDOMEN: Palpation of the abdominal cavity reveals no hepatosplenomegaly. No pain elicited. EXTREMITIES: No lower extremity edema detected. NEUROLOGIC: Patient with diplopia with no motor function deficit detected. Cognitive functions preserved. No other positive findings. RADIOLOGY CT of the brain 12/17/2016. Impression. A mildly larger area of hemorrhage in the right temporal lobe. The overall configuration is similar. Postoperative change from prior right craniotomy, persistent focal area of hemorrhage. CT angiography 12/17/2016. Impression. Pulmonary emboli seen in the central aspect of the pulmonary artery supplying the right lower lobe and to a lesser degree the right upper lobe distribution. Suspected mild atelectasis at the bases. Mild hiatal hernia. Aberrant right subclavian artery. Brain MRI 12/18/2016. Impression. Hemorrhagic lesion seen in the right temporal lobe and to the lesser degree the left posterior medial parietal occipital region. The right temporal lesion extends to the right middle cranial fossa floor and surrounds a portion of the right lateral ventricle on the posterior aspect of the right temporal horn. The patient has a craniotomy in the right temporal lobe. ASSESSMENT A 61-year white male with a diagnosis of metastatic melanoma of the brain. The patient is being evaluated for continuation of care. PLAN I advised the patient that we are working on the radiation therapy. We should have a plan ready today so he can be treated tomorrow as initially advised. The patient is to be treated while in the hospital due to the symptoms the patient has and the concerns of progressive disease within the brain if we continue to hold the radiation therapy until the patient gets discharged. Our insurance personnel has check with the insurance company and we are able to treat him with radiosurgery while he is in the hospital. The patient will receive one treatment tomorrow and then will continue treatment to the larger lesion as specified. The patient is in agreement with this. The previous side effects and complications have been discussed with the patient and he accepts the risk of treatment and would like to move forward with treatments. The patient to come to our Department tomorrow for his first radiosurgery treatment. The patient has been advised if I could be of any further assistance to please let me know otherwise we will proceed as above. Homer Narayan MD Radiation Oncologist MIGUEL VILLARREAL/RHONDA /7:25 PM /7:43 AM FRANK
[2016-12-20] MEDS: DOCUSATE SODIUM 50 MG/SENNA 8.6 MG TAB PO SCH ×2 (08:19→20:48)
[2016-12-20] MEDS: PANTOPRAZOLE SODIUM 40 MG VIAL IVP SCH (08:19)
[2016-12-20] MEDS: MORPHINE SULFATE 8 MG/ML INJ IV PUSH PRN ×3 (08:20→20:49)
[2016-12-20] MEDS: SODIUM CHLORIDE 0.9% FLUSH 10 ML FLUSH IV FLUSH SCH ×2 (08:20→20:47)
[2016-12-20] MEDS: NAPROXEN 500 MG TAB PO SCH ×2 (09:23→20:48)
--- NOTE | 2016-12-20 09:52 | HHI.NSPN ---
History Chief Complaint: Double vision this mornign Interval History 12/18: This is a 61-year-old male well known to this practice. He was initially diagnosed with a hypertensive bleed on after imaging in the ED due to headaches, nausea and vomiting. On he was readmitted due to either a seizure or syncopal episode. He was again admitted on and imaging of the chest, abdomen, pelvis and brain was unremarkable for any tumors but the haemorrhage which had increased. Therefore an MRI was done on which demonstrated a tumor with mass effect and shift. Therefore he underwent a right temporal craniotomy for resection of a haemorrhagic neoplasm on . The pathology report stated the lesion demonstrated features of metastatic melanoma. He developed diplopia on and imaging demonstrated a left occipital lobe lesion. He has recently developed ptosis the past few days. Yesterday the patient had right-sided chest pain which was worse when taking a deep breath. He therefore presented to the ED for evaluation. Imaging demonstrated multiple pulmonary emboli of the central aspect of the right lower and right upper lobes. An ultrasound demonstrated a left femoral vein thrombus which was nonocclusive. A CT brain demonstrated a right temporal lobe haemorrhage w/interval increase and persistent mild right subdural fluid collection & pneumocephalus and posterior medial left parietal lob haemorrhage. He was therefore admitted to the [facility] for further care with consults to Neurosurgery, Hematology, Medical Oncology and Radiation Oncology. When seen this morning the patient states that he is doing good. He does endorse double vision and ptosis to the right eye and headaches behind the right eye and to the left restoration. He has some nausea. The pain to the lateral right anterior chest persists. He readily smiles and engages in conversation. 12/19: Patient states that he is doing good this morning when seen. He reports a headache behind the right eye to the restoration region. He continues to have the lateral right anterior chest pain but no shortness of breath. He also has difficulty hearing with the right ear today. He does say that when he holds his right eyelid open his vision is good and he has no diplopia. Yesterday the patient went for an IVC filtre after he was seen. 12/20: The patient is doing well this morning when seen. He does state he is unable to open his right eyelid except once this morning and when he did he had diplopia. He complains of left knee pain secondary to a gout flare up. He has no headache, chest pain or shortness of breath this morning. He had radiation therapy to the left occipital lobe lesion and is scheduled to have it today for the right temporal lobe lesion. Since he was stable and doing good in the I[facility] he was transferred to the Oncology floor yesterday as well. System Review Comments HEENT: Patient states he is having difficulty opening the right eyelid this morning and when he did he had double vision. NECK: Patient denies any neck pain or difficulty moving his neck. RESPIRATORY: Patient denies any shortness of breath or productive cough. CARDIOVASCULAR: Patient denies any chest pain, palpitations or irregular heartbeat. GASTROINTESTINAL: Patient denies any abdominal pain, nausea, vomiting or incontinence of stool. GENITOURINARY: Patient denies any incontinence of urine. MUSCULOSKELETAL: Patient complains of left knee pain secondary to gout, otherwise he denies any back pain or pain or weakness to the extremities. NEUROLOGICAL: Patient denies any headache, dizziness, numbness or tingling. Exam Results Vital Signs Date Time Temp Pulse Resp B/P Pulse Ox O2 Delivery O2 Flow Rate FiO2 12/20/16 08:34 98.1 86 16 127/72 91 12/20/16 08:00 21 12/19/16 18:26 Nasal Cannula 2.00 Intake and Output 12/19/16 12/19/16 12/20/16 08:00 16:00 00:00 Intake Total 1001 ml 600 ml Balance 1001 ml 600 ml Physical Examination GENERAL: Awake & alert, readily interacts. No apparent distress. HEENT: Normocephalic, atraumatic. PERRLA 2 mm. MMM & pink, no lesions noted. NECK: No JVD, trachea midline. RESPIRATORY: CTAB w/o W/R/R, equal excursion, nonlaboured, on RA. CARDIOVASCULAR: S1S2 w/RRR w/o M/G/R, radial & pedal pulses 2+ bilaterally, cap refill < 2 sec, no pedal edema. GASTROINTESTINAL: Abdomen soft, nontender, positive bowel sounds. INTEGUMENTARY: Warm, dry & intact. No evident rashes, lesions or discolouration. MUSCULOSKELETAL: BAKER w/o difficulty. Left anterior knee TTP. NEUROLOGICAL: AAOx3. Speech clear & appropriate. Follows simple commands. Sensation grossly intact to light touch. Motor strength 5/5 to all major flexion & muscle groups. PSYCHIATRIC: Normal affect, readily smiles & interacts. Medical Decision Making Impression and Plan Impression: Right temporal lobe haemorrhage w/interval increase Persistent mild right subdural fluid collection & pneumocephalus Persistent posterior medial left parietal lob haemorrhage S/P right temporal craniotomy for resection of neoplasm Multiple pulmonary emboli of central aspect of RLL>RUL Mid left femoral vein nonocclusive thrombus Evidence of right CN III and probably CN IV deficit. No definite cavernous sinus involvement of the neoplasm on MRI, but likely present considering the patient's examination. Patient doing well, neurologically stable Diplopia this morning Gout flare up left knee Not a candidate for anticoagulation due to continued haemorrhage to the right temporal lobe region Left occipital lobe radiation therapy completed yesterday Whole body bone scan unable to clearly identify any distribution to suggest bony metastases Plan: Primary mgmt per Training Director/Hospitalist At present no indiction for further surgery by NSGY Continue neuro checks Stat CT brain w/o contrast for any worsening of neuro status Radiation therapy per Radiation Oncology for right temporal lobe lesion, plan is to start today per patient Osvaldo Rob Dec 20, 2016 09:52
--- NOTE | 2016-12-20 11:52 | HHI.FPPN ---
Subjective Remarks No events overnight. He had first radiotherapy treatment last night and tolerated it well. No chest pain or shortness of breath. Headache is resolved. Continues to have ptosis and right eye deviation. No other neurological deficits. He is ambulating. Nausea resolved. He has exquisitely painful left knee. He has a history of gout. Even the sheets touching the knee is very painful. No knee effusion or erythema. (Max Preston MD R2) Objective Vitals Vital Signs Date Time Temp Pulse Resp B/P Pulse Ox O2 Delivery O2 Flow Rate FiO2 12/20/16 08:34 98.1 86 16 127/72 91 12/20/16 08:00 92 21 12/20/16 04:43 16 12/20/16 04:00 98.6 92 17 107/59 93 12/20/16 00:00 97.9 73 17 104/60 97 12/19/16 20:00 97.9 66 18 132/67 97 12/19/16 18:26 96 Nasal Cannula 2.00 12/19/16 16:00 97.0 48 18 132/71 96 12/19/16 12:40 97.1 53 18 136/70 95 12/19/16 12:00 98.6 58 19 131/75 99 I/O 12/19/16 12/19/16 12/19/16 12/20/16 12/20/16 12/20/16 07:00 15:00 23:00 07:00 15:00 23:00 Intake Total 1001 ml 600 ml Output Total 200 ml Balance 1001 ml 600 ml -200 ml Intake Oral 240 ml 600 ml IV Total 761 ml Output Urine Total 200 ml # Voids 3 2 2 # Bowel Movements 0 (Max Preston MD R2) Result Diagram: 12/19/16 0340 12/19/16 0340 Objective Remarks GENERAL: Sitting up, no distress, ptosis right eye SKIN: No rashes, ecchymoses or lesions. HEAD: Atraumatic. Normocephalic. No temporal or scalp tenderness. EYES: Pupils equal round and reactive. Extraocular motions intact. No scleral icterus. No injection or drainage. Right eye deviated to the right. ENT: Nose without bleeding, purulent drainage or septal hematoma. Throat without erythema, tonsillar hypertrophy or exudate. Uvula midline. Airway patent. NECK: Trachea midline. No JVD or lymphadenopathy. Supple, nontender, no meningeal signs. CARDIOVASCULAR: Regular rate and rhythm without murmurs, gallops, or rubs. Chest painful to palpation on right side. RESPIRATORY: Clear to auscultation. Breath sounds equal bilaterally. No wheezes , rales, or rhonchi. GASTROINTESTINAL: Abdomen soft, non-tender, nondistended. No hepato-splenomegaly , or palpable masses. No guarding. MUSCULOSKELETAL: Extremities without clubbing, cyanosis, or edema. No calf tenderness. Negative Homans sign bilaterally. Left knee exquisitely painful to light touch, no obvious joint effusion or erythema. Mobility limited by pain. NEUROLOGICAL: Awake and alert. Cranial nerves II through XII intact. Motor and sensory grossly within normal limits. Five out of 5 muscle strength in all muscle groups. Normal speech. Ptosis on right eye. Right eye deviated to the right, does not track medially. Short term memory difficulties that are mild. No speech slurring. Procedures Radiotherapy scheduled for today at 6:30 PM (Max Preston MD R2) A/P Assessment and Plan 61 year old male with history of brain tumors, intracranial hemorrhage, being admitted with new pulmonary embolism and DVT. Had radiotherapy for brain tumors on 12/19/16. Hemodynamically stable, IVC filter now in place. Discharge Planning Radiotherapy done on 12/19/16. Discharge pending decent control over left knee pain as he has a lot of stairs to climb at home. Mobility is limited by pain. Will follow up with oncology as an outpatient for continued radiotherapy and chemotherapy/immunotherapy. (Max Preston MD R2) Attending Attestation Patient seen and examined. Case reviewed and discussed with the resident team. Agree with plan of care as discussed with me and documented in the resident note. happy he is improving with his nausea and ability to eat (Kika Simms MD) Problem List: (1) Pulmonary embolism Status: Acute Plan: Pulmonary embolus of the right pulmonary artery, and extending to the arteries supplying the right upper and right lower lobes. The right middle lobe is spared. Hemodynamically stable currently, no shortness of breath. Had chest pain worse with inspiration. Anticoagulation contraindicated due to recent intracerebral bleed and not recommended by surgery. IVC filter placed due to anticoagulation contraindication. - Encourage ambulation - Avoid anticoagulation (2) Cerebral tumor Status: Acute Plan: Possible metastatic disease to the brain with features typical of melanoma. Radiotherapy done on 12/19/16, tolerated well. - Systemic versus targeted therapy depending on BRAF mutation - Will follow closely with oncology/radiation-onc after discharge (3) Intracranial hemorrhage Status: Acute Plan: History of recent intracerebral bleed. On CT of head, there is a mildly larger area of hemorrhage in the right temporal lobe. Overall configuration is similar. Area appears somewhat denser. Additional bleeding cannot be excluded. There is also new or more prominent mild interventricular hemorrhage seen at the posterior aspect of the right lateral ventricle. ED physician discussed with neurosurgeon, suggests that it is likely not new hemorrhage but rather increasing tumor burden. - Neuro checks - Hydralazine PRN to keep BP <160/90 - Oncology on board - Neurosurgery on board (4) Acute gout of left knee Status: Acute Plan: Left knee exquisitely tender to light touch. Patient has a history of gout. No obvious effusion or erythema. - Naproxen 500 mg bid (5) Contraindication to anticoagulation therapy Status: Acute Plan: Relative contraindication due to recent intracerebral hemorrhage Has IVC filter (6) Nutrition, metabolism, and development symptoms Status: Acute Plan: - regular diet - Electrolytes normal - PO fluids (Max Preston MD R2) Problem Qualifiers (1) Pulmonary embolism: Qualified Code: I26.99 - Other acute pulmonary embolism without acute cor pulmonale Max Preston MD R2 Dec 20, 2016 11:52 Kika Simms MD Dec 22, 2016 14:34
[2016-12-21] VITALS (7 sets, daily range): BP systolic 94–126; BP diastolic 53–69; PULSE 60–67; RESP 17–18; TEMP 97–97.8; O2SAT 95–98
[2016-12-21] MEDS ORDERED: NAPR500 PO (08:21)
--- NOTE | 2016-12-21 08:47 | HHI.FPPN ---
Subjective Remarks No events overnight. Vital signs stable. His knee pain is much better after the Naproxen. He still has some lingering pain in his knee. No headaches. Had some nausea when he woke up that is resolved. No vomiting. No abdominal pain. Continues to have ptosis and eye deviation. No new neurological findings. No calf swelling or tenderness. Discussed discharge planning. (Max Preston MD R2) Objective Vitals Vital Signs Date Time Temp Pulse Resp B/P Pulse Ox O2 Delivery O2 Flow Rate FiO2 12/21/16 04:00 97.1 65 18 110/63 95 12/21/16 00:00 97.8 60 17 94/53 95 12/20/16 22:29 21 12/20/16 21:48 16 12/20/16 21:05 18 12/20/16 20:00 97.1 70 17 104/58 95 12/20/16 16:18 97.6 61 16 106/59 93 12/20/16 12:46 97.0 66 16 100/53 94 I/O 12/20/16 12/20/16 12/20/16 12/21/16 12/21/16 12/21/16 07:00 15:00 23:00 07:00 15:00 23:00 Intake Total 600 ml Output Total 200 ml 200 ml Balance -200 ml 600 ml -200 ml Intake Oral 600 ml Output Urine Total 200 ml 200 ml # Voids 2 3 1 (Max Preston MD R2) Result Diagram: 12/19/16 0340 12/19/16 0340 Objective Remarks GENERAL: Sitting up, no distress, ptosis right eye SKIN: No rashes, ecchymoses or lesions. HEAD: Atraumatic. Normocephalic. No temporal or scalp tenderness. EYES: Pupils equal round and reactive. Extraocular motions intact. No scleral icterus. No injection or drainage. Right eye deviated to the right. ENT: Nose without bleeding, purulent drainage or septal hematoma. Throat without erythema, tonsillar hypertrophy or exudate. Uvula midline. Airway patent. NECK: Trachea midline. No JVD or lymphadenopathy. Supple, nontender, no meningeal signs. CARDIOVASCULAR: Regular rate and rhythm without murmurs, gallops, or rubs. Chest painful to palpation on right side. RESPIRATORY: Clear to auscultation. Breath sounds equal bilaterally. No wheezes , rales, or rhonchi. GASTROINTESTINAL: Abdomen soft, non-tender, nondistended. No hepato-splenomegaly , or palpable masses. No guarding. MUSCULOSKELETAL: Extremities without clubbing, cyanosis, or edema. No calf tenderness. Negative Homans sign bilaterally. Left knee much better than yesterday. Mild tenderness to palpation. Mild swelling of the soft tissues. No erythema. NEUROLOGICAL: Awake and alert. Cranial nerves II through XII intact. Motor and sensory grossly within normal limits. Five out of 5 muscle strength in all muscle groups. Normal speech. Ptosis on right eye. Right eye deviated to the right, does not track medially. Short term memory difficulties that are mild. No speech slurring. Procedures Radiotherapy scheduled for today at 6:30 PM (Max Preston MD R2) A/P Assessment and Plan 61 year old male with history of brain tumors, intracranial hemorrhage, being admitted with new pulmonary embolism and DVT. Had radiotherapy for brain tumors on 12/19/16. Hemodynamically stable, IVC filter now in place. Discharge Planning Radiotherapy done on 12/19/16. Discharge likely today. Mobility is somewhat limited by pain. If unable to ambulate well at home, could consider a SNF, will discuss with physical therapy and case management. Will follow up with oncology as an outpatient for continued radiotherapy and chemotherapy/immunotherapy. ( Max Preston MD R2) Attending Attestation Patient seen and examined. Case reviewed and discussed with the resident team. Agree with plan of care as discussed with me and documented in the resident note. he wants to go home and not to a rehab (Kika Simms MD) Problem List: (1) Pulmonary embolism Status: Acute Plan: Pulmonary embolus of the right pulmonary artery, and extending to the arteries supplying the right upper and right lower lobes. The right middle lobe is spared. Hemodynamically stable currently, no shortness of breath. Had chest pain worse with inspiration. Anticoagulation contraindicated due to recent intracerebral bleed and not recommended by surgery. IVC filter placed due to anticoagulation contraindication. Hemodynamically stable. - Encourage ambulation - Avoid anticoagulation (hemorrhagic tumors) (2) Cerebral tumor Status: Acute Plan: Melanoma of brain. Radiotherapy done on 12/19/16, tolerated well. - Systemic versus targeted therapy depending on BRAF mutation - Will follow closely with oncology/radiation-onc after discharge (3) Intracranial hemorrhage Status: Acute Plan: History of recent intracerebral bleed. On CT of head, there is a mildly larger area of hemorrhage in the right temporal lobe. Overall configuration is similar. Area appears somewhat denser. Additional bleeding cannot be excluded. There is also new or more prominent mild interventricular hemorrhage seen at the posterior aspect of the right lateral ventricle. ED physician discussed with neurosurgeon, suggests that it is likely not new hemorrhage but rather increasing tumor burden. - Neuro checks - Hydralazine PRN to keep BP <160/90 - Oncology on board - Neurosurgery on board (4) Acute gout of left knee Status: Acute Plan: Left knee exquisitely tender to light touch, but much better after Naproxen. Patient has a history of gout. Mild swelling today. - Naproxen 500 mg bid (5) Contraindication to anticoagulation therapy Status: Acute Plan: Relative contraindication due to recent intracerebral hemorrhage Has IVC filter (6) Nutrition, metabolism, and development symptoms Status: Acute Plan: - regular diet - Electrolytes normal - PO fluids (Max Preston MD R2) Problem Qualifiers (1) Pulmonary embolism: Qualified Code: I26.99 - Other acute pulmonary embolism without acute cor pulmonale Max Preston MD R2 Dec 21, 2016 08:47 Kika Simms MD Dec 22, 2016 14:35
[2016-12-21] MEDS: PANTOPRAZOLE SODIUM 40 MG VIAL IVP SCH (09:25)
[2016-12-21] MEDS: NAPROXEN 500 MG TAB PO SCH (09:25)
[2016-12-21] MEDS: DOCUSATE SODIUM 50 MG/SENNA 8.6 MG TAB PO SCH (09:26)
[2016-12-21] MEDS: SODIUM CHLORIDE 0.9% FLUSH 10 ML FLUSH IV FLUSH SCH (09:26)
--- NOTE | 2016-12-21 09:33 | PD.ONC.PN ---
Subjective Subjective Remarks Afebrile overnight. Pain in left knee improved with Naproxen. Stated XRT. Feels good about going home. Objective Data Date Time Temp Pulse Resp B/P Pulse Ox O2 Delivery O2 Flow Rate FiO2 12/21/16 08:00 97.7 67 18 126/65 95 12/21/16 04:00 97.1 65 18 110/63 95 12/21/16 00:00 97.8 60 17 94/53 95 12/20/16 22:29 21 12/20/16 21:48 16 12/20/16 21:05 18 12/20/16 20:00 97.1 70 17 104/58 95 12/20/16 16:18 97.6 61 16 106/59 93 12/20/16 12:46 97.0 66 16 100/53 94 12/21/16 12/21/16 12/21/16 07:00 15:00 23:00 Output Total 200 ml Balance -200 ml Result Diagram: 12/19/16 0340 12/19/16 0340 Administered Medications Medications (Trade) Dose Ordered Sig/Munir Route PRN Reason Start Time Stop Time Status Last Admin Dose Admin Sodium Chloride (NS Flush) 2 ml BID IV FLUSH 12/17/16 15:00 12/20/16 20:47 Pantoprazole Sodium (Protonix Inj) 40 mg DAILY IVP 12/17/16 15:00 12/20/16 08:19 Ondansetron HCl (Zofran Inj) 4 mg Q6H PRN IV NAUSEA 12/17/16 15:00 12/19/16 23:57 Hydralazine HCl (Apresoline Inj) 10 mg Q30M PRN IV PUSH SBP>160, DBP>90 12/17/16 15:00 12/18/16 18:48 Acetaminophen/ Hydrocodone Bitart (Critz 5-325 Mg) 2 tab Q4H PRN PO PAIN SCALE 1 TO 5 12/17/16 17:30 12/18/16 19:26 Morphine Sulfate (Morphine Inj) 2 mg Q4H PRN IV PUSH pain SCALE 6-10 12/19/16 09:30 12/20/16 20:49 Morphine Sulfate (Morphine Inj) 2 mg Q4HR PRN IV PUSH BREAKTHROUGH PAIN 12/19/16 09:15 12/20/16 04:07 Senna/Docusate Sodium (Daksha-Colace) 2 tab BID PO 12/20/16 09:00 12/20/16 20:48 Naproxen (Naprosyn) 500 mg Q12HR PO 12/20/16 09:00 12/20/16 20:48 Objective Remarks GENERAL: Middle aged male, sitting up in bed in nad. SKIN: Warm and dry. HEAD: Normocephalic. EYES: No injection or drainage. NECK: Supple, trachea midline. CARDIOVASCULAR: Regular rate and rhythm RESPIRATORY: Breath sounds equal bilaterally. No accessory muscle use. GASTROINTESTINAL: Abdomen soft, non-tender, nondistended. EXTREMITIES: No cyanosis. left knee without erythema or swelling. NEUROLOGICAL: No obvious focal deficit. Awake, alert, and oriented x3. independently ambulatory with walker. Assessment/Plan Assessment 61 y/o male admitted with pulmonary embolism. h/o metastatic melanoma Plan 1. ok with short course of Naproxen for gout. If pain is persistent would switch to steroids. 2. clear for discharge 3. follow up in clinic in 2 weeks--will await BRAF or MEK mutation testing, then hopefully begin targeted therapy depending on results. 4. continue XRT Attending Statement The exam, history, and the medical decision-making described in the above note were completed with the assistance of the mid-level provider. I reviewed and agree with the findings presented. I attest that I had a [id number] encounter with the patient on the same day, and personally performed and documented my assessment and findings in the medical record. able to walk unassisted and radiation has started . He is ready for discharge and will pursue systemic therapy probably at completion of XRT. If BRAF mutation will probably use targeted therapy. situation reviewed with patient and my nurse has spoken with his female friend of many years. outpatient follow up in place. Kelly Vicente Dec 21, 2016 09:32 Jayro Thompson MD Dec 21, 2016 22:07
--- NOTE | 2016-12-21 10:22 | HHI.NSPN ---
History Chief Complaint: Double vision this mornign Interval History 12/19: Patient states that he is doing good this morning when seen. He reports a headache behind the right eye to the bahai region. He continues to have the lateral right anterior chest pain but no shortness of breath. He also has difficulty hearing with the right ear today. He does say that when he holds his right eyelid open his vision is good and he has no diplopia. Yesterday the patient went for an IVC filtre after he was seen. 12/20: The patient is doing well this morning when seen. He does state he is unable to open his right eyelid except once this morning and when he did he had diplopia. He complains of left knee pain secondary to a gout flare up. He has no headache, chest pain or shortness of breath this morning. He had radiation therapy to the left occipital lobe lesion and is scheduled to have it today for the right temporal lobe lesion. Since he was stable and doing good in the I[facility] he was transferred to the Oncology floor yesterday as well. 12/21: Patient is awake and alert with no new complaints this morning. Exam Results Vital Signs Date Time Temp Pulse Resp B/P Pulse Ox O2 Delivery O2 Flow Rate FiO2 12/21/16 08:00 97.7 67 18 126/65 95 12/20/16 22:29 21 12/19/16 18:26 Nasal Cannula 2.00 Intake and Output 12/20/16 12/20/16 12/21/16 08:00 16:00 00:00 Intake Total 600 ml Output Total 200 ml Balance -200 ml 600 ml Physical Examination GENERAL: Awake & alert, readily interacts. No apparent distress. HEENT: Normocephalic, atraumatic. PERRLA 2 mm. MMM & pink, no lesions noted. NECK: No JVD, trachea midline. RESPIRATORY: CTAB w/o W/R/R, equal excursion, nonlaboured, on RA. CARDIOVASCULAR: S1S2 w/RRR w/o M/G/R, radial & pedal pulses 2+ bilaterally, cap refill < 2 sec, no pedal edema. GASTROINTESTINAL: Abdomen soft, nontender, positive bowel sounds. INTEGUMENTARY: Warm, dry & intact. No evident rashes, lesions or discolouration. MUSCULOSKELETAL: BAKER w/o difficulty. Left anterior knee TTP. NEUROLOGICAL: AAOx3. Speech clear & appropriate. Follows simple commands. Cranial nerve examination shows a right third nerve palsy with inability to open the right eyelid. Sensation grossly intact to light touch. Motor strength 5/5 to all major flexion & muscle groups. PSYCHIATRIC: Normal affect, readily smiles & interacts. Medical Decision Making Impression and Plan Metastatic melanoma to the brain. Status post right temporal craniotomy for excision of hemorrhagic lesion. Patient also has occipital lobe lesions. Currently undergoing radiation therapy. Plan: Continue current management. No new neurosurgical recommendations at this time. Leandro Kiran MD Dec 21, 2016 10:22
--- NOTE | 2016-12-21 11:24 | HHI.DS ---
Discharge Summary Admission Date Dec 17, 2016 at 15:07 Discharge Date: Dec 21, 2016 Admitting Diagnosis Acute PE, worsening melanoma (1) Pulmonary embolism Diagnosis: Principal Plan: Pulmonary embolus of the right pulmonary artery, and extending to the arteries supplying the right upper and right lower lobes. The right middle lobe is spared. Hemodynamically stable currently, no shortness of breath. Had chest pain worse with inspiration. Anticoagulation contraindicated due to recent intracerebral bleed and not recommended by surgery. IVC filter placed due to anticoagulation contraindication. Hemodynamically stable. - Encourage ambulation - Avoid anticoagulation (hemorrhagic tumors) (2) Cerebral tumor Diagnosis: Principal Plan: Melanoma of brain. Radiotherapy done on 12/19/16, tolerated well. - Systemic versus targeted therapy depending on BRAF mutation - Will follow closely with oncology/radiation-onc after discharge (3) Intracranial hemorrhage Diagnosis: Principal Plan: History of recent intracerebral bleed. On CT of head, there is a mildly larger area of hemorrhage in the right temporal lobe. Overall configuration is similar. Area appears somewhat denser. Additional bleeding cannot be excluded. There is also new or more prominent mild interventricular hemorrhage seen at the posterior aspect of the right lateral ventricle. ED physician discussed with neurosurgeon, suggests that it is likely not new hemorrhage but rather increasing tumor burden. - Neuro checks - Hydralazine PRN to keep BP <160/90 - Oncology on board - Neurosurgery on board (4) Acute gout of left knee Diagnosis: Principal Plan: Left knee exquisitely tender to light touch, but much better after Naproxen. Patient has a history of gout. Mild swelling today. - Naproxen 500 mg bid (5) Contraindication to anticoagulation therapy Diagnosis: Secondary Plan: Relative contraindication due to recent intracerebral hemorrhage Has IVC filter (6) Nutrition, metabolism, and development symptoms Diagnosis: Secondary Plan: - regular diet - Electrolytes normal - PO fluids Procedures Radiotherapy scheduled for today at 6:30 PM Brief History Mr Cardona is a 61 year old male with a history of brain tumors and intracranial hemorrhage. Starting on 10/09/2016 he presented to the ER with headaches, nausea , and vomiting. CT scan showed a right temporal intracranial hemorrhage thought to be due to hypertension. He was re-admitted on 11/06/16 after a seizure or syncope episode. He was admitted a third time on 11/16/[address] scan of the thorax, abdomen, and brain showed no tumors. An MRI of the brain on 11/17/16 showed tumor with mass effect and midline shift. On 11/20/16 he had craniotomy performed by Dr. Flores with removal of a hemorrhagic friable neoplasm with poorly defined borders. Path report read right temporal lobe lesion, biopsy showed features of a metastatic melanoma. He is followed by Dr. Boles ( oncologist) and Dr. Jack (radiation oncologist) as an outpatient. He was scheduled for PET scan for staging and plans were for possible radiation therapy. He came in with atypical chest pain, located in the right chest and worse with inspiration. The pain is sharp. Workup in the ED shows a right sided pulmonary embolism. He also had nausea and vomiting for several days. No shortness of breath. No abdominal pain. He recently started to have diplopia on 12/10/16 with workup showing an occipital lobe tumor. He has ptosis over the last few days. No focal weaknesses. He has a mild headache. Overnight, he was admitted to Intensive care for close monitoring. He could not have anticoagulation because of his brain surgery, tumors and very high risk of bleeding. Oncology has recommended an ivc filter which will be hopefully placed today. He still has some blood clot in his leg but has shown improvement overall with his oxygenation and is 99% on nasal canula today where he needed a nonrebreather yesterday. CBC/BMP: 12/19/16 0340 12/19/16 0340 Significant Findings Laboratory Tests Test 12/19/16 03:40 Red Blood Count 3.61 MIL/MM3 (4.50-5.90) Hemoglobin 10.8 GM/DL (13.0-17.0) Hematocrit 31.9 % (39.0-51.0) Calcium Level 8.0 MG/DL (8.5-10.1) PE at Discharge GENERAL: Sitting up, no distress, ptosis right eye SKIN: No rashes, ecchymoses or lesions. HEAD: Atraumatic. Normocephalic. No temporal or scalp tenderness. EYES: Pupils equal round and reactive. Extraocular motions intact. No scleral icterus. No injection or drainage. Right eye deviated to the right. ENT: Nose without bleeding, purulent drainage or septal hematoma. Throat without erythema, tonsillar hypertrophy or exudate. Uvula midline. Airway patent. NECK: Trachea midline. No JVD or lymphadenopathy. Supple, nontender, no meningeal signs. CARDIOVASCULAR: Regular rate and rhythm without murmurs, gallops, or rubs. Chest painful to palpation on right side. RESPIRATORY: Clear to auscultation. Breath sounds equal bilaterally. No wheezes , rales, or rhonchi. GASTROINTESTINAL: Abdomen soft, non-tender, nondistended. No hepato-splenomegaly , or palpable masses. No guarding. MUSCULOSKELETAL: Extremities without clubbing, cyanosis, or edema. No calf tenderness. Negative Homans sign bilaterally. Left knee much better than yesterday. Mild tenderness to palpation. Mild swelling of the soft tissues. No erythema. NEUROLOGICAL: Awake and alert. Cranial nerves II through XII intact. Motor and sensory grossly within normal limits. Five out of 5 muscle strength in all muscle groups. Normal speech. Ptosis on right eye. Right eye deviated to the right, does not track medially. Short term memory difficulties that are mild. No speech slurring. Hospital Course 61 year old male with a history of hemorrhagic brain melanoma. Starting on 2016 he presented to the ER with headaches, nausea, and vomiting. CT scan showed a right temporal intracranial hemorrhage thought to be due to hypertension. He was re-admitted on 11/06/16 after a seizure or syncope episode. He was admitted a third time on 11/16/[address] scan of the thorax, abdomen, and brain showed no tumors. An MRI of the brain on 11/17/16 showed tumor with mass effect and midline shift. On 11/20/16 he had craniotomy performed by Dr. Flores with removal of a hemorrhagic friable neoplasm with poorly defined borders. Path report read right temporal lobe lesion, biopsy showed features of melanoma. He is followed by Dr. Boles (oncologist) and Dr. Jack (radiation oncologist) as an outpatient. He presented with atypical chest pain, located in the right chest and worse with inspiration. Workup showed a right sided pulmonary embolism. He recently started to have diplopia on 12/10/16 with workup showing an occipital lobe tumor. He also has ptosis over the last few days. For pulmonary embolism, an IVC filter was placed due to the contraindication to anticoagulate due to his hemorrhagic tumors. He is encouraged to ambulate as much as possible. For melanoma of the brain, he received radiotherapy in house and will continue as an outpatient. He is to follow up with oncology and radiation oncology closely as an outpatient. BRAF and MEK mutations are pending and will help determine course of treatment and prognosis. Neurosurgery was consulted for hemorrhagic tumors, but no intervention was deemed necessary at this time. He developed acute gout of the left knee during his hospital stay that responded well to Naproxen, and he will continue a short course of the Naproxen as an outpatient. Pt Condition on Discharge: Stable Discharge Disposition: Disch w/ Home Health Serv Discharge Instructions DIET: Follow Instructions for: As Tolerated, No Restrictions Activities you can perform: Regular-No Restrictions Follow up Referrals: Oncology - 2 Weeks with ED [facility] PCP Follow-up - 1 Week New Medications: Ondansetron Liq (Ondansetron Liq) 4 Mg/5 Ml Soln 4 MG PO Q8H PRN NAUSEA OR VOMITING #100 Ref 0 ML Hydrocodone-Acetaminophen (Hydrocodone-Acetaminophen) 5-325 mg Tab 1 TAB PO Q4H PRN pain #30 TAB Naproxen (Naprosyn) 500 Mg Tab 500 MG PO Q12HR #10 TAB Discontinued Medications: Acetaminophen (Mapap) 500 Mg Tab 500 MG PO Q4HR PRN PAIN Ref 0 TAB Methocarbamol (Methocarbamol) 500 Mg Tab 500 MG PO TID Muscle Spasm #30 Ref 0 TAB Max Preston MD R2 Dec 21, 2016 11:24
[2016-12-21] MEDS: ONDANSETRON HCL 4 MG/2 ML VIAL IV PRN (13:58)
[2016-12-21] MEDS: MORPHINE SULFATE 4 MG/ML INJ IV PUSH PRN (14:00)
[2016-12-21] MEDS ORDERED: PRED20 PO (18:10)
[2016-12-21] MEDS ORDERED: FAMO20TA2 PO (18:11)
== END 2016-12-21 19:07 | disposition home or self-care (01) | DRG 166 ==
LOC: NEPC 10:04 → NEDA 15:07 → N03B 18:08 → HOCA 12-19 12:33
PROVIDERS: ADMIT Family Medicine; ATTEND Family Medicine
PROC: 06H03DZ Insertion of Intraluminal Device into Inferior Vena Cava, Percutaneous Approach (ICD-10-PCS; principal; 2016-12-18)
PROC: D0Y07ZZ Contact Radiation of Brain (ICD-10-PCS; 2016-12-19)
DX: I26.99 Other pulmonary embolism without acute cor pulmonale (principal); I61.1 Nontraumatic intracerebral hemorrhage in hemisphere, cortical; C79.31 Secondary malignant neoplasm of brain; I82.412 Acute embolism and thrombosis of left femoral vein; I10 Essential (primary) hypertension; H53.2 Diplopia; K21.9 Gastro-esophageal reflux disease without esophagitis; R07.1 Chest pain on breathing; Z85.820 Personal history of malignant melanoma of skin; Z86.73 Personal history of transient ischemic attack (TIA), and cerebral infarction without residual deficits; K44.9 Diaphragmatic hernia without obstruction or gangrene; G43.909 Migraine, unspecified, not intractable, without status migrainosus; H02.401 Unspecified ptosis of right eyelid; Z86.14 Personal history of Methicillin resistant Staphylococcus aureus infection; Z80.0 Family history of malignant neoplasm of digestive organs; Z84.89 Family history of other specified conditions; Z51.5 Encounter for palliative care; Z66 Do not resuscitate; H91.8X1 Other specified hearing loss, right ear; M10.9 Gout, unspecified; M25.562 Pain in left knee; H49.01 Third [oculomotor] nerve palsy, right eye
CPT/HCPCS: 37191; 70450; 70553; 71010; 71275; 78306; 80048; 80053; 82550; 83735; 84484; 85025; 85027; 85384; 85610; 85730; 86850; 86900; 86901; 87641; 93005; 93970; 96374; 99152; A9503; A9579; C1769; C1880; C9113; J0360; J2270; J2405; J3010; J7030; Q9967

== ENCOUNTER 2017-02-05 11:07 | Inpatient (IN) | payer OTHER ==
[~2017-02-05] VITALS: Ht 182.9 cm; Wt 67.4 kg
[~2017-02-05 11:07] MED LIST changes: -DEXA1.5T PO; +FAMO20TA2 PO; -GABA100C4 PO; +HYDR-3516 PO; -LEVE500 PO; -MAPA500T PO; -METH500T3 PO; +ONDA4SOL PO; -PAME25CA PO; +PRED20 PO; -TAMS5CAP PO; -ZOFR8TAB PO
[2017-02-05] MEDS ORDERED: DEXA2TAB PO (13:18)
[2017-02-05] MEDS ORDERED: ZANT300T PO (13:20)
[2017-02-05] MEDS ORDERED: HYDR-3580 PO (13:24)
[2017-02-05] MEDS ORDERED: BISACODYL 10 MG SUPP RECTAL PRN (14:15)
[2017-02-05] MEDS ORDERED: LACTULOSE SYRUP 20 GM/30 ML CUP PO PRN (14:15)
[2017-02-05] MEDS ORDERED: ACETAMINOPHEN 325 MG TAB PO PRN (14:15)
[2017-02-05] MEDS ORDERED: MAGNESIUM HYDROXIDE SUSP 30 ML CUP PO PRN (14:15)
[2017-02-05] MEDS ORDERED: NALOXONE HCL 0.4 MG/ML AMP IV PRN (14:15)
[2017-02-05] MEDS ORDERED: SODIUM CHLORIDE 0.9% FLUSH 10 ML FLUSH IV FLUSH PRN (14:15)
[2017-02-05] MEDS ORDERED: SENNOSIDES 8.6 MG TAB PO PRN (14:15)
[2017-02-05] MEDS ORDERED: ONDANSETRON HCL 4 MG/2 ML VIAL IVP PRN (14:15)
--- NOTE | 2017-02-05 14:48 | HHI.HP ---
[facility] Service [facility] Hospitalists Primary Care Physician Non-Staff Admission Diagnosis Diagnoses: Chief Complaint: unsteady gait,weakness and numbess of upper extremity Travel History International Travel<30 Days: No Contact w/Intl Traveler <30 Da: No History of Present Illness This is a 61-year-old male with past medical history of intracranial hemorrhage later found to have a melanoma in the brain which he had a tumor resection later presented with multiple lesions initially stereotactic radiotherapy then later whole brain lesions since lesions increased who presented with unsteady gait,upper extremity weakness and paresthesia. Patient stated that about a month ago he started to have left hand numbness and weakness. He stated that he also has some on the right side but that is intermittent and has improved. Also stated that for the past month he has been having unsteady gait due to dizziness and is unable to ambulate because of this. His fiance is at the bedside stated that she does not feel comfortable with him ambulating due to his risk of falling. Currently patient is on 11 out of 15 of radiation treatment. Per fiance patient has short-term memory problem now. d/w Dr. 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 Review of Systems Constitutional: COMPLAINS OF: Dizziness, DENIES: Diaphoretic episodes, Fatigue , Fever, Weight gain, Weight loss, Chills, Change in appetite, Night Sweats Endocrine: DENIES: Heat/cold intolerance, Polydipsia, Polyuria, Polyphagia Eyes: DENIES: Blurred vision, Diplopia, Eye inflammation, Eye pain, Vision loss , Photosensitivity, Double Vision Ears, nose, mouth, throat: DENIES: Tinnitus, Hearing loss, Vertigo, Nasal discharge, Oral lesions, Throat pain, Hoarseness, Ear Pain, Running Nose, Epistaxis, Sinus Pain, Toothache, Odynophagia Respiratory: DENIES: Apneas, Cough, Snoring, Wheezing, Hemoptysis, Sputum production, Shortness of breath Cardiovascular: DENIES: Chest pain, Palpitations, Syncope, Dyspnea on Exertion , PND, Lower Extremity Edema, Orthopnea, Claudication Gastrointestinal: DENIES: Abdominal pain, Black stools, Bloody stools, Constipation, Diarrhea, Nausea, Vomiting, Difficulty Swallowing, Anorexia Genitourinary: DENIES: Sexual dysfunction, Urinary frequency, Urinary incontinence, Urgency, Hematuria, Dysuria, Nocturia, Penile Discharge, Testicular Pain, Testicular Swelling Musculoskeletal: DENIES: Joint pain, Muscle aches, Stiffness, Joint Swelling, Back pain, Neck pain Integumentary: DENIES: Abnormal pigmentation, Nail changes, Pruritus, Rash Hematologic/lymphatic: DENIES: Bruising, Lymphadenopathy Immunologic/allergic: DENIES: Eczema, Urticaria Neurologic: COMPLAINS OF: Abnormal gait, Localized weakness, Paresthesias, Poor Balance, DENIES: Headache, Seizures, Speech Problems, Tremor Psychiatric: DENIES: Anxiety, Confusion, Mood changes, Depression, Hallucinations, Agitation, Suicidal Ideation, Homicidal Ideation, Delusions Past Family Social History Past Medical History Brain tumors recent admission due to PE Past Surgical History Craniectomy for intracranial hemorrhage IVC filter Reported Medications Reported Meds & Active Scripts Active Ondansetron Liq (Ondansetron HCl) 4 Mg/5 Ml Soln 4 Mg PO Q8H PRN Reported Hydrocodone-Acetaminophen 7.5-325 mg Tab 2 Tab PO Q6H PRN Zantac (Ranitidine HCl) 300 Mg Tab 300 Mg PO DAILY Dexamethasone 2 Mg Tab 2 Mg PO DAILY Allergies: Coded Allergies: AMADOU Inhibitors (Verified Allergy, Severe, RASH, SWELLING , 12/10/16) Lisinopril (Verified Adverse Reaction, Severe, Swelling, 12/10/16) Upper lip Swelling *MDRO Multi-Drug Resistant Organism (Verified Adverse Reaction, Unknown, ) MRSA PCR screen POSITIVE 10/10/16 Active Ordered Medications Current Medications Sodium Chloride (NS Flush) 2 ml UNSCH PRN IV FLUSH FLUSH AFTER USING IV ACCESS ; Start 02/05/17 at 14:15 Sodium Chloride (NS Flush) 2 ml BID IV FLUSH ; Start 02/05/17 at 21:00 Acetaminophen (Tylenol) 650 mg Q4H PRN PO TEMP > 100.4; Start 02/05/17 at 14:15 Ondansetron HCl (Zofran Inj) 4 mg Q6H PRN IVP NAUSEA OR VOMITING; Start at 14:15 Naloxone HCl (Narcan Inj) 0.4 mg UNSCH PRN IV SEE LABEL COMMENTS; Start at 14:15 Senna/Docusate Sodium (Daksha-Colace) 1 tab BID PO ; Start 02/05/17 at 21:00 Magnesium Hydroxide (Milk Of Magnesia Liq) 30 ml Q12H PRN PO MILD - MODERATE CONSTIPATION; Start 02/05/17 at 14:15 Sennosides (Senokot) 17.2 mg Q12H PRN PO MODERATE - SEVERE CONSTIPATION; Start 02/05/17 at 14:15 Bisacodyl (Dulcolax Supp) 10 mg DAILY PRN RECTAL SEVERE CONSITIPATION; Start at 14:15 Lactulose (Lactulose Liq) 30 ml DAILY PRN PO SEVERE CONSITIPATION; Start at 14:15 Dexamethasone (Decadron) 2 mg DAILY PO ; Start 02/06/17 at 09:00; Status UNV Acetaminophen/ Hydrocodone Bitart ([place] 7.5-325 Mg) 2 tab Q6H PRN PO PAIN; Start 02/05/17 at 14:30; Status UNV Famotidine (Pepcid) 20 mg BID PO ; Start 02/05/17 at 21:00; Status UNV Family History Father: colon cancer Mother: alzheimer's disease Social History One wine per day Lives with girlfriend/fiance No smoking or drug use Physical Exam Physical Exam GENERAL: This is a well-nourished, well-developed patient, in no apparent distress. SKIN: No rashes, ecchymoses or lesions. Cool and dry. HEAD: Atraumatic. Normocephalic. No temporal or scalp tenderness. EYES: Pupils equal round and reactive. Extraocular motions intact. No scleral icterus. No injection or drainage. ENT: Nose without bleeding, purulent drainage or septal hematoma. Throat without erythema, tonsillar hypertrophy or exudate. Uvula midline. Airway patent. NECK: Trachea midline. No JVD or lymphadenopathy. Supple, nontender, no meningeal signs. CARDIOVASCULAR: Regular rate and rhythm without murmurs, gallops, or rubs. RESPIRATORY: Clear to auscultation. Breath sounds equal bilaterally. No wheezes , rales, or rhonchi. GASTROINTESTINAL: Abdomen soft, non-tender, nondistended. No hepato-splenomegaly , or palpable masses. No guarding. MUSCULOSKELETAL: Extremities without clubbing, cyanosis, or edema. No joint tenderness, effusion, or edema noted. No calf tenderness. Negative Homans sign bilaterally. NEUROLOGICAL: Awake and alert. Cranial nerves II through XII intact. left 3/5 left hand weakness. + decrease sensation with touch of lateral portion of hand and 1st and 2nd digit. decrease sensation of the left arm up to the upper part of shoulder. Right hand and forearm with decreased sensation. Strength is intact. Lower extremity strength is intact 5/5. Gait was not assessed due to increased risk of fall. Assessment and Plan Assessment and Plan 61-year-old male history of intracranial hemorrhage, recent PE status post IVC filter, melanoma the brain who presented with unsteady gait, short-term memory loss, bilateral upper extremity paresthesia with left upper extremity weakness Unsteady gait/bilateral upper extremity paresthesia with left upper extremity weakness -Occurring in a patient with melanoma to brain. 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 -Will get a screening MRI of the cervical, thoracic, lumbar. -We will also get lumbar puncture but will need CBC and coags stat. Once labs are obtained will put LP. Dealt with Dr. Thompson. -Neuro exams. -Will consult neurologist. -will consult PT/OT. Melanoma of the brain -Being managed by Dr. Thompson, oncologist and Dr. Diaz radiation oncologist. -We will continue Decadron. -Patient is on 05/15 of radiation treatment. -Will consult his oncologist and radiation oncologist. -Continue with supportive care. History of PE -Status post IVC filter. -Anticoagulation contraindicated due to recent intracranial hemorrhage. DVT prophylaxis -SCDs/DALLIN Discussed Condition With patient and his [facility] Physician Certification 2 Midnight Certification Type: Admission for Inpatient Services Order for Inpatient Services The services are ordered in accordance with Medicare regulations or non- Medicare payer requirements, as applicable. In the case of services not specified as inpatient-only, they are appropriately provided as inpatient services in accordance with the 2-midnight benchmark. Estimated LOS (days): 5 5 days is the estimated time the patient will need to remain in the hospital, assuming treatment plan goals are met and no additional complications. Post-Hospital Plan: [facility] Melinda Tiwari MD Feb 05, 2017 14:48
[2017-02-05 15:57] LABS: AUTOMATED NEUTROPHIL # 6.5 TH/MM3 (1.8-7.7); BASOPHIL % 0.2 % (0.0-2.0); EOSINOPHIL % 0.1 % (0.0-4.0); HEMATOCRIT 39.1 % (39.0-51.0); HEMO FLAGS DIFF FINAL; LYMPH % 6.3 % (9.0-44.0); LYMPHOCYTE # 0.5 TH/MM3 (1.0-4.8); MEAN CELL VOLUME 90.5 FL (80.0-100.0); MEAN CORPUSCULAR HEMOGLOBIN 29.2 PG (27.0-34.0); MEAN CORPUSCULAR HGB CONC 32.3 % (32.0-36.0); MONO % 5.1 % (0.0-8.0); NEUT % 88.3 % (16.0-70.0); PLATELET COUNT 202 TH/MM3 (150-450); RED BLOOD COUNT 4.32 MIL/MM3 (4.50-5.90); RED CELL DISTRIBUTION WIDTH 16.3 % (11.6-17.2); WHITE BLOOD COUNT 7.4 TH/MM3 (4.0-11.0)
[2017-02-05 16:00] VITALS: BP 131/72; PULSE 66; RESP 18; TEMP 97.3; O2SAT 98
[2017-02-05] MEDS ORDERED: PILL SPLITTER OTHER PRN (16:00)
[2017-02-05 16:15] LABS: APTT (PATIENT) 22.1 SEC (24.3-30.1); INTERNATIONAL NORMALIZED RATIO 0.9 RATIO; PROTHROMBIN TIME - PATIENT 10.2 SEC (9.8-11.6)
[2017-02-05 16:21] LABS: ALT (GPT) 31 U/L (12-78); ANION GAP 8 MEQ/L (5-15); AST (GOT) 15 U/L (15-37); BICARBONATE 29.7 MEQ/L (21.0-32.0); BLOOD UREA NITROGEN 14 MG/DL (7-18); CHLORIDE 101 MEQ/L (98-107); GLOMERULAR FILTRATION RATE 110 ML/MIN (>89); POTASSIUM 4.6 MEQ/L (3.5-5.1); SODIUM (NA) 139 MEQ/L (136-145)
[2017-02-05 16:24] LABS: ALKALINE PHOSPHATASE 65 U/L (45-117); TOTAL BILIRUBIN ADULT 0.3 MG/DL (0.2-1.0)
[2017-02-05] MEDS: ACETAMINOPHEN/HYDROcodone 325 MG/7.5 MG TAB PO PRN ×2 (16:28→23:23)
[2017-02-05 20:00] VITALS: BP 146/88; PULSE 60; RESP 16; TEMP 97.5; O2SAT 98
--- NOTE | 2017-02-05 21:13 | MB ---
cc: NOVA PEREIRA M.D. DATE OF CONSULTATION 02/05/2017 DATE OF 1955 REASON FOR CONSULTATION Upper extremity weakness. 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 He had tumor resection and then later presented with multiple lesions. Stereotactic radiation was then performed and then later whole-brain radiation since the lesions increased and he had presented with more trouble with gait, upper extremity weakness, paresthesias. 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 Now he has developed some on the right side and he has paresthesias scattered in his legs. He has been having unsteady gait. He cannot ambulate unassisted. Some dizziness. Note per ____ currently the patient is on 05/15 radiation treatments. He just saw Dr. Thompson today in the office who recommended he come in for admission due to his symptoms changing. PAST MEDICAL HISTORY He has a past medical history as stated. PAST SURGICAL HISTORY 1. He has had a craniotomy for the intracranial hemorrhage. 2. IVC filter placed for recent PE. MEDICATIONS Active medicines: 1. Hydrocodone. 2. Tylenol. 3. Zantac. 4. Decadron 2 milligrams daily. ALLERGIES AMADOU INHIBITORS, LISINOPRIL. SOCIAL HISTORY Lives with his girlfriend, gustavo. Does not smoke or use drugs. Drinks a glass of wine a day. PHYSICAL EXAMINATION VITAL SIGNS: Vitals are still pending to be taken. GENERAL: He is a 61-year-old man lying in bed in no distress. NEUROLOGIC: Awake and alert. He knows he is in the hospital. He knows why he is here. Speech is not significantly dysarthric. Pupils are reactive. Does have a left facial droop. His tongue is midline. He has trouble maintaining resistance against strength testing of his left ____. Facial sensation is normal. He has some rash-like lesions over the right scalp frontal area may be due to radiation. 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 Finger strength is decreased as well. He does not have a wrist drop. He has actually increased sensitivity over the palm of the hand and distribution fingers four and five. No Jason's sign. No significant drift. Proximally he is stronger. There may be of minimal leg lag on the left. He has trouble raising both together. He is at best 4/5 bilaterally. Reflexes are slightly brisker throughout. Toes withdraws. As stated reflexes are 2-3+. No clonus. Cerebellar on left he has trouble with but [id number]-[id number] on the right is intact. Gait is withheld. LABORATORY DATA his labs were reviewed from 01/30. He is pending new labs today. IMAGING STUDIES Brain MRI reviewed from 01/18/2017 with decrease in the lesions in the right temporal and left parietal but new right frontal, left cerebellar and suspected micro metastasis in the centrum semiovale bilaterally. Noted to be atraumatic change. Also involving the ventricular system with abnormal nodular enhancement in the ventricles likely representing metastatic disease. 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 He will undergo a spinal tap that is been ordered by the admitting doctor. Also a screening MRI cervical, thoracic and lumbar to be done with and without contrast if possible. Continue his Decadron. He has never had any seizures. He is not on any preventative antiepileptic medications. Continue workup as outlined. Further recommendations will be made accordingly. I believe radiation oncology has also been consulted. If he does have carcinomatous meningitis then intrathecal treatment is an option. We will defer to his oncologist. from a neurologic perspective there is not much more I have to offer except having him undergo the workup at this point in time. Please call me with any questions or concerns. MD DAVID Aquino/MARA /3:54 PM /8:20 PM
--- NOTE | 2017-02-05 22:46 | MB ---
cc: ED BOLES MD DATE OF CONSULTATION: 02/05/2017 REASON FOR CONSULTATION: Patient with metastatic melanoma and progressive neurologic deficits suggesting solid tumor meningitis. PATIENT PROFILE: The patient is single. He has a fiance. He has never smoked. He was born in [place], [place]. He has no children. He has lived in [place] for six years and prior to this lived in the [facility]. 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 In the past he had a glass of wine per day. 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 HISTORY OF PRESENT ILLNESS: The patient is a 61 year-old male whose history dates back to October 09, 2016, when he presented to [facility] with a one week history of headache, nausea and vomiting. He had a CT scan of the brain which showed a right temporal cranial hemorrhage. This was thought to be due to hypertension. He was hospitalized for approximately a week and discharged on 10/15/2016. He had a second admission on 11/06/2016, following a seizure and syncope. He was hospitalized for three days and discharged on seizure medicine and continued to deteriorate with worsening confusion, weakness, nausea and weight loss. He was admitted a third time and had an MRI of the brain on 11/17/2016 showing increased mass effect and midline shift. In addition, CT scan of the thorax, abdomen and pelvis showed no evidence of a primary malignancy or metastatic disease. On 11/20/2016, the patient had a craniotomy performed by Dr. Flores with removal of a hemorrhagic malignancy. The pathology showed a melanoma. There was no evidence of a V600 mutation. The patient was scheduled to receive stereotactic radiotherapy to the tumor bed, but additional radiographic studies showed a second lesion in the occipital lobe. He then received stereotactic radiotherapy to both areas. Following this he continued to deteriorate with increasing weakness and poor memory. He had an MRI of the brain on January 18, 2017 showing multiple new lesions. The most dramatic change involved the ventricular system where there was abnormal nodular enhancement in the ventricles likely representing metastatic disease. The patient has been receiving whole brain radiation. He is taking dexamethasone 2 mg a day, hydrocodone/acetaminophen for pain. He came to the office today accompanied by his fiance and it was clear that there was progressive neurologic deterioration. He was having ataxia involving both the left arm. He was complaining of new numbness in the fingertips of the left hand and the right hand as well. There had been clear deterioration. He is in a wheelchair. With every passing week there is another neurologic problem. The diplopia that he had before has mostly resolved and eye movements are only slightly disconjugate. PAST SURGICAL HISTORY: 1. Bilateral inguinal hernia repair May 2016. 2. 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 3. Craniotomy and excision of right temporal lobe hemorrhagic lesion, 11/20/2016, surgeon Dr. Abe Flores, diagnosis malignant melanoma with hemorrhage. PAST MEDICAL HISTORY: 1. 12/18/2016, placement of inferior vena cava filter for pulmonary embolus. Patient not felt to be a candidate for anticoagulation due to hemorrhagic brain metastases. At the same time he was found to have nonocclusive thrombus in the mid left femoral vein with the right side being normal. 2. Stage IV melanoma, primary not identified. MEDICATIONS: Prior to admission: 1. The patient was receiving pembrolizumab as an outpatient every three weeks. 2. Dexamethasone 2 milligrams a day. 3. Hydrocodone/acetaminophen 7.5, 325 two tablets a day, every six hours as needed for pain. 4. Ondansetron p.r.n. nausea. 5. Zantac. ALLERGIES: AMADOU INHIBITOR SPECIFICALLY LISINOPRIL CAUSING SWOLLEN LIPS AND SOME PROBLEM WITH CODEINE. FAMILY HISTORY: Noncontributory. PHYSICAL EXAMINATION: The physical examination reveals a gentleman who is in a wheelchair. He continues to deteriorate. He has a problem with coordination with left arm and leg. He is weak and has lost weight with global weakness. VITAL SIGNS: Blood pressure is 130/70, respiratory rate 18, pulse 70 afebrile. O2 sat 98%. HEAD: Normocephalic. Sclera and conjunctivae are normal. Oropharynx unremarkable. Slight disconjugate gaze on lateral movement. In the right axilla there is a subcutaneous firm nodule, probably melanoma measuring about 2 cm, slightly larger than it was several weeks ago. HEART: Regular rhythm. LUNGS: Clear. ABDOMEN: Without hepatosplenomegaly. EXTREMITIES: Trace edema. MUSCULOSKELETAL: There is significant muscle wasting. NEUROLOGIC: Slight disconjugate gaze. Significant bilateral proximal leg weakness. Paresthesias in both arms. Dysmetria involving left arm and left leg. ASSESSMENT: The patient is a 61 year-old male with metastatic melanoma to the brain which has progressed rapidly. In spite of receiving whole brain radiation, he continues to have new neurologic problems. His most recent MRI of the brain showed tumor along the ventricles which would predispose him enormously to solid tumor meningitis. PLAN: I believe that we need to establish a diagnosis rapidly given the deterioration. This would require an MRI, spinal tap and possibly neurologic consult. I have requested that the patient have an MRI of the cervical, thoracic and lumbar spine. He will need a spinal tap with cell count, diff, glucose, protein, microbiology and most importantly cytology. I spoke to the patient's fiance about the possibility of having solid tumor meningitis. If he does have the is, I really do not have a good treatment for him, especially given the rapid progression, one could consider an Ommaya reservoir but I don't anticipate much success if this is solid tumor meningitis from melanoma. MD LOY Leija/ALFRED /7:48 PM /10:16 PM FRANK
[2017-02-05] MEDS: DOCUSATE SODIUM 50 MG/SENNA 8.6 MG TAB PO SCH (23:01)
[2017-02-05] MEDS: FAMOTIDINE 20 MG TAB PO SCH (23:02)
[2017-02-05] MEDS: SODIUM CHLORIDE 0.9% FLUSH 10 ML FLUSH IV FLUSH SCH (23:02)
[2017-02-06] VITALS: BP 153/85; PULSE 56; RESP 16; TEMP 97.3; O2SAT 99
[2017-02-06 04:00] VITALS: BP 165/88; PULSE 59; RESP 16; TEMP 97.4; O2SAT 97
[2017-02-06 08:00] VITALS: BP 151/82; PULSE 89; RESP 14; TEMP 98.6; O2SAT 99
[2017-02-06] MEDS: DOCUSATE SODIUM 50 MG/SENNA 8.6 MG TAB PO SCH ×2 (09:16→21:00)
[2017-02-06] MEDS: ACETAMINOPHEN/HYDROcodone 325 MG/7.5 MG TAB PO PRN ×2 (09:16→13:41)
[2017-02-06] MEDS: DEXAMETHASONE 4 MG TAB PO SCH (09:16)
[2017-02-06] MEDS: SODIUM CHLORIDE 0.9% FLUSH 10 ML FLUSH IV FLUSH SCH ×2 (09:16→22:43)
[2017-02-06] MEDS: FAMOTIDINE 20 MG TAB PO SCH ×2 (09:16→21:00)
--- NOTE | 2017-02-06 09:35 | HHI.PR ---
Subjective Remarks Follow-up for neurological symptoms Patient continues to complain of paresthesias of his upper extremity. His nurse and tech at bedside. She stated that unable to get IV access at the moment and that IV access team will try to obtain one soon. Patient has not gotten any imaging studies yet. He did ask for water. Otherwise no other complaints. Objective Vitals Vital Signs Date Time Temp Pulse Resp B/P Pulse Ox O2 Delivery O2 Flow Rate FiO2 02/06/17 04:00 97.4 59 16 165/88 97 02/06/17 00:00 97.3 56 16 153/85 99 02/05/17 20:00 97.5 60 16 146/88 98 02/05/17 16:00 97.3 66 18 131/72 98 I/O 02/05/17 02/05/17 02/05/17 02/06/17 02/06/17 02/06/17 07:00 15:00 23:00 07:00 15:00 23:00 Intake Total 1320 ml 360 ml Output Total 900 ml Balance 1320 ml -540 ml Intake Oral 1320 ml 360 ml Output Urine Total 900 ml # Voids 2 # Bowel Movements 0 0 Result Diagram: 02/05/17 1522 02/05/17 1522 Objective Remarks GENERAL: This is a well-nourished, well-developed patient, in no apparent distress. CARDIOVASCULAR: Regular rate and rhythm without murmurs, gallops, or rubs. RESPIRATORY: Clear to auscultation. Breath sounds equal bilaterally. No wheezes , rales, or rhonchi. GASTROINTESTINAL: Abdomen soft, non-tender, nondistended. No hepato-splenomegaly , or palpable masses. No guarding. MUSCULOSKELETAL: Extremities without clubbing, cyanosis, or edema. No joint tenderness, effusion, or edema noted. No calf tenderness. Negative Homans sign bilaterally. NEUROLOGICAL: Awake and alert. Cranial nerves II through XII intact. left 3/5 left hand weakness. + decrease sensation with touch of lateral portion of hand and 1st and 2nd digit. decrease sensation of the left arm up to the upper part of shoulder. Right hand and forearm with decreased sensation. Strength is intact. Lower extremity strength is intact 5/5. Gait was not assessed due to increased risk of fall. Medications and IVs Current Medications Sodium Chloride (NS Flush) 2 ml UNSCH PRN IV FLUSH FLUSH AFTER USING IV ACCESS ; Start 02/05/17 at 14:15 Sodium Chloride (NS Flush) 2 ml BID IV FLUSH Last administered on 02/05/17 23: 02; Start 02/05/17 at 21:00 Acetaminophen (Tylenol) 650 mg Q4H PRN PO TEMP > 100.4; Start 02/05/17 at 14:15 Ondansetron HCl (Zofran Inj) 4 mg Q6H PRN IVP NAUSEA OR VOMITING; Start at 14:15 Naloxone HCl (Narcan Inj) 0.4 mg UNSCH PRN IV SEE LABEL COMMENTS; Start at 14:15 Senna/Docusate Sodium (Daksha-Colace) 1 tab BID PO Last administered on 02/06/17 09:16; Start 02/05/17 at 21:00 Magnesium Hydroxide (Milk Of Magnesia Liq) 30 ml Q12H PRN PO MILD - MODERATE CONSTIPATION; Start 02/05/17 at 14:15 Sennosides (Senokot) 17.2 mg Q12H PRN PO MODERATE - SEVERE CONSTIPATION; Start 02/05/17 at 14:15 Bisacodyl (Dulcolax Supp) 10 mg DAILY PRN RECTAL SEVERE CONSITIPATION; Start at 14:15 Lactulose (Lactulose Liq) 30 ml DAILY PRN PO SEVERE CONSITIPATION; Start at 14:15 Dexamethasone (Decadron) 2 mg DAILY PO Last administered on 02/06/17 09:16; Start 02/06/17 at 09:00 Acetaminophen/ Hydrocodone Bitart ([place] 7.5-325 Mg) 2 tab Q6H PRN PO PAIN 1- 10 Last administered on 02/06/17 09:16; Start 02/05/17 at 14:30 Famotidine (Pepcid) 20 mg BID PO Last administered on 02/06/17 09:16; Start 02/05/17 at 21:00 Miscellaneous (Pill Splitter) 1 ea UNSCH PRN OTHER SEE LABEL COMMENTS; Start at 16:00 A/P Assessment and Plan 61-year-old male history of intracranial hemorrhage, recent PE status post IVC filter, metastatic 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 -Pending screening MRI of the cervical, thoracic, lumbar. -Pending lumbar puncture with cell count and differential, total protein, glucose, cultures, and cytology. -Neuro exams. -Appreciate neurologist consult. Metastatic Melanoma ot the brain -Being managed by Dr. Thompson, oncologist and Dr. Diaz radiation oncologist who are following patient. -continue Decadron. -Patient is on 05/15 of radiation treatment. -Continue with supportive care. History of PE -Status post IVC filter. -Anticoagulation contraindicated due to recent intracranial hemorrhage. DVT prophylaxis -SCDs/Melinda Angulo MD Feb 06, 2017 09:35
[2017-02-06 12:00] VITALS: BP 155/98; PULSE 74; RESP 12; TEMP 98.1; O2SAT 97
--- NOTE | 2017-02-06 14:01 | PD.ONC.PN ---
Subjective Subjective Remarks Afebrile overnight Pt sitting up in bed with visitor present Denies acute complaints Going for MRI and Lumbar Puncture this afternoon Objective Data Date Time Temp Pulse Resp B/P Pulse Ox O2 Delivery O2 Flow Rate FiO2 02/06/17 12:00 98.1 74 12 155/98 97 02/06/17 11:02 16 02/06/17 08:00 98.6 89 14 151/82 99 02/06/17 04:00 97.4 59 16 165/88 97 02/06/17 00:00 97.3 56 16 153/85 99 02/05/17 20:00 97.5 60 16 146/88 98 02/05/17 16:00 97.3 66 18 131/72 98 02/06/17 02/06/17 02/06/17 07:00 15:00 23:00 Intake Total 360 ml Output Total 900 ml Balance -540 ml Result Diagram: 02/05/17 1522 02/05/17 1522 Laboratory Results Laboratory Tests Test 02/05/17 15:22 White Blood Count 7.4 TH/MM3 Red Blood Count 4.32 MIL/MM3 Hemoglobin 12.6 GM/DL Hematocrit 39.1 % Mean Corpuscular Volume 90.5 FL Mean Corpuscular Hemoglobin 29.2 PG Mean Corpuscular Hemoglobin 32.3 % Concent Red Cell Distribution Width 16.3 % Platelet Count 202 TH/MM3 Mean Platelet Volume 7.4 FL Neutrophils (%) (Auto) 88.3 % Lymphocytes (%) (Auto) 6.3 % Monocytes (%) (Auto) 5.1 % Eosinophils (%) (Auto) 0.1 % Basophils (%) (Auto) 0.2 % Neutrophils # (Auto) 6.5 TH/MM3 Lymphocytes # (Auto) 0.5 TH/MM3 Monocytes # (Auto) 0.4 TH/MM3 Eosinophils # (Auto) 0.0 TH/MM3 Basophils # (Auto) 0.0 TH/MM3 CBC Comment DIFF FINAL Differential Comment Prothrombin Time 10.2 SEC Prothromb Time International 0.9 RATIO Ratio Activated Partial 22.1 SEC Thromboplast Time Sodium Level 139 MEQ/L Potassium Level 4.6 MEQ/L Chloride Level 101 MEQ/L Carbon Dioxide Level 29.7 MEQ/L Anion Gap 8 MEQ/L Blood Urea Nitrogen 14 MG/DL Creatinine 0.72 MG/DL Estimat Glomerular Filtration 110 ML/MIN Rate Random Glucose 140 MG/DL Calcium Level 8.6 MG/DL Total Bilirubin 0.3 MG/DL Aspartate Amino Transf 15 U/L (AST/SGOT) Alanine Aminotransferase 31 U/L (ALT/SGPT) Alkaline Phosphatase 65 U/L Total Protein 6.1 GM/DL Albumin 2.6 GM/DL Administered Medications Medications (Trade) Dose Ordered Sig/Munir Route PRN Reason Start Time Stop Time Status Last Admin Dose Admin Sodium Chloride (NS Flush) 2 ml BID IV FLUSH 02/05/17 21:00 02/05/17 23:02 Ondansetron HCl (Zofran Inj) 4 mg Q6H PRN IVP NAUSEA OR VOMITING 02/05/17 14:15 02/06/17 10:57 Senna/Docusate Sodium (Daksha-Colace) 1 tab BID PO 02/05/17 21:00 02/06/17 09:16 Dexamethasone (Decadron) 2 mg DAILY PO 02/06/17 09:00 02/06/17 09:16 Acetaminophen/ Hydrocodone Bitart ([place] 7.5-325 Mg) 2 tab Q6H PRN PO PAIN 1-10 02/05/17 14:30 02/06/17 13:41 Famotidine (Pepcid) 20 mg BID PO 02/05/17 21:00 02/06/17 09:16 Objective Remarks GENERAL: Thin, chronically ill appearing male, sitting up in bed in no distress. SKIN: Warm and dry. Bruising to bilateral upper arms from unsuccessful IV attempts. HEAD: Normocephalic. EYES: Diplopia resolving NECK: Supple, trachea midline. CARDIOVASCULAR: +S1/S2. RESPIRATORY: Breath sounds equal bilaterally. No accessory muscle use. GASTROINTESTINAL: Abdomen soft, non-tender, nondistended. EXTREMITIES: No cyanosis, or edema. DALLIN hose to BLE. MUSCULOSKELETAL: Decreased muscle tone overall. NEUROLOGICAL: Numbness and tingling to bilateral upper arms improved. BLE weakness Assessment/Plan Problem List: (1) metastatic melanoma, brain Status: Acute Assessment 61 y/o male with metastatic melanoma admitted for worsening neurologic problems Plan 1. Pt to have MRI spine and lumbar puncture today. We would like to rule out solid tumor meningitis due to his increased neurological deficits. 2. If the cytology from lumbar spine appears to be that of meningitis, there is little to offer at this point except for an Ommaya reservoir, but this would not be expected to have a significant change in prognosis. 3. Further recommendations based on results of testing. Attending Statement The exam, history, and the medical decision-making described in the above note were completed with the assistance of the mid-level provider. I reviewed and agree with the findings presented. I attest that I had a [id number] encounter with the patient on the same day, and personally performed and documented my assessment and findings in the medical record. The findings of a glucose less then 1 and protein > 700 in the spinal fluid is consistent with meningitis from melanoma especially given that the micro show no organisms. Await cytology and hope it will be back by tomorrow as if I have confirmation I will talk to his food sampler about hospice. He is agitated and confused this evening and I have asked the nursing staff not to give ativan. Kerri Gamez Feb 06, 2017 14:01 Jayro Thompson MD Feb 06, 2017 20:50
[2017-02-06] MEDS ORDERED: GADODIAMIDE PF 287 MG/ML 5 ML VIAL (for RAD MRI) IV ONE (15:37)
--- NOTE | 2017-02-06 16:39 | RADRPT ---
EXAM DATE/TIME: 02/06/2017 15:10 [facility] COMPARISON: MRI BRAIN W & W/O CONTRAST, January 18, 2017, 7:50. INDICATIONS : Bilateral lower extremity weakness. Left hand numbness. CONTRAST: 13 cc Omniscan (gadodiamide) IV MEDICAL HISTORY : melanoma, brain mets SURGICAL HISTORY : hernia, crainiotomy ENCOUNTER: Subsequent ACUITY: 1 week PAIN SCORE: 3/10 LOCATION: Left arm TECHNIQUE: Screening MRI of the entire spinal axis was performed in the sagittal and axial planes. FINDINGS: The vertebral bodies are satisfactory aligned without evidence of metastatic disease, bone marrow chas ma or compression deformities. Abnormal enhancing tissue is identified in the subarachnoid space of the mid cervical spine at the C5 -6 level on the left. There is extension of the enhancing tissue into the left nerve root sleeve of C 5-6. Enhancing tissue is also seen along the posterior surface of the cervical spinal cord at C6 and C7. Subtle very small faint additional enhancing lesions are seen along the thoracic spinal cord surface. Nerve roots of the lumbar cauda equina are diffusely thickened and demonstrate significant abnormal e nhancement. CONCLUSION: Abnormal intrathecal enhancing soft tissue in the cervical spine as described as well as diffusely th ickened enhancing cauda equina nerve roots characteristic of metastatic involvement in this patient w ith known metastatic seeding along the ependymal surface of the ventricles. No evidence of bony involvement.. Blake Corbin MD on February 06, 2017 at 16:24 Board Certified Radiologist. This report was verified electronically.
[2017-02-06] MEDS ORDERED: LORazepam 2 MG/ML VIAL ONE (17:09)
--- NOTE | 2017-02-06 17:26 | PD.RAD ---
Post Procedure Progress Note Pre Procedure Diagnosis: (1) Brain metastases (2) Altered mental status (3) metastatic melanoma, brain Post Procedure Diagnosis: (1) metastatic melanoma, brain (2) Altered mental status Procedure Date: Feb 06, 2017 Supervising Radiologist: Eze Medrano Proceduralist/Assist: Eloise Atkinson, RT(R)(), Becky Reilly, RT(R)(CV), Josselyn Richey, RT(R) Anesthesia: Local Plan of Activity Patient to Unit: Nursing Unit Patient Condition: Good See PACS Report for procedural detail/treatment Spinal Procedure Lumbar Puncture L2-L3 Fluid Description: Clear, Yellow Puncture Time: 17:15 Findings: OP: 20.5 cmH2O Eze Medrano MD Feb 06, 2017 17:26
[2017-02-06 18:11] LABS: GLUCOSE,CSF LESS THAN 1 MG/DL (40-80)
[2017-02-06 18:13] LABS: LACTIC ACID,CSF 12.6 MMOL/L (0.0-3.0)
[2017-02-06] MEDS ORDERED: QUEtiapine FUMARATE 25 MG TAB PO ONE (18:30)
[2017-02-06 19:03] LABS: GROSS BLOOD TUBE #1 1+ (0); SUPERNATE COLOR TUBE #1 XANTHOCHROMIC (CLEAR)
[2017-02-06 19:04] LABS: GROSS BLOOD TUBE #2 1+ (0); SUPERNATE COLOR TUBE #2 XANTHOCHROMIC (CLEAR); SUPERNATE COLOR TUBE #3 XANTHOCHROMIC (CLEAR)
[2017-02-06 19:05] LABS: CSF LYMPHOCYTES 3 %; CSF MONOCYTES 93 %; CSF NEUTROPHILS 2 %; GROSS BLOOD TUBE #3 TRACE (0); SUPERNATE COLOR TUBE #4 XANTHOCHROMIC (CLEAR); VOLUME TUBE # 4 7.5 ML; WBC TUBE #4 50 /MM3 (0-10)
[2017-02-06] MEDS: LORazepam 2 MG/ML VIAL IV PUSH PRN (19:40)
[2017-02-06 20:00] VITALS: BP 154/85; PULSE 84; RESP 16; TEMP 96.5; O2SAT 96
[2017-02-07] VITALS: BP 154/85; PULSE 84; RESP 16; TEMP 96.5; O2SAT 96
[2017-02-07] MEDS: LORazepam 2 MG/ML VIAL IV PUSH PRN (02:22)
[2017-02-07 04:00] VITALS: BP 161/86; PULSE 93; RESP 16; TEMP 96.5; O2SAT 94
[2017-02-07 08:00] VITALS: BP 157/87; PULSE 96; RESP 19; TEMP 97.9; O2SAT 94
[2017-02-07] MEDS: DEXAMETHASONE 4 MG TAB PO SCH (08:41)
[2017-02-07] MEDS: DOCUSATE SODIUM 50 MG/SENNA 8.6 MG TAB PO SCH ×2 (08:41→21:00)
[2017-02-07] MEDS: SODIUM CHLORIDE 0.9% FLUSH 10 ML FLUSH IV FLUSH SCH ×2 (08:41→22:05)
[2017-02-07] MEDS: FAMOTIDINE 20 MG TAB PO SCH ×2 (08:41→21:00)
--- NOTE | 2017-02-07 09:40 | HHI.PR ---
Subjective Remarks Follow-up for neurological symptoms Patient is altered today. He is not able to give me any history. He is AAO 3. He is mumbling words I do not understand. She is also mimicking different types of hand movements. Dealt with patient's nurse. This seems to occur after patient was given Ativan IV for his procedure yesterday. He continues to get Ativan for agitation at the moment. Objective Vitals Vital Signs Date Time Temp Pulse Resp B/P Pulse Ox O2 Delivery O2 Flow Rate FiO2 02/07/17 08:00 97.9 96 19 157/87 94 02/07/17 04:00 96.5 93 16 161/86 94 02/07/17 00:00 96.5 84 16 154/85 96 02/06/17 20:00 96.5 84 16 154/85 96 02/06/17 12:00 98.1 74 12 155/98 97 02/06/17 11:02 16 I/O 02/06/17 02/06/17 02/06/17 02/07/17 02/07/17 02/07/17 07:00 15:00 23:00 07:00 15:00 23:00 Intake Total 360 ml 450 ml 100 ml Output Total 900 ml 350 ml Balance -540 ml 100 ml 100 ml Intake Oral 360 ml 450 ml 100 ml Output Urine Total 900 ml 350 ml # Voids 1 1 2 # Bowel Movements 0 0 0 0 Result Diagram: 02/05/17 1522 02/05/17 1522 Imaging Last Impressions Entire Spine MRI 02/06/17 0000 Signed Impressions: Service Date/Time: Monday, February 06, 2017 15:10 - CONCLUSION: Abnormal intrathecal enhancing soft tissue in the cervical spine as described as well as diffusely thickened enhancing cauda equina nerve roots characteristic of metastatic involvement in this patient with known metastatic seeding along the ependymal surface of the ventricles. No evidence of bony involvement.. Blake Corbin MD Objective Remarks GENERAL: This is a well-nourished, well-developed patient, in no apparent distress. CARDIOVASCULAR: Regular rate and rhythm without murmurs, gallops, or rubs. RESPIRATORY: Clear to auscultation. Breath sounds equal bilaterally. No wheezes , rales, or rhonchi. GASTROINTESTINAL: Abdomen soft, non-tender, nondistended. No hepato-splenomegaly , or palpable masses. No guarding. MUSCULOSKELETAL: Extremities without clubbing, cyanosis, or edema. No joint tenderness, effusion, or edema noted. No calf tenderness. Negative Homans sign bilaterally. NEUROLOGICAL: AAO 3. Patient is altered and confused. He is moving all history extremity. Medications and IVs Current Medications Sodium Chloride (NS Flush) 2 ml UNSCH PRN IV FLUSH FLUSH AFTER USING IV ACCESS ; Start 02/05/17 at 14:15 Sodium Chloride (NS Flush) 2 ml BID IV FLUSH Last administered on 02/07/17 08: 41; Start 02/05/17 at 21:00 Acetaminophen (Tylenol) 650 mg Q4H PRN PO TEMP > 100.4; Start 02/05/17 at 14:15 Ondansetron HCl (Zofran Inj) 4 mg Q6H PRN IVP NAUSEA OR VOMITING Last administered on 02/06/17 10:57; Start 02/05/17 at 14:15 Naloxone HCl (Narcan Inj) 0.4 mg UNSCH PRN IV SEE LABEL COMMENTS; Start at 14:15 Senna/Docusate Sodium (Daksha-Colace) 1 tab BID PO Last administered on 08:41; Start 02/05/17 at 21:00 Magnesium Hydroxide (Milk Of Magnesia Liq) 30 ml Q12H PRN PO MILD - MODERATE CONSTIPATION; Start 02/05/17 at 14:15 Sennosides (Senokot) 17.2 mg Q12H PRN PO MODERATE - SEVERE CONSTIPATION; Start 02/05/17 at 14:15 Bisacodyl (Dulcolax Supp) 10 mg DAILY PRN RECTAL SEVERE CONSITIPATION; Start at 14:15 Lactulose (Lactulose Liq) 30 ml DAILY PRN PO SEVERE CONSITIPATION; Start at 14:15 Dexamethasone (Decadron) 2 mg DAILY PO Last administered on 02/07/17 08:41; Start 02/06/17 at 09:00 Acetaminophen/ Hydrocodone Bitart ([place] 7.5-325 Mg) 2 tab Q6H PRN PO PAIN 1- 10 Last administered on 02/06/17 13:41; Start 02/05/17 at 14:30 Famotidine (Pepcid) 20 mg BID PO Last administered on 02/07/17 08:41; Start at 21:00 Miscellaneous (Pill Splitter) 1 ea UNSCH PRN OTHER SEE LABEL COMMENTS; Start at 16:00 Gadodiamide (Omniscan Pf Inj) 13 ml STK-MED ONCE IV Last administered on 15:37; Start 02/06/17 at 15:37; Stop 02/06/17 at 15:38; Status DC Lorazepam (Ativan Inj) 2 mg STK-MED ONCE .ROUTE Last administered on 02/06/17 17:09; Start 02/06/17 at 17:09; Stop 02/06/17 at 17:10; Status DC Quetiapine Fumarate (SEROquel) 25 mg ONCE ONCE PO ; Start 02/06/17 at 18:30; Stop 02/06/17 at 18:31; Status DC Lorazepam (Ativan Inj) 1 mg Q6H PRN IV PUSH agitation Last administered on 02/07 02:22; Start 02/06/17 at 19:00 A/P Assessment and Plan 61-year-old male history of intracranial hemorrhage, recent PE status post IVC filter, metastatic 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 -Screening MRI of the cervical, thoracic, lumbar showed abnormal intrathecal enhancing soft tissue in the cervical spine as described as well as diffusely thickened enhancing cauda equina nerve roots characteristic of metastatic involvement in this patient with known metastatic seeding along the ependymal surface of the ventricles. -lumbar puncture showed elevated total protein 710.7, WBC 50 differential reviewed, RBC 110, glucose less than 1. -Neurologists consulted. Metabolic encephalopathy -Maybe due to progression of his cancer versus Ativan. -We'll discontinue Ativan. Will get a CT scan of his head. Metastatic Melanoma ot the brain -Being managed by Dr. Thompson, oncologist and Dr. Diaz radiation oncologist who are following patient. -continue Decadron. -Patient is on 05/15 of radiation treatment. -Continue with supportive care. History of PE -Status post IVC filter. -Anticoagulation contraindicated due to recent intracranial hemorrhage. DVT prophylaxis -SCDs/DALLIN Discharge Planning Mental status worsened today so he will need continual hospitalization. Melinda Tiwari MD Feb 07, 2017 09:40
--- NOTE | 2017-02-07 10:53 | RADRPT ---
EXAM DATE/TIME: 02/07/2017 10:07 [facility] COMPARISON: MRI BRAIN W & W/O CONTRAST, January 18, 2017, 7:50. INDICATIONS : Altered mental status. RADIATION DOSE: 56.35 CTDIvol (mGy) ; Patient motion MEDICAL HISTORY : Hypertension. Intracranial hemorrhage. SURGICAL HISTORY : Craniotomy. ENCOUNTER: Initial ACUITY: 1 day PAIN SCALE: Non-responsive LOCATION: cranial TECHNIQUE: Multiple contiguous axial images were obtained of the head. Using automated exposure control and adj ustment of the mA and/or kV according to patient size, radiation dose was kept as low as reasonably a chievable to obtain optimal diagnostic quality images. DICOM format image data is available electro nically for review and comparison. FINDINGS: There are multiple spontaneously dense foci evident in the brain consistent with widespread metastati c disease including several small hemorrhagic foci in the parenchyma and multiple subependymal nodule s. There is an area of encephalomalacia in the right temporal region with evidence of previous cranio zita. There is mild ventricular asymmetry which appears grossly stable. No drainable hemorrhagic bala ection is identified. There is nothing to suggest acute infarction. The extracranial structures are o therwise intact and grossly benign. CONCLUSION: Multiple brain metastases, some with minimal associated hemorrhage. Brian Moreno MD on February 07, 2017 at 10:46 Board Certified Radiologist. This report was verified electronically.
[2017-02-07 12:33] VITALS: BP 153/97; PULSE 88; RESP 19; TEMP 96.4; O2SAT 95
[2017-02-07] MEDS: QUEtiapine FUMARATE 25 MG TAB PO SCH (13:44)
[2017-02-07 15:26] LABS: AUTOMATED NEUTROPHIL # 10.3 TH/MM3 (1.8-7.7); BASOPHIL % 0.2 % (0.0-2.0); EOSINOPHIL % 0.1 % (0.0-4.0); HEMO FLAGS DIFF FINAL; LYMPH % 2.7 % (9.0-44.0); LYMPHOCYTE # 0.3 TH/MM3 (1.0-4.8); MEAN CELL VOLUME 87.6 FL (80.0-100.0); MEAN CORPUSCULAR HEMOGLOBIN 29.8 PG (27.0-34.0); MONO % 3.4 % (0.0-8.0); NEUT % 93.6 % (16.0-70.0); PLATELET COUNT 209 TH/MM3 (150-450); RED BLOOD COUNT 4.56 MIL/MM3 (4.50-5.90); RED CELL DISTRIBUTION WIDTH 16.4 % (11.6-17.2)
[2017-02-07 15:43] LABS: BICARBONATE 27.3 MEQ/L (21.0-32.0); POTASSIUM 3.8 MEQ/L (3.5-5.1)
[2017-02-07 16:00] VITALS: BP 155/86; PULSE 99; RESP 20; TEMP 96.8; O2SAT 95
--- NOTE | 2017-02-07 16:03 | RADRPT ---
EXAM DATE/TIME: 02/06/2017 17:00 [facility] COMPARISON: No previous studies available for comparison. INDICATIONS : Patient with a history of metastatic melanoma and progressive neurologic deficits suggesting solid tu mor meningitis MEDICAL HISTORY : Stage IV melanoma Brain metastases DVT SURGICAL HISTORY : Bilateral inguinal hernia repair Excision of basal cell cancer ENCOUNTER: Initial ACUITY: 2 months PAIN SCORE: 0/10 LUMBAR PUNCTURE TIME: 1715 hours FLUORO TIME: 1.1 minutes IMAGE SERIES: 1 ACCESS LEVEL: L2-3 OPENING PRESSURE: 20.5 cm of water CLOSING PRESSURE: Not requested. FLUID: 21 cc of clear, yellow CSF was collected and sent to the laboratory for analysis. SEDATION: 1.) 2 mg lorazepam (Ativan) IV PROCEDURE : 1. Fluoroscopic guided lumbar puncture. 2. Recording of opening pressure. The risks, benefits and alternatives to the procedure were explained and verbal and written consent w as obtained. The site was prepped in sterile fashion. Full sterile technique was used, including ca p, mask, sterile gloves and gown and a large sterile sheet. Hand hygiene and 2% chlorhexidine and/or betadine/alcohol prep was utilized per protocol for cutaneous antisepsis. The skin and subcutaneous tissues were infiltrated with local anesthetic solution. With fluoroscopic guidance the lumbar thecal sac was punctured at the above level described above and the opening pressure was recorded. The above described fluid was removed without difficulty. The patient was very confused and extremely uncooperative. CONCLUSION: 1. Uncomplicated fluoroscopically guided lumbar puncture with pressures as above. 2. Densely xanthochromatic CSF fluid. Eze Medrano MD on February 07, 2017 at 15:57 Board Certified Radiologist. This report was verified electronically.
[2017-02-07 20:00] VITALS: BP 156/89; PULSE 108; RESP 16; TEMP 97.2; O2SAT 93
--- NOTE | 2017-02-07 20:13 | PD.ONC.PN ---
Subjective Subjective Remarks patient confused and delirious Objective Data Date Time Temp Pulse Resp B/P Pulse Ox O2 Delivery O2 Flow Rate FiO2 02/07/17 16:00 96.8 99 20 155/86 95 02/07/17 12:33 96.4 88 19 153/97 95 02/07/17 08:00 97.9 96 19 157/87 94 02/07/17 04:00 96.5 93 16 161/86 94 02/07/17 00:00 96.5 84 16 154/85 96 02/07/17 02/07/17 02/07/17 07:00 15:00 23:00 Intake Total 100 ml 720 ml Balance 100 ml 720 ml Result Diagram: 02/07/17 1415 02/07/17 1415 Laboratory Results Laboratory Tests Test 02/07/17 14:15 White Blood Count 11.0 TH/MM3 Red Blood Count 4.56 MIL/MM3 Hemoglobin 13.6 GM/DL Hematocrit 40.0 % Mean Corpuscular Volume 87.6 FL Mean Corpuscular Hemoglobin 29.8 PG Mean Corpuscular Hemoglobin 34.0 % Concent Red Cell Distribution Width 16.4 % Platelet Count 209 TH/MM3 Mean Platelet Volume 7.8 FL Neutrophils (%) (Auto) 93.6 % Lymphocytes (%) (Auto) 2.7 % Monocytes (%) (Auto) 3.4 % Eosinophils (%) (Auto) 0.1 % Basophils (%) (Auto) 0.2 % Neutrophils # (Auto) 10.3 TH/MM3 Lymphocytes # (Auto) 0.3 TH/MM3 Monocytes # (Auto) 0.4 TH/MM3 Eosinophils # (Auto) 0.0 TH/MM3 Basophils # (Auto) 0.0 TH/MM3 CBC Comment DIFF FINAL Differential Comment Sodium Level 133 MEQ/L Potassium Level 3.8 MEQ/L Chloride Level 95 MEQ/L Carbon Dioxide Level 27.3 MEQ/L Anion Gap 11 MEQ/L Blood Urea Nitrogen 14 MG/DL Creatinine 0.69 MG/DL Estimat Glomerular Filtration 116 ML/MIN Rate Random Glucose 122 MG/DL Calcium Level 8.8 MG/DL Culture Results Microbiology Date/Time Procedure Status Source Growth 02/06/17 17:15 Gram Stain - Final Resulted Cerebral Spinal Fluid Lumbar Puncture 02/06/17 17:15 CSF Culture - Preliminary Resulted Cerebral Spinal Fluid Lumbar Puncture NO GROWTH IN 24 HOURS. Imaging Studies Last [address] 02/07/17 0000 Signed Impressions: Service Date/Time: January 10:07 - CONCLUSION: Multiple brain metastases, some with minimal associated hemorrhage. Brian Moreno MD Administered Medications Medications (Trade) Dose Ordered Sig/Munir Route PRN Reason Start Time Stop Time Status Last Admin Dose Admin Sodium Chloride (NS Flush) 2 ml BID IV FLUSH 02/05/17 21:00 02/07/17 08:41 Ondansetron HCl (Zofran Inj) 4 mg Q6H PRN IVP NAUSEA OR VOMITING 02/05/17 14:15 02/06/17 10:57 Senna/Docusate Sodium (Daksha-Colace) 1 tab BID PO 02/05/17 21:00 02/07/17 08:41 Dexamethasone (Decadron) 2 mg DAILY PO 02/06/17 09:00 02/07/17 08:41 Acetaminophen/ Hydrocodone Bitart ([place] 7.5-325 Mg) 2 tab Q6H PRN PO PAIN 1-10 02/05/17 14:30 02/06/17 13:41 Famotidine (Pepcid) 20 mg BID PO 02/05/17 21:00 02/07/17 08:41 Quetiapine Fumarate (SEROquel) 25 mg BID@09,12 PO 02/07/17 12:00 02/07/17 13:44 Objective Remarks GENERAL: agitated and confused moving arms in all directions. Assessment/Plan Problem List: (1) metastatic melanoma, brain Status: Acute Assessment 1: spinal tap finds reviewed with glucose less then 1 and high protein. I spoke with Dr. Fagan from path dept and picture consistent with ca meningitis and cytology should be back tomorrow or next day. He is dying and there is no effective treatment . I met with family and every one is in agreement that comfort measures are single goal. Will consult hospice with plan to transfer to [facility] for remaining days. no CPR which has been his wish from the beginning and family in total agreement. consult place with hospice and orders for DNR placed. Jayro Thompson MD Feb 07, 2017 20:13
[2017-02-07] MEDS ORDERED: MORPHINE SULFATE 4 MG/ML INJ IV PUSH PRN (20:15)
[2017-02-08 05:08] VITALS: BP 123/66; PULSE 84; RESP 16; TEMP 96.7; O2SAT 94
[2017-02-08 08:00] VITALS: BP 124/67; PULSE 83; RESP 18; TEMP 96.7; O2SAT 96
[2017-02-08] MEDS: DEXAMETHASONE 4 MG TAB PO SCH (08:26)
[2017-02-08] MEDS: QUEtiapine FUMARATE 25 MG TAB PO SCH (08:27)
[2017-02-08] MEDS: DOCUSATE SODIUM 50 MG/SENNA 8.6 MG TAB PO SCH (08:27)
[2017-02-08] MEDS: FAMOTIDINE 20 MG TAB PO SCH (08:27)
[2017-02-08] MEDS: SODIUM CHLORIDE 0.9% FLUSH 10 ML FLUSH IV FLUSH SCH (08:30)
--- NOTE | 2017-02-08 08:57 | PD.ONC.PN ---
Subjective Subjective Remarks Afebrile overnight. Patient agitated, confused. at bedside. at peace with decision made for hospice. Objective Data Date Time Temp Pulse Resp B/P Pulse Ox O2 Delivery O2 Flow Rate FiO2 02/08/17 05:08 96.7 84 16 123/66 94 02/07/17 20:00 97.2 108 16 156/89 93 02/07/17 16:00 96.8 99 20 155/86 95 02/07/17 12:33 96.4 88 19 153/97 95 02/08/17 02/08/17 02/08/17 07:00 15:00 23:00 Intake Total 0 ml Balance 0 ml Result Diagram: 02/07/17 1415 02/07/17 1415 Laboratory Results Laboratory Tests Test 02/07/17 02/07/17 13:46 14:15 Nasal Screen MRSA (PCR) MRSA NOT DETECTED White Blood Count 11.0 TH/MM3 Red Blood Count 4.56 MIL/MM3 Hemoglobin 13.6 GM/DL Hematocrit 40.0 % Mean Corpuscular Volume 87.6 FL Mean Corpuscular Hemoglobin 29.8 PG Mean Corpuscular Hemoglobin 34.0 % Concent Red Cell Distribution Width 16.4 % Platelet Count 209 TH/MM3 Mean Platelet Volume 7.8 FL Neutrophils (%) (Auto) 93.6 % Lymphocytes (%) (Auto) 2.7 % Monocytes (%) (Auto) 3.4 % Eosinophils (%) (Auto) 0.1 % Basophils (%) (Auto) 0.2 % Neutrophils # (Auto) 10.3 TH/MM3 Lymphocytes # (Auto) 0.3 TH/MM3 Monocytes # (Auto) 0.4 TH/MM3 Eosinophils # (Auto) 0.0 TH/MM3 Basophils # (Auto) 0.0 TH/MM3 CBC Comment DIFF FINAL Differential Comment Sodium Level 133 MEQ/L Potassium Level 3.8 MEQ/L Chloride Level 95 MEQ/L Carbon Dioxide Level 27.3 MEQ/L Anion Gap 11 MEQ/L Blood Urea Nitrogen 14 MG/DL Creatinine 0.69 MG/DL Estimat Glomerular Filtration 116 ML/MIN Rate Random Glucose 122 MG/DL Calcium Level 8.8 MG/DL Culture Results Microbiology Date/Time Procedure Status Source Growth 02/06/17 17:15 Gram Stain - Final Resulted Cerebral Spinal Fluid Lumbar Puncture 02/06/17 17:15 CSF Culture - Preliminary Resulted Cerebral Spinal Fluid Lumbar Puncture NO GROWTH IN 48 HOURS. Administered Medications Medications (Trade) Dose Ordered Sig/Munir Route PRN Reason Start Time Stop Time Status Last Admin Dose Admin Sodium Chloride (NS Flush) 2 ml BID IV FLUSH 02/05/17 21:00 02/08/17 08:30 Ondansetron HCl (Zofran Inj) 4 mg Q6H PRN IVP NAUSEA OR VOMITING 02/05/17 14:15 02/06/17 10:57 Senna/Docusate Sodium (Daksha-Colace) 1 tab BID PO 02/05/17 21:00 02/08/17 08:27 Dexamethasone (Decadron) 2 mg DAILY PO 02/06/17 09:00 02/08/17 08:26 Acetaminophen/ Hydrocodone Bitart ([place] 7.5-325 Mg) 2 tab Q6H PRN PO PAIN 1-10 02/05/17 14:30 02/06/17 13:41 Famotidine (Pepcid) 20 mg BID PO 02/05/17 21:00 02/08/17 08:27 Quetiapine Fumarate (SEROquel) 25 mg BID@09,12 PO 02/07/17 12:00 02/08/17 08:27 Objective Remarks GENERAL: chronically ill male supine in bed, waving arms, agitated. EXTREMITIES: No cyanosis Assessment/Plan Assessment 61y/o male with metastatic melanoma. Plan 1. Dr. Thompson called and spoke with hospice admissions. Hospice will be by later this AM and hopefully patient will be transferred to [facility]. 2. will stop all medications unrelated to comfort. 3. clear for dc Attending Statement The exam, history, and the medical decision-making described in the above note were completed with the assistance of the mid-level provider. I reviewed and agree with the findings presented. I attest that I had a [id number] encounter with the patient on the same day, and personally performed and documented my assessment and findings in the medical record. 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 The patient continues to deteriorate which is expected and does not appear to be in pain. I have contacted hospice and arranged for meeting and probable transfer to the [facility]. At the time I am writing this the transfer has already taken place. Nothing further to do and all parties are accepting of inevitable outcome. cytology pending but will not change anything. Kelly Vicente Feb 08, 2017 08:57 Jayro Thompson MD Feb 08, 2017 15:17
--- NOTE | 2017-02-08 11:26 | HHI.DCPOC ---
Discharge Care Plan Diagnosis: (1) Metastatic melanoma of brain (2) Unsteady gait (3) Metabolic encephalopathy Goals to Promote Your Health * To prevent worsening of your condition and complications * To maintain your health at the optimal level Directions to Meet Your Goals Take your medications as prescribed Follow your dietary instruction Follow activity as directed Keep your appointments as scheduled Take your immunizations and boosters as scheduled If your symptoms worsen call your PCP, if no PCP go to Urgent Care Center or Emergency Room Smoking is Dangerous to Your Health. Avoid second hand smoke Call the 24-hour hour crisis hotline for domestic abuse at Maxx Sky MD Feb 08, 2017 11:26
--- NOTE | 2017-02-08 11:31 | HHI.DS ---
Discharge Summary Admission Date Feb 05, 2017 at 12:47 Discharge Date: Feb 08, 2017 Admitting Diagnosis Weakness, confusion (1) Metastatic melanoma of brain ICD Code: C79.31 (2) Unsteady gait ICD Code: R26.81 (3) Metabolic encephalopathy ICD Code: G93.41 Procedures None Brief History - From Admission This is a 61-year-old male with past medical history of intracranial hemorrhage later found to have a melanoma in the brain which he had a tumor resection later presented with multiple lesions initially stereotactic radiotherapy then later whole brain lesions since lesions increased who presented with unsteady gait,upper extremity weakness and paresthesia. Patient stated that about a month ago he started to have left hand numbness and weakness. He stated that he also has some on the right side but that is intermittent and has improved. Also stated that for the past month he has been having unsteady gait due to dizziness and is unable to ambulate because of this. His fiance is at the bedside stated that she does not feel comfortable with him ambulating due to his risk of falling. Currently patient is on 11 out of 15 of radiation treatment. Per fiance patient has short-term memory problem now. d/w Dr. 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 CBC/BMP: 02/07/17 1415 02/07/17 1415 Significant Findings Laboratory Tests Test 02/05/17 02/06/17 02/07/17 15:22 17:15 14:15 Red Blood Count 4.32 MIL/MM3 (4.50-5.90) Hemoglobin 12.6 GM/DL (13.0-17.0) Neutrophils (%) (Auto) 88.3 % 93.6 % (16.0-70.0) (16.0-70.0) Lymphocytes (%) (Auto) 6.3 % 2.7 % (9.0-44.0) (9.0-44.0) Lymphocytes # (Auto) 0.5 TH/MM3 0.3 TH/MM3 (1.0-4.8) (1.0-4.8) Activated Partial 22.1 SEC Thromboplast Time (24.3-30.1) Random Glucose 140 MG/DL 122 MG/DL (74-106) (74-106) Total Protein 6.1 GM/DL (6.4-8.2) Albumin 2.6 GM/DL (3.4-5.0) CSF Supernatant Color (tube 1) XANTHOCHROMIC (CLEAR) CSF Gross Blood (Tube 1) 1+ (0) CSF Supernatant Color (tube 2) XANTHOCHROMIC (CLEAR) CSF Gross Blood (Tube 2) 1+ (0) CSF Supernatant Color (tube 3) XANTHOCHROMIC (CLEAR) CSF Gross Blood (Tube 3) TRACE (0) CSF Supernatant Color (tube 4) XANTHOCHROMIC (CLEAR) CSF WBC (Tube 4) 50 /MM3 (0-10) CSF RBC (Tube 4) 110 /MM3 (NONE) CSF Glucose LESS THAN 1 MG/DL (40-80) CSF Lactic Acid 12.6 MMOL/L (0.0-3.0) CSF Total Protein 710.7 MG/DL (15.0-45.0) Neutrophils # (Auto) 10.3 TH/MM3 (1.8-7.7) Sodium Level 133 MEQ/L (136-145) Chloride Level 95 MEQ/L (98-107) Imaging Last Impressions Head CT 02/07/17 0000 Signed Impressions: Service Date/Time: January 10:07 - CONCLUSION: Multiple brain metastases, some with minimal associated hemorrhage. Brian Moreno MD Lumbar Puncture Fluoroscopy 02/06/17 0000 Signed Impressions: Service Date/Time: Monday, February 06, 2017 17:00 - CONCLUSION: 1. Uncomplicated fluoroscopically guided lumbar puncture with pressures as above. 2. Densely xanthochromatic CSF fluid. Eze Medrano MD Entire Spine MRI 02/06/17 0000 Signed Impressions: Service Date/Time: Monday, February 06, 2017 15:10 - CONCLUSION: Abnormal intrathecal enhancing soft tissue in the cervical spine as described as well as diffusely thickened enhancing cauda equina nerve roots characteristic of metastatic involvement in this patient with known metastatic seeding along the ependymal surface of the ventricles. No evidence of bony involvement.. Blake Corbin MD PE at Discharge GENERAL: This is a well-nourished, well-developed patient, in no apparent distress. CARDIOVASCULAR: Regular rate and rhythm without murmurs, gallops, or rubs. RESPIRATORY: Clear to auscultation. Breath sounds equal bilaterally. No wheezes , rales, or rhonchi. GASTROINTESTINAL: Abdomen soft, non-tender, nondistended. No hepato-splenomegaly , or palpable masses. No guarding. MUSCULOSKELETAL: Extremities without clubbing, cyanosis, or edema. No joint tenderness, effusion, or edema noted. No calf tenderness. Negative Homans sign bilaterally. NEUROLOGICAL: AAO 3. Patient is altered and confused. He is moving all history extremity. Pt update on day of discharge Patient is resting comfortably at this time. Family is at bedside. They have chosen comfort care measures only and [facility] Hospital Course The patient was admitted for evaluation of altered mental status, weakness, unsteady gait. Neurology was consulted. Oncology was consulted. Patient was found on imaging to have metastatic lesions. 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 Comfort care measures were recommended. Hospice was consulted. The patient and his family accepted hospice and arrangements were made for transfer to the hospice care center. Pt Condition on Discharge: Guarded Discharge Disposition: Hospice/Med Facility Discharge Time: > 30 minutes Discharge Instructions DIET: Follow Instructions for: As Tolerated, No Restrictions Activities you can perform: Regular-No Restrictions Discontinued Medications: Dexamethasone (Dexamethasone) 2 Mg Tab 2 MG PO DAILY #30 Ref 0 TAB Hydrocodone-Acetaminophen (Hydrocodone-Acetaminophen) 7.5-325 mg Tab 2 TAB PO Q6H PRN PAIN Ref 0 TAB Ondansetron Liq (Ondansetron Liq) 4 Mg/5 Ml Soln 4 MG PO Q8H PRN NAUSEA OR VOMITING #100 Ref 0 ML Ranitidine (Zantac) 300 Mg Tab 300 MG PO DAILY Ref 0 TAB Maxx Sky MD Feb 08, 2017 11:31
[2017-02-08 12:00] VITALS: BP 125/78; PULSE 91; RESP 18; TEMP 96.4; O2SAT 95
== END 2017-02-08 13:02 | disposition hospice, inpatient (51) | DRG 54 ==
LOC: HOCA 12:47
PROVIDERS: ADMIT Family Medicine; ATTEND Family Medicine
PROC: 009U3ZX Drainage of Spinal Canal, Percutaneous Approach, Diagnostic (ICD-10-PCS; principal; 2017-02-06)
DX: C79.31 Secondary malignant neoplasm of brain (principal); G93.41 Metabolic encephalopathy; C43.9 Malignant melanoma of skin, unspecified; G03.8 Meningitis due to other specified causes; Z86.711 Personal history of pulmonary embolism; Z51.5 Encounter for palliative care; Z66 Do not resuscitate
CPT/HCPCS: 62270; 70450; 72156; 72158; 76937; 77003; 80048; 80053; 82945; 83605; 84157; 85025; 85610; 85730; 87070; 87205; 87641; 89051; A9579; J2060; J2405; J8540